=== PATIENT | female | born 1985 | race Caucasian/White ===

== ENCOUNTER 2020-03-03 08:29 | Outpatient (REF) | payer OTHER, SELFPAY ==
[2020-03-04 09:27] LABS: CT PCR NOT DETECTED (Not Detect.); NG PCR NOT DETECTED (Not Detect.)
[2020-03-04 10:01] LABS: BV Int Neg Control Negative (Negative); BV Int Pos Control Positive (Positive)
[2020-03-05 21:37] LABS: HPV mRNA E6/E7 Not Detected (Not Detected)
== END 2020-03-03 08:30 | disposition home or self-care (01) ==
LOC: HO.LAB 08:29
PROVIDERS: PCP Internal Medicine; Referring Provider Internal Medicine; Visit Provider Obstetrics & Gynecology
DX: Z01.419 Encounter for gynecological examination (general) (routine) without abnormal findings (principal); Z11.51 Encounter for screening for human papillomavirus (HPV); Z11.3 Encounter for screening for infections with a predominantly sexual mode of transmission; Z23 Encounter for immunization
CPT/HCPCS: 87480; 87491; 87510; 87591; 87624; 87625; 87660; 88142

== ENCOUNTER 2020-03-14 16:52 | Outpatient (REF) | payer OTHER, SELFPAY | END 2020-03-14 16:53 | disposition home or self-care (01) | LOC: HO.LNP 16:52 | PROVIDERS: Visit Provider Hospitalist | DX: Z20.828 Contact with and (suspected) exposure to other viral communicable diseases (principal); B34.9 Viral infection, unspecified | CPT/HCPCS: U0003 ==

== ENCOUNTER 2020-08-28 12:44 | Outpatient (REF) | payer OTHER, SELFPAY ==
[2020-08-29 09:07] LABS: CT PCR NOT DETECTED (Not Detect.); NG PCR NOT DETECTED (Not Detect.)
[2020-08-29 11:00] LABS: BV Int Neg Control Negative (Negative); BV Int Pos Control Positive (Positive)
== END 2020-08-28 12:45 | disposition home or self-care (01) ==
LOC: HO.LAB 12:44
PROVIDERS: PCP Internal Medicine; Visit Provider Advanced Practice Midwife
DX: N76.0 Acute vaginitis (principal); B19.20 Unspecified viral hepatitis C without hepatic coma; F17.210 Nicotine dependence, cigarettes, uncomplicated; Z20.2 Contact with and (suspected) exposure to infections with a predominantly sexual mode of transmission
CPT/HCPCS: 81003; 81025; 87480; 87491; 87510; 87591; 87660; 99212

== ENCOUNTER 2020-09-01 16:12 | Emergency (ER) | payer OTHER, SELFPAY ==
[2020-09-01 16:58] VITALS: BP 122/79; PULSE 80; RESP 18; TEMP 36.6; O2SAT 99; BMI 54.6
[2020-09-01 19:05] VITALS: BP 104/57; PULSE 74; RESP 16; TEMP 36.9; O2SAT 98
--- NOTE | 2020-09-01 19:18 | ED_ITS ---
HPI - General Adult General Chief complaint: General Medical Stated complaint: anxiety, med refill Time Seen by Provider: 09/01/20 16:30 Source: patient Mode of arrival: ambulatory Limitations: no limitations History of Present Illness HPI narrative: 35-year-old female with a past medical history of anxiety here seeking a refill for her Ativan. The patient tells me that she takes Ativan 3 times a day as needed for anxiety. She has been taking this for quite some time. Her medications are filled by her primary care doctor Dr. golden. Patient tells me that she ran out of her medications yesterday. She did call the on-call and is waiting for her medication to be refilled. She tells me that she started to feel tremulous and shaking and became concerned and brought herself to the emergency department. Initially the triage nurse had reported the patient had a syncopal episode but when I asked her about this she tells me that she felt very dizzy and lightheaded and had to sit down because she felt l ruddy she was going to pass out but there was no syncope. Related Data Home Medications Medication Instructions Recorded Confirmed docusate sodium 100 mg capsule 100 mg PO BID cap 08/13/20 escitalopram oxalate 10 mg tablet 10 mg PO DAILY 08/13/20 08/13/20 methadone 10 mg/mL oral concentrate 75 mg PO DAILY ml 08/13/20 08/13/20 polyethylene glycol See Rx Instructions MISCELLANEOUS 08/13/20 08/13/20 .COMPLEX quetiapine 25 mg tablet 25 mg PO DAILY PRN tab 08/13/20 08/13/20 Previous Rx's Medication Instructions Recorded buspirone 5 mg tablet 5 mg PO TID 30 Days #90 tab 02/21/20 bupropion HCl 300 mg 24 hr tablet, 300 mg PO QAM 30 Days #30 tab 07/31/20 extended release gabapentin 800 mg tablet 800 mg PO TID 30 Days #90 tab 07/31/20 prazosin 2 mg capsule 4 mg PO BEDTIME 30 Days #60 cap 07/31/20 quetiapine 400 mg tablet 400 mg PO BEDTIME 30 Days #30 tab 07/31/20 lorazepam 2 mg tablet 2 mg PO TID PRN 30 Days #90 tab 09/01/20 Allergies Allergy/AdvReac Type Severity Reaction Status Date / Time No Known Allergies Allergy Verified 08/28/20 12:59 [No Known Allergies*] Review of Systems Review of Systems: Yes all other systems are reviewed and are negative Constitutional: Constitutional: Reports no additional constitutional complaints, Denies body ache(s), Denies chills, Denies fever(s), Denies headache(s) and Denies weakness Eyes: Eyes: Reports no additional eye complaints and Denies change in vision ENT: Reports system reviewed and no additional complaints, except as documented, Reports dizziness, Denies headache(s), Denies nasal congestion, Denies nasal discharge and Denies neck pain Cardiovascular: Cardiovascular: Reports no additional cardiovascular complaints, Denies chest pain, Denies leg edema and Denies dyspnea Respiratory: Respiratory: Reports no additional respiratory complaints, Denies cough and Denies dyspnea Gastrointestinal: Gastrointestinal: Reports no additional gastrointestinal complaints, Denies abdominal pain, Denies diarrhea, Denies nausea and Denies vomiting Genitourinary: Genitourinary: Reports no additional female genitourinary complaints and Denies urinary incontinence Musculoskeletal: Musculoskeletal: Reports no additional musculoskeletal complaints, Denies back pain, Denies arthralgias, Denies joint swelling, Denies neck pain, Denies numbness and Denies tingling Integumentary/Breasts: Skin/Breast: Reports system reviewed and no additional complaints, except as docu and Denies rash Neurologic: Reports system reviewed and no additional complaints, except as documented, Denies Abnormal speech present, Reports dizziness, Denies headache(s), Denies numbness, Denies tingling and Denies weakness PMFSH Past Medical History Attestation statement: The following information was validated with the patient. Source: old records reviewed and nursing notes reviewed Medical History Anxiety Bipolar depression Fatigue Hip pain, bilateral History of anxiety History of depression Hx of hepatitis C Muscle twitching Positive hepatitis C antibody test Right hand pain Smoker Type 2 diabetes mellitus Vision impairment Family History Family History Father Diabetes Cancer HTN (hypertension) Social History Social History Alcohol intake: former Smoking Status: Current every day smoker Tobacco Type: Cigarette Cigarettes Per Day: 2 Years Smoked: 13 Use of substances other than those prescribed or required for medical reasons: No Advance Directives: No Advance Directives Information Provided: Yes Sexual orientation: Straight/Heterosexual Gender identity: female Physical Exam Vital Signs: Vital Signs: Last Vital Signs Temp 98.5 F 09/01/20 19:05 Pulse 74 09/01/20 19:05 Resp 16 09/01/20 19:05 BP 104/57 L 09/01/20 19:05 Pulse Ox 98 09/01/20 19:05 Body Mass Index 54.6 Const: General: cooperative, healthy appearing, comfortable and no acute distress Orientation/consciousness: patient oriented x3 Limitations: no limitations HENMT: Head: Yes normal to inspection Ears: hearing grossly normal bilaterally General nose exam: Normal external nose present Face and sinus: Yes normal facial exam Mouth: Normal oral and palatal mucosa present Throat: Yes posterior oropharynx normal Eyes: General: appearance normal, both eyes and all related structures Pupils: Equal, round and reactive pupils present Neck: Neck: Yes normal visual inspection Chest: Chest palpation & inspection: normal inspection of the chest Resp: Effort & Inspection: normal respiratory effort Auscultation: clear to auscultation bilaterally Cardio: Rate: regular rate Rhythm: regular rhythm Peripheral pulses: Peripheral pulses 2+ throughout GI: Inspection: Yes normal to inspection Palpation (GI): Soft to palpation and nontender Auscultation: normal bowel sounds Back/Spine/Pelvis: Thoracic/Lumbar Spine: thoracic and lumbar spine normal to inspection Skin: General skin exam: no rashes or lesions noted Neuro: General: patient oriented x3, no focal motor deficits and normal sensation to monofilament Cranial nerves: Yes Equal, round and reactive pupils present Cognition (Neuro): normal cognition Speech: No Abnormal speech present Gait exam (Neuro): Normal gait present Motor exam (neuro): 5/5 motor strength present throughout Extrem: General: Yes normal to inspection Course Course Course Narrative: 35-year-old female with a past medical history of anxiety here seeking a refill for her Ativan. She tells me that she last took her dose yesterday and today felt slightly tremulous and dizzy when she changed positions. Hemodynamically stable. Normal neuro exam. Stable vital signs. I called the patient's pharmacy [facility]. They tell me they have a refill they are waiting for the patient. I did explain this to her. 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 Reviewed worrisome signs and symptoms and when to return to the emergency department. Comfortable discharge home. Discharge Plan Discharge Clinical Impression: Anxiety Patient Disposition: Home, Self-Care Instructions: Anxiety (ED) Additional Instructions: Go to [facility] on [facility]. They have your prescription waiting for you Prescriptions: No Action buspirone 5 mg tablet 5 mg PO TID 30 Days Qty: 90 RF: 1 gabapentin 800 mg tablet 800 mg PO TID 30 Days Qty: 90 RF: 1 prazosin 2 mg capsule 4 mg PO BEDTIME 30 Days Qty: 60 RF: 1 quetiapine 400 mg tablet 400 mg PO BEDTIME 30 Days Qty: 30 RF: 1 bupropion HCl 300 mg tablet extended release 24 hr 300 mg PO QAM 30 Days Qty: 30 RF: 0 lorazepam 2 mg tablet 2 mg PO TID PRN (Reason: anxiety) 30 Days Qty: 90 RF: 0 escitalopram oxalate 10 mg tablet 10 mg PO DAILY RF: 0 quetiapine 25 mg tablet 25 mg PO DAILY PRN (Reason: anxiety) RF: 0 docusate sodium 100 mg capsule 100 mg PO BID RF: 0 polyethylene glycol Powder See Rx Instructions miscellaneous .COMPLEX RF: 0 methadone 10 mg/mL concentrate 75 mg PO DAILY RF: 0 Referrals: Quinton Lopez MD [Primary Care Provider] - 2 days (as needed) Interventions: ED Discharge Assessment Last Done: 09/01/20 19:30 Discharge Date/Time: 09/01/20 19:31
[2020-09-01] MEDS: LORazepam 1 MG TABLET 2 MG PO (19:24)
== END 2020-09-01 19:31 | disposition home or self-care (01) ==
PROVIDERS: Emergency Provider Emergency Medicine; PCP Internal Medicine
DX: F41.9 Anxiety disorder, unspecified (principal); F17.210 Nicotine dependence, cigarettes, uncomplicated; F11.20 Opioid dependence, uncomplicated; Z86.19 Personal history of other infectious and parasitic diseases
CPT/HCPCS: 99283; 99284

== ENCOUNTER → 2021-09-10 12:50 | Outpatient (REF) | payer OTHER, SELFPAY ==
--- NOTE | 2021-09-10 12:57 | ECG_ITS ---
Test Reason : F19.11 Blood Pressure : / mmHG Vent. Rate : 087 BPM Atrial Rate : 087 BPM P-R Int : 146 ms QRS Dur : 094 ms QT Int : 396 ms P-R-T Axes : 054 057 058 degrees QTc Int : 476 ms Normal sinus rhythm Incomplete right bundle branch block Nonspecific T wave abnormality Prolonged QT Abnormal ECG When compared with ECG of 30-JUL-2019 20:39, No significant change was found Referred By: Quinton Lopez Electronically Signed By:ANDREA BELTRAN
== END ==
LOC: HO.CARD 12:50
PROVIDERS: PCP Internal Medicine; Visit Provider Internal Medicine
DX: F19.11 Other psychoactive substance abuse, in remission (principal); Z51.81 Encounter for therapeutic drug level monitoring
CPT/HCPCS: 93005

== ENCOUNTER 2021-10-09 10:48 | Outpatient (REF) | payer OTHER, SELFPAY ==
--- NOTE | 2021-10-09 15:17 | PFT_ITS ---
FLOWS: FEV1 105% of predicted at 3.20 L. FVC 101% of predicted at 3.67 L. FEV1 to FVC ratio of 0.87. No bronchodilator response. LUNG VOLUMES: Total lung capacity 86% of predicted at 4.22 L. Residual volume 48% of predicted at 0.70 L. Slow vital capacity 101% of predicted at 3.53 L. Expiratory reserve volume 84% of predicted. Diffusion capacity is mildly decreased. IMPRESSION: No obstructive or restrictive ventilatory defect. No bronchodilator response. Decreased diffusion capacity suggests emphysema. MD CHYNA Vernon/MODL / [id number]
== END 2021-10-09 10:49 | disposition home or self-care (01) ==
LOC: HO.RESP 10:48
PROVIDERS: PCP Internal Medicine; Visit Provider Internal Medicine
DX: R06.00 Dyspnea, unspecified (principal)
CPT/HCPCS: 94060; 94727; 94729

== ENCOUNTER 2022-01-20 15:02 | Outpatient (REF) | payer OTHER, SELFPAY ==
[2022-01-22 03:05] LABS: CT PCR NOT DETECTED (Not Detect.); NG PCR NOT DETECTED (Not Detect.)
[2022-01-22 08:42] LABS: BV Int Neg Control Negative (Negative); BV Int Pos Control Positive (Positive)
== END 2022-01-20 15:03 | disposition home or self-care (01) ==
LOC: HO.LNP 15:02
PROVIDERS: Visit Provider Advanced Practice Midwife
DX: Z11.3 Encounter for screening for infections with a predominantly sexual mode of transmission (principal); Z20.2 Contact with and (suspected) exposure to infections with a predominantly sexual mode of transmission
CPT/HCPCS: 87480; 87491; 87510; 87591; 87660

== ENCOUNTER 2022-01-20 15:02 | Outpatient (REF) | payer OTHER, SELFPAY ==
[2022-01-29 03:51] LABS: HPV mRNA E6/E7 rflx Not Detected (Not Detected)
== END 2022-01-20 15:03 | disposition home or self-care (01) ==
LOC: HO.LNP 15:02
PROVIDERS: PCP Internal Medicine; Visit Provider Advanced Practice Midwife
DX: Z01.411 Encounter for gynecological examination (general) (routine) with abnormal findings (principal); Z11.51 Encounter for screening for human papillomavirus (HPV); N92.6 Irregular menstruation, unspecified
CPT/HCPCS: 81025; 87624; 88142

== ENCOUNTER 2022-02-04 11:53 | Outpatient (REF) | payer OTHER, SELFPAY ==
--- NOTE | ~2022-02-04 | XR_ITS ---
EXAMINATION: BILATERAL HIP X-RAY CLINICAL INFORMATION: Bilateral hip pain COMPARISON: None TECHNIQUE: 2 views of each hip FINDINGS: Bone alignment is normal. No fracture or dislocation is seen. The hip joints are normal. Soft tissues are normal. XR/XR hip RT min 2V IMPRESSION: Unremarkable exam.
--- NOTE | ~2022-02-04 | XR_ITS ---
EXAMINATION: BILATERAL HIP X-RAY CLINICAL INFORMATION: Bilateral hip pain COMPARISON: None TECHNIQUE: 2 views of each hip FINDINGS: Bone alignment is normal. No fracture or dislocation is seen. The hip joints are normal. Soft tissues are normal. XR/XR hip LT min 2V IMPRESSION: Unremarkable exam.
--- NOTE | ~2022-02-04 | XR_ITS ---
EXAMINATION: XR ABDOMEN COMPLETE CLINICAL INDICATION: Abdominal distention COMPARISON: None TECHNIQUE: 2 views of the abdomen. FINDINGS: There is stool throughout the colon suggestive of mild constipation. There are no dilated loops of bowel to suggest obstruction. There is no evidence of free air. There are pelvic calcifications suggestive of calcified phleboliths. Bony structures are unremarkable. XR/XR abdomen 3V IMPRESSION: Stool in the colon suggestive of constipation.
[2022-02-04 12:36] LABS: MANUAL DIFF FLAG NO
[2022-02-04 12:53] LABS: Basophils Percent Auto 0.5 % (0-2); Eosinophils Absolute Auto 0.1 X10*3/uL (0.0-0.4); Eosinophils Percent Auto 2.2 % (0-4); Hematocrit 32.4 % (37.0-47.0); Lymphocytes Absolute Auto 1.7 X10*3/uL (1.2-4.9); Lymphocytes Percent Auto 46.9 % (20-40); Mean Corpuscular Hemoglobin 29.2 pg (27.0-33.0); Mean Corpuscular Volume 85.9 fL (80.0-98.0); Monocytes Absolute Auto 0.3 X10*3/uL (0.1-1.2); Neutrophils Absolute Auto 1.5 x10*3/uL (2.0-8.3); Neutrophils Percent Auto 41.4 % (45-73); Platelet Count 154 X10*3/uL (160-400); Red Blood Count 3.77 X10*6/uL (4.20-5.50); Red Cell Distribution Width 12.8 % (11.0-16.0); White Blood Count 3.7 X10*3/uL (4.8-10.8)
[2022-02-04 12:54] LABS: Hematocrit 32.5 % (37.0-47.0); Hemoglobin 11.1 g/dl (12.0-16.0); Mean Corpuscular HGB Conc 34.2 g/dl (31.0-35.0); Mean Corpuscular Hemoglobin 29.4 pg (27.0-33.0); Mean Corpuscular Volume 86.2 fL (80.0-98.0); Mean Platelet Volume 10.2 fL (9.4-12.3); Platelet Count 154 X10*3/uL (160-400); Red Blood Count 3.77 X10*6/uL (4.20-5.50); Red Cell Distribution Width 12.8 % (11.0-16.0); White Blood Count 3.7 X10*3/uL (4.8-10.8)
[2022-02-04 13:13] LABS: Estimated Average Glucose 117 mg/dL; Hemoglobin A1c % 5.7 %
[2022-02-04 13:25] LABS: Alanine Aminotransferase 91 U/L (0-31); Albumin Level 4.5 g/dL (3.5-5.0); Alkaline Phosphatase 134 U/L (39-117); Anion Gap 16 (12-20); Aspartate Amino Transferase 66 U/L (5-31); Bilirubin Total 0.4 mg/dL (0.0-1.0); Blood Urea Nitrogen 15 mg/dL (9-16); Calcium 9.5 mg/dL (8.4-10.2); Carbon Dioxide 25 mmol/L (22-29); Chloride 103 mmol/L (96-108); Cholesterol 202 mg/dL; Estimated Glomerular Filt Rate > 60; Glucose Fasting 94 mg/dL (60-99); HDL Cholesterol 35 mg/dL; Potassium 4.5 mmol/L (3.3-5.1); Sodium 139 mmol/L (135-145); Total Protein 7.8 g/dL (6.5-8.0); Triglycerides 461 mg/dL
[2022-02-04 13:38] LABS: TSH reflex Free T4 0.96 uIU/mL (0.32-4.0); Vitamin D 25-OH Total 21.2 ng/mL (>30)
[2022-02-04 13:40] LABS: Free T4 (Free Thyroxine) 0.78 ng/dL (0.71-1.85); Thyroid Stimulating Hormone 0.98 uIU/mL (0.32-4.0)
[2022-02-05 22:43] LABS: DHEA Sulfate 90 mcg/dL (19-237); Follicle Stimulating Hormone 3.7 mIU/mL; Lutenizing Hormone 0.7 mIU/mL; Prolactin 9.7 ng/mL
[2022-02-10 13:42] LABS: Testosterone, Free 1.8 pg/mL (0.1-6.4); Testosterone, Total 11 ng/dL (2-45)
== END 2022-02-04 11:54 | disposition home or self-care (01) ==
LOC: HO.LAB 11:53
PROVIDERS: Advanced Practice Midwife; PCP Internal Medicine; Visit Provider Internal Medicine
DX: R10.9 Unspecified abdominal pain (principal); R63.5 Abnormal weight gain; R73.01 Impaired fasting glucose; E55.9 Vitamin D deficiency, unspecified; N91.1 Secondary amenorrhea; R14.0 Abdominal distension (gaseous)
CPT/HCPCS: 36415; 73502; 74021; 80053; 80061; 82306; 82627; 83001; 83002; 83036; 84146; 84402; 84403; 84439; 84443; 85025; 85027

== ENCOUNTER 2022-03-09 10:28 | Outpatient (REF) | payer OTHER, SELFPAY | END 2022-03-09 10:29 | disposition home or self-care (01) | LOC: HO.LNP 10:28 | PROVIDERS: PCP Internal Medicine; Visit Provider Obstetrics & Gynecology | DX: R87.610 Atypical squamous cells of undetermined significance on cytologic smear of cervix (ASC-US) (principal) | CPT/HCPCS: 57454; 88305; 99212 ==

== ENCOUNTER 2022-05-08 13:16 | Emergency (ER) | payer OTHER, SELFPAY ==
[2022-05-08 13:18] VITALS: BP 126/68; PULSE 91; RESP 18; TEMP 36.4; O2SAT 97; BMI 30.6
[2022-05-08 13:37] LABS: MANUAL DIFF FLAG NO
[2022-05-08 13:38] LABS: Basophils Percent Auto 0.2 % (0-2); Eosinophils Absolute Auto 0.1 X10*3/uL (0.0-0.4); Eosinophils Percent Auto 1.7 % (0-4); Hematocrit 35.8 % (37.0-47.0); Hemoglobin 12.1 g/dl (12.0-16.0); Lymphocytes Absolute Auto 1.9 X10*3/uL (1.2-4.9); Lymphocytes Percent Auto 45.7 % (20-40); Mean Corpuscular HGB Conc 33.8 g/dl (31.0-35.0); Mean Corpuscular Hemoglobin 29.2 pg (27.0-33.0); Mean Corpuscular Volume 86.5 fL (80.0-98.0); Mean Platelet Volume 9.8 fL (9.4-12.3); Monocytes Absolute Auto 0.3 X10*3/uL (0.1-1.2); Monocytes Percent Auto 6.7 % (2-11); Neutrophils Absolute Auto 1.9 x10*3/uL (2.0-8.3); Neutrophils Percent Auto 45.7 % (45-73); Platelet Count 168 X10*3/uL (160-400); Red Blood Count 4.14 X10*6/uL (4.20-5.50); Red Cell Distribution Width 12.6 % (11.0-16.0); White Blood Count 4.2 X10*3/uL (4.8-10.8)
[2022-05-08 13:51] LABS: Alanine Aminotransferase 89 U/L (0-31); Albumin Level 4.6 g/dL (3.5-5.0); Alkaline Phosphatase 160 U/L (39-117); Anion Gap 12 (12-20); Aspartate Amino Transferase 51 U/L (5-31); Bilirubin Direct < 0.2 mg/dL (0.0-0.5); Bilirubin Total 0.3 mg/dL (0.0-1.0); Blood Urea Nitrogen 12 mg/dL (9-16); Calcium 9.7 mg/dL (8.4-10.2); Carbon Dioxide 30 mmol/L (22-29); Chloride 101 mmol/L (96-108); Creatinine Clr Calc Pharmacy 83.6; Estimated Glomerular Filt Rate > 60; Glucose Random 98 mg/dL (60-115); Potassium 3.9 mmol/L (3.3-5.1); Sodium 139 mmol/L (135-145); Total Protein 7.6 g/dL (6.5-8.0)
[2022-05-08 14:20] LABS: Lipase 9 U/L (8-78)
[2022-05-08 14:46] LABS: Appearance Urine Clear; Color Urine Yellow; Glucose Urine UA Negative (Negative); Leukocyte Esterase Urine Negative (Negative); Nitrite Urine Negative (Negative); PH 5.5 (5.0-9.0); Urine Blood Negative (Negative); Urine Ketones Negative (Negative); Urine Protein Negative (Neg-Trace)
[2022-05-08 14:52] LABS: UPreg QC Valid YES; Urine Pregnancy NEGATIVE (NEGATIVE)
[2022-05-08 15:24] LABS: Amphetamine Screen Urine Not Detected (Not Detect); Barbiturates, Urine Not Detected (Not Detect); Benzodiazepines Screen Urine Not Detected (Not Detect); Cannabinoid Screen Urine Not Detected (Not Detect); Cocaine Screen Urine POSITIVE (Not Detect); Fentanyl, urine POSITIVE (Not Detect); Opiate Screen Urine POSITIVE (Not Detect); Phencyclidine Screen Urine Not Detected (Not Detect)
--- NOTE | 2022-05-08 15:28 | ED_ITS ---
HPI - Abdominal Pain General Chief Complaint: Abdominal Pain Stated Complaint: stomach issues Time Seen by Provider: 05/08/22 14:01 Source: patient Mode of arrival: ambulatory History of Present Illness HPI narrative: enemas at home. She denies any nausea, vomiting but reports fevers and malaise had this difficulty for months now and that she has been seen by her primary weight gain as well as abdominal distension. use. Related Data Medication Instructions Recorded Confirmed methadone 10 mg/mL oral concentrate 115 mg PO DAILY 02/04/22 02/04/22
--- NOTE | 2022-05-08 15:28 | ED.ABDPAIN ---
HPI - Abdominal Pain General Chief Complaint: Abdominal Pain Stated Complaint: stomach issues Time Seen by Provider: 05/08/22 14:01 Source: patient Mode of arrival: ambulatory History of Present Illness HPI narrative: 37-year-old female who presents with complaints of constipation unrelieved by enemas at home. She denies any nausea, vomiting but reports fevers and malaise and states that she ?just does not feel that?. However, patient states she has had this difficulty for months now and that she has been seen by her primary care provider as well as [facility]. Patient reports ?extreme weight gain as well as abdominal distension. Patient denies any alcohol or drug use. Related Data Home Medications Medication Instructions Recorded Confirmed docusate sodium 100 mg capsule 100 mg PO BID 08/13/20 02/04/22 methadone 10 mg/mL oral concentrate 115 mg PO DAILY 02/04/22 02/04/22 Previous Rx's Medication Instructions Recorded blood-glucose meter (FreeStyle #1 ea 09/11/20 Lite Meter kit) escitalopram oxalate 10 mg tablet 20 mg PO DAILY #60 tabs 03/27/21 [id number]-[id number]-vbhnkego 1 cap PO TID PRN headaches 4 days 06/03/21 50 mg-300 mg-40 mg capsule #12 caps (Fioricet) clotrimazole 1 % topical solution 1 appl topical .QD 30 days #30 mL 09/10/21 quetiapine 25 mg tablet 25 mg PO BID PRN anxiety 30 days 09/22/21 #60 tabs bisacodyl 10 mg rectal suppository 10 mg CA DAILY PRN constipation 10/21/21 (Dulcolax (bisacodyl)) #12 ea nicotine (polacrilex) 4 mg gum 4 mg buccal Q2H PRN nicotine 10/26/21 cravings #110 ea buspirone 5 mg tablet 5 mg PO TID 30 days #90 tabs 01/06/22 polyethylene glycol 3350 17 gram 17 g PO BID PRN constipation 30 01/06/22 oral powder packet days #60 ea quetiapine 400 mg tablet 400 mg PO BEDTIME 30 days #30 tabs 01/06/22 triamcinolone acetonide 0.1 % 1 appl topical BID PRN rash 30 02/12/22 topical cream days #80 grams bupropion HCl 300 mg 24 hr tablet, 300 mg PO QAM 30 days #30 tabs 04/05/22 extended release lorazepam 2 mg tablet 2 mg PO TID PRN anxiety 30 days 04/13/22 #90 tabs gabapentin 800 mg tablet 800 mg PO TID 30 days #90 tabs 05/06/22 prazosin 2 mg capsule 4 mg PO BEDTIME #60 caps 05/07/22 Allergies Allergy/AdvReac Type Severity Reaction Status Date / Time No Known Allergies Allergy Verified 03/09/22 10:33 [No Known Allergies*] Review of Systems Review of Systems Pertinent positives and negatives as stated in HPI 10 point review systems otherwise negative. PMFSH Past Medical History Source: nursing notes reviewed Medical History Anxiety Bipolar depression Constipation Dysplasia of cervix, low grade (SIVAKUMAR 1) Fatigue Hip pain, bilateral History of anxiety History of depression History of substance abuse Hx of hepatitis C Impaired fasting glucose Muscle twitching Obesity (BMI 30-39.9) Overweight (BMI 25.0-29.9) Positive hepatitis C antibody test Right hand pain Smoker Type 2 diabetes mellitus Vision impairment Surgical History No pertinent past surgical history Family History Family History Father Diabetes Cancer HTN (hypertension) Other Mental health problem Substance abuse Social History Social History Housing: Other Housing Other:: correction house Alcohol intake: former Patient Tobacco Use Status: Former Tobacco user Years Smoked: 13 Second Hand Smoke Exposure: Yes Advance Directives: No Advance Directives Information Provided: Yes service: No Current occupational status: unemployed Sexual orientation: Lesbian/[place]/Homosexual Gender identity: Female Cognitive needs: No Hearing needs: No Vision needs: Yes Physical Exam ED Vital Signs: Vital Signs - 24 hr 05/08/22 13:18 Temperature 97.6 F Pulse Rate 91 Respiratory Rate 18 Blood Pressure 126/68 Pulse Oximetry 97 Oxygen Delivery Method Room Air BMI result Body Mass Index 30.6 VITAL SIGNS: Reviewed. GENERAL: Well developed, well nourished, in no acute distress. HEAD: Normocephalic/atraumatic EYES: PERRLA, EOMI EARS: Ext canals without abnormality OROPHARYNX: no oral lesions noted, posterior pharynx clear NECK: Supple, no adenopathy LUNGS: Normal breath sounds. No adventitious sounds or accessory muscle use. SpO2<97> CARDIOVASCULAR: Regular rate and rhythm without noted murmurs ABDOMEN: Soft, non-tender, non-distended with bowel sounds. MUSCULOSKELETAL: No tenderness, deformities, or effusions noted on gross inspection. EXTREMITIES: No cyanosis, clubbing or edema. SKIN: Inspection of the skin reveals no rashes, ulcerations, jaundice, pallor, or petechiae. NEUROLOGIC: Alert and oriented x 4. Strength and sensation to light touch were grossly intact x 4. Medical Decision Making Medical Decision Making [facility] Narrative: 37-year-old female who comes in with chronic abdominal discomfort for months I reviewed all of the laboratory investigations and there is no evidence of acute infection or anemia, the derangement of liver enzymes appears to be attributable to the urine toxicology results. Abdomen is soft and does not appear to be distended and urinalysis is negative for acute findings. Patient is declining KUB at this time for evaluation of constipation, she is hemodynamically stable and there are no other acute findings that would warrant me requiring the patient to sign out against medical advice. So I will give her a regular discharge with a referral to follow-up with gastroenterology to address her concerns regarding chronic constipation. Differential Diagnosis Differential Diagnoses: The differential diagnosis associated with the presentation includes Constipation, infection Lab Data [facility] Lab Attestation statement: I reviewed the patient's lab results. Please see the discussion above regarding laboratory results. Result Diagrams: 05/08/22 13:33 05/08/22 13:33 Labs: Lab Results 05/08/22 05/08/22 05/08/22 Range/Units 13:33 13:33 14:37 WBC 4.2 L (4.8-10.8) X10*3/uL RBC 4.14 L (4.20-5.50) X10*6/uL Hgb 12.1 (12.0-16.0) g/dl Hct 35.8 L (37.0-47.0) % MCV 86.5 (80.0-98.0) fL MCH 29.2 (27.0-33.0) pg MCHC 33.8 (31.0-35.0) g/dl RDW 12.6 (11.0-16.0) % Plt Count 168 (160-400) X10*3/uL MPV 9.8 (9.4-12.3) fL Immature Gran % (Auto) 0.0 (0.0-0.4) % Neut % (Auto) 45.7 (45-73) % Lymph % (Auto) 45.7 H (20-40) % [place] % (Auto) 6.7 (2-11) % Eos % (Auto) 1.7 (0-4) % Baso % (Auto) 0.2 (0-2) % Lymph # (Auto) 1.9 (1.2-4.9) X10*3/uL [place] # (Auto) 0.3 (0.1-1.2) X10*3/uL Eos # (Auto) 0.1 (0.0-0.4) X10*3/uL Baso # (Auto) 0.0 (0.0-0.2) X10*3/uL Abs Immat Gran (auto) 0.00 (0.00-0.03) X10*3/uL Absolute Neuts (auto) 1.9 L (2.0-8.3) x10*3/uL Absolute Nucleated RBC 0.000 (0.0-0.012) X10*3/uL Nucleated RBC % (auto) 0.0 (0.0-0.2) /100WBC Sodium 139 (135-145) mmol/L Potassium 3.9 (3.3-5.1) mmol/L Chloride 101 (96-108) mmol/L Carbon Dioxide 30 H (22-29) mmol/L Anion Gap 12 (12-20) BUN 12 (9-16) mg/dL Creatinine 0.93 (0.5-1.4) mg/dL Estim Creat Clear Calc 83.6 Estimated GFR > 60 Random Glucose 98 (60-115) mg/dL Calcium 9.7 (8.4-10.2) mg/dL Total Bilirubin 0.3 (0.0-1.0) mg/dL Direct Bilirubin < 0.2 (0.0-0.5) mg/dL AST 51 H (5-31) U/L ALT 89 H (0-31) U/L Alkaline Phosphatase 160 H (39-117) U/L Total Protein 7.6 (6.5-8.0) g/dL Albumin 4.6 (3.5-5.0) g/dL Lipase 9 (8-78) U/L Urine Color Yellow Urine Appearance Clear Urine pH 5.5 (5.0-9.0) Ur Specific [place] 1.010 (1.005-1.025) Urine Protein Negative (Neg-Trace) mg/dL Urine Glucose (UA) Negative (Negative) mg/dL Urine Ketones Negative (Negative) mg/dL Urine Blood Negative (Negative) Urine Nitrite Negative (Negative) Ur Leukocyte Esterase Negative (Negative) Urine Test (NEGATIVE) Urine Opiates Screen (Not Detect) Urine Fentanyl Screen (Not Detect) Ur Barbiturates Screen (Not Detect) Ur Phencyclidine Scrn (Not Detect) Ur Amphetamines Screen (Not Detect) U Benzodiazepines Scrn (Not Detect) Urine Cocaine Screen (Not Detect) U Marijuana (THC) Screen (Not Detect) 05/08/22 05/08/22 Range/Units 14:37 14:37 WBC (4.8-10.8) X10*3/uL RBC (4.20-5.50) X10*6/uL Hgb (12.0-16.0) g/dl Hct (37.0-47.0) % MCV (80.0-98.0) fL MCH (27.0-33.0) pg MCHC (31.0-35.0) g/dl RDW (11.0-16.0) % Plt Count (160-400) X10*3/uL MPV (9.4-12.3) fL Immature Gran % (Auto) (0.0-0.4) % Neut % (Auto) (45-73) % Lymph % (Auto) (20-40) % [place] % (Auto) (2-11) % Eos % (Auto) (0-4) % Baso % (Auto) (0-2) % Lymph # (Auto) (1.2-4.9) X10*3/uL [place] # (Auto) (0.1-1.2) X10*3/uL Eos # (Auto) (0.0-0.4) X10*3/uL Baso # (Auto) (0.0-0.2) X10*3/uL Abs Immat Gran (auto) (0.00-0.03) X10*3/uL Absolute Neuts (auto) (2.0-8.3) x10*3/uL Absolute Nucleated RBC (0.0-0.012) X10*3/uL Nucleated RBC % (auto) (0.0-0.2) /100WBC Sodium (135-145) mmol/L Potassium (3.3-5.1) mmol/L Chloride (96-108) mmol/L Carbon Dioxide (22-29) mmol/L Anion Gap (12-20) BUN (9-16) mg/dL Creatinine (0.5-1.4) mg/dL Estim Creat Clear Calc Estimated GFR Random Glucose (60-115) mg/dL Calcium (8.4-10.2) mg/dL Total Bilirubin (0.0-1.0) mg/dL Direct Bilirubin (0.0-0.5) mg/dL AST (5-31) U/L ALT (0-31) U/L Alkaline Phosphatase (39-117) U/L Total Protein (6.5-8.0) g/dL Albumin (3.5-5.0) g/dL Lipase (8-78) U/L Urine Color Urine Appearance Urine pH (5.0-9.0) Ur Specific [place] (1.005-1.025) Urine Protein (Neg-Trace) mg/dL Urine Glucose (UA) (Negative) mg/dL Urine Ketones (Negative) mg/dL Urine Blood (Negative) Urine Nitrite (Negative) Ur Leukocyte Esterase (Negative) Urine Test NEGATIVE (NEGATIVE) Urine Opiates Screen POSITIVE H (Not Detect) Urine Fentanyl Screen POSITIVE H (Not Detect) Ur Barbiturates Screen Not Detected (Not Detect) Ur Phencyclidine Scrn Not Detected (Not Detect) Ur Amphetamines Screen Not Detected (Not Detect) U Benzodiazepines Scrn Not Detected (Not Detect) Urine Cocaine Screen POSITIVE H (Not Detect) U Marijuana (THC) Screen Not Detected (Not Detect) Discharge Plan Discharge Clinical Impression: Abdominal discomfort, Constipation Patient Disposition: Home, Self-Care Instructions: High Fiber Diet (ED), Constipation (ED), Fleet Enema (ED), Abdominal Pain (ED) Additional Instructions: 1. Resume all home medications as prescribed. 2. Please review the information provided for treatment of constipation. 3. You have been provided with a referral to follow-up with gastroenterology. 4. Please follow-up with your primary care provider on Tuesday morning. Return to the ER for worsening symptoms. Prescriptions: No Action (DME) blood-glucose meter [FreeStyle Lite Meter] Kit See Rx Instructions .ROUTE .MEDSUPPLY Qty: 1 0RF Rx Instructions: As directed escitalopram oxalate 10 mg tablet 20 mg PO DAILY Qty: 60 0RF quetiapine 25 mg tablet 25 mg PO BID PRN (Reason: anxiety) 30 Days Qty: 60 1RF bisacodyl [Dulcolax (bisacodyl)] 10 mg suppository 10 mg CA DAILY PRN (Reason: constipation) Qty: 12 2RF nicotine (polacrilex) 4 mg gum 4 mg buccal Q2H PRN (Reason: nicotine cravings) Qty: 110 5RF polyethylene glycol 3350 17 gram powder in packet 17 g PO BID PRN (Reason: constipation) 30 Days Qty: 60 5RF buspirone 5 mg tablet 5 mg PO TID 30 Days Qty: 90 1RF quetiapine 400 mg tablet 400 mg PO BEDTIME 30 Days Qty: 30 1RF triamcinolone acetonide 0.1 % cream 1 appl topical BID PRN (Reason: rash) 30 Days Qty: 80 0RF bupropion HCl 300 mg tablet extended release 24 hr 300 mg PO QAM 30 Days Qty: 30 1RF lorazepam 2 mg tablet 2 mg PO TID PRN (Reason: anxiety) 30 Days Qty: 90 0RF gabapentin 800 mg tablet 800 mg PO TID 30 Days Qty: 90 0RF prazosin 2 mg capsule 4 mg PO BEDTIME Qty: 60 0RF docusate sodium 100 mg capsule 100 mg PO BID methadone 10 mg/mL concentrate 115 mg PO DAILY Rx Instructions: Methadone program ([facility] in [place]) [id number]-[id number] [Fioricet] 50-300-40 mg capsule 1 cap PO TID PRN (Reason: headaches) 4 Days Qty: 12 0RF clotrimazole 1 % solution 1 appl topical .QD 30 Days Qty: 30 5RF Referrals: Quinton Lopez MD [Primary Care Provider] - Janet Rodriguez MD [Physician] - (Patient with chronic constipation and states enemas are not working.)
== END 2022-05-08 16:03 | disposition home or self-care (01) ==
PROVIDERS: Emergency Provider Student in an Organized Health Care Education/Training Program; PCP Internal Medicine
DX: R10.9 Unspecified abdominal pain (principal); K59.00 Constipation, unspecified
CPT/HCPCS: 36415; 80053; 80307; 81003; 81025; 82248; 83690; 85025; 99282; 99283

== ENCOUNTER 2022-05-13 15:32 | Emergency (ER) | payer OTHER, SELFPAY ==
--- NOTE | ~2022-05-13 | CT_ITS ---
EXAMINATION: CT ABDOMEN AND PELVIS WITH CONTRAST CLINICAL INFORMATION: Abdominal pain no bowel movement. Evaluate for small bowel obstruction COMPARISON: X-ray of the abdomen January 2022 TECHNIQUE: Multidetector volumetric images were obtained from the superior aspect of the liver through the pubic symphysis following administration 85 mL of Omnipaque 350 intravenous contrast. Sagittal and coronal reformatted images were obtained on the technologist's workstation. Oral contrast: No This CT examination was performed using dose optimization techniques as appropriate, variously including the following: *Automated exposure control *Adjustment of mA and/or kV according to patient size (this includes techniques or standardized protocols for targeted exams where dose is matched to indication/reason for exam; i.e. extremities or head) *Use of iterative reconstruction technique DLP: 550 mGy-cm FINDINGS: LUNG BASES: The visualized lung bases are unremarkable. LIVER, GALLBLADDER, AND BILIARY TREE: The liver is normal in size and shape without focal lesions. The distal common bile duct is prominent measuring up to 1 cm. Minimal if any intrahepatic ductal dilatation No stone identified. The gallbladder is unremarkable with no evidence of radiopaque gallstones, gallbladder wall thickening, or obvious pericholecystic inflammatory changes. PANCREAS: Unremarkable. SPLEEN: Unremarkable. ADRENAL GLANDS: Unremarkable. KIDNEYS AND URETERS: The kidneys are normal in size, shape, and attenuation. No hydronephrosis, hydroureter, or calculi seen. No perinephric stranding. BLADDER: Unremarkable. GASTROINTESTINAL TRACT: The small and large bowel are unremarkable. Appendix is not visualized. However no inflammatory changes in the expected region of the appendix stomach normal. ABDOMINAL WALL: No significant hernia is appreciated. LYMPH NODES: Normal. VASCULAR: Unremarkable. PELVIC VISCERA: Unremarkable. OSSEOUS STRUCTURES: Unremarkable. CT/CT abdomen pelvis w IV con IMPRESSION: 1. No evidence for bowel obstruction. 2. Mild prominence of the common bile duct of uncertain significance or etiology. Minimal if any intrahepatic biliary dilatation No stone identified. Correlate with liver function tests. Fleischner guidelines were followed.
[2022-05-13 15:40] VITALS: BP 110/41; PULSE 82; RESP 16; O2SAT 97; BMI 30.1
--- NOTE | 2022-05-13 15:40 | ED_ITS ---
HPI - Abdominal Pain General Chief Complaint: Abdominal Pain <Sandhya Brice NP - Last Filed: 05/13/22 15:44> Stated Complaint: abd pain ?constipation <Sandhya Brice NP - Last Filed: 05/13/22 15:44> Time Seen by Provider: 05/13/22 20:31 <Sandhya Brice NP - Last Filed: 05/13/22 15:44> Source: patient <CINDY Fairchild - Last Filed: 05/13/22 23:26> Mode of arrival: ambulatory <CINDY Fairchild - Last Filed: 05/13/22 23:26> Limitations: no limitations <CINDY Fairchild - Last Filed: 05/13/22 23:26> History of Present Illness HPI narrative: This is a 37-year-old female hx of hep c, dm presenting to the emergency department with acute on chronic constipation, nausea, vomiting, abdominal distension and abdominal pain. Patient tells me the symptoms have been going on intermittently for the past 6 months worsening over the past few days. Patient tells me up to this morning she had not had a bowel movement in 5 days, she tells me that this morning she had a very small bowel movement that was very hard, had blood streaks in it, and a lot of mucus. Patient is supposed to follow-up with GI in June however has not seen them since. Patient tells me her abdomen is very distended to the point where people are asking her if she is . Still passing gas. Patient reports she is not able to keep anything down by mouth over the past few days everything she tries to eat lately she throws up. She denies any previous abdominal surgeries, no history of cancer, no history of small or large bowel obstruction. Reports subjective fevers and chills. Denies chest pain, shortness of breath, headache, vision changes, dizziness, weakness. <CINDY Fairchild Last Filed: 05/13/22 23:26> Related Data Home Medications: Home Medications Medication Instructions Recorded Confirmed docusate sodium 100 mg capsule 100 mg PO BID 08/13/20 02/04/22 methadone 10 mg/mL oral concentrate 115 mg PO DAILY 02/04/22 02/04/22 Previous Rx's Medication Instructions Recorded blood-glucose meter (FreeStyle #1 ea 09/11/20 Lite Meter kit) taxfxinfrn-[id number]-jcoknrnz 1 cap PO TID PRN headaches 4 days 06/03/21 50 mg-300 mg-40 mg capsule #12 caps (Fioricet) clotrimazole 1 % topical solution 1 appl topical .QD 30 days #30 mL 09/10/21 quetiapine 25 mg tablet 25 mg PO BID PRN anxiety 30 days 09/22/21 #60 tabs bisacodyl 10 mg rectal suppository 10 mg SD DAILY PRN constipation 10/21/21 (Dulcolax (bisacodyl)) #12 ea nicotine (polacrilex) 4 mg gum 4 mg buccal Q2H PRN nicotine 10/26/21 cravings #110 ea polyethylene glycol 3350 17 gram 17 g PO BID PRN constipation 30 01/06/22 oral powder packet days #60 ea triamcinolone acetonide 0.1 % 1 appl topical BID PRN rash 30 02/12/22 topical cream days #80 grams bupropion HCl 300 mg 24 hr tablet, 300 mg PO QAM 30 days #30 tabs 04/05/22 extended release gabapentin 800 mg tablet 800 mg PO TID 30 days #90 tabs 05/06/22 buspirone 5 mg tablet 5 mg PO TID 30 days #90 tabs 05/11/22 escitalopram oxalate 10 mg tablet 20 mg PO DAILY #60 tabs 05/11/22 lorazepam 2 mg tablet 2 mg PO TID PRN anxiety 30 days 05/11/22 #90 tabs prazosin 2 mg capsule 4 mg PO BEDTIME #60 caps 05/11/22 docusate sodium 100 mg capsule 100 mg PO BID #20 caps 05/13/22 (Colace) polyethylene glycol 3350 17 17 g PO BID PRN constipation #238 05/13/22 gram/dose oral powder (Miralax) grams quetiapine 400 mg tablet 400 mg PO BEDTIME 30 days #30 tabs 05/13/22 sennosides 8.6 mg tablet (senna) 8.6 mg PO BEDTIME #14 tabs 05/13/22 <Sandhya Brice NP - Last Filed: 05/13/22 15:44> Allergies/Adverse Reactions: Allergies Allergy/AdvReac Type Severity Reaction Status Date / Time No Known Allergies Allergy Verified 03/09/22 10:33 [No Known Allergies*] <Sandhya Brice NP - Last Filed: 05/13/22 15:44> Review of Systems Review of Systems Constitutional : No Weight loss, No Fever, No Chills, No Fatigue, No Malaise ENT/Mouth : No sore throat, No Rhinorrhea Eyes: No Eye Pain, No Swelling, No Redness Cardiovascular : No Chest Pain, No SOB, No Dyspnea on Exertion, No Orthopnea, No Edema, No Palpitations Respiratory : No Cough, No Sputum, No Wheezing Gastrointestinal : + Nausea, + Vomiting, No Diarrhea, + Constipation, + abdominal Pain, No Hematochezia, No Melena Genitourinary : No Dysuria, No Urinary Frequency, No Hematuria, Musculoskeletal : No joint pain, No Myalgias, No Joint Swelling Skin : No Skin Lesions, No rash Neuro : No Weakness, No Numbness, No Dizziness, No Headache Psych : No Anxiety/Panic, No Depression All other systems reviewed and are negative <CINDY Fairchild - Last Filed: 05/13/22 23:26> Yes all other systems are reviewed and are negative <CINDY Fairchild - Last Filed: 05/13/22 23:26> [facility] Past Medical History Attestation statement: The following information was validated with the patient. <CINDY Fairchild - Last Filed: 05/13/22 23:26> Source: old records reviewed and nursing notes reviewed <CINDY Fairchild - Last Filed: 05/13/22 23:26> Medical History: Medical History Anxiety Bipolar depression Constipation Dysplasia of cervix, low grade (SIVAKUMAR 1) Fatigue Hip pain, bilateral History of anxiety History of depression History of substance abuse Hx of hepatitis C Impaired fasting glucose Muscle twitching Obesity (BMI 30-39.9) Overweight (BMI 25.0-29.9) Positive hepatitis C antibody test Right hand pain Smoker Type 2 diabetes mellitus Vision impairment <Sandhya Brice NP - Last Filed: 05/13/22 15:44> Surgical History: Surgical History No pertinent past surgical history <Sandhya Brice NP - Last Filed: 05/13/22 15:44> Family History Family History: Family History Father Diabetes Cancer HTN (hypertension) Other Mental health problem Substance abuse <Sandhya Brcie NP - Last Filed: 05/13/22 15:44> Social History Social History: Social History Housing: Other Housing Other:: long-term house Alcohol intake: former Patient Tobacco Use Status: Former Tobacco user Years Smoked: 13 Second Hand Smoke Exposure: Yes Advance Directives: No Advance Directives Information Provided: No service: No Current occupational status: unemployed Sexual orientation: Lesbian/[place]/Homosexual Gender identity: Female Cognitive needs: No Hearing needs: No Vision needs: Yes <Sandhya Brice NP - Last Filed: 05/13/22 15:44> Physical Exam ED Vital Signs: Vital Signs - 24 hr 05/13/22 15:40 05/13/22 20:22 Temperature 97.6 F Pulse Rate 82 91 Respiratory Rate 16 16 Blood Pressure 110/41 L 102/49 L Pulse Oximetry 97 96 Oxygen Delivery Method Room Air Room Air BMI result Body Mass Index 30.1 <Sandhya Brice NP - Last Filed: 05/13/22 15:44> Vital Signs - 24 hr 05/13/22 15:40 05/13/22 20:22 Temperature 97.6 F Pulse Rate 82 91 Respiratory Rate 16 16 Blood Pressure 110/41 L 102/49 L Pulse Oximetry 97 96 Oxygen Delivery Method Room Air Room Air BMI result Body Mass Index 30.1 vss <CINDY Fairchild - Last Filed: 05/13/22 23:26> Appearance: Alert.? Oriented X3.? No acute distress.? Head: Normocephalic, atraumatic, no step-offs or deformities Eyes: Pupils equal, round and reactive to light.? ENT: Pharynx normal.? Neck: Normal inspection.? Neck supple.? CVS: Normal heart rate and rhythm.? Pulses normal.? Respiratory: No respiratory distress.? Breath sounds normal.? Abdomen: Soft, distended and diffusely tender. With hypoactive bowel sounds throughout. Skin: Skin warm and dry.? Normal skin color.? Normal skin turgor.? Extremities: No lower extremity edema.? No calf ttp. 5/5 strength to bilateral upper and lower extremities Back: No midline tenderness, no C-spine tenderness, full range of motion, no CVA tenderness bilaterally Neuro: Oriented X 3.? No motor deficit.? No sensory deficit. CN 2-12 intact <CINDY Fairchild - Last Filed: 05/13/22 23:26> Course Course Course Narrative: This is rapid medical exam. Deferred additional HPI, ROS, PE to primary provider. 37 yo female here with chronic abdominal pain >6 months with intermittent constipation/nausea/vomiting. Seen here for 05/08 and recommended to follow-up with GI. Patient has appt with GI in June. Will check labs, UA, testing for flu/covid/rsv. VSS <Sandhya Brice NP - Last Filed: 05/13/22 15:44> Reevaluation(s) Reevaluation #1: CBC appears to be around patient's baseline. Chemistry with no acute findings requiring intervention. Normal lipase. UA clean. Urine negative. CT of the abdomen and pelvis with no evidence of bowel obstruction. Mild predominance of the common bile duct of uncertain significance or etiology however patient does not complain of right upper quadrant pain particularly, she has a negative Alan sign on exam. Liver test appear to be at baseline. Patient given bowel regimen and given GoLYTELY as we do not have magnesium citrate in the hospital (pharmacy recommended Golytely as alternative). <CINDY Fairchild - Last Filed: 05/13/22 23:26> Time: 23:20 <CINDY Fairchild - Last Filed: 05/13/22 23:26> Reevaluation #2: Patient will be discharged home. Advised return if she does not have a bowel movement a day or 2. Advised her to follow-up with GI. Educated patient on diagnosis and treatment plan, answered all question, patient verbalizes understanding. At this time patient will be discharged home, advised to return with new or worsening symptoms. Educated on worrisome signs and symptoms and when to return. At this time I feel comfortable discharge home. <CINDY Fairchild - Last Filed: 05/13/22 23:26> Time: 23:23 <CINDY Fairchild - Last Filed: 05/13/22 23:26> Medical Decision Making Medical Decision Making [facility] Narrative: 2119 37-year-old presents with abdominal distension, nausea, vomiting, constipation ongoing for a few months worsening over the past few days. Physical examination with soft, distended abdomen with hypoactive bowel sounds throughout in diffusely tender. Concerns for slow transit constipation versus small-bowel obstruction versus large bowel obstruction. Unlikely peritonitis or acute abdomen. Constipation c ould also be secondary to methadone. Plan at this time labs, imaging. Will give Colace, dulcolax, soapsuds enema. <CINDY Fairchild - Last Filed: 05/13/22 23:26> Lab Data Result Diagrams: : 05/13/22 16:15 05/13/22 16:15 <Sandhya Brice NP - Last Filed: 05/13/22 15:44> Labs: Lab Results 05/13/22 05/13/22 05/13/22 Range/Units 16:15 16:15 16:15 WBC 4.0 L (4.8-10.8) X10*3/uL RBC 4.51 (4.20-5.50) X10*6/uL Hgb 13.2 (12.0-16.0) g/dl Hct 39.3 (37.0-47.0) % MCV 87.1 (80.0-98.0) fL MCH 29.3 (27.0-33.0) pg MCHC 33.6 (31.0-35.0) g/dl RDW 12.5 (11.0-16.0) % Plt Count 164 (160-400) X10*3/uL MPV 10.0 (9.4-12.3) fL Immature Gran % (Auto) 0.3 (0.0-0.4) % Neut % (Auto) 49.1 (45-73) % Lymph % (Auto) 42.2 H (20-40) % [place] % (Auto) 6.1 (2-11) % Eos % (Auto) 2.0 (0-4) % Baso % (Auto) 0.3 (0-2) % Lymph # (Auto) 1.7 (1.2-4.9) X10*3/uL [place] # (Auto) 0.2 (0.1-1.2) X10*3/uL Eos # (Auto) 0.1 (0.0-0.4) X10*3/uL Baso # (Auto) 0.0 (0.0-0.2) X10*3/uL Abs Immat Gran (auto) 0.01 (0.00-0.03) X10*3/uL Absolute Neuts (auto) 2.0 (2.0-8.3) x10*3/uL Absolute Nucleated RBC 0.000 (0.0-0.012) X10*3/uL Nucleated RBC % (auto) 0.0 (0.0-0.2) /100WBC Sodium 141 (135-145) mmol/L Potassium 4.7 D (3.3-5.1) mmol/L Chloride 102 (96-108) mmol/L Carbon Dioxide 32 H (22-29) mmol/L Anion Gap 12 (12-20) BUN 11 (9-16) mg/dL Creatinine 1.05 (0.5-1.4) mg/dL Estim Creat Clear Calc 73.5 Estimated GFR 60 Random Glucose 100 (60-115) mg/dL Calcium 10.2 (8.4-10.2) mg/dL Total Bilirubin 0.4 (0.0-1.0) mg/dL Direct Bilirubin < 0.2 (0.0-0.5) mg/dL AST 41 H (5-31) U/L ALT 66 H (0-31) U/L Alkaline Phosphatase 156 H (39-117) U/L Total Protein 8.0 (6.5-8.0) g/dL Albumin 4.6 (3.5-5.0) g/dL Lipase 24 (8-78) U/L Urine Color Urine Appearance Urine pH (5.0-9.0) Ur Specific Mcall[place] (1.005-1.025) Urine Protein (Neg-Trace) mg/dL Urine Glucose (UA) (Negative) mg/dL Urine Ketones (Negative) mg/dL Urine Blood (Negative) Urine Nitrite (Negative) Ur Leukocyte Esterase (Negative) Urine Test (NEGATIVE) Influenza Type A (PCR) NEGATIVE (Negative) Influenza Type B (PCR) NEGATIVE (Negative) RSV RNA Qual (PCR) NEGATIVE (Negative) SARS-CoV-2 RNA (RT-PCR) NEGATIVE (Negative) 05/13/22 05/13/22 Range/Units 16:15 16:15 WBC (4.8-10.8) X10*3/uL RBC (4.20-5.50) X10*6/uL Hgb (12.0-16.0) g/dl Hct (37.0-47.0) % MCV (80.0-98.0) fL MCH (27.0-33.0) pg MCHC (31.0-35.0) g/dl RDW (11.0-16.0) % Plt Count (160-400) X10*3/uL MPV (9.4-12.3) fL Immature Gran % (Auto) (0.0-0.4) % Neut % (Auto) (45-73) % Lymph % (Auto) (20-40) % [place] % (Auto) (2-11) % Eos % (Auto) (0-4) % Baso % (Auto) (0-2) % Lymph # (Auto) (1.2-4.9) X10*3/uL [place] # (Auto) (0.1-1.2) X10*3/uL Eos # (Auto) (0.0-0.4) X10*3/uL Baso # (Auto) (0.0-0.2) X10*3/uL Abs Immat Gran (auto) (0.00-0.03) X10*3/uL Absolute Neuts (auto) (2.0-8.3) x10*3/uL Absolute Nucleated RBC (0.0-0.012) X10*3/uL Nucleated RBC % (auto) (0.0-0.2) /100WBC Sodium (135-145) mmol/L Potassium (3.3-5.1) mmol/L Chloride (96-108) mmol/L Carbon Dioxide (22-29) mmol/L Anion Gap (12-20) BUN (9-16) mg/dL Creatinine (0.5-1.4) mg/dL Estim Creat Clear Calc Estimated GFR Random Glucose (60-115) mg/dL Calcium (8.4-10.2) mg/dL Total Bilirubin (0.0-1.0) mg/dL Direct Bilirubin (0.0-0.5) mg/dL AST (5-31) U/L ALT (0-31) U/L Alkaline Phosphatase (39-117) U/L Total Protein (6.5-8.0) g/dL Albumin (3.5-5.0) g/dL Lipase (8-78) U/L Urine Color Yellow Urine Appearance Clear Urine pH 7.0 (5.0-9.0) Ur Specific Mcallister 1.015 (1.005-1.025) Urine Protein Negative (Neg-Trace) mg/dL Urine Glucose (UA) Negative (Negative) mg/dL Urine Ketones Negative (Negative) mg/dL Urine Blood Negative (Negative) Urine Nitrite Negative (Negative) Ur Leukocyte Esterase Negative (Negative) Urine Test NEGATIVE (NEGATIVE) Influenza Type A (PCR) (Negative) Influenza Type B (PCR) (Negative) RSV RNA Qual (PCR) (Negative) SARS-CoV-2 RNA (RT-PCR) (Negative) <Sandhya Brice NP - Last Filed: 05/13/22 15:44> Lab Results 05/13/22 05/13/22 05/13/22 Range/Units 16:15 16:15 16:15 WBC 4.0 L (4.8-10.8) X10*3/uL RBC 4.51 (4.20-5.50) X10*6/uL Hgb 13.2 (12.0-16.0) g/dl Hct 39.3 (37.0-47.0) % MCV 87.1 (80.0-98.0) fL MCH 29.3 (27.0-33.0) pg MCHC 33.6 (31.0-35.0) g/dl RDW 12.5 (11.0-16.0) % Plt Count 164 (160-400) X10*3/uL MPV 10.0 (9.4-12.3) fL Immature Gran % (Auto) 0.3 (0.0-0.4) % Neut % (Auto) 49.1 (45-73) % Lymph % (Auto) 42.2 H (20-40) % [place] % (Auto) 6.1 (2-11) % Eos % (Auto) 2.0 (0-4) % Baso % (Auto) 0.3 (0-2) % Lymph # (Auto) 1.7 (1.2-4.9) X10*3/uL [place] # (Auto) 0.2 (0.1-1.2) X10*3/uL Eos # (Auto) 0.1 (0.0-0.4) X10*3/uL Baso # (Auto) 0.0 (0.0-0.2) X10*3/uL Abs Immat Gran (auto) 0.01 (0.00-0.03) X10*3/uL Absolute Neuts (auto) 2.0 (2.0-8.3) x10*3/uL Absolute Nucleated RBC 0.000 (0.0-0.012) X10*3/uL Nucleated RBC % (auto) 0.0 (0.0-0.2) /100WBC Sodium 141 (135-145) mmol/L Potassium 4.7 D (3.3-5.1) mmol/L Chloride 102 (96-108) mmol/L Carbon Dioxide 32 H (22-29) mmol/L Anion Gap 12 (12-20) BUN 11 (9-16) mg/dL Creatinine 1.05 (0.5-1.4) mg/dL Estim Creat Clear Calc 73.5 Estimated GFR 60 Random Glucose 100 (60-115) mg/dL Calcium 10.2 (8.4-10.2) mg/dL Total Bilirubin 0.4 (0.0-1.0) mg/dL Direct Bilirubin < 0.2 (0.0-0.5) mg/dL AST 41 H (5-31) U/L ALT 66 H (0-31) U/L Alkaline Phosphatase 156 H (39-117) U/L Total Protein 8.0 (6.5-8.0) g/dL Albumin 4.6 (3.5-5.0) g/dL Lipase 24 (8-78) U/L Urine Color Urine Appearance Urine pH (5.0-9.0) Ur Specific [place] (1.005-1.025) Urine Protein (Neg-Trace) mg/dL Urine Glucose (UA) (Negative) mg/dL Urine Ketones (Negative) mg/dL Urine Blood (Negative) Urine Nitrite (Negative) Ur Leukocyte Esterase (Negative) Urine Test (NEGATIVE) Influenza Type A (PCR) NEGATIVE (Negative) Influenza Type B (PCR) NEGATIVE (Negative) RSV RNA Qual (PCR) NEGATIVE (Negative) SARS-CoV-2 RNA (RT-PCR) NEGATIVE (Negative) 05/13/22 05/13/22 Range/Units 16:15 16:15 WBC (4.8-10.8) X10*3/uL RBC (4.20-5.50) X10*6/uL Hgb (12.0-16.0) g/dl Hct (37.0-47.0) % MCV (80.0-98.0) fL MCH (27.0-33.0) pg MCHC (31.0-35.0) g/dl RDW (11.0-16.0) % Plt Count (160-400) X10*3/uL MPV (9.4-12.3) fL Immature Gran % (Auto) (0.0-0.4) % Neut % (Auto) (45-73) % Lymph % (Auto) (20-40) % [place] % (Auto) (2-11) % Eos % (Auto) (0-4) % Baso % (Auto) (0-2) % Lymph # (Auto) (1.2-4.9) X10*3/uL [place] # (Auto) (0.1-1.2) X10*3/uL Eos # (Auto) (0.0-0.4) X10*3/uL Baso # (Auto) (0.0-0.2) X10*3/uL Abs Immat Gran (auto) (0.00-0.03) X10*3/uL Absolute Neuts (auto) (2.0-8.3) x10*3/uL Absolute Nucleated RBC (0.0-0.012) X10*3/uL Nucleated RBC % (auto) (0.0-0.2) /100WBC Sodium (135-145) mmol/L Potassium (3.3-5.1) mmol/L Chloride (96-108) mmol/L Carbon Dioxide (22-29) mmol/L Anion Gap (12-20) BUN (9-16) mg/dL Creatinine (0.5-1.4) mg/dL Estim Creat Clear Calc Estimated GFR Random Glucose (60-115) mg/dL Calcium (8.4-10.2) mg/dL Total Bilirubin (0.0-1.0) mg/dL Direct Bilirubin (0.0-0.5) mg/dL AST (5-31) U/L ALT (0-31) U/L Alkaline Phosphatase (39-117) U/L Total Protein (6.5-8.0) g/dL Albumin (3.5-5.0) g/dL Lipase (8-78) U/L Urine Color Yellow Urine Appearance Clear Urine pH 7.0 (5.0-9.0) Ur Specific [place] 1.015 (1.005-1.025) Urine Protein Negative (Neg-Trace) mg/dL Urine Glucose (UA) Negative (Negative) mg/dL Urine Ketones Negative (Negative) mg/dL Urine Blood Negative (Negative) Urine Nitrite Negative (Negative) Ur Leukocyte Esterase Negative (Negative) Urine Test NEGATIVE (NEGATIVE) Influenza Type A (PCR) (Negative) Influenza Type B (PCR) (Negative) RSV RNA Qual (PCR) (Negative) SARS-CoV-2 RNA (RT-PCR) (Negative) <CINDY Fairchild - Last Filed: 05/13/22 23:26> Medications Administered Discontinued Medications Generic Name Dose Route Start Last Admin Trade Name Freq PRN Reason Stop Dose Admin Bisacodyl 10 mg 05/13/22 21:29 05/13/22 22:17 Bisacodyl 5 Mg Tablet.Dr PO 05/13/22 21:30 10 mg ONCE ONE Administration Docusate Sodium 100 mg 05/13/22 21:29 05/13/22 22:17 Docusate Sodium 100 Mg Capsule PO 05/13/22 21:30 100 mg ONCE ONE Administration Iohexol 100 ml 05/13/22 21:11 05/13/22 21:11 Iohexol 350 Mg/Ml 100 Ml Infus..Btl IV 05/13/22 21:12 85 ml ONCE ONE Administration Polyethylene Glycol/Electrolytes 4,000 ml 05/13/22 22:45 05/13/22 23:01 Peg 3350/Na Sulf,Bicarb,Cl/Kcl 4,000 Ml Soln.Recon PO 05/13/22 22:46 4,000 ml ONCE ONE Administration <Sandhya Brice NP - Last Filed: 05/13/22 15:44> Medications Administered Discontinued Medications Generic Name Dose Route Start Last Admin Trade Name Jessica PRN Reason Stop Dose Admin Bisacodyl 10 mg 05/13/22 21:29 05/13/22 22:17 Bisacodyl 5 Mg Tablet.Dr PO 05/13/22 21:30 10 mg ONCE ONE Administration Docusate Sodium 100 mg 05/13/22 21:29 05/13/22 22:17 Docusate Sodium 100 Mg Capsule PO 05/13/22 21:30 100 mg ONCE ONE Administration Iohexol 100 ml 05/13/22 21:11 05/13/22 21:11 Iohexol 350 Mg/Ml 100 Ml Infus..Btl IV 05/13/22 21:12 85 ml ONCE ONE Administration Polyethylene Glycol/Electrolytes 4,000 ml 05/13/22 22:45 05/13/22 23:01 Peg 3350/Na Sulf,Bicarb,Cl/Kcl 4,000 Ml Soln.Recon PO 05/13/22 22:46 4,000 ml ONCE ONE Administration <CINDY Fairchild - Last Filed: 05/13/22 23:26> Critical Care Time Critical Care Time Critical Care Time: No <CINDY Fairchild - Last Filed: 05/13/22 23:26> Discharge Plan Discharge Clinical Impression: Abdominal pain, Constipation <Sandhya Brice NP - Last Filed: 05/13/22 15:44> Patient Disposition: Home, Self-Care <Sandhya Brice NP - Last Filed: 05/13/22 15:44> Instructions: Constipation (ED), Abdominal Pain (ED) <Sandhya Brice NP - Last Filed: 05/13/22 15:44> Additional Instructions: Take your medications as prescribed. If you were prescribed antibiotics today, it is important that you take your medication to their entirety, do not skip any doses, do not finish them early. Follow-up with your primary care provider this week. Return to the emergency department with new or worsening symptoms. Such as fevers, chills, chest pain, shortness of breath, nausea, vomiting, dizziness, headache, vision changes, lethargy In case of emergency call 911 Please drink plenty of fluids. Increase her fiber intake. You need to follow- up with gastroenterology. Call to schedule an appointment as soon as possible. If you do not have a bowel movement in a day or 2 you need to return to the emergency department immediately. Return with new or worsening symptoms. <Sandhya Brice NP - Last Filed: 05/13/22 15:44> Prescriptions: New sennosides [senna] 8.6 mg tablet 8.6 mg PO BEDTIME Qty: 14 0RF docusate sodium [Colace] 100 mg capsule 100 mg PO BID Qty: 20 0RF polyethylene glycol 3350 [Miralax] 17 gram/dose powder 17 g PO BID PRN (Reason: constipation) Qty: 238 0RF No Action (DME) blood-glucose meter [FreeStyle Lite Meter] Kit See Rx Instructions .ROUTE .MEDSUPPLY Qty: 1 0RF Rx Instructions: As directed quetiapine 25 mg tablet 25 mg PO BID PRN (Reason: anxiety) 30 Days Qty: 60 1RF bisacodyl [Dulcolax (bisacodyl)] 10 mg suppository 10 mg SD DAILY PRN (Reason: constipation) Qty: 12 2RF nicotine (polacrilex) 4 mg gum 4 mg buccal Q2H PRN (Reason: nicotine cravings) Qty: 110 5RF polyethylene glycol 3350 17 gram powder in packet 17 g PO BID PRN (Reason: constipation) 30 Days Qty: 60 5RF triamcinolone acetonide 0.1 % cream 1 appl topical BID PRN (Reason: rash) 30 Days Qty: 80 0RF bupropion HCl 300 mg tablet extended release 24 hr 300 mg PO QAM 30 Days Qty: 30 1RF gabapentin 800 mg tablet 800 mg PO TID 30 Days Qty: 90 0RF buspirone 5 mg tablet 5 mg PO TID 30 Days Qty: 90 1RF lorazepam 2 mg tablet 2 mg PO TID PRN (Reason: anxiety) 30 Days Qty: 90 0RF escitalopram oxalate 10 mg tablet 20 mg PO DAILY Qty: 60 2RF prazosin 2 mg capsule 4 mg PO BEDTIME Qty: 60 2RF quetiapine 400 mg tablet 400 mg PO BEDTIME 30 Days Qty: 30 1RF docusate sodium 100 mg capsule 100 mg PO BID methadone 10 mg/mL concentrate 115 mg PO DAILY Rx Instructions: Methadone program ([facility] in [place]) [id number] [Fioricet] 50-300-40 mg capsule 1 cap PO TID PRN (Reason: headaches) 4 Days Qty: 12 0RF clotrimazole 1 % solution 1 appl topical .QD 30 Days Qty: 30 5RF <Sandhya Brice NP - Last Filed: 05/13/22 15:44> Referrals: [facility] [place] Gastroenterology Services [Provider Group] - 1 day Quinton Lopez MD [Primary Care Provider] - 2 days <Sandhya Brice NP - Last Filed: 05/13/22 15:44> Stand Alone Forms: Work/School Release <Sandhya Brice NP - Last Filed: 05/13/22 15:44>
[2022-05-13 16:21] LABS: MANUAL DIFF FLAG NO
[2022-05-13 16:24] LABS: Basophils Percent Auto 0.3 % (0-2); Eosinophils Absolute Auto 0.1 X10*3/uL (0.0-0.4); Hematocrit 39.3 % (37.0-47.0); Hemoglobin 13.2 g/dl (12.0-16.0); Imm Gran Abs Auto 0.01 X10*3/uL (0.00-0.03); Imm Gran Pct Auto 0.3 % (0.0-0.4); Lymphocytes Absolute Auto 1.7 X10*3/uL (1.2-4.9); Lymphocytes Percent Auto 42.2 % (20-40); Mean Corpuscular HGB Conc 33.6 g/dl (31.0-35.0); Mean Corpuscular Hemoglobin 29.3 pg (27.0-33.0); Mean Corpuscular Volume 87.1 fL (80.0-98.0); Monocytes Absolute Auto 0.2 X10*3/uL (0.1-1.2); Monocytes Percent Auto 6.1 % (2-11); Neutrophils Percent Auto 49.1 % (45-73); Platelet Count 164 X10*3/uL (160-400); Red Blood Count 4.51 X10*6/uL (4.20-5.50); Red Cell Distribution Width 12.5 % (11.0-16.0)
[2022-05-13 16:26] LABS: Appearance Urine Clear; Color Urine Yellow; Glucose Urine UA Negative (Negative); Leukocyte Esterase Urine Negative (Negative); Nitrite Urine Negative (Negative); Specific Gravity - Urine 1.015 (1.005-1.025); UPreg QC Valid YES; Urine Blood Negative (Negative); Urine Ketones Negative (Negative); Urine Pregnancy NEGATIVE (NEGATIVE); Urine Protein Negative (Neg-Trace)
[2022-05-13 16:47] LABS: Alanine Aminotransferase 66 U/L (0-31); Albumin Level 4.6 g/dL (3.5-5.0); Alkaline Phosphatase 156 U/L (39-117); Anion Gap 12 (12-20); Aspartate Amino Transferase 41 U/L (5-31); Bilirubin Direct < 0.2 mg/dL (0.0-0.5); Bilirubin Total 0.4 mg/dL (0.0-1.0); Blood Urea Nitrogen 11 mg/dL (9-16); Calcium 10.2 mg/dL (8.4-10.2); Carbon Dioxide 32 mmol/L (22-29); Chloride 102 mmol/L (96-108); Creatinine Clr Calc Pharmacy 73.5; Estimated Glomerular Filt Rate 60; Glucose Random 100 mg/dL (60-115); Lipase 24 U/L (8-78); Potassium 4.7 mmol/L (3.3-5.1); Sodium 141 mmol/L (135-145)
[2022-05-13 17:05] LABS: Influenza A PCR NEGATIVE (Negative); Influenza B PCR NEGATIVE (Negative); Resp Syncy Virus RNA Qual PCR NEGATIVE (Negative); SARS COV2 PCR INHOUSE NEGATIVE (Negative)
[2022-05-13 20:22] VITALS: BP 102/49; PULSE 91; RESP 16; TEMP 36.4; O2SAT 96
[2022-05-13] MEDS: iohexoL 350 MG/ML 100 ML INFUS..BTL IV (21:11)
[2022-05-13] MEDS: Docusate Sodium 100 MG CAPSULE PO (22:17)
[2022-05-13] MEDS: bisacodyL 5 MG TABLET.DR 10 MG PO (22:17)
[2022-05-13] MEDS: PEG 3350/Na Sulf,Bicarb,Cl/KCL 4,000 ML SOLN.RECON 4000 ML PO (23:01)
== END 2022-05-13 23:43 | disposition home or self-care (01) ==
PROVIDERS: Nurse Practitioner Family; Emergency Provider Emergency Medicine; PCP Internal Medicine
DX: K59.00 Constipation, unspecified (principal); R10.9 Unspecified abdominal pain; R11.2 Nausea with vomiting, unspecified; Z20.828 Contact with and (suspected) exposure to other viral communicable diseases; Z87.891 Personal history of nicotine dependence
CPT/HCPCS: 0241U; 74177; 80048; 80076; 81003; 81025; 83690; 85025; 99282; 99284; Q9967

== ENCOUNTER 2022-08-17 13:19 | Outpatient (REF) | payer OTHER, SELFPAY ==
--- NOTE | ~2022-08-17 | XR_ITS ---
EXAMINATION: XR CHEST 2 VIEWS CLINICAL INFORMATION: Dyspnea. COMPARISON: Chest radiographs dated 07/30/2019. TECHNIQUE: Frontal and lateral views of the chest were obtained. FINDINGS: The heart, great vessels, pulmonary vasculature and mediastinum are normal. The lungs show no focal infiltrate, effusion or pneumothorax. There is no acute osseous abnormality. XR/XR chest 2V IMPRESSION: No active cardiopulmonary disease.
== END 2022-08-17 13:20 | disposition home or self-care (01) ==
LOC: HO.XRAY 13:19
PROVIDERS: Absent Provider Internal Medicine; PCP Internal Medicine; Visit Provider Internal Medicine
DX: R06.00 Dyspnea, unspecified (principal); K59.04 Chronic idiopathic constipation; R79.89 Other specified abnormal findings of blood chemistry; R10.9 Unspecified abdominal pain; K74.60 Unspecified cirrhosis of liver; F11.20 Opioid dependence, uncomplicated; Z86.19 Personal history of other infectious and parasitic diseases
CPT/HCPCS: 71046; 99202

== ENCOUNTER 2022-11-15 16:31 | Emergency (ER) | payer OTHER, SELFPAY ==
[2022-11-15 16:42] VITALS: BP 109/59; PULSE 95; RESP 18; TEMP 36.8; O2SAT 97; BMI 29.0
--- NOTE | 2022-11-15 16:45 | ED.GENADULT ---
HPI - General Adult General Chief complaint: General Medical Stated complaint: bloody stools Time Seen by Provider: 11/15/22 22:29 Source: patient Mode of arrival: ambulatory Limitations: no limitations History of Present Illness HPI narrative: Patient with chronic opioid use constipation with history of hemorrhoids having minimal bowel movement for last few days today patient noticed bright red blood while wiping after small bowel movement also noted a small blood clot patient fail abdominal full no vomiting no melena Related Data Home Medications Medication Instructions Recorded Confirmed methadone 10 mg/mL oral concentrate 102 mg PO DAILY 11/15/22 11/15/22 Previous Rx's Medication Instructions Recorded blood-glucose meter (FreeStyle #1 ea 09/11/20 Lite Meter kit) clotrimazole 1 % topical solution 1 appl topical .QD 30 days #30 mL 09/10/21 polyethylene glycol 3350 17 gram 17 g PO BID PRN constipation 30 01/06/22 oral powder packet days #60 ea bupropion HCl 300 mg 24 hr tablet, 300 mg PO QAM 30 days #30 tabs 07/28/22 extended release polyethylene glycol 3350 17 17 g PO BID constipation #510 grams 08/13/22 gram/dose oral powder (Miralax) naloxegol 12.5 mg tablet (Movantik) 25 mg PO QAM 30 days #60 tabs 08/17/22 psyllium husk 6 gram oral powder 10 g PO DAILY 30 days #30 ea 08/17/22 packet Ventolin HFA 90 mcg/actuation 2 puff inhalation Q6H PRN for 10/03/22 aerosol inhaler (albuterol sulfate) wheezing #18 ea escitalopram oxalate 20 mg tablet 20 mg PO DAILY 90 days #90 tabs 10/05/22 prazosin 2 mg capsule 4 mg PO BEDTIME #60 caps 10/05/22 sennosides 8.6 mg tablet (senna) 8.6 mg PO BEDTIME PRN constipation 10/05/22 30 days #30 tabs triamcinolone acetonide 0.1 % 1 appl topical BID PRN rash 30 10/05/22 topical cream days #80 grams quetiapine 25 mg tablet 25 mg PO BID PRN anxiety 30 days 10/08/22 #60 tabs buspirone 5 mg tablet 5 mg PO TID 30 days #90 tabs 11/08/22 gabapentin 800 mg tablet 800 mg PO TID 30 days #90 tabs 11/08/22 lorazepam 2 mg tablet 2 mg PO TID PRN anxiety 30 days 11/08/22 #90 tabs quetiapine 400 mg tablet 400 mg PO BEDTIME 30 days #30 tabs 11/08/22 linaclotide 290 mcg capsule 290 mcg PO QAM opioid induced 11/15/22 (Linzess) constipation 30 days #30 caps mineral oil (Fleet Mineral Oil 118 ml TN DAILY PRN constipation 11/15/22 enema) #133 mL nicotine (polacrilex) 4 mg gum 4 mg buccal Q2H PRN nicotine 11/15/22 cravings #220 ea Allergies Allergy/AdvReac Type Severity Reaction Status Date / Time No Known Allergies Allergy Verified 11/15/22 13:47 [No Known Allergies*] Review of Systems Review of Systems: Yes all other systems are reviewed and are negative [facility] Past Medical History Medical History Anxiety Bipolar depression Constipation Dysplasia of cervix, low grade (SIVAKUMAR 1) Fatigue Hip pain, bilateral History of anxiety History of depression History of substance abuse Hx of hepatitis C Impaired fasting glucose Mixed hyperlipidemia Muscle twitching Obesity (BMI 30-39.9) Overweight (BMI 25.0-29.9) Overweight (BMI 25.0-29.9) Positive hepatitis C antibody test Right hand pain Smoker Type 2 diabetes mellitus Vision impairment Surgical History No pertinent past surgical history Family History Family History Father Diabetes Cancer HTN (hypertension) Other Mental health problem Substance abuse Social History Social History Housing: Other Housing Other:: alf house Alcohol intake: never Patient Tobacco Use Status: Current everyday Tobacco user Cigarettes Per Day: 1 Years Smoked: 13 Smoked in Last 30 Days: No e-Cigarette/Vaping Use: Never Used Second Hand Smoke Exposure: Yes Use of substances other than those prescribed or required for medical reasons: Yes Substance Use Frequency Other:: 4 months [employer] Advance Directives: No Advance Directives Information Provided: Yes Patient : No service: No Current occupational status: unemployed Sexual orientation: Lesbian/[place]/Homosexual Gender identity: Female Cognitive needs: No Hearing needs: No Vision needs: Yes Physical Exam ED Vital Signs: Vital Signs - 24 hr 11/15/22 16:42 11/15/22 21:59 11/15/22 22:00 Temperature 98.3 F Pulse Rate 95 81 84 Respiratory Rate 18 18 18 Blood Pressure 109/59 L 111/67 115/85 Pulse Oximetry 97 97 97 Oxygen Delivery Method Room Air 11/16/22 00:00 Temperature 97.0 F Pulse Rate 80 Respiratory Rate 18 Blood Pressure 92/51 L Pulse Oximetry 98 Oxygen Delivery Method Room Air BMI result Body Mass Index 29.0 Appearance: Alert. Oriented X3. No acute distress. Eyes: No pallor or icterus ENT: Pharynx normal. Oral Mucosa moist Neck: Normal inspection. Neck supple. CVS: Normal heart rate and rhythm. Pulses normal. Respiratory: No respiratory distress. Equal air entry bilateral, no wheezing/rales/rhonchi Abdomen: Soft and nontender. Full with gaseous distension Bowel sounds are present, no mass palpable, no CVA tenderness rectal: Empty rectum internal hemorrhoids palpable no blood on the finger Skin: Skin warm and dry. Normal skin color. Normal skin turgor. Extremities: No lower extremity edema. No calf tenderness Neuro: Oriented X 3. Course Course Course Narrative: RME: 37 yold female presents with pmh constipation presents to the ED for rectal bleeding after giving her self enema. Patient has pmh of hemmhhoirds. patient states no abdominal pain. labs ordered Medications Administered Discontinued Medications Generic Name Dose Route Start Last Admin Trade Name Jesscia PRN Reason Stop Dose Admin Bisacodyl 10 mg 11/15/22 22:59 11/15/22 23:07 Bisacodyl 5 Mg Tablet.Dr PO 11/15/22 23:00 10 mg ONCE ONE Administration Magnesium Hydroxide 30 ml 11/15/22 22:59 11/15/22 23:07 Milk Of Magnesia 30 Ml Oral.Susp PO 11/15/22 23:00 30 ml ONCE ONE Administration Ondansetron HCl 4 mg 11/15/22 23:54 11/15/22 23:57 Ondansetron Odt 4 Mg Tab.Rapdis TRANSLINGU 11/15/22 23:55 4 mg ONCE ONE Administration Polyethylene Glycol/Electrolytes 240 ml 11/15/22 23:45 11/16/22 01:07 Peg 3350/Na Sulf,Bicarb,Cl/Kcl 4,000 Ml Soln.Recon PO 11/16/22 02:26 Not Given Q10M [facility] Medical Decision Making Medical Decision Making [facility] Narrative: Patient with opiate induced chronic constipation supposed to be on Linzess which unable to get because of insurance reasons KUB showed moderate amount of stool patient was given milk of magnesia in the ER will discharge patient home on GoLYTELY take at home Lab Data [facility] Lab Attestation statement: I reviewed the patient's lab results. 11/15/22 17:02 11/15/22 17:02 Labs: Lab Results 11/15/22 11/15/22 Range/Units 17:02 17:02 WBC 4.5 L (4.8-10.8) X10*3/uL RBC 3.43 L D (4.20-5.50) X10*6/uL Hgb 10.3 L D (12.0-16.0) g/dl Hct 29.7 L D (37.0-47.0) % MCV 86.6 (80.0-98.0) fL MCH 30.0 (27.0-33.0) pg MCHC 34.7 (31.0-35.0) g/dl RDW 13.2 (11.0-16.0) % Plt Count 147 L (160-400) X10*3/uL MPV 10.6 (9.4-12.3) fL Immature Gran % (Auto) 0.2 (0.0-0.4) % Neut % (Auto) 48.2 (45-73) % Lymph % (Auto) 40.9 H (20-40) % Caldwell % (Auto) 8.5 (2-11) % Eos % (Auto) 1.8 (0-4) % Baso % (Auto) 0.4 (0-2) % Lymph # (Auto) 1.8 (1.2-4.9) X10*3/uL [place]dwell # (Auto) 0.4 (0.1-1.2) X10*3/uL Eos # (Auto) 0.1 (0.0-0.4) X10*3/uL Baso # (Auto) 0.0 (0.0-0.2) X10*3/uL Abs Immat Gran (auto) 0.01 (0.00-0.03) X10*3/uL Absolute Neuts (auto) 2.2 (2.0-8.3) x10*3/uL Absolute Nucleated RBC 0.000 (0.0-0.012) X10*3/uL Nucleated RBC % (auto) 0.0 (0.0-0.2) /100WBC Sodium 137 (135-145) mmol/L Potassium 3.9 (3.3-5.1) mmol/L Chloride 102 (96-108) mmol/L Carbon Dioxide 26 (22-29) mmol/L Anion Gap 13 (12-20) BUN 10 (9-16) mg/dL Creatinine 1.02 (0.5-1.4) mg/dL Estim Creat Clear Calc 74.3 Estimated GFR > 60 Random Glucose 99 (60-115) mg/dL Calcium 9.5 D (8.4-10.2) mg/dL Total Bilirubin 0.4 (0.0-1.0) mg/dL AST 47 H (5-31) U/L ALT 56 H (0-31) U/L Alkaline Phosphatase 104 (39-117) U/L Total Protein 7.2 (6.5-8.0) g/dL Albumin 4.0 (3.5-5.0) g/dL Discharge Plan Discharge Clinical Impression: Constipation Patient Disposition: Home, Self-Care Instructions: Constipation (ED) Additional Instructions: Drink 1 cup of GoLYTELY as provided every hour until you have bowel movement Follow with PCP Prescriptions: No Action (DME) blood-glucose meter [FreeStyle Lite Meter] Kit See Rx Instructions .ROUTE .MEDSUPPLY Qty: 1 0RF Rx Instructions: As directed polyethylene glycol 3350 17 gram powder in packet 17 g PO BID PRN (Reason: constipation) 30 Days Qty: 60 5RF bupropion HCl 300 mg tablet extended release 24 hr 300 mg PO QAM 30 Days Qty: 30 1RF albuterol sulfate [Ventolin HFA] 90 mcg/actuation HFA aerosol inhaler 2 puff inhalation Q6H PRN (Reason: for wheezing) Qty: 18 1RF escitalopram oxalate 20 mg tablet 20 mg PO DAILY 90 Days Qty: 90 1RF prazosin 2 mg capsule 4 mg PO BEDTIME Qty: 60 2RF sennosides [senna] 8.6 mg tablet 8.6 mg PO BEDTIME PRN (Reason: constipation) 30 Days Qty: 30 5RF triamcinolone acetonide 0.1 % cream 1 appl topical BID PRN (Reason: rash) 30 Days Qty: 80 3RF quetiapine 25 mg tablet 25 mg PO BID PRN (Reason: anxiety) 30 Days Qty: 60 1RF buspirone 5 mg tablet 5 mg PO TID 30 Days Qty: 90 1RF quetiapine 400 mg tablet 400 mg PO BEDTIME 30 Days Qty: 30 1RF lorazepam 2 mg tablet 2 mg PO TID PRN (Reason: anxiety) 30 Days Qty: 90 0RF gabapentin 800 mg tablet 800 mg PO TID 30 Days Qty: 90 0RF methadone 10 mg/mL concentrate 102 mg PO DAILY Rx Instructions: Methadone program ([facility] in [place]) polyethylene glycol 3350 [Miralax] 17 gram/dose powder 17 g PO BID Qty: 510 5RF Rx Instructions: NEED TO BE TAKEN EVERYDAY for Rx to help nicotine (polacrilex) 4 mg gum 4 mg buccal Q2H PRN (Reason: nicotine cravings) Qty: 220 3RF Linzess 290 mcg capsule 290 mcg PO QAM 30 Days Qty: 30 3RF mineral oil [Fleet Mineral Oil] Enema 118 ml TN DAILY PRN (Reason: constipation) Qty: 133 1RF Rx Instructions: discard any unused portion clotrimazole 1 % solution 1 appl topical .QD 30 Days Qty: 30 5RF Movantik 12.5 mg tablet 25 mg PO QAM 30 Days Qty: 60 0RF Rx Instructions: must be taken on empty stomach; no food 1 hr after or 2-3 hrs before dose psyllium husk 6 gram powder in packet 10 g PO DAILY 30 Days Qty: 30 0RF Interventions: ED Discharge Assessment Last Done: 11/16/22 01:06 Discharge Date/Time: 11/16/22 01:07
[2022-11-15 21:59] VITALS: BP 111/67; PULSE 81; RESP 18; O2SAT 97
[2022-11-15 22:00] VITALS: BP 115/85; PULSE 84; RESP 18; O2SAT 97
--- NOTE | 2022-11-15 22:11 | PC.NURSE ---
Assumed care of pt. pt ambulated to room under own power. Pt endorsing acute on chronic constipation with question of BRB ID today. Sts frequent use of enemas, medication, and manual disimpaction.
[2022-11-16] VITALS: BP 92/51; PULSE 80; RESP 18; TEMP 36.1; O2SAT 98
--- NOTE | 2022-11-16 00:07 | MHC.EDTECH ---
THIS PCT ASSUMED CARE OF PATIENT AT 2300 ,VITALS SIGN TAKEN ,PT WATCHING TELEVISION ,AND IS WAITING FOR DISCHARGED PAPER WORK .
== END 2022-11-16 01:07 | disposition home or self-care (01) ==
PROVIDERS: Emergency Provider Internal Medicine; PCP Internal Medicine
DX: K62.5 Hemorrhage of anus and rectum (principal); E11.9 Type 2 diabetes mellitus without complications; E78.5 Hyperlipidemia, unspecified; F11.20 Opioid dependence, uncomplicated; F17.210 Nicotine dependence, cigarettes, uncomplicated; Z86.19 Personal history of other infectious and parasitic diseases; Z79.899 Other long term (current) drug therapy
CPT/HCPCS: 36415; 74018; 80053; 85025; 99283; 99284

== ENCOUNTER 2022-12-27 15:12 | Outpatient (REF) | payer OTHER, SELFPAY ==
[2022-12-27 15:30] LABS: MANUAL DIFF FLAG NO
[2022-12-27 16:19] LABS: Basophils Percent Auto 0.4 % (0-2); Eosinophils Absolute Auto 0.1 X10*3/uL (0.0-0.4); Eosinophils Percent Auto 1.9 % (0-4); Hematocrit 28.2 % (37.0-47.0); Hemoglobin 9.6 g/dl (12.0-16.0); Imm Gran Abs Auto 0.02 X10*3/uL (0.00-0.03); Imm Gran Pct Auto 0.4 % (0.0-0.4); Lymphocytes Absolute Auto 2.4 X10*3/uL (1.2-4.9); Lymphocytes Percent Auto 51.1 % (20-40); Mean Corpuscular Hemoglobin 29.9 pg (27.0-33.0); Mean Corpuscular Volume 87.9 fL (80.0-98.0); Mean Platelet Volume 10.3 fL (9.4-12.3); Monocytes Absolute Auto 0.4 X10*3/uL (0.1-1.2); Monocytes Percent Auto 8.1 % (2-11); Neutrophils Absolute Auto 1.8 x10*3/uL (2.0-8.3); Neutrophils Percent Auto 38.1 % (45-73); Platelet Count 149 X10*3/uL (160-400); Red Blood Count 3.21 X10*6/uL (4.20-5.50); Red Cell Distribution Width 12.4 % (11.0-16.0); White Blood Count 4.7 X10*3/uL (4.8-10.8)
[2022-12-27 19:15] LABS: Appearance Urine Clear; Color Urine Yellow; Glucose Urine UA Negative (Negative); Leukocyte Esterase Urine Negative (Negative); Nitrite Urine Negative (Negative); PH 5.5 (5.0-9.0); Specific Gravity - Urine 1.015 (1.005-1.025); Urine Blood Negative (Negative); Urine Ketones Negative (Negative); Urine Protein Negative (Neg-Trace)
[2022-12-28 01:53] LABS: Alanine Aminotransferase 44 U/L (0-31); Albumin Level 4.1 g/dL (3.5-5.0); Alkaline Phosphatase 108 U/L (39-117); Anion Gap 11 (12-20); Aspartate Amino Transferase 43 U/L (5-31); Bilirubin Total 0.3 mg/dL (0.0-1.0); Blood Urea Nitrogen 15 mg/dL (9-16); Calcium 9.3 mg/dL (8.4-10.2); Carbon Dioxide 28 mmol/L (22-29); Chloride 100 mmol/L (96-108); Cholesterol 180 mg/dL; Estimated Glomerular Filt Rate 48; Glucose Fasting 72 mg/dL (60-99); HDL Cholesterol 36 mg/dL; LDL Cholesterol Calculated 78 mg/dl; Potassium 4.2 mmol/L (3.3-5.1); Sodium 135 mmol/L (135-145); Total Protein 7.3 g/dL (6.5-8.0); Triglycerides 333 mg/dL
[2022-12-28 01:56] LABS: TSH reflex Free T4 1.07 uIU/mL (0.32-4.0)
[2022-12-28 05:23] LABS: Estimated Average Glucose 126 mg/dL
[2022-12-30 14:19] LABS: HCV Log PCR 3.53 Log IU/mL (NOT DETECTED); HepC Viral Load 3380 IU/mL (NOT DETECTED)
== END 2022-12-27 15:13 | disposition home or self-care (01) ==
LOC: HO.LAB 15:12
PROVIDERS: PCP Internal Medicine; Visit Provider Internal Medicine
DX: E78.00 Pure hypercholesterolemia, unspecified (principal); I10 Essential (primary) hypertension; R30.0 Dysuria; R73.01 Impaired fasting glucose; Z86.19 Personal history of other infectious and parasitic diseases
CPT/HCPCS: 36415; 80053; 80061; 81003; 83036; 84443; 85025; 87522

== ENCOUNTER 2022-12-29 15:42 | Outpatient (AMB) | payer OTHER, SELFPAY ==
--- NOTE | 2022-12-29 15:47 | MHC.OFFVIS ---
Intake Vital Signs 12/29/22 15:49 Height 5 ft 3 in Weight 167 lb 8.821 oz BMI 29.7 BP 110/57 L Blood Pressure Location Lt brachial Position Sitting Pulse 75 Intake Visit Reasons: Follow up Intake Note: Jazmin presents in the office as a follow up. CC: She states that the medication that she has is not working at all. She is still having severe constipation to the point where he abdomen is really hard and she is bloated. [employer]ician Required: No Allergies No Known Allergies [No Known Allergies*] Allergy (Verified 12/29/22 15:49) HPI HPI Comments History of Present Illness Details 37y.o F with PMH of opiate use disorder on methadone maintenance, migraines, chronic HCV who is here for constipation. 08/17/22: Reports that for the past 6 months, has had worsening of constipation. Only able to have 1 BM per week with daily miralax and PRN enemas on board. Has to strain, splint and anally digitate often to facilitate passage of BMs. Consistency ranges from pellets to normal. Sometimes sees blood on top of stool and on wiping trevor after straining. Current meds: Senna 1 tab/daily Miralax twice a day Fleet enema PRN (ends up taking it 2/week) Previously: Has tried Amitiza in the past (per prior documentation, pt does not recall) Bisacodyl supp Labs reviewed and elevated LFTs noted. Pt has hx of HCV but was told that she spontaneously cleared it. Does not drink etOH. Last drug use was in Dec (consistent with labs). Recent CT Abd with IV contrast without any hepatobiliary abnormality. 12/29/22: Reviewed PCP notes - [place] [facility] [place] relapsed on heroin and cocaine. Labs still pending from last visit. Reports no change in her sx from last visit. Pt not sure if she actually took Movantik - reports one of the recently prescribed meds was not approved by insurance and she thinks it may have been Movantik but not sure. Was prescribed Linzess by her PCP but that has not helped. Reviewed labs ordered by PCP which show pancytopenia. Pt does not report any hx of bleeding including menstrual bleeding in fact has had amenorrhea x 3 years. [facility] Medical History Anxiety Bipolar depression Constipation Dysplasia of cervix, low grade (SIVAKUMAR 1) Fatigue Hip pain, bilateral History of anxiety History of depression History of substance abuse Hx of hepatitis C Impaired fasting glucose Mixed hyperlipidemia Muscle twitching Obesity (BMI 30-39.9) Overweight (BMI 25.0-29.9) Overweight (BMI 25.0-29.9) Positive hepatitis C antibody test Right hand pain Smoker Type 2 diabetes mellitus Vision impairment Surgical History No pertinent past surgical history Family History Father Diabetes Cancer HTN (hypertension) Other Mental health problem Substance abuse Social History Housing: Other Housing Other:: shelter house Alcohol intake: never Patient Tobacco Use Status: Current everyday Tobacco user Cigarettes Per Day: 1 Years Smoked: 13 e-Cigarette/Vaping Use: Never Used Second Hand Smoke Exposure: Yes service: No Current occupational status: unemployed Sexual orientation: Lesbian/[place]/Homosexual Gender identity: Female Cognitive needs: No Hearing needs: No Vision needs: Yes Female Reproductive History Menstrual Age of Menarche: 15 Review of Systems Const All systems reviewed & are unremarkable except as noted in HPI and below Physical Exam Vital Signs: BMI result Body Mass Index 29.7 Gen appear: NAD HEENT: nonicteric, no cervical lymphadenopathy Chest: CTA CVS: Regular S1/S2 Abd: soft, tender, mildly distended, bowel sounds + Ext: no peripheral edema Neuro: A/Ox3, noted to move all extremities spontaneously Psych: interacting appropriately Assessment & Plan Assessment & Plan (1) Chronic idiopathic constipation: Code(s): K59.04 - Chronic idiopathic constipation (2) Elevated LFTs: Code(s): R79.89 - Other specified abnormal findings of blood chemistry (3) Hx of hepatitis C: Code(s): Z86.19 - Personal history of other infectious and parasitic diseases (4) Abdominal pain: Code(s): R10.9 - Unspecified abdominal pain (5) Opiate dependence: Code(s): F11.20 - Opioid dependence, uncomplicated (6) Pancytopenia: Code(s): D61.818 - Other pancytopenia Plan 1. CIC: likely secondary to long term acute care registered nurse opiate use. Will look into PA for Movantik. In the meantime, will trial methylnaltrexone x 3 days max. Pt advised to go OFF all laxatives while taking methylnaltrexone. Recommendations: - Methylnaltrexone 450 to be taken up to 3 days - While waiting to get this from pharmacy, INCREASE miralax to TID - Switch senna to bisacodyl 2 tabs at night - Can stop Linzess if not helping - HOLD all laxatives when starting methylnaltrexone - Pt to call office if no response despite taking it for 3 days - Msg sent for Movantik PA. 2. Pancytopenia: Worsened over the last 2 months. Pt does not report any recent illness, tick bite, new meds. Does not report etOH use. Does have evidence of liver injury and work up pending from last visit. Recommendations: - Reminded to get labs done - Also checking iron,B12 and folate 3. Elevated transaminases: Again, hepatitis serology pending. Trevor given recent relapse. - Hepatitis and HIV testing - LFTs and INR - Celiac serology - US Abd Follow up in 4 weeks. Orders: Orders XR KUB Today K59.04 - Chronic idiopathic constipation Hepatitis A IgG Today Z86.19 - Personal history of other infectious and parasitic diseases Hepatitis B Core Antibody Today Z86.19 - Personal history of other infectious and parasitic diseases Hepatitis B Surface Antibody Today Z86.19 - Personal history of other infectious and parasitic diseases Hepatitis B Surface Antigen Today Z86.19 - Personal history of other infectious and parasitic diseases Ferritin Today Z86.19 - Personal history of other infectious and parasitic diseases Hemoglobin A1c Today Z86.19 - Personal history of other infectious and parasitic diseases IRON PROFILE Today Z86.19 - Personal history of other infectious and parasitic diseases Immunoglobulin A Today Z86.19 - Personal history of other infectious and parasitic diseases Transglutaminase IgA Today Z86.19 - Personal history of other infectious and parasitic diseases HIV Ab/Ag Today Z86.19 - Personal history of other infectious and parasitic diseases US abdomen complete Today D61.818 - Other pancytopenia Prothrombin Time INR Today D61.818 - Other pancytopenia Vitamin B12 and Folate Today D61.818 - Other pancytopenia Medications: New methylnaltrexone 450 mg (3 x 150 mg) PO DAILY 3 days 9 tabs 0RF sodium phosphates 19-7 gram/118 mL (Fleet Enema) 133 mL HI BEDTIME PRN 133 mL 0RF constipation bisacodyl 10 mg (2 x 5 mg) PO BEDTIME 2 days 4 tabs 0RF Patient Instructions: Start methylnaltrexone 450 mg once daily, can be repeated up to 3 days STOP linzess and movantik with this While you are waiting to get the methylnaltrexone, INCREASE miralax to 3 times a day Take bisacodyl 2 tabs at night time Increase hydration Can skip fiber until BMs are regular Labs have been ordered to further investigate the constipation, liver disease and cell counts Coding Level of Care Code Est Pt Level 5 (08282) Diagnoses Chronic idiopathic constipation K59.04 Elevated LFTs R79.89 Hx of hepatitis C Z86.19 Abdominal pain R10.9 Opiate dependence F11.20 Pancytopenia D61.818
[2022-12-29 15:49] VITALS: BP 110/57; PULSE 75; BMI 29.7
== END 2022-12-29 16:20 | disposition home or self-care (01) ==
PROVIDERS: PCP Internal Medicine; Visit Provider Internal Medicine
DX: K59.04 Chronic idiopathic constipation (principal); D61.818 Other pancytopenia; Z86.19 Personal history of other infectious and parasitic diseases; F11.20 Opioid dependence, uncomplicated
CPT/HCPCS: 99214

== ENCOUNTER → 2022-12-29 15:42 | Outpatient (BNVA) | payer OTHER, SELFPAY | PROVIDERS: PCP Internal Medicine; Visit Provider Internal Medicine | DX: F11.20 Opioid dependence, uncomplicated (principal); K59.04 Chronic idiopathic constipation; B18.2 Chronic viral hepatitis C; D61.818 Other pancytopenia; F17.200 Nicotine dependence, unspecified, uncomplicated; Z79.899 Other long term (current) drug therapy | CPT/HCPCS: 99212 ==

== ENCOUNTER 2023-01-05 14:59 | Outpatient (REF) | payer OTHER, SELFPAY ==
--- NOTE | ~2023-01-05 | XR_ITS ---
EXAMINATION: XR ABDOMEN KUB CLINICAL INDICATION: Constipation COMPARISON: Prior abdominal x-ray of 11/15/2022 TECHNIQUE: AP view of the abdomen. FINDINGS: The bowel gas pattern is normal. As on the prior examination, there is fecal distention of the right colon and to a lesser extent the left. Fecal material is also evident in the rectosigmoid. No significant dilatation of small or large bowel loops is evident There are no radiopaque calculi. Osseous structures are intact. XR/XR KUB IMPRESSION: Moderate constipation, with more fecal material in the right colon than the left, not significantly changed since 11/15/2022
[2023-01-05 15:37] LABS: INTERNATIONAL NORM RATIO 0.9 (0.9-1.1); Prothrombin Time 11.4 SEC (11.1-13.3)
[2023-01-05 15:47] LABS: Estimated Average Glucose 126 mg/dL
[2023-01-05 15:55] LABS: Alanine Aminotransferase 46 U/L (0-31); Albumin Level 4.3 g/dL (3.5-5.0); Alkaline Phosphatase 119 U/L (39-117); Aspartate Amino Transferase 44 U/L (5-31); Bilirubin Direct < 0.2 mg/dL (0.0-0.5); Bilirubin Total 0.2 mg/dL (0.0-1.0); Iron 104 mcg/dL (30-160); Percent Iron Saturation 33 % (15-50); Total Iron Binding Capacity 313 mcg/dL (228-428); Total Protein 7.5 g/dL (6.5-8.0); Unsaturated Iron Binding 209 ug/dL
[2023-01-05 16:09] LABS: Ferritin 105 ng/mL (10-122)
[2023-01-05 16:23] LABS: Folate 18.6 ng/mL (> or = 4.0); Vitamin B12 639 pg/mL (200-900)
[2023-01-06 05:59] LABS: HBc Num1 0.12 S/CO (0.00-0.79); HBsAGNum1 0.32 S/CO (0.00-0.99); HIV AB/AG Nonreactive (Nonreactive); HIV Num 1 0.07 S/CO (0.00-0.99); Hepatitis A Antibody IgG Nonreactive (Nonreactive); Hepatitis B Core Antibody Nonreactive (Nonreactive); Hepatitis B Surface Antigen Negative (Negative); ~HepC Num1 13.81 S/CO (0.00-0.79); ~Hepatitis A Antibody IgG 0.57 S/CO (0.00-0.99); ~Hepatitis B Surface Antibody REACTIVE (Nonreactive); ~Hepatitis C Antibody Reactive (Nonreactive)
[2023-01-06 11:14] LABS: ~HepC Num1 14.63 S/CO (0.00-0.79); ~Hepatitis C Antibody Reactive (Nonreactive)
[2023-01-07 12:54] LABS: Transglutaminase IgA <1.0 U/mL
[2023-01-07 16:18] LABS: Hepatitis B Viral DNA Qn - cp NOT DETECTED Log IU/mL (NOT DETECTED); Hepatitis B Viral DNA Qn-IU/mL NOT DETECTED (NOT DETECTED)
[2023-01-07 16:28] LABS: HCV RNA PCR Qn 9030 IU/mL (NOT DETECTED)
[2023-01-07 17:29] LABS: Immunoglobulin A 186 mg/dL (47-310)
[2023-01-19 09:41] LABS: HCV Genotype LiPA 3
== END 2023-01-05 15:00 | disposition home or self-care (01) ==
LOC: HO.LAB 14:59
PROVIDERS: PCP Internal Medicine; Visit Provider Internal Medicine
DX: K74.60 Unspecified cirrhosis of liver (principal); R79.89 Other specified abnormal findings of blood chemistry; D61.818 Other pancytopenia; K59.04 Chronic idiopathic constipation; B19.20 Unspecified viral hepatitis C without hepatic coma; Z86.19 Personal history of other infectious and parasitic diseases
CPT/HCPCS: 36415; 74018; 80076; 82607; 82728; 82746; 82784; 83036; 83540; 85610; 86364; 86704; 86706; 86708; 86803; 87340; 87389; 87517; 87522; 87902

== ENCOUNTER 2023-02-08 14:25 | Outpatient (BNV) | payer OTHER, SELFPAY | END 2023-02-18 17:15 | PROVIDERS: Admitting Provider Psychiatry & Neurology Psychiatry; PCP Internal Medicine; Visit Provider Radiology Diagnostic Radiology | DX: R13.12 Dysphagia, oropharyngeal phase (principal) | CPT/HCPCS: 74230 ==

== ENCOUNTER 2023-02-08 14:25 | Inpatient (IN) | payer OTHER, SELFPAY ==
--- NOTE | 2023-02-08 | ECG_ITS ---
Test Reason : new admit Blood Pressure : / mmHG Vent. Rate : 064 BPM Atrial Rate : 064 BPM P-R Int : 126 ms QRS Dur : 098 ms QT Int : 428 ms P-R-T Axes : 022 032 039 degrees QTc Int : 441 ms Normal sinus rhythm Nonspecific T wave abnormality Abnormal ECG When compared with ECG of 10-SEP-2021 12:59, No significant change was found Referred By: Patrica Leavitt Electronically Signed By:ALICJA MADRID
--- NOTE | ~2023-02-08 | FL_ITS ---
EXAMINATION: XR BARIUM SWALLOW CLINICAL INFORMATION: Oropharyngeal dysphagia. COMPARISON: None available. TECHNIQUE: Routine modified barium swallow was performed under lateral fluoroscopy with patient upright in presence of speech therapist. FINDINGS: On oral administration of various consistencies of thin, thick barium, nectar/honey consistency and solid food, there is normal propagation bolus from the oral cavity through the pharynx into the upper esophagus without any evidence of obstruction, narrowing or stricture. No laryngeal aspiration seen. FLUOROSCOPY TIME: 1.06 minutes DOSE AREA PRODUCT: 499.4 uGy-m2 (microgray-meter squared) FL/FL barium swallow modified IMPRESSION: 1. Unremarkable modified barium swallow. 2. Correlate with speech therapy results.
[2023-02-08 15:25] VITALS: BP 94/55; PULSE 76; RESP 18; TEMP 36.2; O2SAT 98
[2023-02-08] MEDS: Nicotine Polacrilex 2 MG GUM 4 MG BUCCAL ×2 (16:22→20:23)
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
--- NOTE | 2023-02-08 18:48 | HE.PHANOTE ---
RE: METHADONE VERIFICATION LAST DOSE 102 MG GIVEN 02/08/23 @1000 AT [facility]
[2023-02-08] MEDS: Gabapentin 400 MG CAPSULE 800 MG PO (20:21)
[2023-02-08] MEDS: Prazosin HCL 1 MG CAPSULE 4 MG PO (20:22)
[2023-02-08] MEDS: LORazepam 1 MG TABLET 2 MG PO (20:22)
[2023-02-08] MEDS: QUEtiapine Fumarate 400 MG TABLET PO (20:23)
[2023-02-08] MEDS: busPIRone HCl 5 MG TABLET PO (20:23)
[2023-02-08 20:41] VITALS: BP 101/54; PULSE 79; RESP 17; TEMP 36.6; O2SAT 97
[2023-02-09 08:25] VITALS: BP 118/66; PULSE 88; RESP 16; TEMP 36.4; O2SAT 99
[2023-02-09] MEDS: Sennosides 8.6 MG TABLET 17.2 MG PO (08:35)
[2023-02-09] MEDS: Gabapentin 400 MG CAPSULE 800 MG PO ×3 (08:36→20:15)
[2023-02-09] MEDS: buPROPion HCl XL 300 MG TAB.ER.24H PO (08:36)
[2023-02-09] MEDS: LORazepam 1 MG TABLET 2 MG PO ×3 (08:36→20:15)
[2023-02-09] MEDS: Escitalopram Oxalate 20 MG TABLET PO (08:36)
[2023-02-09] MEDS: Nicotine Polacrilex 2 MG GUM 4 MG BUCCAL ×3 (08:36→20:15)
[2023-02-09] MEDS: methADONE HCl 20 MG/2 ML ORAL.CONC 102 MG PO (08:36)
[2023-02-09] MEDS: busPIRone HCl 5 MG TABLET PO ×3 (08:36→20:16)
[2023-02-09 08:52] LABS: MANUAL DIFF FLAG NO
[2023-02-09 08:56] LABS: Basophils Percent Auto 0.3 % (0-2); Eosinophils Absolute Auto 0.1 X10*3/uL (0.0-0.4); Eosinophils Percent Auto 2.5 % (0-4); Hematocrit 33.5 % (37.0-47.0); Hemoglobin 11.4 g/dl (12.0-16.0); Imm Gran Abs Auto 0.01 X10*3/uL (0.00-0.03); Imm Gran Pct Auto 0.3 % (0.0-0.4); Lymphocytes Absolute Auto 1.4 X10*3/uL (1.2-4.9); Mean Corpuscular Hemoglobin 30.1 pg (27.0-33.0); Mean Corpuscular Volume 88.4 fL (80.0-98.0); Mean Platelet Volume 10.1 fL (9.4-12.3); Monocytes Absolute Auto 0.3 X10*3/uL (0.1-1.2); Monocytes Percent Auto 8.1 % (2-11); Neutrophils Absolute Auto 1.4 x10*3/uL (2.0-8.3); Neutrophils Percent Auto 43.8 % (45-73); Platelet Count 127 X10*3/uL (160-400); Red Blood Count 3.79 X10*6/uL (4.20-5.50); Red Cell Distribution Width 12.5 % (11.0-16.0); White Blood Count 3.2 X10*3/uL (4.8-10.8)
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
[2023-02-09 09:30] LABS: Alanine Aminotransferase 61 U/L (0-31); Alkaline Phosphatase 112 U/L (39-117); Anion Gap 9 (12-20); Aspartate Amino Transferase 50 U/L (5-31); Bilirubin Direct < 0.2 mg/dL (0.0-0.5); Bilirubin Total 0.2 mg/dL (0.0-1.0); Blood Urea Nitrogen 12 mg/dL (9-16); Calcium 9.3 mg/dL (8.4-10.2); Carbon Dioxide 28 mmol/L (22-29); Chloride 106 mmol/L (96-108); Cholesterol 147 mg/dL (<200); Estimated Glomerular Filt Rate > 60; Glucose Fasting 100 mg/dL (60-99); HDL Cholesterol 38 mg/dL (>40); LDL Cholesterol Calculated 72 mg/dL (<100); Potassium 4.2 mmol/L (3.3-5.1); Sodium 139 mmol/L (135-145); Triglycerides 189 mg/dL (<150)
[2023-02-09 09:50] LABS: Free T4 (Free Thyroxine) 0.85 ng/dL (0.71-1.85); Thyroid Stimulating Hormone 0.47 uIU/mL (0.32-4.0)
[2023-02-09 10:04] LABS: Folate 15.1 ng/mL (> or = 4.0); Vitamin B12 836 pg/mL (200-900)
[2023-02-09] MEDS: Triamcinolone Acet 0.1 % Cream 15 GM TUBE 1 APPL TOPICAL (10:49)
[2023-02-09] MEDS: Sodium Phosphate,Mono-Dibasic 133 ML ENEMA PR (10:50)
[2023-02-09] MEDS: hydrOXYzine HCL 25 MG TABLET PO (10:53)
[2023-02-09 11:22] LABS: Appearance Urine Clear; Color Urine Yellow; Glucose Urine UA Negative (Negative); Leukocyte Esterase Urine Negative (Negative); Nitrite Urine Negative (Negative); PH 5.5 (5.0-9.0); UPreg QC Valid YES; Urine Blood Negative (Negative); Urine Ketones Negative (Negative); Urine Pregnancy NEGATIVE (NEGATIVE); Urine Protein Negative (Neg-Trace)
[2023-02-09 12:02] LABS: Estimated Average Glucose 108 mg/dL; Hemoglobin A1c % 5.4 % (<6.0)
[2023-02-09] MEDS: QUEtiapine Fumarate 50 MG TABLET PO ×2 (14:00→20:15)
[2023-02-09] MEDS: Prazosin HCL 1 MG CAPSULE 4 MG PO (20:14)
[2023-02-09] MEDS: QUEtiapine Fumarate 400 MG TABLET PO (20:15)
[2023-02-09] MEDS: Mirtazapine 30 MG TABLET PO (20:16)
[2023-02-09 20:41] VITALS: BP 114/63; PULSE 87; TEMP 36.6; O2SAT 98
[2023-02-10 07:00] VITALS: BMI 27.7
[2023-02-10 08:40] VITALS: BP 109/63; PULSE 96; RESP 18; TEMP 36.4; O2SAT 98
[2023-02-10] MEDS: buPROPion HCl XL 300 MG TAB.ER.24H PO (08:44)
[2023-02-10] MEDS: Sennosides 8.6 MG TABLET 17.2 MG PO (08:44)
[2023-02-10] MEDS: LORazepam 1 MG TABLET 2 MG PO ×3 (08:44→22:26)
[2023-02-10] MEDS: Gabapentin 400 MG CAPSULE 800 MG PO ×3 (08:44→20:09)
[2023-02-10] MEDS: QUEtiapine Fumarate 50 MG TABLET PO ×3 (08:44→22:26)
[2023-02-10] MEDS: Escitalopram Oxalate 20 MG TABLET PO (08:45)
[2023-02-10] MEDS: busPIRone HCl 5 MG TABLET PO ×3 (08:45→20:09)
[2023-02-10] MEDS: methADONE HCl 20 MG/2 ML ORAL.CONC 102 MG PO (08:45)
[2023-02-10] MEDS: Nicotine Polacrilex 2 MG GUM 4 MG BUCCAL ×3 (08:45→19:05)
[2023-02-10] MEDS: hydrOXYzine HCL 25 MG TABLET PO ×2 (10:54→20:08)
[2023-02-10] MEDS: polyethylene glycoL 3350 17 GM POWD.PACK PO (10:54)
[2023-02-10] MEDS: Triamcinolone Acet 0.1 % Cream 15 GM TUBE 1 APPL TOPICAL (11:25)
--- NOTE | 2023-02-10 15:13 | HO.PSYCHPN ---
Subjective Subjective Date of Service: 02/10/23 Reason For Visit: F32.9 Interim History: calm, cooperative. slept well last night with addition of remeron 30. agreeable to decrease seroquel from 400 QHS to 300 QHS tonight. appetite improved, was able to motivate enough to take a shower today. per staff, not attending groups. depressed. endorsed SI. safe in hospital. using lots of PRNs. slept through the night. Mental Status Exam Mental Status Exam Narrative: adequately dressed and groomed. cooperative. no PMA/PMR. speech nml rate, amount, loudness, tone, latency. thoughts linear and logical. affect constricted, normo-intense, non-labile. mood anxious, depressed. no SI/SIBI/HI/AVH expressed. Diagnostics Vital Signs (24Hr): Vital Signs - 24 hr 02/09/23 20:41 02/10/23 08:40 Temperature 97.8 F 97.5 F Pulse Rate 87 96 Respiratory Rate 18 Blood Pressure 114/63 109/63 Pulse Oximetry 98 98 Oxygen Delivery Method Room Air Room Air Labs 02/09/23 08:19 02/09/23 08:19 Labs: Laboratory Results - last 48 hr 02/09/23 02/09/23 08:19 11:05 WBC 3.2 L RBC 3.79 L Hgb 11.4 L Hct 33.5 L MCV 88.4 MCH 30.1 MCHC 34.0 RDW 12.5 Plt Count 127 L MPV 10.1 Immature Gran % (Auto) 0.3 Neut % (Auto) 43.8 L Lymph % (Auto) 45.0 H [place] % (Auto) 8.1 Eos % (Auto) 2.5 Baso % (Auto) 0.3 Lymph # (Auto) 1.4 [place] # (Auto) 0.3 Eos # (Auto) 0.1 Baso # (Auto) 0.0 Abs Immat Gran (auto) 0.01 Absolute Neuts (auto) 1.4 L Absolute Nucleated RBC 0.000 Nucleated RBC % (auto) 0.0 Sodium 139 Potassium 4.2 Chloride 106 Carbon Dioxide 28 Anion Gap 9 L BUN 12 Creatinine 0.90 Estim Creat Clear Calc TNP Estimated GFR > 60 Fasting Glucose 100 H Estimat Average Glucose 108 Hemoglobin A1c % 5.4 Calcium 9.3 Total Bilirubin 0.2 Direct Bilirubin < 0.2 AST 50 H ALT 61 H Alkaline Phosphatase 112 Total Protein 7.0 Albumin 4.0 Triglycerides 189 H Cholesterol 147 LDL Cholesterol, Calc 72 HDL Cholesterol 38 L Vitamin B12 836 Folate 15.1 TSH 0.47 Free T4 0.85 Urine Color Yellow Urine Appearance Clear Urine pH 5.5 Ur Specific [place] 1.020 Urine Protein Negative Urine Glucose (UA) Negative Urine Ketones Negative Urine Blood Negative Urine Nitrite Negative Ur Leukocyte Esterase Negative Urine Test NEGATIVE Medications Medications Current Medications Acetaminophen (Acetaminophen 325 Mg Tablet) 650 mg PO Q6H PRN PRN Reason: Headache/Pain Mild Scale (1-3) Al Hydroxide/Mg Hydroxide (Magnesium Hydrox/Alum Hydrox 30 Ml Oral.Susp) 30 ml PO Q6H PRN PRN Reason: Heartburn/Nausea Albuterol Sulfate (Albuterol Sulfate 90 Mcg 8 Gm Inhaler) 2 puff INHALE Q6H PRN PRN Reason: for wheezing Bupropion HCl (Bupropion Hcl Xl 300 Mg Tab.Er.24h) 300 mg PO DAILY [facility] Last Admin: 02/10/23 08:44 Dose: 300 mg Buspirone HCl (Buspirone Hcl 5 Mg Tablet) 5 mg PO TID [facility] Last Admin: 02/10/23 14:30 Dose: 5 mg Escitalopram Oxalate (Escitalopram Oxalate 20 Mg Tablet) 20 mg PO DAILY [facility] Last Admin: 02/10/23 08:45 Dose: 20 mg Gabapentin (Gabapentin 400 Mg Capsule) 800 mg PO TID [facility] Last Admin: 02/10/23 14:31 Dose: 800 mg Hydroxyzine HCl (Hydroxyzine Hcl 25 Mg Tablet) 25 mg PO Q6H PRN PRN Reason: Anxiety Last Admin: 02/10/23 10:54 Dose: 25 mg Lorazepam (Lorazepam 1 Mg Tablet) 2 mg PO TID PRN PRN Reason: anxiety Last Admin: 02/10/23 14:30 Dose: 2 mg Magnesium Hydroxide (Milk Of Magnesia 30 Ml Oral.Susp) 30 ml PO DAILY PRN PRN Reason: Constipation Methadone HCl (Methadone Hcl 20 Mg/2 Ml Oral.Conc) 102 mg PO DAILY [facility] Last Admin: 02/10/23 08:45 Dose: 102 mg Mirtazapine (Mirtazapine 30 Mg Tablet) 30 mg PO BEDTIME [facility] Last Admin: 02/09/23 20:16 Dose: 30 mg Nicotine Polacrilex (Nicotine Polacrilex 2 Mg Gum) 4 mg BUCCAL Q2H PRN PRN Reason: Nicotine Cravings Last Admin: 02/10/23 12:35 Dose: 4 mg Nicotine Polacrilex (Nicotine Polacrilex 2 Mg Gum) 4 mg BUCCAL Q2H PRN PRN Reason: nicotine cravings Polyethylene Glycol (Polyethylene Glycol 3350 17 Gm Powd.Pack) 17 gm PO DAILY PRN PRN Reason: Constipation Last Admin: 02/10/23 10:54 Dose: 17 gm Prazosin HCl (Prazosin Hcl 1 Mg Capsule) 4 mg PO BEDTIME LYN; Protocol Last Admin: 02/09/23 20:14 Dose: 4 mg Quetiapine Fumarate (Quetiapine Fumarate 50 Mg Tablet) 50 mg PO TID PRN PRN Reason: severe anxiety Last Admin: 02/10/23 14:30 Dose: 50 mg Quetiapine Fumarate (Quetiapine Fumarate 300 Mg Tablet) 300 mg PO BEDTIME LYN Senna (Sennosides 8.6 Mg Tablet) 17.2 mg PO DAILY LYN Last Admin: 02/10/23 08:44 Dose: 17.2 mg Senna (Sennosides 8.6 Mg Tablet) 8.6 mg PO BEDTIME PRN PRN Reason: constipation Sodium Biphosphate/Sodium Phosphate (Sodium Phosphate,[place]-Dibasic 133 Ml Enema) 133 ml VA ONCE PRN PRN Reason: Constipation Last Admin: 02/09/23 10:50 Dose: 133 ml Triamcinolone Acetonide (Triamcinolone Acet 0.1 % Cream 15 Gm Tube) 1 appl TOPICAL BID PRN; Protocol PRN Reason: rash Last Admin: 02/10/23 11:25 Dose: 1 appl Allergies Allergies Allergy/AdvReac Type Severity Reaction Status Date / Time No Known Allergies Allergy Verified 12/29/22 15:49 [No Known Allergies*] Assessment & Plan Assessment & Plan (1) Opiate dependence: Status: Acute Code(s): F11.20 - Opioid dependence, uncomplicated (2) Depressive disorder: Status: Acute Code(s): F32.A - Depression, unspecified (3) PTSD (post-traumatic stress disorder): Status: Acute Code(s): F43.10 - Post-traumatic stress disorder, unspecified (4) Cocaine use disorder: Status: Acute Code(s): F14.10 - Cocaine abuse, uncomplicated Plan 02/09: continue home medications for now aside from adding remeron 30 for sleep. refer for substance abuse treatment after inpatient stabilization. 02/10: phone interview with bakari chopra tomorrow at noon. slept well last night, some neurovegetative Sx of depression slightly improved (sleep, appetite, energy/motivation). decrease HS seroquel from 400 to 300 tonight. Reason for continued inpatient stay Substantial Risk for: harm to self, inability to function and rapid decompensation Time Spent With Patient Time: Total time managing care of this patient today __35__ minutes.
[2023-02-10] MEDS: Prazosin HCL 1 MG CAPSULE 4 MG PO (20:08)
[2023-02-10] MEDS: Acetaminophen 325 MG TABLET 650 MG PO (20:08)
[2023-02-10] MEDS: QUEtiapine Fumarate 300 MG TABLET PO (20:09)
[2023-02-10] MEDS: Mirtazapine 30 MG TABLET PO (20:09)
[2023-02-10 20:10] VITALS: BP 109/64; PULSE 93; RESP 18; TEMP 36.7; O2SAT 97
[2023-02-10] MEDS: Mineral Oil/Petrolatum,White 106 GM Tube 1 APPL TOPICAL (20:29)
[2023-02-11 08:35] VITALS: BP 109/61; PULSE 78; RESP 18; TEMP 36.3; O2SAT 98
[2023-02-11] MEDS: Escitalopram Oxalate 20 MG TABLET PO (09:31)
[2023-02-11] MEDS: LORazepam 1 MG TABLET 2 MG PO ×3 (09:31→20:06)
[2023-02-11] MEDS: buPROPion HCl XL 300 MG TAB.ER.24H PO (09:32)
[2023-02-11] MEDS: busPIRone HCl 5 MG TABLET PO ×3 (09:32→20:06)
[2023-02-11] MEDS: Sennosides 8.6 MG TABLET 17.2 MG PO (09:32)
[2023-02-11] MEDS: Gabapentin 400 MG CAPSULE 800 MG PO ×3 (09:32→20:06)
[2023-02-11] MEDS: methADONE HCl 20 MG/2 ML ORAL.CONC 102 MG PO (09:33)
[2023-02-11] MEDS: Acetaminophen 325 MG TABLET 650 MG PO (12:00)
[2023-02-11] MEDS: QUEtiapine Fumarate 50 MG TABLET PO (12:01)
[2023-02-11] MEDS: polyethylene glycoL 3350 17 GM POWD.PACK PO (12:01)
[2023-02-11] MEDS: hydrOXYzine HCL 25 MG TABLET PO (12:01)
[2023-02-11] MEDS: Nicotine Polacrilex 2 MG GUM 4 MG BUCCAL ×3 (12:01→20:06)
--- NOTE | 2023-02-11 13:44 | P.PNPSI_ITS ---
Subjective Subjective Date of Service: 02/11/23 Reason For Visit: F32.9 Interim History: calm, cooperative. tearful, saying she is quite depressed and wants to not wake up thinking of suicide and just be happy. she is interested in med changes. states perhaps lexapro is no longer working for her... she's been on it for 6-7 months and not much has changed. says she was on prozac for a year before that with the same result. agrees to trial of effexor. declining referral to [facility] currently. per staff, visible, pleasant. taking meds. getting PRN ativan and seroquel. agitated with someone on phone. Mental Status Exam Mental Status Exam Narrative: adequately dressed and groomed. cooperative. no PMA/PMR. speech nml rate, amount, loudness, tone, latency. thoughts linear and logical. affect constricted, normo-intense, non-labile; tearfulness. mood anxious, depressed. +SI/SIBI. no HI/AVH expressed. Diagnostics Vital Signs (24Hr): Vital Signs - 24 hr 02/10/23 20:10 Temperature 98.1 F Pulse Rate 93 Respiratory Rate 18 Blood Pressure 109/64 Pulse Oximetry 97 Oxygen Delivery Method Room Air BMI result Body Mass Index 27.7 Labs 02/09/23 08:19 02/09/23 08:19 Medications Medications Current Medications Acetaminophen (Acetaminophen 325 Mg Tablet) 650 mg PO Q6H PRN PRN Reason: Headache/Pain Mild Scale (1-3) Last Admin: 02/11/23 12:00 Dose: 650 mg Al Hydroxide/Mg Hydroxide (Magnesium Hydrox/Alum Hydrox 30 Ml Oral.Susp) 30 ml PO Q6H PRN PRN Reason: Heartburn/Nausea Albuterol Sulfate (Albuterol Sulfate 90 Mcg 8 Gm Inhaler) 2 puff INHALE Q6H PRN PRN Reason: for wheezing Bupropion HCl (Bupropion Hcl Xl 300 Mg Tab.Er.24h) 300 mg PO DAILY [facility] Last Admin: 02/11/23 09:32 Dose: 300 mg Buspirone HCl (Buspirone Hcl 5 Mg Tablet) 5 mg PO TID [facility] Last Admin: 02/11/23 09:32 Dose: 5 mg Gabapentin (Gabapentin 400 Mg Capsule) 800 mg PO TID [facility] Last Admin: 02/11/23 09:32 Dose: 800 mg Hydroxyzine HCl (Hydroxyzine Hcl 25 Mg Tablet) 25 mg PO Q6H PRN PRN Reason: Anxiety Last Admin: 02/11/23 12:01 Dose: 25 mg Lorazepam (Lorazepam 1 Mg Tablet) 2 mg PO TID PRN PRN Reason: anxiety Last Admin: 02/11/23 09:31 Dose: 2 mg Magnesium Hydroxide (Milk Of Magnesia 30 Ml Oral.Susp) 30 ml PO DAILY PRN PRN Reason: Constipation Methadone HCl (Methadone Hcl 20 Mg/2 Ml Oral.Conc) 102 mg PO DAILY [facility] Last Admin: 02/11/23 09:33 Dose: 102 mg Mirtazapine (Mirtazapine 30 Mg Tablet) 30 mg PO BEDTIME [facility] Last Admin: 02/10/23 20:09 Dose: 30 mg Multi-Ingred Cream/Lotion/Oil/Oint (Mineral Oil/Petrolatum,White 106 Gm Tube) 1 appl TOPICAL DAILY PRN; Protocol PRN Reason: Dryness Last Admin: 02/10/23 20:29 Dose: 1 appl Nicotine Polacrilex (Nicotine Polacrilex 2 Mg Gum) 4 mg BUCCAL Q2H PRN PRN Reason: Nicotine Cravings Last Admin: 02/11/23 12:01 Dose: 4 mg Nicotine Polacrilex (Nicotine Polacrilex 2 Mg Gum) 4 mg BUCCAL Q2H PRN PRN Reason: nicotine cravings Polyethylene Glycol (Polyethylene Glycol 3350 17 Gm Powd.Pack) 17 gm PO DAILY PRN PRN Reason: Constipation Last Admin: 02/11/23 12:01 Dose: 17 gm Prazosin HCl (Prazosin Hcl 1 Mg Capsule) 4 mg PO BEDTIME [facility]; Protocol Last Admin: 02/10/23 20:08 Dose: 4 mg Quetiapine Fumarate (Quetiapine Fumarate 50 Mg Tablet) 50 mg PO TID PRN PRN Reason: severe anxiety Last Admin: 02/11/23 12:01 Dose: 50 mg Quetiapine Fumarate (Quetiapine Fumarate 300 Mg Tablet) 300 mg PO BEDTIME [facility] Last Admin: 02/10/23 20:09 Dose: 300 mg Senna (Sennosides 8.6 Mg Tablet) 17.2 mg PO DAILY [facility] Last Admin: 02/11/23 09:32 Dose: 17.2 mg Senna (Sennosides 8.6 Mg Tablet) 8.6 mg PO BEDTIME PRN PRN Reason: constipation Sodium Biphosphate/Sodium Phosphate (Sodium Phosphate,[place]-Dibasic 133 Ml Enema) 133 ml [place] ONCE PRN PRN Reason: Constipation Last Admin: 02/09/23 10:50 Dose: 133 ml Triamcinolone Acetonide (Triamcinolone Acet 0.1 % Cream 15 Gm Tube) 1 appl TOPICAL BID PRN; Protocol PRN Reason: rash Last Admin: 02/10/23 11:25 Dose: 1 appl Venlafaxine HCl (Venlafaxine Hcl Er 150 Mg Cap.Er.24h) 150 mg PO DAILY [facility] Allergies Allergies Allergy/AdvReac Type Severity Reaction Status Date / Time No Known Allergies Allergy Verified 12/29/22 15:49 [No Known Allergies*] Assessment & Plan Assessment & Plan (1) Opiate dependence: Status: Acute Code(s): F11.20 - Opioid dependence, uncomplicated (2) Depressive disorder: Status: Acute Code(s): F32.A - Depression, unspecified (3) PTSD (post-traumatic stress disorder): Status: Acute Code(s): F43.10 - Post-traumatic stress disorder, unspecified (4) Cocaine use disorder: Status: Acute Code(s): F14.10 - Cocaine abuse, uncomplicated Plan 02/09: continue home medications for now aside from adding remeron 30 for sleep. refer for substance abuse treatment after inpatient stabilization. 02/10: phone interview with [facility] tomorrow at noon. slept well last night, some neurovegetative Sx of depression slightly improved (sleep, appetite, energy/motivation). decrease HS seroquel from 400 to 300 tonight. 02/11: difficult time sleeping last night. tearful this morning, SI. asking to switch antidepressants. agree to DC lexapro and start effexor XR 150 mg daily. Reason for continued inpatient stay Substantial Risk for: harm to self, inability to function and rapid decompensation Time Spent With Patient Time: Total time managing care of this patient today _25___ minutes.
[2023-02-11] MEDS: QUEtiapine Fumarate 300 MG TABLET PO (20:06)
[2023-02-11] MEDS: Prazosin HCL 1 MG CAPSULE 4 MG PO (20:06)
[2023-02-11] MEDS: Mirtazapine 30 MG TABLET PO (20:06)
[2023-02-11 20:53] VITALS: BP 108/58; PULSE 95; RESP 18; TEMP 36.7; O2SAT 99
[2023-02-12 08:30] VITALS: BP 95/50; PULSE 84; RESP 16; TEMP 36.6; O2SAT 97
[2023-02-12] MEDS: buPROPion HCl XL 300 MG TAB.ER.24H PO (09:22)
[2023-02-12] MEDS: Gabapentin 400 MG CAPSULE 800 MG PO ×3 (09:22→19:58)
[2023-02-12] MEDS: Sennosides 8.6 MG TABLET 17.2 MG PO (09:23)
[2023-02-12] MEDS: Venlafaxine HCl ER 150 MG CAP.ER.24H PO (09:23)
[2023-02-12] MEDS: busPIRone HCl 5 MG TABLET PO ×3 (09:23→19:57)
[2023-02-12] MEDS: methADONE HCl 20 MG/2 ML ORAL.CONC 102 MG PO (09:24)
[2023-02-12] MEDS: Nicotine Polacrilex 2 MG GUM 4 MG BUCCAL ×2 (09:39→13:07)
[2023-02-12] MEDS: hydrOXYzine HCL 25 MG TABLET PO (11:38)
[2023-02-12] MEDS: Sodium Phosphate,Mono-Dibasic 133 ML ENEMA PR (12:44)
[2023-02-12] MEDS: LORazepam 1 MG TABLET 2 MG PO ×2 (13:05→19:59)
[2023-02-12] MEDS: QUEtiapine Fumarate 50 MG TABLET PO ×2 (13:06→19:57)
[2023-02-12] MEDS: Docusate Sodium 100 MG CAPSULE PO ×2 (15:08→20:02)
[2023-02-12] MEDS: Nicotine 14 MG PATCH.TD24 TRANSDERMA (15:09)
[2023-02-12] MEDS: Nicotine Polacrilex 2 MG GUM BUCCAL ×2 (15:10→19:57)
[2023-02-12] MEDS: polyethylene glycoL 3350 17 GM POWD.PACK PO (15:14)
[2023-02-12 15:47] LABS: COVID-19 Test Negative (Negative); IDNOW Serial# BCCEAD1C
[2023-02-12 16:15] VITALS: BP 94/53; PULSE 80; RESP 16; TEMP 36.5; O2SAT 98
[2023-02-12 19:50] VITALS: BP 108/53; PULSE 96; RESP 16; TEMP 36.3; O2SAT 97
[2023-02-12] MEDS: Mirtazapine 30 MG TABLET PO (19:57)
[2023-02-12] MEDS: QUEtiapine Fumarate 50 MG TABLET 250 MG PO (19:58)
[2023-02-12] MEDS: Prazosin HCL 1 MG CAPSULE 4 MG PO (19:59)
--- NOTE | 2023-02-12 21:13 | P.PNPSI_ITS ---
Subjective Subjective Date of Service: 02/12/23 Reason For Visit: F32.9 Interim History: no concerns with change in anti-depressant medications. slept well last NOC. agreeable to decrease HS seroquel to 250 mg. c/o lower back pain; aspercreme ordered. per staff, using many PRNs. no notable behaviors. Mental Status Exam Mental Status Exam Narrative: adequately dressed and groomed. cooperative. no PMA/PMR. speech nml rate, amount, loudness, tone, latency. thoughts linear and logical. affect constricted, normo-intense, non-labile. mood anxious, depressed. no SI/SIBI/HI/AVH expressed. Diagnostics Vital Signs (24Hr): Vital Signs - 24 hr 02/12/23 08:30 02/12/23 16:15 02/12/23 19:50 Temperature 97.8 F 97.7 F 97.3 F Pulse Rate 84 80 96 Respiratory Rate 16 16 16 Blood Pressure 95/50 L 94/53 L 108/53 L Pulse Oximetry 97 98 97 Oxygen Delivery Method Room Air Room Air Room Air BMI result Body Mass Index 27.7 Labs 02/09/23 08:19 02/09/23 08:19 Labs: Laboratory Results - last 48 hr 02/12/23 15:22 COVID-19 ([facility]) Negative COVID-19 Clin Com See Note Medications Medications Current Medications Acetaminophen (Acetaminophen 325 Mg Tablet) 650 mg PO Q6H PRN PRN Reason: Headache/Pain Mild Scale (1-3) Last Admin: 02/11/23 12:00 Dose: 650 mg Al Hydroxide/Mg Hydroxide (Magnesium Hydrox/Alum Hydrox 30 Ml Oral.Susp) 30 ml PO Q6H PRN PRN Reason: Heartburn/Nausea Albuterol Sulfate (Albuterol Sulfate 90 Mcg 8 Gm Inhaler) 2 puff INHALE Q6H PRN PRN Reason: for wheezing Bupropion HCl (Bupropion Hcl Xl 300 Mg Tab.Er.24h) 300 mg PO DAILY [facility] Last Admin: 02/12/23 09:22 Dose: 300 mg Buspirone HCl (Buspirone Hcl 5 Mg Tablet) 5 mg PO TID [facility] Last Admin: 02/12/23 19:57 Dose: 5 mg Docusate Sodium (Docusate Sodium 100 Mg Capsule) 100 mg PO BID [facility] Last Admin: 02/12/23 20:02 Dose: 100 mg Gabapentin (Gabapentin 400 Mg Capsule) 800 mg PO TID [facility] Last Admin: 02/12/23 19:58 Dose: 800 mg Hydroxyzine HCl (Hydroxyzine Hcl 25 Mg Tablet) 25 mg PO Q6H PRN PRN Reason: Anxiety Last Admin: 02/12/23 11:38 Dose: 25 mg Lorazepam (Lorazepam 1 Mg Tablet) 2 mg PO TID PRN PRN Reason: anxiety Last Admin: 02/12/23 19:59 Dose: 2 mg Magnesium Hydroxide (Milk Of Magnesia 30 Ml Oral.Susp) 30 ml PO DAILY PRN PRN Reason: Constipation Methadone HCl (Methadone Hcl 20 Mg/2 Ml Oral.Conc) 102 mg PO DAILY [facility] Last Admin: 02/12/23 09:24 Dose: 102 mg Mirtazapine (Mirtazapine 30 Mg Tablet) 30 mg PO BEDTIME [facility] Last Admin: 02/12/23 19:57 Dose: 30 mg Multi-Ingred Cream/Lotion/Oil/Oint (Mineral Oil/Petrolatum,White 106 Gm Tube) 1 appl TOPICAL DAILY PRN; Protocol PRN Reason: Dryness Last Admin: 02/10/23 20:29 Dose: 1 appl Nicotine (Nicotine 14 Mg Patch.Td24) 14 mg TRANSDERMA DAILY [facility] Last Admin: 02/12/23 15:09 Dose: 14 mg Nicotine Polacrilex (Nicotine Polacrilex 2 Mg Gum) 2 mg BUCCAL Q2H PRN PRN Reason: Nicotine Cravings Last Admin: 02/12/23 19:57 Dose: 2 mg Polyethylene Glycol (Polyethylene Glycol 3350 17 Gm Powd.Pack) 17 gm PO DAILY PRN PRN Reason: Constipation Last Admin: 02/12/23 15:14 Dose: 17 gm Prazosin HCl (Prazosin Hcl 1 Mg Capsule) 4 mg PO BEDTIME [facility]; Protocol Last Admin: 02/12/23 19:59 Dose: 4 mg Quetiapine Fumarate (Quetiapine Fumarate 50 Mg Tablet) 50 mg PO TID PRN PRN Reason: severe anxiety Last Admin: 02/12/23 19:57 Dose: 50 mg Quetiapine Fumarate (Quetiapine Fumarate 50 Mg Tablet) 250 mg PO BEDTIME [facility] Last Admin: 02/12/23 19:58 Dose: 250 mg Senna (Sennosides 8.6 Mg Tablet) 17.2 mg PO DAILY [facility] Last Admin: 02/12/23 09:23 Dose: 17.2 mg Senna (Sennosides 8.6 Mg Tablet) 8.6 mg PO BEDTIME PRN PRN Reason: constipation Sodium Biphosphate/Sodium Phosphate (Sodium Phosphate,[place]-Dibasic 133 Ml Enema) 133 ml [place] ONCE PRN PRN Reason: Constipation Last Admin: 02/12/23 12:44 Dose: 133 ml Triamcinolone Acetonide (Triamcinolone Acet 0.1 % Cream 15 Gm Tube) 1 appl TOPICAL BID PRN; Protocol PRN Reason: rash Last Admin: 02/10/23 11:25 Dose: 1 appl Trolamine Salicylate (Trolamine Salicylate 10 % Cream 85 Gm Tube) 1 appl TOPICAL QID PRN; Protocol PRN Reason: low back pain Venlafaxine HCl (Venlafaxine Hcl Er 150 Mg Cap.Er.24h) 150 mg PO DAILY [facility] Last Admin: 02/12/23 09:23 Dose: 150 mg Allergies Allergies Allergy/AdvReac Type Severity Reaction Status Date / Time No Known Allergies Allergy Verified 12/29/22 15:49 [No Known Allergies*] Assessment & Plan Assessment & Plan (1) Opiate dependence: Status: Acute Code(s): F11.20 - Opioid dependence, uncomplicated (2) Depressive disorder: Status: Acute Code(s): F32.A - Depression, unspecified (3) PTSD (post-traumatic stress disorder): Status: Acute Code(s): F43.10 - Post-traumatic stress disorder, unspecified (4) Cocaine use disorder: Status: Acute Code(s): F14.10 - Cocaine abuse, uncomplicated Plan 02/09: continue home medications for now aside from adding remeron 30 for sleep. refer for substance abuse treatment after inpatient stabilization. 02/10: phone interview with [facility] tomorrow at noon. slept well last night, some neurovegetative Sx of depression slightly improved (sleep, appetite, energy/motivation). decrease HS seroquel from 400 to 300 tonight. 02/11: difficult time sleeping last night. tearful this morning, SI. asking to switch antidepressants. agree to DC lexapro and start effexor XR 150 mg daily. 02/12: slept well last night. decrease HS seroquel to 250. plan to increase remeron to 45 as indicated as HS seroquel tapered. aspercreme for lumbago. Reason for continued inpatient stay Substantial Risk for: harm to self, inability to function and rapid decompensation Time Spent With Patient Time: Total time managing care of this patient today ____ minutes.
[2023-02-13 09:05] VITALS: BP 101/55; PULSE 95; RESP 16; TEMP 36.8; O2SAT 98
[2023-02-13] MEDS: Sennosides 8.6 MG TABLET 17.2 MG PO (09:09)
[2023-02-13] MEDS: buPROPion HCl XL 300 MG TAB.ER.24H PO (09:09)
[2023-02-13] MEDS: Docusate Sodium 100 MG CAPSULE PO ×2 (09:10→20:38)
[2023-02-13] MEDS: Venlafaxine HCl ER 150 MG CAP.ER.24H PO (09:11)
[2023-02-13] MEDS: Gabapentin 400 MG CAPSULE 800 MG PO ×3 (09:11→20:36)
[2023-02-13] MEDS: busPIRone HCl 5 MG TABLET PO ×3 (09:11→20:37)
[2023-02-13] MEDS: Nicotine 14 MG PATCH.TD24 TRANSDERMA (09:13)
[2023-02-13] MEDS: methADONE HCl 20 MG/2 ML ORAL.CONC 102 MG PO (09:14)
[2023-02-13] MEDS: Nicotine Polacrilex 2 MG GUM BUCCAL ×3 (09:49→20:44)
[2023-02-13] MEDS: LORazepam 1 MG TABLET 2 MG PO ×2 (11:22→16:04)
[2023-02-13] MEDS: hydrOXYzine HCL 25 MG TABLET PO ×2 (11:22→20:37)
[2023-02-13] MEDS: Mineral Oil/Petrolatum,White 106 GM Tube 1 APPL TOPICAL (12:02)
[2023-02-13] MEDS: Albuterol Sulfate 90 MCG 8 GM INHALER 2 PUFF INHALE (12:19)
[2023-02-13] MEDS: QUEtiapine Fumarate 50 MG TABLET PO (15:00)
[2023-02-13] MEDS: Trolamine Salicylate 10 % Cream 85 GM TUBE 1 APPL TOPICAL (15:18)
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
[2023-02-13] MEDS: polyethylene glycoL 3350 17 GM POWD.PACK PO (17:26)
[2023-02-13] MEDS: Magnesium Hydrox/Alum Hydrox 30 ML ORAL.SUSP PO (17:26)
[2023-02-13 19:10] VITALS: BP 112/60; PULSE 100; RESP 18; TEMP 36.6; O2SAT 96
[2023-02-13] MEDS: Prazosin HCL 1 MG CAPSULE 4 MG PO (20:36)
[2023-02-13] MEDS: Mirtazapine 15 MG TABLET 45 MG PO (20:37)
[2023-02-13] MEDS: QUEtiapine Fumarate 200 MG TABLET PO (20:38)
[2023-02-14 06:00] VITALS: BP 101/55; PULSE 106; RESP 16; TEMP 36.5; O2SAT 99
[2023-02-14] MEDS: buPROPion HCl XL 300 MG TAB.ER.24H PO (08:24)
[2023-02-14] MEDS: Venlafaxine HCl ER 150 MG CAP.ER.24H PO (08:24)
[2023-02-14] MEDS: Gabapentin 400 MG CAPSULE 800 MG PO ×3 (08:25→20:19)
[2023-02-14] MEDS: busPIRone HCl 5 MG TABLET PO ×3 (08:25→20:20)
[2023-02-14] MEDS: Sennosides 8.6 MG TABLET 17.2 MG PO (08:25)
[2023-02-14] MEDS: Docusate Sodium 100 MG CAPSULE PO ×2 (08:25→20:20)
[2023-02-14] MEDS: methADONE HCl 20 MG/2 ML ORAL.CONC 102 MG PO (08:31)
[2023-02-14] MEDS: Nicotine 14 MG PATCH.TD24 TRANSDERMA (08:38)
[2023-02-14] MEDS: QUEtiapine Fumarate 50 MG TABLET PO (08:38)
[2023-02-14] MEDS: LORazepam 1 MG TABLET 2 MG PO ×3 (11:17→20:19)
[2023-02-14] MEDS: Triamcinolone Acet 0.1 % Cream 15 GM TUBE 1 APPL TOPICAL (11:17)
[2023-02-14] MEDS: hydrOXYzine HCL 25 MG TABLET PO ×2 (12:15→20:20)
[2023-02-14] MEDS: Albuterol Sulfate 90 MCG 8 GM INHALER 2 PUFF INHALE (12:15)
[2023-02-14] MEDS: Nicotine Polacrilex 2 MG GUM BUCCAL ×3 (12:18→20:20)
[2023-02-14] MEDS: Acetaminophen 325 MG TABLET 650 MG PO (13:36)
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
[2023-02-14] MEDS: QUEtiapine Fumarate 100 MG TABLET PO ×2 (15:06→20:20)
[2023-02-14] MEDS: Sodium Phosphate,Mono-Dibasic 133 ML ENEMA PR (16:15)
[2023-02-14] MEDS: Magnesium Hydrox/Alum Hydrox 30 ML ORAL.SUSP PO (17:28)
[2023-02-14 18:00] VITALS: BP 114/60; PULSE 87; RESP 18; TEMP 36.7; O2SAT 99
[2023-02-14] MEDS: Prazosin HCL 1 MG CAPSULE 4 MG PO (20:19)
[2023-02-14] MEDS: QUEtiapine Fumarate 200 MG TABLET PO (20:20)
[2023-02-14] MEDS: Mirtazapine 15 MG TABLET 45 MG PO (20:20)
[2023-02-15 09:21] VITALS: BP 98/55; PULSE 115; RESP 18; TEMP 36.8; O2SAT 98
[2023-02-15] MEDS: Docusate Sodium 100 MG CAPSULE PO ×2 (09:24→20:03)
[2023-02-15] MEDS: Venlafaxine HCl ER 150 MG CAP.ER.24H PO (09:24)
[2023-02-15] MEDS: Sennosides 8.6 MG TABLET 17.2 MG PO (09:24)
[2023-02-15] MEDS: buPROPion HCl XL 300 MG TAB.ER.24H PO (09:24)
[2023-02-15] MEDS: busPIRone HCl 5 MG TABLET PO ×3 (09:24→20:03)
[2023-02-15] MEDS: Gabapentin 400 MG CAPSULE 800 MG PO ×3 (09:24→20:01)
[2023-02-15] MEDS: methADONE HCl 20 MG/2 ML ORAL.CONC 102 MG PO (09:25)
[2023-02-15] MEDS: Nicotine Polacrilex 2 MG GUM BUCCAL ×4 (09:35→21:32)
[2023-02-15] MEDS: QUEtiapine Fumarate 100 MG TABLET PO ×3 (09:35→20:03)
[2023-02-15] MEDS: LORazepam 1 MG TABLET 2 MG PO ×3 (09:35→20:01)
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
[2023-02-15] MEDS: hydrOXYzine HCL 25 MG TABLET PO ×2 (14:14→20:02)
[2023-02-15] MEDS: Albuterol Sulfate 90 MCG 8 GM INHALER 2 PUFF INHALE (19:20)
[2023-02-15] MEDS: Mirtazapine 15 MG TABLET 45 MG PO (19:59)
[2023-02-15] MEDS: Prazosin HCL 1 MG CAPSULE 4 MG PO (20:00)
[2023-02-15] MEDS: QUEtiapine Fumarate 200 MG TABLET PO (20:02)
[2023-02-15 20:14] VITALS: BP 110/66; PULSE 90; RESP 16; TEMP 36.4; O2SAT 98
[2023-02-15] MEDS: Sodium Phosphate,Mono-Dibasic 133 ML ENEMA PR (21:53)
[2023-02-16] MEDS: QUEtiapine Fumarate 100 MG TABLET PO ×2 (06:06→16:32)
[2023-02-16 08:45] VITALS: BP 104/59; PULSE 93; RESP 18; TEMP 37.1; O2SAT 96
[2023-02-16] MEDS: buPROPion HCl XL 300 MG TAB.ER.24H PO (08:51)
[2023-02-16] MEDS: Sennosides 8.6 MG TABLET 17.2 MG PO (08:51)
[2023-02-16] MEDS: Gabapentin 400 MG CAPSULE 800 MG PO ×3 (08:52→21:09)
[2023-02-16] MEDS: Venlafaxine HCl ER 150 MG CAP.ER.24H PO (08:52)
[2023-02-16] MEDS: Docusate Sodium 100 MG CAPSULE PO ×2 (08:53→21:09)
[2023-02-16] MEDS: busPIRone HCl 5 MG TABLET PO (08:53)
[2023-02-16] MEDS: methADONE HCl 20 MG/2 ML ORAL.CONC 102 MG PO (08:54)
[2023-02-16] MEDS: LORazepam 1 MG TABLET 2 MG PO (11:57)
[2023-02-16] MEDS: hydrOXYzine HCL 25 MG TABLET PO (11:57)
[2023-02-16] MEDS: Nicotine Polacrilex 2 MG GUM BUCCAL ×3 (11:58→21:13)
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
[2023-02-16] MEDS: clonazePAM 1 MG TABLET PO ×2 (14:22→21:09)
[2023-02-16] MEDS: busPIRone HCl 10 MG TABLET PO ×2 (14:22→21:09)
[2023-02-16 21:00] VITALS: BP 117/69; PULSE 98; RESP 18; TEMP 36.4; O2SAT 99
[2023-02-16] MEDS: Prazosin HCL 1 MG CAPSULE 4 MG PO (21:09)
[2023-02-16] MEDS: Mirtazapine 15 MG TABLET 45 MG PO (21:09)
[2023-02-16] MEDS: QUEtiapine Fumarate 200 MG TABLET PO (21:09)
[2023-02-17 08:30] VITALS: BP 108/58; PULSE 90; RESP 18; TEMP 36.4; O2SAT 97
[2023-02-17] MEDS: methADONE HCl 20 MG/2 ML ORAL.CONC 102 MG PO (08:55)
[2023-02-17] MEDS: Sennosides 8.6 MG TABLET 17.2 MG PO (08:58)
[2023-02-17] MEDS: Docusate Sodium 100 MG CAPSULE PO (08:58)
[2023-02-17] MEDS: clonazePAM 1 MG TABLET PO (08:58)
[2023-02-17] MEDS: busPIRone HCl 10 MG TABLET PO ×2 (08:58→14:14)
[2023-02-17] MEDS: Gabapentin 400 MG CAPSULE 800 MG PO ×2 (08:58→14:14)
[2023-02-17] MEDS: buPROPion HCl XL 300 MG TAB.ER.24H PO (08:58)
[2023-02-17] MEDS: Venlafaxine HCl ER 150 MG CAP.ER.24H PO (08:58)
[2023-02-17] MEDS: Magnesium Hydrox/Alum Hydrox 30 ML ORAL.SUSP PO (11:19)
[2023-02-17] MEDS: Nicotine Polacrilex 2 MG GUM BUCCAL ×4 (11:19→21:05)
[2023-02-17] MEDS: QUEtiapine Fumarate 100 MG TABLET PO ×3 (11:19→21:42)
[2023-02-17] MEDS: polyethylene glycoL 3350 17 GM POWD.PACK PO (11:21)
--- NOTE | 2023-02-17 11:25 | PC.NURSE ---
patient complains of continued constipation, now having mild abdominal discomfort, nausea, heartburn and reports feeling full. Patient medicated per orders, provider aware, pending effectiveness
[2023-02-17] MEDS: Milk of Magnesia 30 ML ORAL.SUSP PO (11:48)
--- NOTE | 2023-02-17 12:23 | P.CNGI_ITS ---
History of Present Illness Data of Consult Service Date: 02/17/23 Requesting physician: Lalit Ramon Primary Care Provider: Mirta Ag MD [facility] Reason for consult: Chronic constipation 37 YF with history of controlled type 2 diabetes, history of hepatitis-C, hyperlipidemia, chronic constipation, chronic pancytopenia, mild intermittent asthma, polysubstance abuse, and opioid dependence on methadone admitted to Psychiatry from [facility] ED. GI consulted due to issues with ongoing constipation. Patient reported recent relapse on IV heroin and crack cocaine 3 days [employer] after a brief period of sobriety. She complains of chronic constipation for the past year. Patient reports that she had to use an enema to have a bowel movement. Patient has tried using senna, stool softeners. Pt reports she took Methylnaltrexone for 3 days without results. During present hospitalization, she has been treated with the Fleet and mineral oil enemas without success - able to have a small BM without complete evacuation. Abdomen feels hard. Pt also complains of clarice-pharyngeal dysphagia with difficulty swallowing solids and liquids including her saliva Feels food and water hangs up in her throat/upper esophagus for a few minutes. She tried to eat pudding and water earlier today with regurgitation. Patient denies a history of heartburn. She complains of abdominal pain which improves partially after she has a bowel movement She also endorses smoking 1 pack of cigarettes on a daily basis and denies any alcohol use. Pt is also concerned about recent weight gain Labs on admission showed elevated LFTs with AST 60, ALT 85, elevated hepc rna and viral load suggestive of recurrent Hepatitis C. Urine tox screen positive for fentanyl and cocaine. PAST GI HISTORY BY REVIEW OF MEDICAL RECORDS: Pt was seen by Dr Rodriguez on 02/11/23: 1. CIC: likely secondary to intermediate opiate use. Will look into PA for Movantik. In the meantime, will trial methylnaltrexone x 3 days max. Pt advised to go OFF all laxatives while taking methylnaltrexone. Recommendations: - Methylnaltrexone 450 to be taken up to 3 days - While waiting to get this from pharmacy, INCREASE miralax to TID - Switch senna to bisacodyl 2 tabs at night - Can stop Linzess if not helping - HOLD all laxatives when starting methylnaltrexone - Pt to call office if no response despite taking it for 3 days - Msg sent for Movantik PA. 2. Pancytopenia: Worsened over the last 2 months. Pt does not report any recent illness, tick bite, new meds. Does not report etOH use. Does have evidence of liver injury and work up pending from last visit. Recommendations: - Reminded to get labs done - Also checking iron,B12 and folate 3. Elevated transaminases: Again, hepatitis serology pending. Librado given recent relapse. - Hepatitis and HIV testing - LFTs and INR - Celiac serology - US Abd Follow up in 4 weeks. Review of Systems 2 Review of Systems: General: No fevers, malaise, unintentional weight loss. +weight gain HEENT: No blurred vision, diplopia. No sore throat, nasal congestion, rhinorrhea, sinus pain, ear pain Cardiovascular: No chest pain, palpitations, or leg edema Respiratory: No shortness of breath, wheezing, cough GI: +constipation. No abdominal pain, nausea, vomiting, diarrhea, melena, hematochezia : No dysuria, hematuria, increased urinary frequency, decreased urinary output MSK: No myalgia, back pain Neuro: No headaches, weakness, paresthesias Skin: No rashes or lesions PMFSH Past Medical History Medical History Routine medical exam Overweight (BMI 25.0-29.9) Mixed hyperlipidemia Dysplasia of cervix, low grade (SIVAKUMAR 1) Obesity (BMI 30-39.9) Overweight (BMI 25.0-29.9) History of substance abuse Impaired fasting glucose Constipation Positive hepatitis C antibody test Right hand pain Hip pain, bilateral Smoker Bipolar depression Anxiety Type 2 diabetes mellitus Fatigue Muscle twitching Vision impairment Hx of hepatitis C History of anxiety History of depression Family History Family History Father Diabetes Cancer HTN (hypertension) Other Mental health problem Substance abuse Surgical History Surgical History No pertinent past surgical history Social History Social History Household Members: None Housing: Homeless Housing Other:: pen[facility]entiary house Do you presently have visiting nurse or other home services: No Alcohol intake: never Patient Tobacco Use Status: Current everyday Tobacco user Tobacco use type: Cigarette Cigarette Packs Per Day: 0.25 Cigarettes Per Day: 2 Years Smoked: 15 e-Cigarette/Vaping Use: Never Used Second Hand Smoke Exposure: Yes Substance Use Type: Crack/Cocaine and Heroin service: No Current occupational status: unemployed Sexual orientation: Straight/Heterosexual Gender identity: Female Cognitive needs: No Hearing needs: No Vision needs: Yes Meds Allergies Allergy/AdvReac Type Severity Reaction Status Date / Time No Known Allergies Allergy Verified 11/13/23 19:24 [No Known Allergies*] Active Medications: Current Medications Acetaminophen (Acetaminophen 325 Mg Tablet) 650 mg PO Q6H PRN PRN Reason: Headache/Pain Mild Scale (1-3) Last Admin: 02/14/23 13:36 Dose: 650 mg Al Hydroxide/Mg Hydroxide (Magnesium Hydrox/Alum Hydrox 30 Ml Oral.Susp) 30 ml PO Q6H PRN PRN Reason: Heartburn/Nausea Last Admin: 02/17/23 11:19 Dose: 30 ml Albuterol Sulfate (Albuterol Sulfate 90 Mcg 8 Gm Inhaler) 2 puff INHALE Q6H PRN PRN Reason: for wheezing Last Admin: 02/15/23 19:20 Dose: 2 puff Bupropion HCl (Bupropion Hcl Xl 300 Mg Tab.Er.24h) 300 mg PO DAILY [facility] Last Admin: 02/17/23 08:58 Dose: 300 mg Buspirone HCl (Buspirone Hcl 10 Mg Tablet) 10 mg PO TID [facility] Last Admin: 02/17/23 08:58 Dose: 10 mg Docusate Sodium (Docusate Sodium 100 Mg Capsule) 100 mg PO BID [facility] Last Admin: 02/17/23 08:58 Dose: 100 mg Gabapentin (Gabapentin 400 Mg Capsule) 800 mg PO TID [facility] Last Admin: 02/17/23 08:58 Dose: 800 mg Hydroxyzine HCl (Hydroxyzine Hcl 25 Mg Tablet) 25 mg PO Q6H PRN PRN Reason: Anxiety Last Admin: 02/16/23 11:57 Dose: 25 mg Lorazepam (Lorazepam 1 Mg Tablet) 2 mg PO TID PRN PRN Reason: severe anxiety Magnesium Hydroxide (Milk Of Magnesia 30 Ml Oral.Susp) 30 ml PO DAILY PRN PRN Reason: Constipation Last Admin: 02/17/23 11:48 Dose: 30 ml Methadone HCl (Methadone Hcl 20 Mg/2 Ml Oral.Conc) 102 mg PO DAILY [facility] Last Admin: 02/17/23 08:55 Dose: 102 mg Mirtazapine (Mirtazapine 15 Mg Tablet) 45 mg PO BEDTIME [facility] Last Admin: 02/16/23 21:09 Dose: 45 mg Multi-Ingred Cream/Lotion/Oil/Oint (Mineral Oil/Petrolatum,White 106 Gm Tube) 1 appl TOPICAL DAILY PRN; Protocol PRN Reason: Dryness Last Admin: 02/13/23 12:02 Dose: 1 appl Nicotine (Nicotine 14 Mg Patch.Td24) 14 mg TRANSDERMA DAILY [facility] Last Admin: 02/17/23 09:24 Dose: Not Given Nicotine Polacrilex (Nicotine Polacrilex 2 Mg Gum) 2 mg BUCCAL Q2H PRN PRN Reason: Nicotine Cravings Last Admin: 02/17/23 11:19 Dose: 2 mg Polyethylene Glycol (Polyethylene Glycol 3350 17 Gm Powd.Pack) 17 gm PO DAILY PRN PRN Reason: Constipation Last Admin: 02/17/23 11:21 Dose: 17 gm Prazosin HCl (Prazosin Hcl 1 Mg Capsule) 4 mg PO BEDTIME [facility]YN; Protocol Last Admin: 02/16/23 21:09 Dose: 4 mg Quetiapine Fumarate (Quetiapine Fumarate 200 Mg Tablet) 200 mg PO BEDTIME [facility] Last Admin: 02/16/23 21:09 Dose: 200 mg Quetiapine Fumarate (Quetiapine Fumarate 100 Mg Tablet) 100 mg PO BEDTIME PRN PRN Reason: insomnia Last Admin: 02/15/23 20:03 Dose: 100 mg Quetiapine Fumarate (Quetiapine Fumarate 100 Mg Tablet) 100 mg PO TID PRN PRN Reason: severe anxiety Last Admin: 02/17/23 11:19 Dose: 100 mg Senna (Sennosides 8.6 Mg Tablet) 17.2 mg PO DAILY [facility] Last Admin: 02/17/23 08:58 Dose: 17.2 mg Senna (Sennosides 8.6 Mg Tablet) 8.6 mg PO BEDTIME PRN PRN Reason: constipation Simethicone (Simethicone 80 Mg Tab.Chew) 80 mg PO TID PRN PRN Reason: Gas Sodium Biphosphate/Sodium Phosphate (Sodium Phosphate,[place]-Dibasic 133 Ml Enema) 133 ml DE ONCE PRN PRN Reason: Constipation Last Admin: 02/15/23 21:53 Dose: 133 ml Triamcinolone Acetonide (Triamcinolone Acet 0.1 % Cream 15 Gm Tube) 1 appl TOPICAL BID PRN; Protocol PRN Reason: rash Last Admin: 02/14/23 11:17 Dose: 1 appl Trolamine Salicylate (Trolamine Salicylate 10 % Cream 85 Gm Tube) 1 appl TOPICAL QID PRN; Protocol PRN Reason: low back pain Last Admin: 02/13/23 15:18 Dose: 1 appl Venlafaxine HCl (Venlafaxine Hcl Er 150 Mg Cap.Er.24h) 150 mg PO DAILY [facility] Last Admin: 02/17/23 08:58 Dose: 150 mg Home Medications ?Medication ?Instructions ?Recorded ?Confirmed ?Last Taken ?Type methadone 10 mg/mL oral 93 mg PO DAILY 08/22/23 11/13/23 Unknown History concentrate (Methadose) buspirone 5 mg tablet 10 mg PO TID 11/11/23 11/13/23 Unknown History venlafaxine 150 mg 150 mg PO DAILY 11/13/23 11/13/23 Unknown History capsule,extended release 24 hr Physical Exam 2 Vital Signs: Vital Signs: Last Vital Signs Temp 97.6 F 02/17/23 08:30 Pulse 90 02/17/23 08:30 Resp 18 02/17/23 08:30 BP 108/58 L 02/17/23 08:30 Pulse Ox 97 02/17/23 08:30 O2 Del Method Room Air 02/17/23 08:30 BMI result Body Mass Index 27.7 Const: General: no acute distress and anxious Nutritional Appearance: o verweight Orientation/consciousness: patient oriented x3 HEENT: Head: Yes normal to inspection Ears: hearing grossly normal bilaterally Eyes: Sclerae: sclerae normal Pupils: Equal, round and reactive pupils present Neck: Neck: Yes normal visual inspection Chest: Chest palpation & inspection: normal inspection of the chest Resp: Effort & Inspection: normal respiratory effort Auscultation: clear to auscultation bilaterally Cardio: Palpation: normal PMI Rate: regular rate Rhythm: regular rhythm Heart sounds: S1 normal heart sound present, S2 normal heart sound present and no murmurs GI: Inspection: Yes distended Palpation (GI): Soft to palpation, nontender and No hepatosplenomegaly present Auscultation: normal bowel sounds Rectal Exam - Female: deferred Skin: General skin exam: no rashes or lesions noted Neuro: General: patient oriented x3, gait normal and moves all extremities Cranial nerves: Yes Equal, round and reactive pupils present Psych: Appearance: grossly normal Mental Status: mental status grossly normal Results Labs 02/09/23 08:19 02/09/23 08:19 Assessment and Plan (1) Hepatitis C: Status: Acute (2) Constipation due to opioid therapy: Status: Acute (3) Elevated LFTs: Status: Acute Plan 37 YF with history of controlled type 2 diabetes, history of recurrent hepatitis-C, hyperlipidemia, chronic constipation, chronic pancytopenia, mild intermittent asthma, polysubstance abuse, and opioid dependence on methadone admitted to Psychiatry from [facility] ED. Chronic constipation is likely related to opiod use. Pt also complains of clarice-pharyngeal dysphagia with difficulty swallowing solids and liquids including her saliva likely related to esophageal motility disorder Labs on admission showed elevated LFTs with AST 60, ALT 85, elevated hepc rna and viral load suggestive of recurrent Hepatitis C. RECOMMENDATIONS: 1. Large volume tap water enema for high fecal impaction 2. Clear liquid diet in the am and start Movantik 25 mg daily in the am (if available) - order placed. 3. Modified barium swallow - ordered for tomorrow am 4. Abdominal US - elevated LFTs and recurrent Hep C 5. Hep C genotype Pt to FU with Dr Rodriguez as an outpatient after discharge ABD US SHOWED: Slightly echogenic liver. Contracted gallbladder. Dilated common bile duct measuring 11 mm similar to previous CT scan. Slightly enlarged spleen. Pancreas and aorta are not well seen. MODIFIED BARIUM SWALLOW SHOWED: On oral administration of various consistencies of thin, thick barium, nectar/honey consistency and solid food, there is normal propagation bolus from the oral cavity through the pharynx into the upper esophagus without any evidence of obstruction, narrowing or stricture. No laryngeal aspiration seen. IMPRESSION: 1. Unremarkable modified barium swallow. 2. Correlate with speech therapy results. Time Spent With Patient Time: Total time managing care of this patient today ____ minutes. Procedures Date of Service Date of Service: 11/27/23
[2023-02-17 12:28] VITALS: BP 105/60; PULSE 84; RESP 18; TEMP 36.7; O2SAT 98
[2023-02-17] MEDS: Sodium Phosphate,Mono-Dibasic 133 ML ENEMA PR (14:14)
[2023-02-17] MEDS: hydrOXYzine HCL 25 MG TABLET PO (14:18)
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
[2023-02-17] MEDS: Prazosin HCL 1 MG CAPSULE 4 MG PO (21:02)
[2023-02-17] MEDS: Mirtazapine 15 MG TABLET 45 MG PO (21:04)
[2023-02-17] MEDS: QUEtiapine Fumarate 200 MG TABLET PO (21:04)
[2023-02-17 21:11] VITALS: BP 109/60; PULSE 84; TEMP 36.4; O2SAT 97
[2023-02-17] MEDS: Acetaminophen 325 MG TABLET 650 MG PO (21:13)
[2023-02-18 06:00] VITALS: BP 97/52; PULSE 97; O2SAT 97
[2023-02-18] MEDS: Venlafaxine HCl ER 150 MG CAP.ER.24H PO (09:27)
[2023-02-18] MEDS: buPROPion HCl XL 300 MG TAB.ER.24H PO (09:27)
[2023-02-18] MEDS: methADONE HCl 20 MG/2 ML ORAL.CONC 102 MG PO (09:27)
--- NOTE | 2023-02-18 10:25 | MHC.SLORD ---
Speech Language Pathology Order Status: MBSS order received, scheduled for 3pm in Radiology. Radiology will arrange for transport. Spoke with Pt and she is supportive with the procedure. RN and Provider notified via secure text.
[2023-02-18] MEDS: hydrOXYzine HCL 25 MG TABLET PO (10:55)
[2023-02-18 10:59] VITALS: BP 111/77
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
[2023-02-18] MEDS: Acetaminophen 325 MG TABLET 650 MG PO (12:55)
--- NOTE | 2023-02-18 16:48 | MHC.SL.IMP ---
Date of Plan of Treatment: 02/17/23 Onset of Symptoms/Illness: 02/17/23 Date Treatment Started: 02/18/23 Admitting Diagnosis: Opiod dependance Primary Speech & Language Diagnosis: Dysphagia, unspecified Oral Motor Exam Facial Symmetry: Normal for Patient Symmetrical Facial Movement: Oral-Facial Facial Miscellaneous Observations: Mouth Occlusion: Normal Oral-Facial Teeth Characteristics: Intact/Normal Tongue Size: Tongue Frenum Length: Tongue Excursion Description: Normal Tongue Range of Movement Description: Normal Tongue Speed of Movement Description: Normal Tongue Strength of Movement (against opposing pressure): Normal Tongue Movement Characteristics: Normal/Absent Oral Expression Ability: No Impairment Is patient able to manage secretions?: Yes Is patient able to produce volitional cough?: Yes Food and Liquid Trials: Oral Impairment: Lip Closure: 1=Interlabial escape; no progression to anterior tip Oral Impairment: Tongue Control During Bolus Hold: 0=Cohesive bolus between tongue to palatal seal Oral Impairment: Bolus Preparation/Mastication: 0=Timely and efficient chewing and mashing Oral Impairment: Bolus Transport/Lingual Motion: 0=Brisk tongue motion Oral Impairment: Oral Residue: 1=Trace residue lining oral structures Oral Impairment:Initiation of Pharyngeal Swallow: 1=Bolus head in valleculae Pharyngeal Impairment: Soft Palate Elevation: 0=No bolus between soft palate (SP)/pharyngeal wall (PW) Pharyngeal Impairment: Laryngeal Elevation: 0=Complete superior movement of thyroid cartilage (see description) Pharyngeal Impairment: Anterior Hyoid Excursion: 0=Complete anterior movement Pharyngeal Impairment: Epiglottic Movement: 0=Complete inversion Pharyngeal Impairment: Laryngeal Vestibular Closure:: 1=Incomplete: narrow column air/contrast in laryngeal vestibule Pharyngeal Impairment: Pharyngeal Stripping Wave: 0=Present: complete Pharyngeal Impairment: Pharyngeal Contraction: Did not test Pharyngeal Impairment: Pharyngoesophageal Segment Openin=Partial distention/partial duration: partial obstruction of flow Pharyngeal Impairment: Tongue Base (TB) Retraction: 1=Trace column of contrast/air between TB and posterior PW Pharyngeal Impairment: Pharyngeal Residue: 1=Trace residue within or on pharyngeal structures Pharyngeal Impairment: Esophageal Clearance Upright Position: Did not test Impressions and Recommendations Clinical Observations: Current (pre-evaluation) Intake/Diet: Pre-Study Functional Oral Intake Scale (FOIS): 7- Total oral intake with no restrictions MBSImP ID: [id number] Results: Lip closure for intraoral bolus containment resulted in interlabial escape, without progression to the anterior lip. Tongue control during bolus hold maintained a cohesive bolus held between tongue to palate seal. Bolus preparation and mastication resulted in timely and efficient chewing and mashing. Bolus transport/lingual motion was with brisk tongue motion. Oral residue was a trace, lining oral structures. Initiation of the pharyngeal swallow occurred when the bolus head was in the valleculae. Soft palate elevation resulted in no bolus between the soft palate and the pharyngeal wall. Laryngeal elevation demonstrated complete superior movement of the thyroid cartilage with complete approximation of the arytenoids to the epiglottic petiole. Anterior hyoid excursion demonstrated complete anterior movement. Epiglottic movement resulted in complete inversion. Laryngeal vestibular closure was incomplete, with a narrow column of air/contrast noted within the laryngeal vestibule at the height of the swallow. Pharyngeal stripping wave was present and complete. Pharyngeal contraction could not be determined due to logistical reasons not related to physiologic impairment. Pharyngoesophageal segment opening demonstrated partial distension/partial duration, with partial obstruction of bolus flow. Tongue base retraction allowed a trace column of contrast or air between the retracted tongue base and the posterior pharyngeal wall. Pharyngeal residue was a trace within or on pharyngeal structures. Esophageal clearance in the upright position could not be assessed due to logistical reasons not related to physiologic impairment. Oral Impairment Score: 1 Pharyngeal Impairment Score: 2 (absence of score, component 13) Esophageal Impairment Score: --- (absence of score, component 17) Laryngeal Penetration and Aspiration: Neither penetration nor aspiration was observed in today's study with Cookie, Pudding-thick, Thin. Structural Abnormalities: A small growth on the posterior pharynx at the level of C4 is noted during passage of contrast. Further diagnostic testing is required. Liquid Intake Recommendation: Thin Liquid Intake Strategies: Unrestricted Dietary Recommendations: Regular Medication Administration: Whole with Liquid Please contact the pharmacy regarding appropriate crushable or liquid drug formulations that are available whenever modified delivery is recommended. Compensatory Strategies Recommended: Sitting Upright (90 deg) Small Bites and Sips Alternate Liquids/Solids Supervision during eating and or drinking: Intermittent Supervision Recommended Treatments: Compens. Strategy Educat. Recommendation for Speech Therapy: Further Testing Needed Text Comment: Frequency/Duration: Date Range for Service Requested: Timeline to reassess: Web Content & Social Media Manager Clinician/Clinical Fellow: No Supervisory Statement: N/A Speech Language Pathologist: Tod Mittal M.A., [facility] [employer] [facility]
[2023-02-18] MEDS: QUEtiapine Fumarate 100 MG TABLET PO ×2 (16:55→20:18)
[2023-02-18] MEDS: Nicotine Polacrilex 2 MG GUM BUCCAL ×2 (16:55→21:09)
[2023-02-18 20:00] VITALS: BP 103/60; PULSE 91; RESP 18; TEMP 37; O2SAT 97
[2023-02-18] MEDS: Mirtazapine 15 MG TABLET 45 MG PO (20:15)
[2023-02-18] MEDS: Prazosin HCL 1 MG CAPSULE 4 MG PO (20:16)
[2023-02-18] MEDS: Magnesium Hydrox/Alum Hydrox 30 ML ORAL.SUSP PO (21:38)
[2023-02-19] MEDS: buPROPion HCl XL 300 MG TAB.ER.24H PO (09:00)
[2023-02-19] MEDS: methADONE HCl 20 MG/2 ML ORAL.CONC 102 MG PO (09:05)
[2023-02-19 09:39] VITALS: BP 100/58; PULSE 94; RESP 20; TEMP 37.3; O2SAT 98
[2023-02-19] MEDS: Nicotine Polacrilex 2 MG GUM BUCCAL (09:54)
[2023-02-19] MEDS: Sodium Phosphate,Mono-Dibasic 133 ML ENEMA PR (10:54)
[2023-02-19] MEDS: Triamcinolone Acet 0.1 % Cream 15 GM TUBE 1 APPL TOPICAL (11:47)
[2023-02-19] MEDS: hydrOXYzine HCL 25 MG TABLET PO (11:54)
[2023-02-19] MEDS: Acetaminophen 325 MG TABLET 650 MG PO (11:54)
[2023-02-19] MEDS: Mineral Oil/Petrolatum,White 106 GM Tube 1 APPL TOPICAL (11:54)
[2023-02-19] MEDS: polyethylene glycoL 3350 17 GM POWD.PACK PO (11:54)
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
[2023-02-19] MEDS: QUEtiapine Fumarate 100 MG TABLET PO ×3 (13:25→20:13)
[2023-02-19] MEDS: Magnesium Hydrox/Alum Hydrox 30 ML ORAL.SUSP PO (16:16)
[2023-02-19 19:59] VITALS: BP 118/79; PULSE 94; RESP 16; TEMP 36.7; O2SAT 98
[2023-02-19] MEDS: Mirtazapine 15 MG TABLET 45 MG PO (20:12)
[2023-02-19] MEDS: Prazosin HCL 1 MG CAPSULE 4 MG PO (20:14)
[2023-02-20 08:43] VITALS: BP 98/59; PULSE 86; RESP 18; TEMP 36.4; O2SAT 97
[2023-02-20] MEDS: methADONE HCl 20 MG/2 ML ORAL.CONC 102 MG PO (08:57)
[2023-02-20] MEDS: Simethicone 80 MG TAB.CHEW PO (11:51)
[2023-02-20] MEDS: Triamcinolone Acet 0.1 % Cream 15 GM TUBE 1 APPL TOPICAL (13:36)
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
[2023-02-20 20:05] VITALS: BP 114/60; PULSE 102; RESP 18; TEMP 36.5; O2SAT 98
[2023-02-20] MEDS: polyethylene glycoL 3350 17 GM POWD.PACK PO (20:29)
[2023-02-20] MEDS: Mirtazapine 15 MG TABLET 45 MG PO (20:32)
[2023-02-20] MEDS: Prazosin HCL 1 MG CAPSULE 4 MG PO (20:33)
[2023-02-21] MEDS: methADONE HCl 20 MG/2 ML ORAL.CONC 102 MG PO (09:27)
[2023-02-21 09:30] VITALS: BP 112/61; PULSE 96; RESP 16; TEMP 36.3; O2SAT 98
[2023-02-21 11:29] VITALS: BP 121/62; PULSE 100
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
[2023-02-21 20:40] VITALS: BP 115/58; PULSE 90; RESP 16; TEMP 36.7; O2SAT 98
[2023-02-21] MEDS: polyethylene glycoL 3350 17 GM POWD.PACK PO (20:41)
[2023-02-21] MEDS: Prazosin HCL 1 MG CAPSULE 4 MG PO (20:42)
[2023-02-21] MEDS: Mirtazapine 15 MG TABLET 45 MG PO (20:44)
[2023-02-22] MEDS: methADONE HCl 20 MG/2 ML ORAL.CONC 102 MG PO (08:38)
[2023-02-22 08:53] VITALS: BP 123/74; PULSE 93; RESP 20; TEMP 36.7; O2SAT 98
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
[2023-02-22] MEDS: Mirtazapine 15 MG TABLET 45 MG PO (20:15)
[2023-02-22] MEDS: Prazosin HCL 1 MG CAPSULE 4 MG PO (20:16)
[2023-02-22 20:22] VITALS: BP 119/68; PULSE 97; TEMP 36.6; O2SAT 98
[2023-02-23 08:44] VITALS: BP 96/55; PULSE 85; RESP 16; TEMP 36.3; O2SAT 98
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
[2023-02-24 09:39] LABS: Hepatitis C Genotype 3
== END 2023-02-23 11:50 | DRG 755 ==
PROVIDERS: Internal Medicine Gastroenterology; Registered Nurse; Admitting Provider Psychiatry & Neurology Psychiatry; PCP Internal Medicine; Visit Provider Psychiatry & Neurology Psychiatry
DX: F43.10 Post-traumatic stress disorder, unspecified (principal); D61.818 Other pancytopenia; R45.851 Suicidal ideations; F32.A Depression, unspecified; E11.9 Type 2 diabetes mellitus without complications; Z91.148 Patient's other noncompliance with medication regimen for other reason; E78.2 Mixed hyperlipidemia; F11.20 Opioid dependence, uncomplicated; F17.210 Nicotine dependence, cigarettes, uncomplicated; Z20.822 Contact with and (suspected) exposure to COVID-19; K59.03 Drug induced constipation; T40.3X5A Adverse effect of methadone, initial encounter; B19.20 Unspecified viral hepatitis C without hepatic coma; F14.10 Cocaine abuse, uncomplicated; J45.20 Mild intermittent asthma, uncomplicated; Z59.02 Unsheltered homelessness; Z23 Encounter for immunization; Z71.6 Tobacco abuse counseling; Z79.899 Other long term (current) drug therapy
CPT/HCPCS: 36415; 74230; 76700; 80053; 80061; 80076; 81003; 81025; 82607; 82746; 82947; 83036; 83540; 84439; 84443; 85025; 85610; 87389; 87635; 87902; 90686; 93005

== ENCOUNTER → 2023-02-08 14:25 | Outpatient (BNV) | payer OTHER, SELFPAY | PROVIDERS: Admitting Provider Psychiatry & Neurology Psychiatry; PCP Internal Medicine; Visit Provider Internal Medicine Gastroenterology | DX: B19.20 Unspecified viral hepatitis C without hepatic coma (principal); K59.03 Drug induced constipation; T40.2X5A Adverse effect of other opioids, initial encounter; R79.89 Other specified abnormal findings of blood chemistry | CPT/HCPCS: 99499 ==

== ENCOUNTER → 2023-02-08 14:25 | Outpatient (BNV) | payer OTHER, SELFPAY | PROVIDERS: Admitting Provider Psychiatry & Neurology Psychiatry; PCP Internal Medicine; Visit Provider Physician Assistant | DX: Z02.2 Encounter for examination for admission to residential institution (principal) | CPT/HCPCS: 99429 ==

== ENCOUNTER → 2023-02-08 14:25 | Outpatient (BNV) | payer OTHER, SELFPAY | PROVIDERS: Admitting Provider Psychiatry & Neurology Psychiatry; PCP Internal Medicine; Visit Provider Psychiatry & Neurology Psychiatry | DX: F33.2 Major depressive disorder, recurrent severe without psychotic features (principal); F14.10 Cocaine abuse, uncomplicated; F11.20 Opioid dependence, uncomplicated; F43.11 Post-traumatic stress disorder, acute; B19.20 Unspecified viral hepatitis C without hepatic coma; K59.03 Drug induced constipation | CPT/HCPCS: 90792; 99231; 99232; 99239 ==

== ENCOUNTER 2023-05-08 14:53 | Emergency (ER) | payer OTHER, SELFPAY ==
--- NOTE | ~2023-05-08 | CT_ITS ---
CT head/brain wo IV con CLINICAL INFORMATION: Right-sided numbness COMPARISON: Prior CT 2017 TECHNIQUE: Department standard protocol. This CT examination was performed using dose optimization techniques as appropriate, variously including the following: *Automated exposure control *Adjustment of mA and/or kV according to patient size (this includes techniques or standardized protocols for targeted exams where dose is matched to indication/reason for exam; i.e. extremities or head) *Use of iterative reconstruction technique DLP: 642 mGy-cm FINDINGS: CEREBRAL HEMISPHERES: There is no evidence of intra-axial or extra-axial mass, hemorrhage or acute infarct. BRAIN PARENCHYMA: Normal naik-white matter differentiation. SUBDURAL SPACE: No bleed. BASAL GANGLIA AND PINEAL GLAND: Unremarkable VENTRICLES: Symmetric and normal in size. CEREBELLUM AND BRAINSTEM: No space-occupying mass, hemorrhage or acute infarct. CEREBELLOPONTINE ANGLES: No lesion found. ORBITS: No intraorbital mass. VESSELS: Unremarkable SKULL BASE: Unremarkable INCLUDED SINUSES AT SKULL BASE: Clear SKULL AND SKIN: No fracture or bone lesion found. CT/CT head/brain wo IV con IMPRESSION: No CT evidence of intracranial space-occupying mass, bleed or infarct. If patient symptoms persist may consider correlation with follow-up outpatient MRI, more sensitive test to assess for possible demyelinating disease such as MS.
--- NOTE | ~2023-05-08 | MR_ITS ---
Examination: MRI brain without contrast. Clinical indications: Right-sided numbness. COMPARISON: CT brain 05/08/2023 COMPARISON: CT brain performed earlier today at 05/08/2023. FINDINGS: There is no abnormality seen on the diffusion exam to suspect any changes of acute ischemia. No abnormal flow void signal seen on gradient echo to suspect any evidence of hemorrhage, hemorrhagic contusion or chronic hemorrhage. There is normal symmetry of cortical sulci and gyri without enlargement or compression. The lateral ventricles are symmetrical in size and configuration without enlargement. No abnormality seen in the posterior fossa. The CP angle appears unremarkable. Normal flow void signal is noted in the major cerebral vasculature. The paranasal sinuses are well-aerated and clear. There is normal symmetry of optic globe and optic nerves and the soft tissues MR/MR head/brain wo con IMPRESSION: No acute intracranial process seen.
[2023-05-08 15:09] VITALS: BP 100/60; PULSE 96; O2SAT 97; BMI 28.4
[2023-05-08 15:15] VITALS: BP 116/73; PULSE 82; RESP 16; TEMP 36.9; O2SAT 95
--- NOTE | 2023-05-08 15:20 | ECG_ITS ---
Test Reason : WEAKNESS Blood Pressure : / mmHG Vent. Rate : 081 BPM Atrial Rate : 081 BPM P-R Int : 150 ms QRS Dur : 096 ms QT Int : 386 ms P-R-T Axes : 023 007 039 degrees QTc Int : 448 ms Normal sinus rhythm Nonspecific ST and T wave abnormality Abnormal ECG When compared with ECG of 08-FEB-2023 18:26, No significant changes seen Referred By: Sandhya Velasco Electronically Signed By:BIJAN FUENTES MD
--- NOTE | 2023-05-08 15:20 | ED_ITS ---
HPI - General Adult General Chief complaint: Weakness Stated complaint: STROKE ALERT,ARM NUMB,JAW PAIN,DIZZY PER EMS Time Seen by Provider: 05/08/23 16:00 Source: patient and EMS Mode of arrival: EMS Limitations: no limitations History of Present Illness HPI narrative: 38-year-old female with known history of diabetes, anxiety, former IV drug abuse on Klonopin for anxiety patient came in by ambulance for evaluation possible stroke. Patient stated that around 12 noon started to have numbness in the right hand that is ascended gradually to the right forearm patient got concerned and became more anxious called 911 patient was evaluated by ED staff on arrival patient did not have any major neurological deficit. By the time I interviewed the patient her symptoms was completely resolved with a normal neuro exam. No headache, no blurry vision, no speech problems, no weakness, no numbness, patient declining admission because of the holidays. Related Data Previous Rx's Medication Instructions Recorded blood-glucose meter (FreeStyle #1 ea 09/11/20 Lite Meter kit) Ventolin HFA 90 mcg/actuation 2 puff inhalation Q6H PRN for 02/23/23 aerosol inhaler (albuterol sulfate) wheezing 30 days #1 ea bupropion HCl 300 mg 24 hr tablet, 300 mg PO DAILY 30 days #30 tabs 02/23/23 extended release buspirone 5 mg tablet 5 mg PO TID 30 days #90 tabs 02/23/23 clonidine HCl 0.1 mg tablet 0.1 mg PO BID PRN Anxiety not 02/23/23 responding to Hydroxyzine 30 days #60 tabs docusate sodium 100 mg capsule 100 mg PO BID 30 days #60 caps 02/23/23 gabapentin 800 mg tablet 800 mg PO TID 30 days #90 tabs 02/23/23 lorazepam 2 mg tablet 2 mg PO TID PRN anxiety 17 days 02/23/23 #51 tabs methadone 10 mg/mL oral 107 mg (10.7 mL) PO DAILY #0 mL 02/23/23 concentrate (Methadose) mirtazapine 15 mg tablet 45 mg (3 x 15 mg) PO BEDTIME 30 02/23/23 days #90 tabs naloxegol 25 mg tablet (Movantik) 25 mg PO QAM 30 days #30 tabs 02/23/23 nicotine (polacrilex) 4 mg gum 4 mg buccal Q2H PRN nicotine 02/23/23 cravings 30 days #220 ea polyethylene glycol 3350 17 gram 17 g PO DAILY PRN Constipation 30 02/23/23 oral powder packet days #30 ea promethazine 25 mg tablet 25 mg PO DAILY PRN Nausea 30 days 02/23/23 #30 tabs quetiapine 100 mg tablet 100 mg PO TID PRN severe anxiety 02/23/23 30 days #90 tabs quetiapine 300 mg tablet 300 mg PO BEDTIME 30 days #30 tabs 02/23/23 sennosides 8.6 mg tablet (Senna 17.2 mg (2 x 8.6 mg) PO DAILY 30 02/23/23 Lax) days #60 tabs sodium phosphates 19 gram-7 133 ml WA DAILY PRN Constipation 02/23/23 gram/118 mL enema (Fleet Enema) 10 days #10 mL triamcinolone acetonide 0.1 % 1 appl topical BID PRN rash 30 02/23/23 topical cream days #80 grams trolamine salicylate 10 % topical 1 appl topical QID PRN low back 02/23/23 cream (Arthricream) pain 30 days #10 grams venlafaxine 37.5 mg 187.5 mg (5 x 37.5 mg) PO DAILY 30 02/23/23 capsule,extended release 24 hr days #150 caps prazosin 2 mg capsule 4 mg (2 x 2 mg) PO BEDTIME 30 days 04/26/23 #60 caps Allergies Allergy/AdvReac Type Severity Reaction Status Date / Time No Known Allergies Allergy Verified 05/08/23 15:09 [No Known Allergies*] Review of Systems 2 Review of Systems: All other systems are reviewed and are negative Constitutional: Reports as per HPI and Reports no additional constitutional complaints Eyes: Reports as per HPI and Reports no additional eye complaints Reports system reviewed and no additional complaints, except as documented Cardiovascular: Reports as per HPI and Reports no additional cardiovascular complaints Respiratory: Reports as per HPI and Reports no additional respiratory complaints Gastrointestinal: Reports as per HPI and Reports no additional gastrointestinal complaints Genitourinary: Reports no additional female genitourinary complaints Musculoskeletal: Reports no additional musculoskeletal complaints Skin/Breast: Reports system reviewed and no additional complaints, except as docu Psychiatric: Reports no additional psychiatric complaints Endocrine: Reports no additional endocrine complaints Hematologic/Lymphatic: Reports no additional hematologic/lymphatic complaints Allergic/Immunologic: Reports no additional allergic/immunologic complaints Reports system reviewed and no additional complaints, except as documented and Reports Abnormal speech present [facility] Past Medical History Medical History Routine medical exam Overweight (BMI 25.0-29.9) Mixed hyperlipidemia Dysplasia of cervix, low grade (SIVAKUMAR 1) Obesity (BMI 30-39.9) Overweight (BMI 25.0-29.9) History of substance abuse Impaired fasting glucose Constipation Positive hepatitis C antibody test Right hand pain Hip pain, bilateral Smoker Bipolar depression Anxiety Type 2 diabetes mellitus Fatigue Muscle twitching Vision impairment Hx of hepatitis C History of anxiety History of depression Surgical History No pertinent past surgical history Family History Family History Father Diabetes Cancer HTN (hypertension) Other Mental health problem Substance abuse Social History Social History Household Members: None Housing: Homeless Housing Other:: penitentiary house Do you presently have visiting nurse or other home services: No Alcohol intake: never Patient Tobacco Use Status: Current everyday Tobacco user Tobacco use type: Cigarette Cigarette Packs Per Day: 1 Cigarettes Per Day: 20.0 Years Smoked: 15 Smoked in Last 30 Days: Yes e-Cigarette/Vaping Use: Never Used Second Hand Smoke Exposure: Yes Use of substances other than those prescribed or required for medical reasons: No Substance Use Type: Crack/Cocaine and Heroin Advance Directives: No Advance Directives Information Provided: No Patient : No service: No Current occupational status: unemployed Sexual orientation: Straight/Heterosexual Gender identity: Female Cognitive needs: No Hearing needs: No Vision needs: Yes Physical Exam ED Vital Signs: Vital Signs - 24 hr 05/08/23 15:15 05/08/23 18:12 Temperature 98.4 F Pulse Rate 82 72 Respiratory Rate 16 16 Blood Pressure 116/73 99/57 L Pulse Oximetry 95 98 Oxygen Delivery Method Room Air Room Air BMI result Body Mass Index 28.4 Vital signs have been reviewed and appear to be correct. Blood pressure elevated. Heart rate normal. Respiratory rate normal. Temperature normal. Oxygen saturation normal. Appearance: Alert. Oriented X3. No acute distress. Head: Normal external exam. Normocephalic. Atraumatic. No Mosley signs noted. No raccoon eyes noted Eyes: PERRLA. EOMI. Conjunctiva and sclera normal. Eyelids normal. ENT: TM's Normal. Pharynx normal. Uvula midline. Moist mucous membranes. No trismus noted. No drooling noted. No muffled voice noted. Neck: Normal inspection. Neck supple. FROM. No adenopathy. Thyroid Normal. No meningeal signs. No neck mass noted. CVS: Normal heart rate and rhythm. Heart sound normal. No murmurs noted. Pulses normal throughout. Respiratory: No respiratory distress. Painless inspiration. Breath sounds normal. No wheezes/rales/rhonchi noted. Chest nontender. No accessory muscle usage noted or decreased air movement noted. Abdomen: Soft and nontender. Bowel sounds normal in all 4 quadrants. No distention noted. No organomegaly noted. No visible injury noted. Back: No CVA tenderness. Full range of motion noted. Skin: Skin warm and dry. Normal skin color. Normal skin turgor. No rashes/lesions/lacerations noted. Extremities: No lower extremity edema. Extremities exhibit normal range of motion. Extremities nontender. Neuro: Oriented X 3. Cranial nerve exam: II-XII are grossly intact No motor deficit. No sensory deficit. Reflexes normal. NIH Stroke Scale Time: 16:16 Level of Consciousness: Alert Level of Consciousness Questions: Answers both questions correctly Level of Consciousness Commands: Performs both tasks correctly Best Gaze: Normal Visual: No visual loss Facial Palsy: Normal Motor Arm (Right): No drift Motor Arm (Left): No drift Motor Leg (Right): No drift Motor Leg (Left): No drift Limb Ataxia: Absent Sensory: Normal Best Language: No aphasia Dysarthia: Normal Extinction and Inattention: No abnormality Score: 0 Course Reevaluation(s) Reevaluation #1: 1. Stroke-like symptoms has with a normal neuro exam, GCS of 15, normal head CT, normal MRI of the brain, patient is able to tolerate food in the emergency department and able to ambulate in a steady gait. 2. Hyperkalemia repeat blood workup showed normal potassium with no intervention. Time: 19:38 Medical Decision Making Differential Diagnosis Differential Diagnoses: The differential diagnosis associated with the presentation includes (Intracranial bleed, acute ischemic stroke, hemorrhagic stroke, electrolyte abnormality, severe anemia, anxiety.) Admission/Observation Consideration of admission/observation: Escalation of care including admission/observation considered Lab Data MDM Lab Attestation statement: I reviewed the patient's lab results. 05/08/23 15:51 05/08/23 18:43 Labs: Lab Results 05/08/23 05/08/23 05/08/23 Range/Units 15:21 15:51 18:43 WBC 7.0 (4.8-10.8) X10*3/uL RBC 3.77 L (4.20-5.50) X10*6/uL Hgb 11.0 L (12.0-16.0) g/dl Hct 33.2 L (37.0-47.0) % MCV 88.1 (80.0-98.0) fL MCH 29.2 (27.0-33.0) pg MCHC 33.1 (31.0-35.0) g/dl RDW 13.7 (11.0-16.0) % Plt Count 185 D (160-400) X10*3/uL MPV 11.0 (9.4-12.3) fL Immature Gran % (Auto) 0.3 (0.0-0.4) % Neut % (Auto) 60.0 (45-73) % Lymph % (Auto) 32.2 (20-40) % [place] % (Auto) 6.2 (2-11) % Eos % (Auto) 1.0 (0-4) % Baso % (Auto) 0.3 (0-2) % Lymph # (Auto) 2.3 (1.2-4.9) X10*3/uL [place] # (Auto) 0.4 (0.1-1.2) X10*3/uL Eos # (Auto) 0.1 (0.0-0.4) X10*3/uL Baso # (Auto) 0.0 (0.0-0.2) X10*3/uL Abs Immat Gran (auto) 0.02 (0.00-0.03) X10*3/uL Absolute Neuts (auto) 4.2 (2.0-8.3) x10*3/uL Absolute Nucleated RBC 0.000 (0.0-0.012) X10*3/uL Nucleated RBC % (auto) 0.0 (0.0-0.2) /100WBC PT 12.2 (11.1-13.3) SEC INR 1.0 (0.9-1.1) Sodium 138 141 (135-145) mmol/L Potassium 5.6 H D 4.5 (3.3-5.1) mmol/L Chloride 106 105 (96-108) mmol/L Carbon Dioxide 25 29 (22-29) mmol/L Anion Gap 13 12 (12-20) BUN 11 10 (9-16) mg/dL Creatinine 0.90 0.97 (0.5-1.4) mg/dL Estim Creat Clear Calc 82.5 76.6 Estimated GFR > 60 > 60 Random Glucose 86 128 H (60-115) mg/dL Calcium 9.0 9.4 (8.4-10.2) mg/dL Magnesium 2.1 (1.6-2.6) mg/dL Total Bilirubin 0.1 (0.0-1.0) mg/dL Direct Bilirubin < 0.2 (0.0-0.5) mg/dL AST 43 H (5-31) U/L ALT 36 H (0-31) U/L Alkaline Phosphatase 127 H (39-117) U/L Troponin I High Sens < 2.7 (<3.5-17.0) ng/L Total Protein 7.6 (6.5-8.0) g/dL Albumin 3.9 (3.5-5.0) g/dL Urine Color Yellow Urine Appearance Clear Urine pH 6.5 (5.0-9.0) Ur Specific [place] 1.015 (1.005-1.025) Urine Protein Negative (Neg-Trace) mg/dL Urine Glucose (UA) Negative (Negative) mg/dL Urine Ketones Negative (Negative) mg/dL Urine Blood Negative (Negative) Urine Nitrite Negative (Negative) Ur Leukocyte Esterase Negative (Negative) Urine Opiates Screen Not Detected (Not Detect) Urine Fentanyl Screen Not Detected (Not Detect) Ur Barbiturates Screen Not Detected (Not Detect) Ur Phencyclidine Scrn Not Detected (Not Detect) Ur Amphetamines Screen Not Detected (Not Detect) U Benzodiazepines Scrn POSITIVE H (Not Detect) Urine Cocaine Screen Not Detected (Not Detect) U Marijuana (THC) Screen Not Detected (Not Detect) Ethyl Alcohol < 10 mg/dL COVID-19 (ANGELIQUE) Negative (Negative) COVID-19 Clin Com See Note Influenza Type A (ELAN) Negative (Negative) Influenza Type B (ELAN) Negative (Negative) Influenza A & B Note See Note Independent Interpretation I performed an independent interpretation of an: CT Scan (Head no acute stroke.) Interpretation: MRI of the brain: No acute intracranial pathology. Radiology Impression Discussion of test interpretation with radiology: I have reviewed the radiologist's reading. Discharge Plan Discharge Clinical Impression: Anxiety, Paresthesia Patient Disposition: Home, Self-Care Instructions: Paresthesia (ED) Prescriptions: No Action (DME) blood-glucose meter [FreeStyle Lite Meter] Kit See Rx Instructions .ROUTE .MEDSUPPLY Qty: 1 0RF Rx Instructions: As directed prazosin 2 mg capsule 4 mg PO BEDTIME 30 Days Qty: 60 2RF clonidine HCl 0.1 mg Tablet 0.1 mg PO BID PRN (Reason: Anxiety not responding to Hydroxyzine) 30 Days Qty: 60 0RF Protocol: Hold for SBP< HOLD for SBP < : 90 promethazine 25 mg Tablet 25 mg PO DAILY PRN (Reason: Nausea) 30 Days Qty: 30 0RF bupropion HCl 300 mg Tablet Extended Release 24 Hr 300 mg PO DAILY 30 Days Qty: 30 0RF sennosides [Senna Lax] 8.6 mg Tablet 17.2 mg PO DAILY 30 Days Qty: 60 0RF venlafaxine 37.5 mg Capsule,Extended Release 24hr 187.5 mg PO DAILY 30 Days Qty: 150 0RF quetiapine 300 mg Tablet 300 mg PO BEDTIME 30 Days Qty: 30 0RF polyethylene glycol 3350 17 gram Powder In Packet 17 g PO DAILY PRN (Reason: Constipation) 30 Days Qty: 30 0RF quetiapine 100 mg Tablet 100 mg PO TID PRN (Reason: severe anxiety) 30 Days Qty: 90 0RF Fleet Enema 19-7 gram/118 mL Enema 133 ml WA DAILY PRN (Reason: Constipation) 10 Days Qty: 10 0RF docusate sodium 100 mg Capsule 100 mg PO BID 30 Days Qty: 60 0RF mirtazapine 15 mg Tablet 45 mg PO BEDTIME 30 Days Qty: 90 0RF methadone [Methadose] 10 mg/mL Concentrate 107 mg PO DAILY Qty: 0 0RF Rx Instructions: Partial Fill upon patient request. trolamine salicylate [Arthricream] 10 % Cream 1 appl topical QID PRN (Reason: low back pain) 30 Days Qty: 10 0RF Protocol: Apply to: Apply to: lower back buspirone 5 mg tablet 5 mg PO TID 30 Days Qty: 90 1RF triamcinolone acetonide 0.1 % cream 1 appl topical BID PRN (Reason: rash) 30 Days Qty: 80 3RF gabapentin 800 mg tablet 800 mg PO TID 30 Days Qty: 90 0RF nicotine (polacrilex) 4 mg gum 4 mg buccal Q2H PRN (Reason: nicotine cravings) 30 Days Qty: 220 0RF albuterol sulfate [Ventolin HFA] 90 mcg/actuation HFA aerosol inhaler 2 puff inhalation Q6H PRN (Reason: for wheezing) 30 Days Qty: 1 5RF Movantik 25 mg tablet 25 mg PO QAM 30 Days Qty: 30 0RF Rx Instructions: must be taken on empty stomach; no food 1 hr after or 2-3 hrs before dose lorazepam 2 mg tablet 2 mg PO TID PRN (Reason: anxiety) 17 Days Qty: 51 0RF Referrals: Quinton Lopez MD [Primary Care Provider] -
[2023-05-08 15:37] LABS: Appearance Urine Clear; Color Urine Yellow; Glucose Urine UA Negative (Negative); Leukocyte Esterase Urine Negative (Negative); Nitrite Urine Negative (Negative); PH 6.5 (5.0-9.0); Specific Gravity - Urine 1.015 (1.005-1.025); Urine Blood Negative (Negative); Urine Ketones Negative (Negative); Urine Protein Negative (Neg-Trace)
[2023-05-08 15:44] LABS: Amphetamine Screen Urine Not Detected (Not Detect); Barbiturates, Urine Not Detected (Not Detect); Benzodiazepines Screen Urine POSITIVE (Not Detect); Cannabinoid Screen Urine Not Detected (Not Detect); Cocaine Screen Urine Not Detected (Not Detect); Fentanyl, urine Not Detected (Not Detect); Opiate Screen Urine Not Detected (Not Detect); Phencyclidine Screen Urine Not Detected (Not Detect)
[2023-05-08 15:58] LABS: MANUAL DIFF FLAG NO
[2023-05-08 16:00] LABS: Basophils Percent Auto 0.3 % (0-2); Eosinophils Absolute Auto 0.1 X10*3/uL (0.0-0.4); Hematocrit 33.2 % (37.0-47.0); Imm Gran Abs Auto 0.02 X10*3/uL (0.00-0.03); Imm Gran Pct Auto 0.3 % (0.0-0.4); Lymphocytes Absolute Auto 2.3 X10*3/uL (1.2-4.9); Lymphocytes Percent Auto 32.2 % (20-40); Mean Corpuscular HGB Conc 33.1 g/dl (31.0-35.0); Mean Corpuscular Hemoglobin 29.2 pg (27.0-33.0); Mean Corpuscular Volume 88.1 fL (80.0-98.0); Monocytes Absolute Auto 0.4 X10*3/uL (0.1-1.2); Monocytes Percent Auto 6.2 % (2-11); Neutrophils Absolute Auto 4.2 x10*3/uL (2.0-8.3); Platelet Count 185 X10*3/uL (160-400); Red Blood Count 3.77 X10*6/uL (4.20-5.50); Red Cell Distribution Width 13.7 % (11.0-16.0)
--- NOTE | 2023-05-08 16:00 | PC.NURSE ---
ekg performed. labs obtained/sent at this time. pt resting comfortably in no apparent distress. respirations remain even and unlabored. call skaggs placed within reach.
--- NOTE | 2023-05-08 16:03 | PC.NURSE ---
pt speaking w/ ED provider at this time.
[2023-05-08 16:06] LABS: Prothrombin Time 12.2 SEC (11.1-13.3)
[2023-05-08 16:17] LABS: Alanine Aminotransferase 36 U/L (0-31); Albumin Level 3.9 g/dL (3.5-5.0); Alkaline Phosphatase 127 U/L (39-117); Anion Gap 13 (12-20); Aspartate Amino Transferase 43 U/L (5-31); Bilirubin Direct < 0.2 mg/dL (0.0-0.5); Bilirubin Total 0.1 mg/dL (0.0-1.0); Blood Urea Nitrogen 11 mg/dL (9-16); Carbon Dioxide 25 mmol/L (22-29); Chloride 106 mmol/L (96-108); Creatinine Clr Calc Pharmacy 82.5; Estimated Glomerular Filt Rate > 60; Ethanol < 10 mg/dL; Glucose Random 86 mg/dL (60-115); Magnesium 2.1 mg/dL (1.6-2.6); Potassium 5.6 mmol/L (3.3-5.1); Sodium 138 mmol/L (135-145); Total Protein 7.6 g/dL (6.5-8.0)
[2023-05-08 16:23] LABS: Troponin-I High Sensitivity < 2.7 ng/L (<3.5-17.0)
[2023-05-08 16:29] LABS: COVID-19 Test Negative (Negative); IDNOW Serial# 08D9AD1C; IDNOW Serial# 9DB6401D; Influenza A Negative (Negative); Influenza B2 Negative (Negative)
--- NOTE | 2023-05-08 16:56 | PC.NURSE ---
MRI screen filled out/completed/faxed over. transport notified that pt is ready to go to MRI at this time.
[2023-05-08 18:12] VITALS: BP 99/57; PULSE 72; RESP 16; O2SAT 98
--- NOTE | 2023-05-08 18:12 | PC.NURSE ---
pt returned from MRI at this time. vss and up to date. labs obtained and sent to lab. call skaggs placed within reach.
[2023-05-08 19:11] LABS: Anion Gap 12 (12-20); Blood Urea Nitrogen 10 mg/dL (9-16); Calcium 9.4 mg/dL (8.4-10.2); Carbon Dioxide 29 mmol/L (22-29); Chloride 105 mmol/L (96-108); Creatinine Clr Calc Pharmacy 76.6; Estimated Glomerular Filt Rate > 60; Glucose Random 128 mg/dL (60-115); Potassium 4.5 mmol/L (3.3-5.1); Sodium 141 mmol/L (135-145)
[2023-05-08 20:01] LABS: UPreg QC Valid YES; Urine Pregnancy NEGATIVE (NEGATIVE)
== END 2023-05-08 19:52 | disposition home or self-care (01) ==
PROVIDERS: Nurse Practitioner Family; Emergency Provider Emergency Medicine; PCP Internal Medicine
DX: R20.2 Paresthesia of skin (principal); F41.9 Anxiety disorder, unspecified; E11.9 Type 2 diabetes mellitus without complications; Z79.899 Other long term (current) drug therapy; Z11.52 Encounter for screening for COVID-19
CPT/HCPCS: 36415; 70450; 70551; 80048; 80076; 80307; 81003; 81025; 83735; 84484; 85025; 85610; 87502; 87635; 93005; 99284; 99285

== ENCOUNTER → 2023-05-08 15:20 | Outpatient (BNV) | payer OTHER, SELFPAY | PROVIDERS: Emergency Provider Emergency Medicine; PCP Internal Medicine; Visit Provider Internal Medicine Cardiovascular Disease | DX: R94.31 Abnormal electrocardiogram [ECG] [EKG] (principal) | CPT/HCPCS: 93010 ==

== ENCOUNTER 2023-05-19 12:20 | Emergency (ER) | payer OTHER, SELFPAY ==
[2023-05-19 13:39] VITALS: BP 94/57; PULSE 84; RESP 16; TEMP 35.9; O2SAT 96; BMI 28.3
--- NOTE | 2023-05-19 13:48 | ED.GENADULT ---
HPI - General Adult General Chief complaint: Headache Stated complaint: Headache 1 week History of Present Illness HPI narrative: Patient left without completion of treatment by ED provider Related Data Previous Rx's Medication Instructions Recorded blood-glucose meter (Joelle #1 ea 09/11/20 Lite Meter kit) Ventolin HFA 90 mcg/actuation 2 puff inhalation Q6H PRN for 02/23/23 aerosol inhaler (albuterol sulfate) wheezing 30 days #1 ea bupropion HCl 300 mg 24 hr tablet, 300 mg PO DAILY 30 days #30 tabs 02/23/23 extended release buspirone 5 mg tablet 5 mg PO TID 30 days #90 tabs 02/23/23 clonidine HCl 0.1 mg tablet 0.1 mg PO BID PRN Anxiety not 02/23/23 responding to Hydroxyzine 30 days #60 tabs docusate sodium 100 mg capsule 100 mg PO BID 30 days #60 caps 02/23/23 gabapentin 800 mg tablet 800 mg PO TID 30 days #90 tabs 02/23/23 lorazepam 2 mg tablet 2 mg PO TID PRN anxiety 17 days 02/23/23 #51 tabs methadone 10 mg/mL oral 107 mg (10.7 mL) PO DAILY #0 mL 02/23/23 concentrate (Methadose) mirtazapine 15 mg tablet 45 mg (3 x 15 mg) PO BEDTIME 30 02/23/23 days #90 tabs naloxegol 25 mg tablet (Movantik) 25 mg PO QAM 30 days #30 tabs 02/23/23 nicotine (polacrilex) 4 mg gum 4 mg buccal Q2H PRN nicotine 02/23/23 cravings 30 days #220 ea polyethylene glycol 3350 17 gram 17 g PO DAILY PRN Constipation 30 02/23/23 oral powder packet days #30 ea promethazine 25 mg tablet 25 mg PO DAILY PRN Nausea 30 days 02/23/23 #30 tabs quetiapine 100 mg tablet 100 mg PO TID PRN severe anxiety 02/23/23 30 days #90 tabs quetiapine 300 mg tablet 300 mg PO BEDTIME 30 days #30 tabs 02/23/23 sennosides 8.6 mg tablet (Senna 17.2 mg (2 x 8.6 mg) PO DAILY 30 02/23/23 Lax) days #60 tabs sodium phosphates 19 gram-7 133 ml AL DAILY PRN Constipation 02/23/23 gram/118 mL enema (Fleet Enema) 10 days #10 mL triamcinolone acetonide 0.1 % 1 appl topical BID PRN rash 30 02/23/23 topical cream days #80 grams trolamine salicylate 10 % topical 1 appl topical QID PRN low back 02/23/23 cream (Arthricream) pain 30 days #10 grams venlafaxine 37.5 mg 187.5 mg (5 x 37.5 mg) PO DAILY 30 02/23/23 capsule,extended release 24 hr days #150 caps prazosin 2 mg capsule 4 mg (2 x 2 mg) PO BEDTIME 30 days 04/26/23 #60 caps Allergies Allergy/AdvReac Type Severity Reaction Status Date / Time No Known Allergies Allergy Verified 05/08/23 15:09 [No Known Allergies*] [facility] Past Medical History Onset Date is defined in the Problem List Problems that require an onset date and time if occurred within 24 hrs of arrival to the ED Aortic Dissection and Rupture; Neurologic impairment; Cardiopulmonary Arrest; Endotracheal Intubation; Insertion or Replacement of Mechanical Circulatory Assist Device Medical History Routine medical exam Overweight (BMI 25.0-29.9) Mixed hyperlipidemia Dysplasia of cervix, low grade (SIVAKUMAR 1) Obesity (BMI 30-39.9) Overweight (BMI 25.0-29.9) History of substance abuse Impaired fasting glucose Constipation Positive hepatitis C antibody test Right hand pain Hip pain, bilateral Smoker Bipolar depression Anxiety Type 2 diabetes mellitus Fatigue Muscle twitching Vision impairment Hx of hepatitis C History of anxiety History of depression Surgical History No pertinent past surgical history Family History Family History Father Diabetes Cancer HTN (hypertension) Other Mental health problem Substance abuse Social History Social History Household Members: None Housing: Homeless Housing Other:: [facility] house Do you presently have visiting nurse or other home services: No Alcohol intake: never Patient Tobacco Use Status: Current everyday Tobacco user Tobacco use type: Cigarette Cigarette Packs Per Day: 1 Cigarettes Per Day: 20.0 Years Smoked: 15 e-Cigarette/Vaping Use: Never Used Second Hand Smoke Exposure: Yes Substance Use Type: Crack/Cocaine and Heroin Advance Directives: No Advance Directives Information Provided: No service: No Current occupational status: unemployed Sexual orientation: Straight/Heterosexual Gender identity: Female Cognitive needs: No Hearing needs: No Vision needs: Yes Physical Exam ED Vital Signs: Vital Signs - 24 hr 05/19/23 13:39 Temperature 96.7 F L Pulse Rate 84 Respiratory Rate 16 Blood Pressure 94/57 L Pulse Oximetry 96 Oxygen Delivery Method Room Air BMI result Body Mass Index 28.3 Course Course Course Narrative: RME: 38 yold female with history of headache with photophobia in the past and had to had spinal tap for pressure to be drained presents to the ED with similar symptoms. Patient states no fever, chills, nausea, vomiting, or neck stiffness. Labs and CT scan ordered. Patient is not toxic appearing. Medications Administered Discontinued Medications Generic Name Dose Route Start Last Admin Trade Name Jetq PRN Reason Stop Dose Admin Acetaminophen 650 mg 05/19/23 20:20 05/19/23 20:27 Acetaminophen 325 Mg Tablet PO 05/19/23 20:21 650 mg ONCE ONE Administration Medical Decision Making Lab Data 05/19/23 14:48 05/19/23 14:48 Labs: Lab Results 05/19/23 Range/Units 14:48 WBC 4.8 (4.8-10.8) X10*3/uL RBC 3.96 L (4.20-5.50) X10*6/uL Hgb 11.7 L (12.0-16.0) g/dl Hct 35.0 L (37.0-47.0) % MCV 88.4 (80.0-98.0) fL MCH 29.5 (27.0-33.0) pg MCHC 33.4 (31.0-35.0) g/dl RDW 13.2 (11.0-16.0) % Plt Count 181 (160-400) X10*3/uL MPV 10.0 (9.4-12.3) fL Immature Gran % (Auto) 0.2 (0.0-0.4) % Neut % (Auto) 45.8 (45-73) % Lymph % (Auto) 43.6 H (20-40) % [place] % (Auto) 8.3 (2-11) % Eos % (Auto) 1.9 (0-4) % Baso % (Auto) 0.2 (0-2) % Lymph # (Auto) 2.1 (1.2-4.9) X10*3/uL [place] # (Auto) 0.4 (0.1-1.2) X10*3/uL Eos # (Auto) 0.1 (0.0-0.4) X10*3/uL Baso # (Auto) 0.0 (0.0-0.2) X10*3/uL Abs Immat Gran (auto) 0.01 (0.00-0.03) X10*3/uL Absolute Neuts (auto) 2.2 (2.0-8.3) x10*3/uL Absolute Nucleated RBC 0.000 (0.0-0.012) X10*3/uL Nucleated RBC % (auto) 0.0 (0.0-0.2) /100WBC ESR 21 H (0-20) MM/HR Sodium 138 (135-145) mmol/L Potassium 4.5 (3.3-5.1) mmol/L Chloride 103 (96-108) mmol/L Carbon Dioxide 28 (22-29) mmol/L Anion Gap 12 (12-20) BUN 10 (9-16) mg/dL Creatinine 0.99 (0.5-1.4) mg/dL Estim Creat Clear Calc 75.0 Estimated GFR > 60 Random Glucose 71 (60-115) mg/dL Calcium 9.5 (8.4-10.2) mg/dL Total Bilirubin 0.3 (0.0-1.0) mg/dL AST 65 H (5-31) U/L ALT 104 H (0-31) U/L Alkaline Phosphatase 164 H (39-117) U/L C-Reactive Protein 1.05 H (< or = 0.50) mg/dL Total Protein 7.9 (6.5-8.0) g/dL Albumin 4.4 (3.5-5.0) g/dL Discharge Plan Discharge Clinical Impression: Headache Patient Disposition: Left W/O Completing Treatment Prescriptions: No Action (DME) blood-glucose meter [FreeStyle Lite Meter] Kit See Rx Instructions .ROUTE .MEDSUPPLY Qty: 1 0RF Rx Instructions: As directed prazosin 2 mg capsule 4 mg PO BEDTIME 30 Days Qty: 60 2RF clonidine HCl 0.1 mg Tablet 0.1 mg PO BID PRN (Reason: Anxiety not responding to Hydroxyzine) 30 Days Qty: 60 0RF Protocol: Hold for SBP< HOLD for SBP < : 90 promethazine 25 mg Tablet 25 mg PO DAILY PRN (Reason: Nausea) 30 Days Qty: 30 0RF bupropion HCl 300 mg Tablet Extended Release 24 Hr 300 mg PO DAILY 30 Days Qty: 30 0RF sennosides [Senna Lax] 8.6 mg Tablet 17.2 mg PO DAILY 30 Days Qty: 60 0RF venlafaxine 37.5 mg Capsule,Extended Release 24hr 187.5 mg PO DAILY 30 Days Qty: 150 0RF quetiapine 300 mg Tablet 300 mg PO BEDTIME 30 Days Qty: 30 0RF polyethylene glycol 3350 17 gram Powder In Packet 17 g PO DAILY PRN (Reason: Constipation) 30 Days Qty: 30 0RF quetiapine 100 mg Tablet 100 mg PO TID PRN (Reason: severe anxiety) 30 Days Qty: 90 0RF Fleet Enema 19-7 gram/118 mL Enema 133 ml AL DAILY PRN (Reason: Constipation) 10 Days Qty: 10 0RF docusate sodium 100 mg Capsule 100 mg PO BID 30 Days Qty: 60 0RF mirtazapine 15 mg Tablet 45 mg PO BEDTIME 30 Days Qty: 90 0RF methadone [Methadose] 10 mg/mL Concentrate 107 mg PO DAILY Qty: 0 0RF Rx Instructions: Partial Fill upon patient request. trolamine salicylate [Arthricream] 10 % Cream 1 appl topical QID PRN (Reason: low back pain) 30 Days Qty: 10 0RF Protocol: Apply to: Apply to: lower back buspirone 5 mg tablet 5 mg PO TID 30 Days Qty: 90 1RF triamcinolone acetonide 0.1 % cream 1 appl topical BID PRN (Reason: rash) 30 Days Qty: 80 3RF gabapentin 800 mg tablet 800 mg PO TID 30 Days Qty: 90 0RF nicotine (polacrilex) 4 mg gum 4 mg buccal Q2H PRN (Reason: nicotine cravings) 30 Days Qty: 220 0RF albuterol sulfate [Ventolin HFA] 90 mcg/actuation HFA aerosol inhaler 2 puff inhalation Q6H PRN (Reason: for wheezing) 30 Days Qty: 1 5RF Movantik 25 mg tablet 25 mg PO QAM 30 Days Qty: 30 0RF Rx Instructions: must be taken on empty stomach; no food 1 hr after or 2-3 hrs before dose lorazepam 2 mg tablet 2 mg PO TID PRN (Reason: anxiety) 17 Days Qty: 51 0RF Interventions: LWBS Worksheet Last Done: 05/20/23 01:45 Discharge Date/Time: 05/20/23 01:45
== END 2023-05-20 01:45 | disposition left against medical advice (07) ==
PROVIDERS: Emergency Provider Emergency Medicine; PCP Internal Medicine
DX: R51.9 Headache, unspecified (principal); E11.9 Type 2 diabetes mellitus without complications; E78.2 Mixed hyperlipidemia; F11.20 Opioid dependence, uncomplicated; F32.A Depression, unspecified; F43.10 Post-traumatic stress disorder, unspecified; F17.210 Nicotine dependence, cigarettes, uncomplicated; Z79.899 Other long term (current) drug therapy
CPT/HCPCS: 36415; 70450; 80053; 85025; 85652; 86140; 99282; 99284

== ENCOUNTER 2023-06-14 13:59 | Outpatient (AMB) | payer OTHER, SELFPAY ==
--- NOTE | 2023-06-14 14:13 | A.OFFVIS_ITS ---
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 Present Allergies No Known Allergies [No Known Allergies*] Allergy (Verified 06/14/23 14:14) Medication List - Last Reconciled 06/14/23 by Yvette Bain CNM bupropion HCl 300 mg PO DAILY 30 days buspirone 5 mg PO TID 30 days clonidine HCl 0.1 mg See Protocol PO BID PRN 30 days docusate sodium 100 mg PO BID 30 days gabapentin 800 mg PO TID 30 days methadone (Methadose) 107 mg (10.7 mL) PO DAILY mirtazapine 45 mg (3 x 15 mg) PO BEDTIME 30 days nicotine (polacrilex) 4 mg buccal Q2H PRN 30 days polyethylene glycol 3350 17 grams PO DAILY PRN 30 days prazosin 4 mg (2 x 2 mg) PO BEDTIME 30 days promethazine 25 mg PO DAILY PRN 30 days quetiapine 300 mg PO BEDTIME 30 days quetiapine 100 mg PO TID PRN 30 days triamcinolone acetonide 0.1% 1 appl topical BID PRN 30 days trolamine salicylate 10% (Arthricream) 1 appl See Protocol topical QID PRN 30 days venlafaxine ER 187.5 mg (5 x 37.5 mg) PO DAILY 30 days Ventolin HFA 90 mcg/actuation (albuterol sulfate) 2 puffs inhalation Q6H PRN 30 days NS Is last menstrual period known: No (unknown , 2 yrs ago) Do you need a note to return to daycare/school/sports/work: No HPI Amenorrhea HPI Details Patient is here to discuss amenorrhea. She has missed some visits for Pap smears and thought that this was also a rescheduled visit for that but today she wants to talk about not having her period for 2 and half years. She does remember seeing this provider in the past but says that nobody ordered a pelvic ultrasound for her except when she was in the hospital at [facility] and there was no follow-up about her missed periods at that time. She has in a residential program and she is under treatment for hepatitis C. She says she does not smoke anymore she is now on nicotine replacement. She is on many medications but says most of these are new for the last month and she was on different medications before that. Patient says she wants to have a period because she knows can not be normal to go this long she has not concerned about because she is martinez and she has not had sex with a man in 10 years. [facility] Medical History (Updated 06/14/23 @ 14:50 by Yvette Bain CNM) Routine medical exam Overweight (BMI 25.0-29.9) Mixed hyperlipidemia Dysplasia of cervix, low grade (SIVAKUMAR 1) Obesity (BMI 30-39.9) Overweight (BMI 25.0-29.9) History of substance abuse Impaired fasting glucose Constipation Positive hepatitis C antibody test Right hand pain Hip pain, bilateral Smoker Bipolar depression Anxiety Type 2 diabetes mellitus Fatigue Muscle twitching Vision impairment Hx of hepatitis C History of anxiety History of depression Surgical History No pertinent past surgical history Family History Father Diabetes Cancer HTN (hypertension) Other Mental health problem Substance abuse Social History Household Members: None Housing: Homeless Housing Other:: shelter house Do you presently have visiting nurse or other home services: No Alcohol intake: never Patient Tobacco Use Status: Current everyday Tobacco user Tobacco use type: Cigarette Cigarette Packs Per Day: 1 Cigarettes Per Day: 20.0 Years Smoked: 15 e-Cigarette/Vaping Use: Never Used Second Hand Smoke Exposure: Yes Substance Use Type: Crack/Cocaine and Heroin service: No Current occupational status: unemployed Sexual orientation: Straight/Heterosexual Gender identity: Female Cognitive needs: No Hearing needs: No Vision needs: Yes Female Reproductive History Menstrual Age of Menarche: 15 control method: none Total pregnancies: 0 Full term: 0 Date of last pap smear: 01/22/22 History of abnormal pap smear: Yes (10/2006) Physical Exam Vital Signs: Last Vital Signs BP 116/70 06/14/23 14:27 BMI result Body Mass Index 28.2 Results Reviewed Results Reviewed: kwan: Jazmin Trujillo Age/Sex: 37/F Attending: Dixon Hawkins MD : 1985 Submitted by: Dixon Hawkins MD Copies to: Quinton Lopez MD MR #: [id number] Status: DEP REF Collected: 03/09/22 Location: [facility] Received: 03/09/22 Diagnosis A. Endocervix, curettage: Scant superficial squamous and rare endocervical epithelium within normal limits. B. Cervix, 5 o'clock, biopsy: Squamous mucosa and endocervical epithelium within normal limits. C. Cervix, 9 o'clock, biopsy: Scant squamous and endocervical epithelium within normal limits. D. Cervix, 11 o'clock, biopsy: Squamous mucosa within normal limits; no endocervical epithelium identified. COMMENT: The findings are concordant with the patient's recent Pap/cytology specimen ([id number]; ASCUS with negative HPV) - slide reviewed. Clinical History ASCUS of cervix, negative HPV Microscopic Description A-D. Microscopic sections reviewed. Material Received A: ECC B: Cx bx 5 C: Cx bx 9 D: cx bx 11 Gross Description Received in four parts. Part A: Received in formalin labeled ECC is a 0.2 x 0.2 x 0.05 cm. aggregate of predominantly clear mucus with minute shards of pink-red tissue. The specimen is submitted in toto in a single cassette labeled A. Part B: Received in formalin labeled Cx bx 5 o'clock are several minute to 0.3 cm. in greatest dimension, thin and delicate shards of semitranslucent, finney-white mucus versus mucosa. The specimen is submitted in toto in a single cassette labeled B. Part C: Received in formalin labeled Cx bx 9 o'clock is a 0.3 cm. in greatest dimension aggregate of Patient: Jazmin Trujillo Age/Sex: 37/F MR#: [id number] Page 1 of 2 Name: Jazmin Trujillo Age/Sex: 36/F Attending: Yvette Bain CNM : 1985 Submitted by: Yvette Bain CNM Copies to: Quinton Lopez MD MR #: [id number] Status: DEP REF Collected: 01/20/22 Location: [facility] Received: 01/22/22 Interpretation General Category: Epithelial cell abnormality. Adequacy: Endocervical component present. Interpretation: Atypical squamous cells of undetermined significance. HPV mRNA E6/E7: Not Detected This assay detects E6/E7 viral messenger RNA (mRNA) from 14 high-risk HPV types (16, 18, 31, 33, 35, 39, 45, 51, 52, 56, 58, 59, 66, 68) HPV testing performed by [facility], [place], [place]. See reference laboratory portion of the EMR for entire report. Clinical Information LMP: 2020 Previous PAP test: 2019, WNL Other history: 2006 LGSIL Material Received ThinPrep Cervical Copies To Quinton Lopez MD [address] [place] [address] Yvette aBin CNM [address] [place] [address] Dr. Ochoa [facility][note 3] [place] [address] Electronically Signed By: Clifford Woodward MD 02/03/22 1807 The Pap Test is a screening procedure with the inherent possibility of both false negative and false positive results. Results should be interpreted in the context of historic and current clinical findings. Reliability of the Pap Test is enhanced by performing the test on a regular repetitive basis. Patient: Jazmin Trujillo Age/Sex: 36/F MR#: [id number] Page 1 of 1 Assessment & Plan Assessment & Plan (1) Dysplasia of cervix, low grade (SIVAKUMAR 1): Comment: 2006 Pap LGSIL, colpo biopsy SIVAKUMAR 1 2015? Pap LGSIL 2019 co testing negative 2021 ascus/HPV negative Code(s): N87.0 - Mild cervical dysplasia (2) ASCUS of cervix with negative high risk HPV: Comment: History of LGSIL/SIVAKUMAR 1 Negative colpo/biopsy/ECC Code(s): R87.610 - Atypical squamous cells of undetermined significance on cytologic smear of cervix (ASC-US) (3) Hx of abnormal cervical Pap smear: Comment: hx of lsil, last pap normal 2019, pap 01/22/22= ascus, hpv neg. ASCCP gives no guidance for this scenario- will refer for colpo Code(s): Z87.42 - Personal history of other diseases of the female genital tract (4) History of substance abuse: Code(s): F19.11 - Other psychoactive substance abuse, in remission (5) PTSD (post-traumatic stress disorder): Code(s): F43.10 - Post-traumatic stress disorder, unspecified (6) Hepatitis C: Code(s): B19.20 - Unspecified viral hepatitis C without hepatic coma (7) Chronic idiopathic constipation: Code(s): K59.04 - Chronic idiopathic constipation (8) Amenorrhea, secondary: Code(s): N91.1 - Secondary amenorrhea (9) Overweight (BMI 25.0-29.9): Code(s): E66.3 - Overweight Plan Patient shared that she was not here to get a Pap smear done today she wanted to discuss her lack of periods and that was what she needed to deal with today. Discussed patient's history she says she does not remember anyone making a plan to deal with her not having had a period chart was reviewed and she had a visit with me January of 2022 where we discussed her not having had a period for year and a half and I made a plan to investigate this with a pelvic ultrasound and multiple lab tests that were never done and the plan was that when she returned for review if it was appropriate I would prescribe a course of Provera as a Provera challenge to see if it would bring on her. She never saw me again and she saw other providers for the abnormal Pap but did not return for those fo llow-up Paps either.. So plan made with patient today to do a test now and reorder all the blood work reorder the pelvic ultrasound and in the meantime if the test today is negative (the patient assures me it will be because she is martinez and has not had sex with a man in 10 years) then I will give her a course of Provera for 10 days now I reviewed with the patient what to expect in terms of how to feel while she is taking the Provera in terms of very premenstrual feeling which as she pointed out can mimic the constipation that she often deals with. Additionally she should be ready for a very heavy uncomfortable. When it does come and it may come anywhere from 1-3 4 days after stopping the Provera. We will have a visit after to review the results of the ultrasound and all of the labs but she also needs to schedule her annual exam and pelvic exam and Pap smear for which she is overdue. The patient agrees with this plan she is tells me she has in a residential program and she is currently undergoing treatment for hepatitis C and is very hopeful for that working. She assured me that most of the list of medication she is on are just different doses and she has been on them for about a month. Orders: Orders Thyroid Stimulating Hormone Today B19.20 - Unspecified viral hepatitis C without hepatic coma, E66.3 - Overweight, F19.11 - Other psychoactive substance abuse, in remission, F43.10 - Post-traumatic stress disorder, unspecified, K59.04 - Chronic idiopathic constipation, N87.0 - Mild cervical dysplasia, R87.610 - Atypical squamous cells of undetermined significance on cytologic smear of cervix (ASC-US), Z87.42 - Personal history of other diseases of the female genital tract Free T4 (Free Thyroxine) Today B19.20 - Unspecified viral hepatitis C without hepatic coma, E66.3 - Overweight, F19.11 - Other psychoactive substance abuse, in remission, F43.10 - Post-traumatic stress disorder, unspecified, K59.04 - Chronic idiopathic constipation, N87.0 - Mild cervical dysplasia, R87.610 - Atypical squamous cells of undetermined significance on cytologic smear of cervix (ASC-US), Z87.42 - Personal history of other diseases of the female genital tract DHEA Sulfate Today B19.20 - Unspecified viral hepatitis C without hepatic coma, E66.3 - Overweight, F19.11 - Other psychoactive substance abuse, in remission, F43.10 - Post-traumatic stress disorder, unspecified, K59.04 - Chronic idiopathic constipation, N87.0 - Mild cervical dysplasia, R87.610 - Atypical squamous cells of undetermined significance on cytologic smear of cervix (ASC- US), Z87.42 - Personal history of other diseases of the female genital tract Lutenizing Hormone Today B19.20 - Unspecified viral hepatitis C without hepatic coma, E66.3 - Overweight, F19.11 - Other psychoactive substance abuse, in remission, F43.10 - Post-traumatic stress disorder, unspecified, K59.04 - Chronic idiopathic constipation, N87.0 - Mild cervical dysplasia, R87.610 - Atypical squamous cells of undetermined significance on cytologic smear of cervix (ASC-US), Z87.42 - Personal history of other diseases of the female genital tract Follicle Stimulating Hormone Today B19.20 - Unspecified viral hepatitis C without hepatic coma, E66.3 - Overweight, F19.11 - Other psychoactive substance abuse, in remission, F43.10 - Post-traumatic stress disorder, unspecified, K59.04 - Chronic idiopathic constipation, N87.0 - Mild cervical dysplasia, R87.610 - Atypical squamous cells of undetermined significance on cytologic smear of cervix (ASC-US), Z87.42 - Personal history of other diseases of the fe male genital tract Testosterone, Free/Total Today B19.20 - Unspecified viral hepatitis C without hepatic coma, E66.3 - Overweight, F19.11 - Other psychoactive substance abuse, in remission, F43.10 - Post-traumatic stress disorder, unspecified, K59.04 - Chronic idiopathic constipation, N87.0 - Mild cervical dysplasia, R87.610 - Atypical squamous cells of undetermined significance on cytologic smear of cervix (ASC-US), Z87.42 - Personal history of other diseases of the female genital tract Prolactin Today B19.20 - Unspecified viral hepatitis C without hepatic coma, E66.3 - Overweight, F19.11 - Other psychoactive substance abuse, in remission, F43.10 - Post-traumatic stress disorder, unspecified, K59.04 - Chronic idiopathic constipation, N87.0 - Mild cervical dysplasia, R87.610 - Atypical squamous cells of undetermined significance on cytologic smear of cervix (ASC- US), Z87.42 - Personal history of other diseases of the female genital tract US pelvic and transvaginal Today N91.1 - Secondary amenorrhea Medications: New medroxyprogesterone (Provera) 10 mg PO DAILY 10 tabs 0RF Coding Level of Care Code Est Pt Level 3 (33911) Diagnoses Dysplasia of cervix, low grade (SIVAKUMAR 1) N87.0 ASCUS of cervix with negative high risk HPV R87.610 Hx of abnormal cervical Pap smear Z87.42 History of substance abuse F19.11 PTSD (post-traumatic stress disorder) F43.10 Hepatitis C B19.20 Chronic idiopathic constipation K59.04 Amenorrhea, secondary N91.1 Overweight (BMI 25.0-29.9) E66.3 Time Spent (min) 50 Comment 100% spent history taking and reviewing plan and making new plan with patient
[2023-06-14 14:27] VITALS: BP 116/70; BMI 28.2
== END 2023-06-14 15:29 | disposition home or self-care (01) ==
PROVIDERS: PCP Internal Medicine; Visit Provider Advanced Practice Midwife
DX: N91.1 Secondary amenorrhea (principal); R87.610 Atypical squamous cells of undetermined significance on cytologic smear of cervix (ASC-US); B19.20 Unspecified viral hepatitis C without hepatic coma; Z87.42 Personal history of other diseases of the female genital tract; F19.11 Other psychoactive substance abuse, in remission; F43.10 Post-traumatic stress disorder, unspecified; K59.04 Chronic idiopathic constipation; E66.3 Overweight
CPT/HCPCS: 99214

== ENCOUNTER → 2023-06-14 13:59 | Outpatient (BNVA) | payer OTHER, SELFPAY | PROVIDERS: PCP Internal Medicine; Visit Provider Advanced Practice Midwife | DX: N87.0 Mild cervical dysplasia (principal); N91.1 Secondary amenorrhea; F19.11 Other psychoactive substance abuse, in remission; F43.10 Post-traumatic stress disorder, unspecified; B19.20 Unspecified viral hepatitis C without hepatic coma; K59.04 Chronic idiopathic constipation; E66.3 Overweight; Z87.42 Personal history of other diseases of the female genital tract | CPT/HCPCS: 99212 ==

== ENCOUNTER 2023-08-22 10:31 | Outpatient (REF) | payer OTHER, SELFPAY ==
[2023-08-22 12:23] LABS: INTERNATIONAL NORM RATIO 0.9 (0.9-1.1); Prothrombin Time 10.9 SEC (11.1-13.3)
[2023-08-22 12:50] LABS: Alanine Aminotransferase 25 U/L (0-31); Albumin Level 4.2 g/dL (3.5-5.0); Alkaline Phosphatase 105 U/L (39-117); Aspartate Amino Transferase 22 U/L (5-31); Bilirubin Direct < 0.2 mg/dL (0.0-0.5); Bilirubin Total 0.2 mg/dL (0.0-1.0); Total Protein 7.6 g/dL (6.5-8.0)
[2023-08-22 13:14] LABS: HBc Num1 0.11 S/CO (0.00-0.79); HIV AB/AG Nonreactive (Nonreactive); HIV Num 1 0.08 S/CO (0.00-0.99); Hepatitis A Antibody IgG Nonreactive (Nonreactive); Hepatitis B Core Antibody Nonreactive (Nonreactive); Hepatitis B Surface Antigen Negative (Negative); ~Hepatitis A Antibody IgG 0.34 S/CO (0.00-0.99); ~Hepatitis B Surface Antibody REACTIVE (Nonreactive)
[2023-08-23 19:12] LABS: Immunoglobulin A 197 mg/dL (47-310)
[2023-08-23 22:03] LABS: Transglutaminase IgA <1.0 U/mL
[2023-08-24 16:59] LABS: HCV RNA PCR Qn <1.18 NOT DETECTED Log IU/mL (NOT DETECTED); HCV RNA PCR Qn <15 NOT DETECTED IU/mL (NOT DETECTED)
== END 2023-08-22 10:32 | disposition home or self-care (01) ==
LOC: HO.LAB 10:31
PROVIDERS: PCP Internal Medicine; Visit Provider Internal Medicine
DX: D61.818 Other pancytopenia (principal); B19.20 Unspecified viral hepatitis C without hepatic coma; F11.20 Opioid dependence, uncomplicated; K59.04 Chronic idiopathic constipation; R79.89 Other specified abnormal findings of blood chemistry; K59.03 Drug induced constipation; T40.2X5A Adverse effect of other opioids, initial encounter; Z86.19 Personal history of other infectious and parasitic diseases
CPT/HCPCS: 36415; 80076; 82784; 85610; 86364; 86704; 86706; 86708; 87340; 87389; 87522; 99212

== ENCOUNTER 2023-08-22 10:31 | Outpatient (AMB) | payer OTHER, SELFPAY ==
[2023-08-22 10:39] VITALS: BP 93/55; PULSE 92; BMI 28.1
--- NOTE | 2023-08-22 10:39 | A.OFFVIS_ITS ---
Intake Vital Signs 08/22/23 10:39 Height 5 ft 3 in Weight 158 lb 11.725 oz BMI 28.1 BP 93/55 L Blood Pressure Location Lt brachial Position Sitting Pulse 92 Intake Visit Reasons: pt req appointment Intake Note: Jazmin presents in the office as a follow up. CC: She is compacted and unable to have a bowel movement. She states she takes enemas, colace and miralax and nothing seems to be working for her. Allergies No Known Allergies [No Known Allergies*] Allergy (Verified 08/22/23 10:43) HPI HPI Comments History of Present Illness Details 37y.o F with PMH of opiate use disorder on methadone maintenance, migraines, chronic HCV who is here for constipation. 08/17/22: Reports that for the past 6 months, has had worsening of constipation. Only able to have 1 BM per week with daily miralax and PRN enemas on board. Has to strain, splint and anally digitate often to facilitate passage of BMs. Consistency ranges from pellets to normal. Sometimes sees blood on top of stool and on wiping trevor after straining. Current meds: Senna 1 tab/daily Miralax twice a day Fleet enema PRN (ends up taking it 2/week) Previously: Has tried Amitiza in the past (per prior documentation, pt does not recall) Bisacodyl supp Labs reviewed and elevated LFTs noted. Pt has hx of HCV but was told that she spontaneously cleared it. Does not drink etOH. Last drug use was in Dec (consistent with labs). Recent CT Abd with IV contrast without any hepatobiliary abnormality. 12/29/22: Reviewed PCP notes - was seen in [facility] in October after she relapsed on heroin and cocaine. Labs still pending from last visit. Reports no change in her sx from last visit. Pt not sure if she actually took Movantik - reports one of the recently prescribed meds was not approved by insurance and she thinks it may have been Movantik but not sure. Was prescribed Linzess by her PCP but that has not helped. Reviewed labs ordered by PCP which show pancytopenia. Pt does not report any hx of bleeding including menstrual bleeding in fact has had amenorrhea x 3 years. 08/22/23: In the interim had a long hospitalisation during which she could not follow up as outpatient. Reports was started on Epclusa by her methadone clinic provider in May 2023 and is due to complete it later this week. Main issue now is constipation despite titrating down the methadone. CUrrently on 93mg but has been on as high as 140mg in the past year. Has 2 BMs per week. BMs are are not hard but very infrequent. Current meds: docusate BID Miralax BID Enema as needed. [facility] Medical History Routine medical exam Overweight (BMI 25.0-29.9) Mixed hyperlipidemia Dysplasia of cervix, low grade (SIVAKUMAR 1) Obesity (BMI 30-39.9) Overweight (BMI 25.0-29.9) History of substance abuse Impaired fasting glucose Constipation Positive hepatitis C antibody test Right hand pain Hip pain, bilateral Smoker Bipolar depression Anxiety Type 2 diabetes mellitus Fatigue Muscle twitching Vision impairment Hx of hepatitis C History of anxiety History of depression Surgical History No pertinent past surgical history Family History Father Diabetes Cancer HTN (hypertension) Other Mental health problem Substance abuse Social History Household Members: None Housing: Homeless Housing Other:: [facility] house Do you presently have visiting nurse or other home services: No Alcohol intake: never Patient Tobacco Use Status: Current everyday Tobacco user Tobacco use type: Cigarette Cigarette Packs Per Day: 1 Cigarettes Per Day: 20.0 Years Smoked: 15 e-Cigarette/Vaping Use: Never Used Second Hand Smoke Exposure: Yes Substance Use Type: Crack/Cocaine and Heroin service: No Current occupational status: unemployed Sexual orientation: Straight/Heterosexual Gender identity: Female Cognitive needs: No Hearing needs: No Vision needs: Yes Female Reproductive History Menstrual Age of Menarche: 15 Review of Systems Const All systems reviewed & are unremarkable except as noted in HPI and below Physical Exam Vital Signs: Last Vital Signs Pulse 92 08/22/23 10:39 BP 93/55 L 08/22/23 10:39 BMI result Body Mass Index 28.1 No acute distress Nonicteric Abdomen soft, nondistended No overt respiratory distress Alert and oriented x3, normal gait Assessment & Plan Assessment & Plan (1) Hepatitis C: Code(s): B19.20 - Unspecified viral hepatitis C without hepatic coma (2) Chronic idiopathic constipation: Code(s): K59.04 - Chronic idiopathic constipation (3) Elevated LFTs: Code(s): R79.89 - Other specified abnormal findings of blood chemistry Plan Chronic hep C genotype 3: Was started on Epclusa by his addiction medicine counselor at methadone clinic. Has almost completed the entire therapy. Plan: -check LFTs and hep C RNA next week -repeat LFTs and hep C RNA in 3 months to document SVR 12 -ultrasound abdomen Chronic idiopathic constipation: Likely also being contributed by opiate use. Plan: -add fiber supplementation to diet -stop docusate, start bisacodyl instead for stimulant laxative effect. 5 mg b.i.d. prescribed, which can be increased to 10 mg b.i.d. if needed -continue MiraLax b.i.d. -elevate legs at the time of defecation -depending on response to above, can consider Linzess in future Follow-up 2 months Orders: Orders HCV RNA QN PROG TO GENOTYPE Today B19.20 - Unspecified viral hepatitis C without hepatic coma Liver Panel Today B19.20 - Unspecified viral hepatitis C without hepatic coma US abdomen complete Today B19.20 - Unspecified viral hepatitis C without hepatic coma Medications: New bisacodyl 5 mg PO BID 30 days PRN 60 tabs 1RF constipation K59.03 - Drug induced constipation, T40.2X5A - Adverse effect of other opioids, initial encounter psyllium husk (Reguloid (psyllium husk)) mix into at least 8 oz of water administering 1 tbsp PO DAILY 30 days 284 grams 1RF Discontinued docusate sodium Discontinued Reason: Change Referral Type 100 mg PO BID 30 days 60 caps 0RF Coding Level of Care Code Est Pt Level 4 (31730) Diagnoses Hepatitis C B19.20 Chronic idiopathic constipation K59.04 Elevated LFTs R79.89
== END 2023-08-22 11:25 | disposition home or self-care (01) ==
PROVIDERS: PCP Internal Medicine; Visit Provider Internal Medicine
DX: B19.20 Unspecified viral hepatitis C without hepatic coma (principal); K59.04 Chronic idiopathic constipation; R79.89 Other specified abnormal findings of blood chemistry
CPT/HCPCS: 99214

== ENCOUNTER 2023-11-11 13:59 | Outpatient (AMB) | payer OTHER, SELFPAY ==
--- NOTE | 2023-11-11 14:06 | MHC.PC.OV ---
Vital Signs 11/11/23 14:09 Height 5 ft 3 in Weight 155 lb 6 oz BMI 27.5 BP 90/60 Blood Pressure Location Lt brachial Position Sitting Pulse 84 Pulse Source Pulse Oximeter Pulse Oximetry (%) 96 Oxygen Delivery Method Room Air Intake Visit Reasons: Dizizness&ParilizingFeeling Intake Note: Patient is here to follow up on dizziness spells and paralyzing feeling in the head ongoing for a week. Complaint of numbness in legs and sharp chest pain. Supervisor Electronic Testing Required: No Element Winding Machine Tender: Not Required per policy Accompanied by: Self / Same As Patient Allergies No Known Allergies [No Known Allergies*] Allergy (Verified 11/13/23 19:24) Medication List - Last Reconciled 11/13/23 by Quinton Lopez MD bisacodyl 5 mg PO BID PRN 30 days buspirone 10 mg PO TID clonazepam 1 mg PO TID PRN clonidine HCl 0.1 mg See Protocol PO BID PRN 30 days gabapentin 800 mg PO TID 30 days methadone (Methadose) 93 mg PO DAILY nicotine (polacrilex) 4 mg buccal Q2H PRN 30 days polyethylene glycol 3350 17 grams PO DAILY PRN 30 days prazosin 4 mg (2 x 2 mg) PO BEDTIME 30 days promethazine 25 mg PO DAILY PRN 30 days psyllium husk (Reguloid (psyllium husk)) 1 tbsp PO DAILY 30 days quetiapine 300 mg PO BEDTIME 30 days quetiapine 100 mg PO TID PRN 30 days triamcinolone acetonide 0.1% 1 appl topical BID PRN 30 days trolamine salicylate 10% (Arthricream) 1 appl See Protocol topical QID PRN 30 days venlafaxine ER 150 mg PO DAILY Ventolin HFA 90 mcg/actuation (albuterol sulfate) 2 puffs inhalation Q6H PRN 30 days NS Tobacco use date assessed: 11/11/23 Dental Screening Dental Screen Date: 11/11/23 Did you have a dental visit in the last 12 months?: Yes Did you have a dental problem in the last 6 months where you did not have access to dental care?: No Was dental information given to patient?: Patient has dentist HPI Ramón&James HPI Details Patient comes in today for her follow-up visit - she has not been back since 11/15/2022 States that she was in [facility] to 10/19/2023 and was seeing the [facility] psychiatrist for follow-up and management of her psych medications while she was in there She is now seeing Dr. Vishal Stark again regularly and her medications have been updated accordingly today in her chart She also continues to follow up with Dr. Rodriguez for her hepatitis-C States that she has been experiencing on and off dizziness lately - notes that she sometimes feel like she is paralyzed and feels very weak and unable to move when these episodes occur She denies any headaches Denies any chest pains, no increased shortness of breath No nausea /vomiting, no abdominal pain No change in bowel habits noted Needs her Albuterol inhaler Rx refilled today States that she was supposed to have some labs done for her painter set a few weeks ago but she still has not been able to get them done yet [facility] Medical History Routine medical exam Overweight (BMI 25.0-29.9) Mixed hyperlipidemia Dysplasia of cervix, low grade (SIVAKUMAR 1) Obesity (BMI 30-39.9) Overweight (BMI 25.0-29.9) History of substance abuse Impaired fasting glucose Constipation Positive hepatitis C antibody test Right hand pain Hip pain, bilateral Smoker Bipolar depression Anxiety Type 2 diabetes mellitus Fatigue Muscle twitching Vision impairment Hx of hepatitis C History of anxiety History of depression Surgical History No pertinent past surgical history Family History Father Diabetes Cancer HTN (hypertension) Other Mental health problem Substance abuse Social History Household Members: None Housing: Homeless Housing Other:: group home house Do you presently have visiting nurse or other home services: No Alcohol intake: never Patient Tobacco Use Status: Current everyday Tobacco user Tobacco use type: Cigarette Cigarette Packs Per Day: 0.25 Cigarettes Per Day: 2 Years Smoked: 15 e-Cigarette/Vaping Use: Never Used Second Hand Smoke Exposure: Yes Substance Use Type: Crack/Cocaine and Heroin service: No Current occupational status: unemployed Sexual orientation: Straight/Heterosexual Gender identity: Female Cognitive needs: No Hearing needs: No Vision needs: Yes Female Reproductive History Menstrual Age of Menarche: 15 Questionnaire PHQ-9 Over the last 2 weeks, how often have you been bothered by any of the following problems? 1. Little interest or pleasure in doing things: not at all 2. Feeling down, depressed, or hopeless: not at all 3. Trouble falling or staying asleep, or sleeping too much: not at all 4. Feeling tired or having little energy: not at all 5. Poor appetite or overeating: not at all 6. Feeling bad about yourself - or that you are a failure or have let yourself or your family down: not at all 7. Trouble concentrating on things, such as reading the newspaper or watching television: not at all 8. Moving or speaking so slowly that other people could have noticed. Or the opposite - being so fidgety or restless that you have been moving around a lot more than usual: not at all 9. Thoughts that you would be better off or of hurting yourself in some way: not at all Total score: 0 Depression Screening Interpretation: Negative (is on Rx) Depression Screening Done: Yes 04696 - PHQ-9 Billing: Yes Source: Developed by Drs. Laron Newton, Briseyda Fam, Casey Murcia and colleagues, with an educational opal from [employer]. Thrive Questionnaire Date Thrive assessed: 11/11/23 I am a: Patient What is your living situation today?: I have a steady place to live Within the past 12 months, did the food you bought not last and you didn't have the money to get more?: Never true Within the past 12 months, did you worry whether your food would run out before you got money to buy more?: Never true Do you have trouble paying for medicines?: No Do you have trouble getting transportation to medical appointments?: No Do you have trouble paying your heating and electricity bill?: No Do you have trouble taking care of your child, family member or friend?: No Do you have trouble with day-to-day activities such as bathing, preparing meals, shopping, managing finances, etc.?: No Are you currently unemployed and looking for a job?: No Are you interested in more education?: No Currently or been in a relationship where the following occur: No concerns reported THRIVE Score: 0 AUDIT C Alcohol Use Questionnaire (AUDIT-C) 1. How often do you have a drink containing alcohol?: Never 3. How often do you have six or more drinks on one occasion?: Never Total Score: 0 Score Reviewed/Action Taken: Yes JAY-7 AMB Questionnaire JAY-7 Date JAY - 7 assessed: 11/11/23 Feeling nervous, anxious, or on edge: 1 = Several days Not being able to stop or control worryin = Not at all Worrying too much about different things: 0 = Not at all Trouble relaxin = Not at all Being so restless that it is hard to sit still: 0 = Not at all Becoming easily annoyed or irritable: 0 = Not at all Feeling afraid as if something awful might happen: 0 = Not at all Total JAY-7 score (0-4 normal; 5-9 mild; 10-14 moderate; 15-21 severe): 1 Source: Developed by Drs. Laron Newton, Briseyda Fam, Casey Murcia and colleagues, with an educational opal from [employer]. Review of Systems Const Denies chills, Reports fatigue, Denies fever(s) and Denies headache(s) ENT Denies dysphagia, Reports dizziness (on and off lately - see HPI), Denies headache(s), Denies neck pain, Denies odynophagia and Denies sore throat Card Denies chest pain, Denies rapid heart rate, Denies irregular heart rhythm, Denies palpitations and Reports dyspnea on exertion (at times, mild - relieved with Albuterol inhaler ) Resp Denies cough, Reports dyspnea on exertion (at times, mild - relieved with Albuterol inhaler ) and Denies wheezing GI Denies abdominal pain, Reports constipation (chronic), Denies dysphagia, Denies heartburn, Denies nausea, Denies odynophagia and Denies vomiting Denies hematuria, Denies dysuria, Denies urinary incontinence and Denies urinary urgency Musc Denies back pain, Denies arthralgias and Denies neck pain Skin/Breast Denies rash Neuro Reports dizziness (on and off lately - see HPI), Denies headache(s) and Denies paresthesias Psych Reports anxiety and Reports depression (better controlled lately) Endo Reports fatigue and Denies palpitations Aller/Immun Denies wheezing Physical exam (Primary Care) Vital Signs: Last Vital Signs Pulse 84 11/11/23 14:09 BP 90/60 11/11/23 14:09 Pulse Ox 96 11/11/23 14:09 Oxygen Delivery Method Room Air 11/11/23 14:09 BMI result Body Mass Index 27.5 Tobacco/Smoking Status: Tobacco use Status Tobacco use date assessed 11/11/23 11/11/23 14:20 Patient Tobacco Use Status Current everyday Tobacco 11/11/23 14:08 Tobacco use type Cigarette 11/11/23 14:08 e-Cigarette/Vaping Use Never Used 11/11/23 14:08 PHQ-9: PHQ-9 Score PHQ-9: Total score 0 11/11/23 14:44 Depression Screening Interpretation: Negative (is on Rx) Thrive Assessment: Date of Thrive Assessment Date Thrive assessed 11/11/23 11/11/23 14:08 Currently or been in a relationship where the following occur: No concerns reported Const General: no acute distress and alert HENMT Ears: TM's normal bilaterally and EAC's normal Throat: Yes posterior oropharynx normal and Yes tonsils normal (no TP congestion) Neck Neck: Yes no lymphadenopathy and Yes supple Thyroid: Thyroid normal Resp Auscultation: clear to auscultation bilaterally, no rales and no wheezes Cardio Rate: regular rate Rhythm: regular rhythm Heart sounds: no murmurs GI Palpation (GI): Soft to palpation and nontender Auscultation: normal bowel sounds Back/Spine/Pelvis Thoracic/Lumbar Spine: thoracic and lumbar spine normal to inspection Skin Rashes: no rashes Extrem General: Yes no clubbing, cyanosis or edema Assessment and Plan Assessment & Plan (1) Dizziness: Code(s): R42 - Dizziness and giddiness Plan: Patient is advised that her recent recurrent dizziness may be related to low blood pressure readings lately - her blood pressure today is 90/60 and it was also low at 93/55 a couple of months ago when she was at her painter set Have advised that this may be due to a couple of the medications that she is taking for her psychiatric issues, namely clonidine and prazosin, and she is advised to speak to her psychiatrist about possibly having these lowered in dosage or changed to other alternatives In the meantime, will send her for some labs WANG for further evaluation She is also advised to get her previously ordered labs by her painter set done at the same time (2) Headache: Code(s): R51.9 - Headache, unspecified Qualifiers: Headache type: tension-type Headache chronicity pattern: episodic headache Intractability: not intractable Qualified Code(s): G44.219 - Episodic tension-type headache, not intractable Plan: Stable/controlled lately - most likely tension headaches Continue Fioricet 1 tablet 2 to 3 times a day as needed (3) Chronic constipation: Code(s): K59.09 - Other constipation Plan: Advised again that 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 opioid-induced and related to her Methadone She Is again encouraged to increase her oral fluids and dietary fiber intake She was prescribed Movantik previously but states that her insurance would not cover the Rx Has taken Miralax 17 gm QD, Amitiza 24 mcg BID and Bisacodyl 10 mg suppository QD PRN in the past but states that they did not help much Is advised to continue on Miralax 17 gm QD (reminded that this has to be taken daily for it to help) and Senna 8.6 mg 1 to 2 tablets QD She was also started on Linzess 290 mcg QD previously but unclear if she was able to get this filled - she is currently not taking this Follow up with GI as scheduled (4) History of substance abuse: Code(s): F19.11 - Other psychoactive substance abuse, in remission Plan: (+) Hx of substance abuse (heroin and crack cocaine) Is currently on Methadone 93 mg QD; states that she is again trying to come down by 1 mg every week on her dose and wishes to come off Methadone soon Follow up with the Methadone clinic as scheduled (5) Dyspnea: Code(s): R06.00 - Dyspnea, unspecified Qualifiers: Dyspnea type: dyspnea on exertion Qualified Code(s): R06.00 - Dyspnea, unspecified Plan: Most likely multifactorial PFTs done in September 2021 came out normal Continue Albuterol HFA 1 to 2 inhalations Q 6 hours PRN - Rx refilled (6) Impaired fasting glucose: Code(s): R73.01 - Impaired fasting glucose Plan: In-office HgbA1c was previously normal at 5.4%; will recheck HgbA1c along with her other labs today for follow up Reinforced low calorie diet/exercise as tolerated (7) Mixed hyperlipidemia: Code(s): E78.2 - Mixed hyperlipidemia Plan: Reinforced low cholesterol diet Will recheck her fasting lipids WANG for follow up (8) Elevated LFTs: Code(s): R79.89 - Other specified abnormal findings of blood chemistry Plan: Most likely due to hepatosteatosis and should improve with weight loss Will recheck her LFTs for follow up (9) Anxiety: Code(s): F41.9 - Anxiety disorder, unspecified Plan: States that she was seeing the [facility] psychiatrist when she was incarcerated for a couple of months recently but is now seeing Dr. Vishal Stark for follow up of her mood disorder Continue Clonazepam 2 mg TID, Buspirone 10 mg TID, Clonidine 0.1 mg BID and Velafaxine ER 75 mg Q AM and 150 mg Q HS (10) Bipolar depression: Code(s): F31.9 - Bipolar disorder, unspecified Plan: Continue Quetiapine 400 mg Q HS, Quetiapine 100 mg TID PRN, Prazosin 4 mg Q HS and Gabapentin 800 mg TID Follow up with psychiatry (Dr. Vishal Stark) as scheduled (11) Smoker: Code(s): F17.200 - Nicotine dependence, unspecified, uncomplicated Plan: Counseled again on smoking cessation Continue Nicotine gum 4 mg Q 2 hours PRN (12) Overweight (BMI 25.0-29.9): Code(s): E66.3 - Overweight Plan: Reinforced diet/exercise as tolerated/lose weight Plan To return as scheduled in February 2024 Orders: Orders Lutenizing Hormone 11/11/23 Quinton Lopez MD B19.20 - Unspecified viral hepatitis C without hepatic coma, E66.3 - Overweight, F19.11 - Other psychoactive substance abuse, in remission, F43.10 - Post-traumatic stress disorder, unspecified, K59.04 - Chronic idiopathic constipation, N87.0 - Mild cervical dysplasia, R87.610 - Atypical squamous cells of undetermined significance on cytologic smear of cervix (ASC-US), Z87.42 - Personal history of other diseases of the female genital tract Prolactin 11/11/23 Quinton Lopez MD B19.20 - Unspecified viral hepatitis C without hepatic coma, E66.3 - Overweight, F19.11 - Other psychoactive substance abuse, in remission, F43.10 - Post-traumatic stress disorder, unspecified, K59.04 - Chronic idiopathic constipation, N87.0 - Mild cervical dysplasia, R87.610 - Atypical squamous cells of undetermined significance on cytologic smear of cervix (ASC-US), Z87.42 - Personal history of other diseases of the female genital tract Testosterone, Free/Total 11/11/23 Quinton Lopez MD B19.20 - Unspecified viral hepatitis C without hepatic coma, E66.3 - Overweight, F19.11 - Other psychoactive substance abuse, in remission, F43.10 - Post-traumatic stress disorder, unspecified, K59.04 - Chronic idiopathic constipation, N87.0 - Mild cervical dysplasia, R87.610 - Atypical squamous cells of undetermined significance on cytologic smear of cervix (ASC-US), Z87.42 - Personal history of other diseases of the female genital tract US pelvic and transvaginal 11/11/23 Quinton Lopez MD N91.1 - Secondary amenorrhea Complete Blood Count Auto Diff 11/11/23 Quinton Lopez MD D64.9 - Anemia, unspecified Comprehensive [place]. Panel Fast 11/11/23 Quinton Lopez MD E78.00 - Pure hypercholesterolemia, unspecified Vitamin D 25-OH Total 11/11/23 Quinton Lopez MD E55.9 - Vitamin D deficiency, unspecified DHEA Sulfate 11/11/23 Quinton Lopez MD B19.20 - Unspecified viral hepatitis C without hepatic coma, E66.3 - Overweight, F19.11 - Other psychoactive substance abuse, in remission, F43.10 - Post-traumatic stress disorder, unspecified, K59.04 - Chronic idiopathic constipation, N87.0 - Mild cervical dysplasia, R87.610 - Atypical squamous cells of undetermined significance on cytologic smear of cervix (ASC-US), Z87.42 - Personal history of other diseases of the female genital tract Follicle Stimulating Hormone 11/11/23 Quinton Lopez MD B19.20 - Unspecified viral hepatitis C without hepatic coma, E66.3 - Overweight, F19.11 - Other psychoactive substance abuse, in remission, F43.10 - Post-traumatic stress disorder, unspecified, K59.04 - Chronic idiopathic constipation, N87.0 - Mild cervical dysplasia, R87.610 - Atypical squamous cells of undetermined significance on cytologic smear of cervix (ASC-US), Z87.42 - Personal history of other diseases of the female genital tract Free T4 (Free Thyroxine) 11/11/23 Quinton Lopez MD B19.20 - Unspecified viral hepatitis C without hepatic coma, E66.3 - Overweight, F19.11 - Other psychoactive substance abuse, in remission, F43.10 - Post-traumatic stress disorder, unspecified, K59.04 - Chronic idiopathic constipation, N87.0 - Mild cervical dysplasia, R87.610 - Atypical squamous cells of undetermined significance on cytologic smear of cervix (ASC-US), Z87.42 - Personal history of other diseases of the female genital tract Thyroid Stimulating Hormone 11/11/23 Quinton Loepz MD B19.20 - Unspecified viral hepatitis C without hepatic coma, E66.3 - Overweight, F19.11 - Other psychoactive substance abuse, in remission, F43.10 - Post-traumatic stress disorder, unspecified, K59.04 - Chronic idiopathic constipation, N87.0 - Mild cervical dysplasia, R87.610 - Atypical squamous cells of undetermined significance on cytologic smear of cervix (ASC-US), Z87.42 - Personal history of other diseases of the female genital tract Lipid Panel 11/11/23 Quinton Lopez MD E78.00 - Pure hypercholesterolemia, unspecified UA CC w/rflx Micro + Cult 11/11/23 Quinton Lopez MD R30.0 - Dysuria Hemoglobin A1c 11/11/23 Quinton Lopez MD R73.9 - Hyperglycemia, unspecified Medications: Changed From buspirone 5 mg PO TID 30 days 90 tabs 1RF F41.9 - Anxiety disorder, unspecified To buspirone 10 mg PO TID F41.9 - Anxiety disorder, unspecified Lalit Ramon MD Refilled Ventolin HFA 90 mcg/actuation (albuterol sulfate) 2 puffs inhalation Q6H 30 days PRN 1 ea 5RF for wheezing NS Quinton Lopez MD Coding Level of Care Code Est Pt Level 4 (58856) Diagnoses Dizziness R42 Episodic tension-type headache, not intractable G44.219 Headache type: tension-type Headache chronicity pattern: episodic headache Intractability: not intractable Chronic constipation K59.09 History of substance abuse F19.11 Dyspnea on exertion R06.00 Dyspnea type: dyspnea on exertion Impaired fasting glucose R73.01 Mixed hyperlipidemia E78.2 Elevated LFTs R79.89 Anxiety F41.9 Bipolar depression F31.9 Smoker F17.200 Overweight (BMI 25.0-29.9) E66.3
[2023-11-11 14:09] VITALS: BP 90/60; PULSE 84; O2SAT 96; BMI 27.5
== END 2023-11-11 14:55 | disposition home or self-care (01) ==
PROVIDERS: PCP Internal Medicine; Visit Provider Internal Medicine
DX: R42 Dizziness and giddiness (principal); G44.219 Episodic tension-type headache, not intractable; F19.11 Other psychoactive substance abuse, in remission; F31.9 Bipolar disorder, unspecified; K59.09 Other constipation; R06.00 Dyspnea, unspecified; R73.01 Impaired fasting glucose; E78.2 Mixed hyperlipidemia; F41.9 Anxiety disorder, unspecified; F17.200 Nicotine dependence, unspecified, uncomplicated; E66.3 Overweight
CPT/HCPCS: 99214

== ENCOUNTER 2024-03-11 18:11 | Emergency (ER) | payer OTHER, SELFPAY ==
--- NOTE | ~2024-03-11 | XR_ITS ---
EXAMINATION: XR ABDOMEN KUB CLINICAL INDICATION: Abdominal pain for one year COMPARISON: KUB 01/05/2023, CT abdomen pelvis 05/13/2022 TECHNIQUE: AP view of the abdomen. FINDINGS: The bowel gas pattern is normal with no evidence of ileus or obstruction. Moderate stool present in the colon. Phleboliths are noted in the pelvis No unusual soft tissue calcifications are noted. The bones are unremarkable. XR/XR KUB IMPRESSION: No acute finding. Moderate stool burden. Electronically signed by: George Beltran MD 03/11/2024 08:06 PM EDT
--- NOTE | ~2024-03-11 | CT_ITS ---
EXAMINATION: CT ABDOMEN AND PELVIS WITHOUT CONTRAST CLINICAL INFORMATION: Small bowel obstruction COMPARISON: KUB earlier today, CT abdomen pelvis 05/13/2022 TECHNIQUE: Multidetector volumetric imaging was performed from the superior aspect of the liver through the pubic symphysis. Sagittal and coronal reformatted images were obtained on the technologist's workstation. This CT examination was performed using dose optimization techniques as appropriate, variously including the following: *Automated exposure control *Adjustment of mA and/or kV according to patient size (this includes techniques or standardized protocols for targeted exams where dose is matched to indication/reason for exam; i.e. extremities or head) *Use of iterative reconstruction technique DLP: 545 mGy-cm FINDINGS: LUNG BASES: The visualized lung bases are unremarkable. LIVER, GALLBLADDER, AND BILIARY TREE: The liver is normal in size, shape, and attenuation. No focal hepatic lesion or biliary ductal dilatation is present. The gallbladder is unremarkable with no evidence of radiopaque gallstones, gallbladder wall thickening, or obvious pericholecystic inflammatory changes. PANCREAS: Unremarkable. SPLEEN: The spleen is enlarged measuring 14.2 cm in greatest dimension. ADRENAL GLANDS: Unremarkable. KIDNEYS AND URETERS: The kidneys are normal in size, shape, and attenuation. No hydronephrosis, hydroureter, or calculi seen. No perinephric stranding. BLADDER: Unremarkable. GASTROINTESTINAL TRACT: The small and large bowel are unremarkable. The appendix is unremarkable. ABDOMINAL WALL: No significant hernia is appreciated. LYMPH NODES: Normal. VASCULAR: Unremarkable. PELVIC VISCERA: Unremarkable. OSSEOUS STRUCTURES: Unremarkable. CT/CT abdomen pelvis wo IV con IMPRESSION: 1. There is no small bowel or any other bowel obstruction. 2. Incidental note made of mild splenomegaly. Fleischner guidelines were followed. Electronically signed by: George Beltran MD 03/11/2024 11:32 PM EDT
[2024-03-11 18:21] VITALS: BP 114/49; BP 124/72; PULSE 65; PULSE 74; RESP 18; TEMP 36.8; O2SAT 96; O2SAT 98; BMI 28.9
--- NOTE | 2024-03-11 18:53 | ED.ABDPAIN ---
HPI - Abdominal Pain General Chief Complaint: Abdominal Pain Stated Complaint: ABD PAIN Time Seen by Provider: 03/11/24 18:51 Source: patient Limitations: no limitations History of Present Illness ED Provider: Malia Stewart PA-C HPI narrative: 39-year-old female with a history of polysubstance abuse, hepatitis-C, PTSD, bipolar disorder, depression/anxiety, DM, HLD, chronic constipation, chronic abdominal pain, presents with constipation x3 days. Associated poor p.o. intake,and left-sided abdominal discomfort. Denies distention, nausea, vomiting or fever. Related Data Home Medications ?Medication ?Instructions ?Recorded ?Confirmed methadone 10 mg/mL oral 93 mg PO DAILY 08/22/23 11/13/23 concentrate (Methadose) venlafaxine 150 mg 150 mg PO DAILY 11/13/23 11/13/23 capsule,extended release 24 hr Previous Rx's ?Medication ?Instructions ?Recorded clonidine HCl 0.1 mg tablet 0.1 mg PO BID PRN Anxiety not 02/23/23 responding to Hydroxyzine 30 days #60 tabs promethazine 25 mg tablet 25 mg PO DAILY PRN Nausea 30 days 02/23/23 #30 tabs trolamine salicylate 10 % topical 1 appl topical QID PRN low back 02/23/23 cream (Arthricream) pain 30 days #10 grams psyllium husk 3 gram/5.4 gram oral 1 tbsp PO DAILY 30 days #284 grams 08/22/23 powder (Reguloid (psyllium husk)) prazosin 2 mg capsule 4 mg (2 x 2 mg) PO BEDTIME 30 days 11/23/23 #60 caps nitrofurantoin 100 mg PO Q12H 7 days #14 caps 12/20/23 monohydrate/macrocrystals 100 mg capsule (Macrobid) Ventolin HFA 90 mcg/actuation 2 puff inhalation Q6H PRN for 01/23/24 aerosol inhaler (albuterol sulfate) wheezing 30 days #1 ea bisacodyl 5 mg tablet,delayed 5 mg PO BID PRN constipation 30 01/23/24 release days #60 tabs clonazepam 1 mg tablet 1 mg PO TID PRN anxiety 28 days 01/23/24 #84 tabs gabapentin 800 mg tablet 800 mg PO TID 30 days #90 tabs 01/23/24 nicotine (polacrilex) 4 mg gum 4 mg buccal Q2H PRN nicotine 01/23/24 cravings 30 days #220 ea polyethylene glycol 3350 17 gram 17 g PO DAILY PRN Constipation 30 01/23/24 oral powder packet days #30 ea triamcinolone acetonide 0.1 % 1 appl topical BID PRN rash 30 01/23/24 topical cream days #80 grams buspirone 5 mg tablet 10 mg (2 x 5 mg) PO TID 30 days 03/07/24 #180 tabs quetiapine 100 mg tablet 100 mg PO TID PRN severe anxiety 03/07/24 30 days #90 tabs quetiapine 300 mg tablet 300 mg PO BEDTIME 30 days #30 tabs 03/07/24 Allergies Allergy/AdvReac Type Severity Reaction Status Date / Time No Known Allergies Allergy Verified 03/11/24 18:23 [No Known Allergies*] Review of Systems Review of Systems Yes all other systems are reviewed and are negative Constitutional: Denies fatigue, Denies fever(s) and Reports poor appetite Cardiovascular: Denies chest pain and Denies dyspnea Respiratory: Denies dyspnea Gastrointestinal: Reports abdominal pain, Reports constipation, Denies nausea and Denies vomiting Endocrine: Denies fatigue PMFSH Past Medical History Attestation statement: The following information was validated with the patient. Medical History Routine medical exam Overweight (BMI 25.0-29.9) Mixed hyperlipidemia Dysplasia of cervix, low grade (SIVAKUMAR 1) Obesity (BMI 30-39.9) Overweight (BMI 25.0-29.9) History of substance abuse Impaired fasting glucose Constipation Positive hepatitis C antibody test Right hand pain Hip pain, bilateral Smoker Bipolar depression Anxiety Type 2 diabetes mellitus Fatigue Muscle twitching Vision impairment Hx of hepatitis C History of anxiety History of depression Surgical History No pertinent past surgical history Family History Family History Father Diabetes Cancer HTN (hypertension) Other Mental health problem Substance abuse Social History Social History Household Members: None Housing: Homeless Housing Other:: long term house Do you presently have visiting nurse or other home services: No Alcohol intake: never Patient Tobacco Use Status: Current everyday Tobacco user Tobacco use type: Cigarette Cigarette Packs Per Day: 0.25 Cigarettes Per Day: 2 Years Smoked: 15 Smoked in Last 30 Days: Yes e-Cigarette/Vaping Use: Never Used Second Hand Smoke Exposure: Yes Use of substances other than those prescribed or required for medical reasons: No Substance Use Type: Crack/Cocaine and Heroin Advance Directives: No Advance Directives Information Provided: No Patient : No service: No Current occupational status: unemployed Sexual orientation: Straight/Heterosexual Gender identity: Female Cognitive needs: No Hearing needs: No Vision needs: Yes Physical Exam ED Vital Signs: Vital Signs - 24 hr 03/11/24 18:21 03/11/24 19:21 03/11/24 20:00 Temperature 98.2 F 97.0 F Pulse Rate 65 60 66 Respiratory Rate 18 16 16 Blood Pressure 114/49 L 119/75 121/60 Pulse Oximetry 96 100 97 Oxygen Delivery Method Room Air Room Air Room Air 03/11/24 22:49 Temperature 97.0 F Pulse Rate 64 Respiratory Rate 13 Blood Pressure 120/67 Pulse Oximetry 97 Oxygen Delivery Method Room Air BMI result Body Mass Index 28.9 Const Other: Alert, overall well in appearance, does appear older than stated age Orientation/consciousness: patient oriented x3 Resp Other: Nonlabored respirations Cardio Other: Normal peripheral perfusion GI Other: Abdomen is soft, nondistended, mild tenderness left side, no guarding Skin Other: Warm dry no rash Neuro General: patient oriented x3, no focal motor deficits and CN's II-XI intact bilaterally Psych Other: Cooperative Medical Decision Making Medical Decision Making MDM Narrative: 39-year-old female with a history of polysubstance abuse, hepatitis-C, PTSD, bipolar disorder, depression/anxiety, DM, HLD, chronic constipation, chronic abdominal pain, presents with constipation x3 days. Associated poor p.o. intake,and left-sided abdominal discomfort. Denies distention, nausea, vomiting or fever. Problem: Psychiatric illness, chronic constipation , DM History: Per patient I have considered the following differential diagnoses: Constipation, obstipation, fecal impaction, gastroparesis, bowel obstruction Plan: We will screen basic labs and a KUB. Patient has underlying chronic constipation, I am sure gastroparesis is playing a role given her diabetes. She has no obstructive pattern to suggest a bowel obstruction. We will give Reglan to help with motility I have independently reviewed the following tests: Labs: No leukocytosis, not anemic, no electrolyte abnormality, urine not infected KUB: Constipated, question of dilated loops of bowel CT abd pelvis: CT/CT abdomen pelvis wo IV con IMPRESSION: 1. There is no small bowel or any other bowel obstruction. 2. Incidental note made of mild splenomegaly. Fleischner guidelines were followed. Electronically signed by: George Beltran MD 03/11/2024 11:32 PM EDT RP Lab Data 03/11/24 19:16 03/11/24 19:16 Labs: Lab Results 03/11/24 Range/Units 19:16 WBC 5.1 (4.8-10.8) X10*3/uL RBC 3.76 L (4.20-5.50) X10*6/uL Hgb 11.3 L (12.0-16.0) g/dl Hct 32.9 L (37.0-47.0) % MCV 87.5 (80.0-98.0) fL MCH 30.1 (27.0-33.0) pg MCHC 34.3 (31.0-35.0) g/dl RDW 12.5 (11.0-16.0) % Plt Count 159 L (160-400) X10*3/uL MPV 10.5 (9.4-12.3) fL Immature Gran % (Auto) 0.2 (0.0-0.4) % Neut % (Auto) 45.4 (45-73) % Lymph % (Auto) 43.0 H (20-40) % Mcintosh % (Auto) 8.9 (2-11) % Eos % (Auto) 2.1 (0-4) % Baso % (Auto) 0.4 (0-2) % Lymph # (Auto) 2.2 (1.2-4.9) X10*3/uL Mcintosh # (Auto) 0.5 (0.1-1.2) X10*3/uL Eos # (Auto) 0.1 (0.0-0.4) X10*3/uL Baso # (Auto) 0.0 (0.0-0.2) X10*3/uL Abs Immat Gran (auto) 0.01 (0.00-0.03) X10*3/uL Absolute Neuts (auto) 2.3 (2.0-8.3) x10*3/uL Absolute Nucleated RBC 0.000 (0.0-0.012) X10*3/uL Nucleated RBC % (auto) 0.0 (0.0-0.2) /100WBC Sodium 138 (135-145) mmol/L Potassium 4.4 (3.3-5.1) mmol/L Chloride 100 (96-108) mmol/L Carbon Dioxide 30 H (22-29) mmol/L Anion Gap 12 (12-20) BUN 10 (9-16) mg/dL Creatinine 0.94 (0.5-1.4) mg/dL Estim Creat Clear Calc 78.9 Estimated GFR > 60 Random Glucose 95 (60-115) mg/dL Calcium 9.5 (8.4-10.2) mg/dL Magnesium 2.0 (1.6-2.6) mg/dL Total Bilirubin 0.2 (0.0-1.0) mg/dL AST 31 (5-31) U/L ALT 38 H (0-31) U/L Alkaline Phosphatase 94 (39-117) U/L Total Protein 7.1 (6.5-8.0) g/dL Albumin 4.0 (3.5-5.0) g/dL Lipase 16 (8-78) U/L Beta HCG, Quant < 2 mIU/mL Medications Administered Discontinued Medications Generic Name Dose Route Start Last Admin Trade Name Freq PRN Reason Stop Dose Admin Diatrizoate Meglum/Diatrizoate Sod 30 ml 03/11/24 21:58 03/11/24 21:58 Diatrizoate Meglumine, Sodium 30 Ml Solution PO 03/11/24 21:59 30 ml ONCE ONE Administration Metoclopramide HCl 10 mg 03/11/24 18:59 03/11/24 19:20 Metoclopramide Hcl 10 Mg Tablet PO 03/11/24 19:00 10 mg ONCE ONE Administration Discharge Plan Discharge Clinical Impression: Constipation Patient Disposition: Home, Self-Care Instructions: Constipation (ED) Additional Instructions: All of your labs were normal, the CT scan revealed that you were simply constipated. See home care instructions. You need to initiate an aggressive bowel regimen. Use [id number] Colace, this is a stool softener, 200 mg twice a day. In addition, use [id number] MiraLax, mix the powder per package instructions, consume the liquid every hour until you begin having multiple large volume bowel movements. Once you have cleared your current stool burden, you need to stay on the stool softener daily, and perhaps use the MiraLax daily or every other day, to help maintain regular bowel movements. Follow up with your primary care provider as needed. Prescriptions: No Action prazosin 2 mg capsule 4 mg PO BEDTIME 30 Days Qty: 60 2RF nitrofurantoin monohyd/m-cryst [Macrobid] 100 mg capsule 100 mg PO Q12H 7 Days Qty: 14 0RF Rx Instructions: must administer with a meal/food bisacodyl 5 mg tablet,delayed release (DR/EC) 5 mg PO BID PRN (Reason: constipation) 30 Days Qty: 60 1RF gabapentin 800 mg tablet 800 mg PO TID 30 Days Qty: 90 0RF nicotine (polacrilex) 4 mg gum 4 mg buccal Q2H PRN (Reason: nicotine cravings) 30 Days Qty: 220 0RF polyethylene glycol 3350 17 gram powder in packet 17 g PO DAILY PRN (Reason: Constipation) 30 Days Qty: 30 5RF triamcinolone acetonide 0.1 % cream 1 appl topical BID PRN (Reason: rash) 30 Days Qty: 80 3RF albuterol sulfate [Ventolin HFA] 90 mcg/actuation HFA aerosol inhaler 2 puff inhalation Q6H PRN (Reason: for wheezing) 30 Days Qty: 1 5RF clonazepam 1 mg tablet 1 mg PO TID PRN (Reason: anxiety) 28 Days Qty: 84 0RF quetiapine 100 mg tablet 100 mg PO TID PRN (Reason: severe anxiety) 30 Days Qty: 90 0RF buspirone 5 mg tablet 10 mg PO TID 30 Days Qty: 180 0RF quetiapine 300 mg tablet 300 mg PO BEDTIME 30 Days Qty: 30 0RF clonidine HCl 0.1 mg Tablet 0.1 mg PO BID PRN (Reason: Anxiety not responding to Hydroxyzine) 30 Days Qty: 60 0RF Protocol: Hold for SBP< HOLD for SBP < : 90 promethazine 25 mg Tablet 25 mg PO DAILY PRN (Reason: Nausea) 30 Days Qty: 30 0RF trolamine salicylate [Arthricream] 10 % Cream 1 appl topical QID PRN (Reason: low back pain) 30 Days Qty: 10 0RF Protocol: Apply to: Apply to: lower back methadone [Methadose] 10 mg/mL concentrate 93 mg PO DAILY Rx Instructions: Partial Fill upon patient request. Reguloid (psyllium husk) 3 gram/5.4 gram powder 1 tbsp PO DAILY 30 Days Qty: 284 1RF Rx Instructions: mix into at least 8 oz of water administering venlafaxine 150 mg capsule,extended release 24hr 150 mg PO DAILY Print Language: British
[2024-03-11] MEDS: Metoclopramide HCl 10 MG TABLET PO (19:20)
[2024-03-11 19:21] VITALS: BP 119/75; PULSE 60; RESP 16; O2SAT 100
[2024-03-11 19:21] LABS: MANUAL DIFF FLAG NO
[2024-03-11 19:23] LABS: Basophils Percent Auto 0.4 % (0-2); Eosinophils Absolute Auto 0.1 X10*3/uL (0.0-0.4); Eosinophils Percent Auto 2.1 % (0-4); Hematocrit 32.9 % (37.0-47.0); Hemoglobin 11.3 g/dl (12.0-16.0); Imm Gran Abs Auto 0.01 X10*3/uL (0.00-0.03); Imm Gran Pct Auto 0.2 % (0.0-0.4); Lymphocytes Absolute Auto 2.2 X10*3/uL (1.2-4.9); Mean Corpuscular HGB Conc 34.3 g/dl (31.0-35.0); Mean Corpuscular Hemoglobin 30.1 pg (27.0-33.0); Mean Corpuscular Volume 87.5 fL (80.0-98.0); Mean Platelet Volume 10.5 fL (9.4-12.3); Monocytes Absolute Auto 0.5 X10*3/uL (0.1-1.2); Monocytes Percent Auto 8.9 % (2-11); Neutrophils Absolute Auto 2.3 x10*3/uL (2.0-8.3); Neutrophils Percent Auto 45.4 % (45-73); Platelet Count 159 X10*3/uL (160-400); Red Blood Count 3.76 X10*6/uL (4.20-5.50); Red Cell Distribution Width 12.5 % (11.0-16.0); White Blood Count 5.1 X10*3/uL (4.8-10.8)
[2024-03-11 19:45] LABS: Alanine Aminotransferase 38 U/L (0-31); Alkaline Phosphatase 94 U/L (39-117); Anion Gap 12 (12-20); Aspartate Amino Transferase 31 U/L (5-31); Bilirubin Total 0.2 mg/dL (0.0-1.0); Blood Urea Nitrogen 10 mg/dL (9-16); Calcium 9.5 mg/dL (8.4-10.2); Carbon Dioxide 30 mmol/L (22-29); Chloride 100 mmol/L (96-108); Creatinine Clr Calc Pharmacy 78.9; Estimated Glomerular Filt Rate > 60; Glucose Random 95 mg/dL (60-115); Lipase 16 U/L (8-78); Potassium 4.4 mmol/L (3.3-5.1); Sodium 138 mmol/L (135-145); Total Protein 7.1 g/dL (6.5-8.0)
[2024-03-11 19:50] LABS: HCG Quantitative < 2 mIU/mL
[2024-03-11 20:00] VITALS: BP 121/60; PULSE 66; RESP 16; TEMP 36.1; O2SAT 97
[2024-03-11] MEDS: Diatrizoate Meglumine, Sodium 30 ML SOLUTION PO (21:58)
[2024-03-11 22:49] VITALS: BP 120/67; PULSE 64; RESP 13; TEMP 36.1; O2SAT 97
[2024-03-11 23:55] VITALS: BP 127/73; PULSE 76; RESP 19; TEMP 36.4; O2SAT 99
== END 2024-03-12 00:10 | disposition home or self-care (01) ==
PROVIDERS: Physician Assistant Medical; Emergency Provider Internal Medicine; PCP Internal Medicine
DX: K59.00 Constipation, unspecified (principal); E11.9 Type 2 diabetes mellitus without complications; R10.2 Pelvic and perineal pain; E66.3 Overweight; Z68.29 Body mass index [BMI] 29.0-29.9, adult; Z79.899 Other long term (current) drug therapy
CPT/HCPCS: 36415; 74018; 74176; 80053; 83690; 83735; 84702; 85025; 99284

== ENCOUNTER 2024-03-13 12:38 | Outpatient (AMB) | payer OTHER, SELFPAY ==
--- NOTE | 2024-03-13 12:42 | A.OFFPC_ITS ---
Vital Signs 03/13/24 12:45 Height 5 ft 3 in Weight 161 lb 4 oz BMI 28.6 BP 100/62 Blood Pressure Location Lt brachial Position Sitting Pulse 79 Pulse Source Pulse Oximeter Pulse Oximetry (%) 97 Oxygen Delivery Method Room Air Intake Visit Reasons: med review Intake Note: Patient is here to follow up on med review. Pt requesting DM test supply. Configuration Management Manager Required: No Commercial Counsel: Not Required per policy Accompanied by: Self / Same As Patient Allergies No Known Allergies [No Known Allergies*] Allergy (Verified 03/13/24 13:15) Medication List - Last Reconciled 03/13/24 by Quinton Lopez MD bisacodyl 5 mg PO BID PRN 30 days bupropion HCl XL 150 mg PO QAM 90 days buspirone 10 mg (2 x 5 mg) PO TID 30 days clonazepam 1 mg PO TID gabapentin 800 mg PO TID 30 days ibuprofen 600 mg PO TID methadone (Methadose) 68 mg PO DAILY multivitamin (Multiple Vitamins tablet) 1 tab PO DAILY 90 days nicotine (polacrilex) 4 mg buccal Q2H PRN 30 days polyethylene glycol 3350 17 grams PO DAILY PRN 30 days prazosin 2 mg PO BEDTIME promethazine 25 mg PO DAILY PRN 30 days psyllium husk (Reguloid (psyllium husk)) 1 tbsp PO DAILY 30 days quetiapine 100 mg PO BEDTIME PRN quetiapine 100 mg PO TID sodium phosphates 19-7 gram/118 mL (Fleet Enema) 118 mL AL BEDTIME PRN triamcinolone acetonide 0.1% 1 appl topical BID PRN 30 days trolamine salicylate 10% (Arthricream) 1 appl See Protocol topical QID PRN 30 days venlafaxine ER 150 mg PO DAILY venlafaxine ER 75 mg PO DAILY Ventolin HFA 90 mcg/actuation (albuterol sulfate) 2 puffs inhalation Q6H PRN 30 days NS Tobacco use date assessed: 03/13/24 Dental Screening Dental Screen Date: 11/11/23 HPI med review HPI Details Patient comes in today for her follow up visit States that she had some changes made to her medications since her last visit (med list updated to reflect said changes) - feels that she is much less sedated now all day long compared to a few months ago but she continues to struggle with chronic constipation and needs a couple of her constipation Rx refilled Adds that she has been getting a [facility] (fleet) enema on her own as needed and would like to have an Rx for this sent in to her pharmacy as well to get her insurance to cover this instead - states that she uses this for when her constipation gets severe enough when her other meds are not helping anymore She went to the ER here at [facility] a couple of days ago for increasing left-sided abdominal pain and discomfort secondary to her constipation - she had some labs and imaging studies done, all of which revealed no concerning findings She denies any headaches or dizziness Denies any chest pains, no increased SOB No nausea/vomiting noted; still feels bloated often but her abdominal pain has subsided from a couple of days ago Adds that she has not had her period in about 2 years now and is concerned about this and would like to get a referral to gynecology to have this further evaluated She would also like to get her flu shot today [facility] Medical History Routine medical exam Overweight (BMI 25.0-29.9) Mixed hyperlipidemia Dysplasia of cervix, low grade (SIVAKUMAR 1) Obesity (BMI 30-39.9) Overweight (BMI 25.0-29.9) History of substance abuse Impaired fasting glucose Constipation Positive hepatitis C antibody test Right hand pain Hip pain, bilateral Smoker Bipolar depression Anxiety Type 2 diabetes mellitus Fatigue Muscle twitching Vision impairment Hx of hepatitis C History of anxiety History of depression Surgical History No pertinent past surgical history Family History Father Diabetes Cancer HTN (hypertension) Other Mental health problem Substance abuse Social History Household Members: None Housing: Homeless Housing Other:: [facility] house Do you presently have visiting nurse or other home services: No Alcohol intake: never Patient Tobacco Use Status: Former Tobacco user Tobacco use type: Cigarette Cigarette Packs Per Day: 0.25 Cigarettes Per Day: 2 Years Smoked: 15 e-Cigarette/Vaping Use: Never Used Second Hand Smoke Exposure: Yes Substance Use Type: Crack/Cocaine and Heroin service: No Current occupational status: unemployed Sexual orientation: Straight/Heterosexual Gender identity: Female Cognitive needs: No Hearing needs: No Vision needs: Yes Female Reproductive History Menstrual Age of Menarche: 15 Questionnaire Thrive Questionnaire Date Thrive assessed: 11/11/23 JAY-7 AMB Questionnaire JAY-7 Date JAY - 7 assessed: 11/11/23 Source: Developed by Drs. Laron Newton, Briseyda Fam, Casey Murcia and colleagues, with an educational opal from [employer]. Review of Systems Const Denies chills, Reports fatigue, Denies fever(s) and Denies headache(s) ENT Denies dysphagia, Denies dizziness, Denies headache(s), Denies neck pain, Denies odynophagia and Denies sore throat Card Denies chest pain, Denies rapid heart rate, Denies irregular heart rhythm, Denies palpitations and Denies dyspnea Resp Denies chest congestion, Denies cough and Denies dyspnea GI Denies abdominal pain, Reports constipation (chronic), Denies dysphagia, Denies heartburn, Denies nausea, Denies odynophagia and Denies vomiting Reports amenorrhea (x 2 years), Denies hematuria, Denies dysuria, Denies urinary incontinence and Denies urinary urgency Musc Denies back pain, Denies arthralgias and Denies neck pain Skin/Breast Denies rash Neuro Denies dizziness, Denies headache(s) and Denies paresthesias Psych Reports anxiety and Reports depression (better controlled lately) Endo Reports fatigue and Denies palpitations Physical exam (Primary Care) Vital Signs: Last Vital Signs Pulse 79 03/13/24 12:45 BP 100/62 03/13/24 12:45 Pulse Ox 97 03/13/24 12:45 Oxygen Delivery Method Room Air 03/13/24 12:45 BMI result Body Mass Index 28.6 Tobacco/Smoking Status: Tobacco use Status Tobacco use date assessed 03/13/24 03/13/24 12:49 Patient Tobacco Use Status Former Tobacco user 03/13/24 13:04 Tobacco use type Cigarette 03/13/24 13:03 e-Cigarette/Vaping Use Never Used 03/13/24 13:03 Thrive Assessment: Date of Thrive Assessment Date Thrive assessed 11/11/23 03/13/24 12:42 Const General: no acute distress and alert HENMT Ears: TM's normal bilaterally and EAC's normal Throat: Yes posterior oropharynx normal and Yes tonsils normal (no TP con gestion) Neck Neck: Yes no lymphadenopathy and Yes supple Thyroid: Thyroid normal Resp Auscultation: clear to auscultation bilaterally, no rales and no wheezes Cardio Rate: regular rate Rhythm: regular rhythm Heart sounds: no murmurs GI Palpation (GI): Soft to palpation and nontender Auscultation: normal bowel sounds General: Yes no CVA tenderness Back/Spine/Pelvis Back: no CVA tenderness Thoracic/Lumbar Spine: thoracic and lumbar spine normal to inspection Skin Rashes: no rashes Extrem General: Yes no clubbing, cyanosis or edema Office Procedures Flu Questionnaire Does the patient have a severe egg allergy?: No Does the patient have severe life threatening allergies?: No Does the patient have a fever or illness today?: No Has the patient ever had Guillain-Kamrar Syndrome?: No Has the patient ever had any past reaction to a flu shot?: No Results AMB Hemoglobin A1c AMB Hemoglobin A1c 5.5 % Last Edit by ANTWON Medrano on 03/13/24 13:08 Immunizations Fluarix Triv 5814-2300 (PF) 45 mcg (15 mcg x 3)/0.5 mL IM syringe Performing Provider: Quinton Lopez MD [facility] Administered by: Coretta Thorpe LPN on 03/13/24 13:29 Dose Route Admin Location Dispensed Lot Number Expiration Date [facility] Applications Tester 0.5 mL IM Left Deltoid 0.5 mL [id number] 11/12/24 [id number] [employer] VIS Given Date VIS Provided VIS Publication Date 03/13/24 Single Vaccine 20 Eligibility Eligibility Date Funding Source Not [facility] Eligible 03/13/24 Private Results Reviewed Results Reviewed: Laboratory Last Values Hgb A1c (Clinic) 5.5 % (4.0-6.0) 03/13/24 12:43 Laboratory Tests 03/11/24 19:16 WBC 5.1 Hgb 11.3 L Hct 32.9 L Plt Count 159 L Sodium 138 Potassium 4.4 Creatinine 0.94 Estimated GFR > 60 Calcium 9.5 Magnesium 2.0 AST 31 ALT 38 H Lipase 16 Beta HCG, Quant < 2 Coding Level of Care Code Est Pt Level 4 (29077) Complex EM visit Add On G2211 Diagnoses Chronic constipation K59.09 Migraine without status migrainosus, not intractable, unspecified migraine type G43.909 Intractability: not intractable Migraine type: unspecified Status migrainosus presence: without status migrainosus Impaired fasting glucose R73.01 History of substance abuse F19.11 Mixed hyperlipidemia E78.2 Elevated LFTs R79.89 Amenorrhea N91.2 Anxiety F41.9 Bipolar depression F31.9 Overweight (BMI 25.0-29.9) E66.3 Assessment & Plan Assessment & Plan (1) Chronic constipation: Code(s): K59.09 - Other constipation Category: Medical Plan: She has been advised that 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 and related to her Methadone She is again encouraged to increase her oral fluids and dietary fiber intake She was prescribed Movantik previously but states that her insurance would not cover the Rx She has taken Miralax 17 gm QD, Amitiza 24 mcg BID and Bisacodyl 10 mg suppository QD PRN in the past but states that they did not help much She has been advised to continue on Miralax 17 gm QD (reminded that this has to be taken daily for it to help) and Senna 8.6 mg 1 to 2 tablets QD; she also takes Psyllium husk powder 1 tablespoon daily (Rx refilled) Rx for fleet enema sent in as well, per patient request, for use only as needed when her constipation gets severe Follow up with GI as scheduled (2) Migraines: Code(s): G43.909 - Migraine, unspecified, not intractable, without status migrainosus Category: Medical Qualifiers: Intractability: not intractable Migraine type: unspecified Status migrainosus presence: without status migrainosus Qualified Code(s): G43.909 - Migraine, unspecified, not intractable, without status migrainosus Plan: Stable/controlled lately Continue Fioricet 1 tablet 2 to 3 times a day as needed (3) Impaired fasting glucose: Code(s): R73.01 - Impaired fasting glucose Category: Medical Plan: In-office HgbA1c done today is normal at 5.5%; was previously normal at 5.4% Reinforced low calorie diet/exercise as tolerated (4) History of substance abuse: Code(s): F19.11 - Other psychoactive substance abuse, in remission Category: Medical Plan: (+) Hx of substance abuse (heroin and crack cocaine) Is currently on Methadone but is down to 68 mg QD; states that she is again trying to come down by 1 mg every week on her dose and wishes to come off Methadone soon Follow up with the Methadone clinic as scheduled (5) Mixed hyperlipidemia: Code(s): E78.2 - Mixed hyperlipidemia Category: Medical Plan: Reinforced low cholesterol diet Her total cholesterol was at 147 mg/dl and LDL cholesterol was at 72 mg/dl when they were last checked in January 2023 (6) Elevated LFTs: Code(s): R79.89 - Other specified abnormal findings of blood chemistry Category: Medical Plan: She has been advised that 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 due to hepatosteatosis and should improve with weight loss Her serum AST was normal and ALT was slightly elevated when they were checked at the ER a couple of days ago Will continue to monitor her LFTs regularly (7) Amenorrhea: Code(s): N91.2 - Amenorrhea, unspecified Category: Medical Plan: Per request, will refer patient to gynecology for further evaluation and management (8) Anxiety: Code(s): F41.9 - Anxiety disorder, unspecified Category: Medical Plan: Patient states that she is now seeing a psychiatrist (Vishal Stark) Continue Clonazepam 1 mg TID and Buspirone 10 mg TID She was also supposed to be on Bupropion XL 300 mg QD but she apparently stopped taking it a while back (she is not exactly sure why) but feels that she needs to be back on it as her anxiety is not yet adequately controlled Will start her back for now on Bupropion XL 150 mg QD and have advised her that as she is now seeing psychiatry, she should discuss this further with Dr. Stark (9) Bipolar depression: Code(s): F31.9 - Bipolar disorder, unspecified Category: Medical Plan: Continue Quetiapine 100 mg TID and 100 mg Q HS PRN, Venlafaxine ER 225 mg (150 mg + 75 mg) QD, Prazosin 2 mg Q HS and Gabapentin 800 mg TID Follow up with psychiatry as scheduled (10) Overweight (BMI 25.0-29.9): Code(s): E66.3 - Overweight Category: Medical Plan: Reinforced diet/exercise as tolerated/lose weight Plan As requested, flu vaccine given to patient today Follow up in 4 months Orders: Orders AMB Hemoglobin A1c Today E11.9 - Type 2 diabetes mellitus without complications, R73.01 - Impaired fasting glucose Influenza [id number] Immunization Today Z23 - Encounter for immunization Referrals [employer] Referral N91.2 - Amenorrhea, unspecified Medications: New sodium phosphates 19-7 gram/118 mL (Fleet Enema) 118 mL AL BEDTIME PRN 10 multiple units 2RF severe constipation bupropion HCl XL 150 mg PO QAM 90 days 90 tabs 1RF multivitamin (Multiple Vitamins tablet) 1 tab PO DAILY 90 days 90 tabs 3RF Changed From prazosin 4 mg (2 x 2 mg) PO BEDTIME 30 days 60 caps 2RF To prazosin 2 mg PO BEDTIME Refilled bisacodyl 5 mg PO BID 30 days PRN 60 tabs 1RF constipation K59.03 - Drug induced constipation, T40.2X5A - Adverse effect of other opioids, initial encounter promethazine 25 mg PO DAILY 30 days PRN 30 tabs 0RF Nausea polyethylene glycol 3350 17 grams PO DAILY 30 days PRN 30 ea 5RF Constipation psyllium husk (Reguloid (psyllium husk)) mix into at least 8 oz of water administering 1 tbsp PO DAILY 30 days 284 grams 1RF
[2024-03-13 12:45] VITALS: BP 100/62; PULSE 79; O2SAT 97; BMI 28.6
== END 2024-03-13 13:43 | disposition home or self-care (01) ==
LOC: HO.HMCH 12:38
PROVIDERS: PCP Internal Medicine; Visit Provider Internal Medicine
DX: K59.09 Other constipation (principal); F19.11 Other psychoactive substance abuse, in remission; E11.69 Type 2 diabetes mellitus with other specified complication; F31.9 Bipolar disorder, unspecified; G43.909 Migraine, unspecified, not intractable, without status migrainosus; E78.2 Mixed hyperlipidemia; R79.89 Other specified abnormal findings of blood chemistry; N91.2 Amenorrhea, unspecified; F41.9 Anxiety disorder, unspecified; E66.3 Overweight; Z68.32 Body mass index [BMI] 32.0-32.9, adult

== ENCOUNTER → 2024-03-13 12:38 | Outpatient (BNVA) | payer OTHER, SELFPAY | PROVIDERS: PCP Internal Medicine; Visit Provider Internal Medicine | DX: Z23 Encounter for immunization (principal); K59.09 Other constipation; G43.909 Migraine, unspecified, not intractable, without status migrainosus; R73.01 Impaired fasting glucose; F19.11 Other psychoactive substance abuse, in remission; E78.2 Mixed hyperlipidemia; R79.89 Other specified abnormal findings of blood chemistry; N91.2 Amenorrhea, unspecified; F41.9 Anxiety disorder, unspecified; F31.9 Bipolar disorder, unspecified; E66.3 Overweight; Z79.899 Other long term (current) drug therapy | CPT/HCPCS: 83036; 90471; 90656; 99212 ==

== ENCOUNTER 2024-05-30 13:27 | Outpatient (AMB) | payer OTHER, SELFPAY ==
[2024-05-30 13:28] VITALS: BP 100/70; PULSE 83; TEMP 36.2; O2SAT 97; BMI 27.7
--- NOTE | 2024-05-30 13:28 | MHC.PC.OV ---
Vital Signs 05/30/24 13:28 Height 5 ft 3 in Weight 156 lb 8 oz BMI 27.7 BP 100/70 Blood Pressure Location Lt brachial Position Sitting Pulse 83 Pulse Source Pulse Oximeter Temp 97.1 F Temp Source Temporal Artery Scan Pulse Oximetry (%) 97 Oxygen Delivery Method Room Air Intake Visit Reasons: Back pain Manager Industrial Required: No Accompanied by: Self / Same As Patient Allergies No Known Allergies [No Known Allergies*] Allergy (Verified 05/31/24 09:28) Medication List - Last Reconciled 05/31/24 by Quinton Lopez MD bisacodyl 5 mg PO BID PRN 30 days bupropion HCl XL 150 mg PO QAM 90 days buspirone 10 mg (2 x 5 mg) PO TID 30 days clonazepam 1 mg PO TID gabapentin 800 mg PO TID 30 days ibuprofen 600 mg PO TID methadone (Methadose) 68 mg PO DAILY multivitamin (Multiple Vitamins tablet) 1 tab PO DAILY 90 days nicotine (polacrilex) 4 mg buccal Q2H PRN 30 days polyethylene glycol 3350 17 grams PO DAILY PRN 30 days prazosin 2 mg PO BEDTIME 30 days promethazine 25 mg PO DAILY PRN 30 days psyllium husk (Reguloid (psyllium husk)) 1 tbsp PO DAILY 30 days quetiapine 100 mg PO TID quetiapine 100 mg PO BEDTIME PRN sodium phosphates 19-7 gram/118 mL (Fleet Enema) 118 mL AL BEDTIME PRN tizanidine 2 mg PO BID PRN triamcinolone acetonide 0.1% 1 appl topical BID PRN 30 days trolamine salicylate 10% (Arthricream) 1 appl See Protocol topical QID PRN 30 days venlafaxine ER 150 mg PO DAILY venlafaxine ER 75 mg PO DAILY Ventolin HFA 90 mcg/actuation (albuterol sulfate) 2 puffs inhalation Q6H PRN 30 days NS Tobacco use date assessed: 05/30/24 Dental Screening Dental Screen Date: 05/30/24 Did you have a dental visit in the last 12 months?: Yes Did you have a dental problem in the last 6 months where you did not have access to dental care?: No Was dental information given to patient?: Patient has dentist HPI Back pain HPI Details Patient comes in today complaining of increased pain over the back of her neck and over her upper back area States that she's had neck and upper back pain for years but these have increased significantly lately although she cannot be certain when exactly her pain started getting worse She describes her symptoms as a severe, tight, and pervasive pain causing significant discomfort and impairing her ability to perform daily activities Patient also describes sensations of tight knots throughout the affected area She does not really know how her pain started and cannot recall any specific injury or trauma to her neck and upper back in the past She also has never been to physical therapy for her neck and back issues and the only remedy she can recall for her neck and back pain were some muscle relaxants prescribed by another physician that she saw years ago, which she states helped temporarily She also noted that maintaining certain postures exacerbates the pain, requiring her to lie down for a while just to get some relief Patient adds that she has been having a hard time getting a hold of her psychiatrist over the past week to get her Rx refilled and is concerned that her meds will run out soon and she cannot afford to be out of her meds at all for fear of her anxiety and psychiatric symptoms flaring up Lastly, patient states that she has been doing everything she can in terms of eating a healthy diet and staying active but she has not been able to lose any significant amount of weight at all and is interested in getting some Rx to help her lose weight She denies any headaches or dizziness Denies any chest pains, no SOB No nausea/vomiting, no abdominal pain No change in bowel habits noted [facility] Medical History (Updated 06/01/24 @ 03:27 by Quinton Lopez MD) Mixed hyperlipidemia Dysplasia of cervix, low grade (SIVAKUMAR 1) Overweight (BMI 25.0-29.9) History of substance abuse Impaired fasting glucose Constipation Positive hepatitis C antibody test Hip pain, bilateral Smoker Bipolar depression Anxiety Type 2 diabetes mellitus Muscle twitching Vision impairment Hx of hepatitis C Surgical History No pertinent past surgical history Family History Father Diabetes Cancer HTN (hypertension) Other Mental health problem Substance abuse Social History Household Members: None Housing: Homeless Housing Other:: prison house Do you presently have visiting nurse or other home services: No Alcohol intake: never Patient Tobacco Use Status: Former Tobacco user Tobacco use type: Cigarette Cigarette Packs Per Day: 0.25 Cigarettes Per Day: 2 Years Smoked: 15 e-Cigarette/Vaping Use: Never Used Second Hand Smoke Exposure: Yes Substance Use Type: Crack/Cocaine and Heroin service: No Current occupational status: unemployed Sexual orientation: Straight/Heterosexual Gender identity: Female Cognitive needs: No Hearing needs: No Vision needs: Yes Female Reproductive History Menstrual Age of Menarche: 15 Questionnaire PHQ-9 Over the last 2 weeks, how often have you been bothered by any of the following problems? 1. Little interest or pleasure in doing things: not at all 2. Feeling down, depressed, or hopeless: not at all 3. Trouble falling or staying asleep, or sleeping too much: not at all 4. Feeling tired or having little energy: not at all 5. Poor appetite or overeating: not at all 6. Feeling bad about yourself - or that you are a failure or have let yourself or your family down: not at all 7. Trouble concentrating on things, such as reading the newspaper or watching television: not at all 8. Moving or speaking so slowly that other people could have noticed. Or the opposite - being so fidgety or restless that you have been moving around a lot more than usual: not at all 9. Thoughts that you would be better off or of hurting yourself in some way: not at all Total score: 0 Depression Screening Interpretation: Negative (is on Rx) Depression Screening Done: Yes 19111 - PHQ-9 Billing: Yes Source: Developed by Drs. Laron Newton, Briseyda Fam, Casey Murcia and colleagues, with an educational opal from [employer]. Thrive Questionnaire Date Thrive assessed: 05/30/24 I am a: Patient What is your living situation today?: I have a steady place to live Within the past 12 months, did the food you bought not last and you didn't have the money to get more?: Never true Within the past 12 months, did you worry whether your food would run out before you got money to buy more?: Never true Do you have trouble paying for medicines?: No Do you have trouble getting transportation to medical appointments?: No Do you have trouble paying your heating and electricity bill?: No Do you have trouble taking care of your child, family member or friend?: No Do you have trouble with day-to-day activities such as bathing, preparing meals, shopping, managing finances, etc.?: No Are you currently unemployed and looking for a job?: No Are you interested in more education?: No Please select the resources that you would like help with: None Currently or been in a relationship where the following occur: No concerns reported THRIVE Score: 0 AUDIT C Alcohol Use Questionnaire (AUDIT-C) 1. How often do you have a drink containing alcohol?: Never 3. How often do you have six or more drinks on one occasion?: Never Total Score: 0 Score Reviewed/Action Taken: Yes JAY-7 AMB Questionnaire JAY-7 Date JAY - 7 assessed: 05/30/24 Feeling nervous, anxious, or on edge: 0 = Not at all Not being able to stop or control worryin = Not at all Worrying too much about different things: 0 = Not at all Trouble relaxin = Not at all Being so restless that it is hard to sit still: 0 = Not at all Becoming easily annoyed or irritable: 0 = Not at all Feeling afraid as if something awful might happen: 0 = Not at all Total JAY-7 score (0-4 normal; 5-9 mild; 10-14 moderate; 15-21 severe): 0 Source: Developed by Drs. Laron Newton, Briseyda Fam, Casey Murcia and colleagues, with an educational opal from [employer]. Review of Systems Const Denies chills, Reports fatigue, Denies fever(s) and Denies headache(s) ENT Denies dysphagia, Denies dizziness, Denies otalgia, Denies headache(s), Reports neck pain, Denies odynophagia and Denies sore throat Card Denies chest pain, Denies rapid heart rate, Denies irregular heart rhythm, Denies palpitations and Denies dyspnea Resp Denies chest congestion, Denies cough and Denies dyspnea GI Denies abdominal pain, Reports constipation (chronic), Denies dysphagia, Denies heartburn, Denies nausea, Denies odynophagia and Denies vomiting Reports amenorrhea (x 2 years), Denies hematuria, Denies dysuria, Denies urinary incontinence and Denies urinary urgency Musc Reports back pain (over the upper back - see HPI for details), Denies arthralgias and Reports neck pain Skin/Breast Denies rash Neuro Denies dizziness, Denies headache(s) and Denies paresthesias Psych Reports anxiety and Reports depression (better controlled lately) Endo Reports fatigue and Denies palpitations Physical exam (Primary Care) Vital Signs: Last Vital Signs Temp 97.1 F 05/30/24 13:28 Pulse 83 05/30/24 13:28 BP 100/70 05/30/24 13:28 Pulse Ox 97 05/30/24 13:28 Oxygen Delivery Method Room Air 05/30/24 13:28 BMI result Body Mass Index 27.7 Tobacco/Smoking Status: Tobacco use Status Tobacco use date assessed 05/30/24 05/30/24 13:34 Patient Tobacco Use Status Former Tobacco user 05/30/24 13:34 Tobacco use type Cigarette 05/30/24 13:34 e-Cigarette/Vaping Use Never Used 05/30/24 13:34 PHQ-9: PHQ-9 Score PHQ-9: Total score 0 05/31/24 09:28 Depression Screening Interpretation: Negative (is on Rx) Thrive Assessment: Date of Thrive Assessment Date Thrive assessed 05/30/24 05/30/24 13:34 Currently or been in a relationship where the following occur: No concerns reported Const General: no acute distress and alert HENMT Ears: TM's normal bilaterally and EAC's normal Throat: Yes posterior oropharynx normal and Yes tonsils normal (no TP congestion) Neck Neck: No lymphadenopathy and Yes tender Thyroid: Thyroid normal Resp Auscultation: clear to auscultation bilaterally, no rales and no wheezes Cardio Rate: regular rate Rhythm: regular rhythm Heart sounds: no murmurs GI Palpation (GI): Soft to palpation and nontender Auscultation: normal bowel sounds General: Yes no CVA tenderness Back/Spine/Pelvis Back: no CVA tenderness Cervical Spine: cervical muscular tenderness, pain with cervical ROM and Cervical spine tenderness Thoracic/Lumbar Spine: paraspinal muscle tenderness bilaterally in the upper thoracic and in the mid thoracic Skin Rashes: no rashes Extrem General: Yes no clubbing, cyanosis or edema Coding Level of Care Code Est Pt Level 4 (18942) Diagnoses Neck pain M54.2 Dorsal back pain M54.9 Migraine without status migrainosus, not intractable, unspecified migraine type G43.909 Migraine type: unspecified Status migrainosus presence: without status migrainosus Intractability: not intractable Chronic constipation K59.09 Impaired fasting glucose R73.01 History of substance abuse F19.11 Mixed hyperlipidemia E78.2 Elevated LFTs R79.89 Anxiety F41.9 Bipolar depression F31.9 Overweight (BMI 25.0-29.9) E66.3 Additional Codes PHQ-9 - 23246 - PHQ-9 Billing: Yes ([id number]) Assessment & Plan Assessment & Plan (1) Neck pain: Code(s): M54.2 - Cervicalgia Category: Medical Plan: Will send patient for x-rays of the cervical spine for further evaluation (2) Dorsal back pain: Code(s): M54.9 - Dorsalgia, unspecified Category: Medical Plan: Will send patient for thoracic spine x-rays for further evaluation (3) Migraines: Code(s): G43.909 - Migraine, unspecified, not intractable, without status migrainosus Category: Medical Qualifiers: Migraine type: unspecified Status migrainosus presence: without status migrainosus Intractability: not intractable Qualified Code(s): G43.909 - Migraine, unspecified, not intractable, without status migrainosus Plan: Stable/controlled Continue Fioricet 1 tablet 2 to 3 times a day as needed (4) Chronic constipation: Code(s): K59.09 - Other constipation Category: Medical Plan: Patient has been advised that 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 and related to her Methadone She is again encouraged to increase her oral fluids and dietary fiber intake She was prescribed Movantik previously but states that her insurance would not cover the Rx She has taken Miralax 17 gm QD, Amitiza 24 mcg BID and Bisacodyl 10 mg suppository QD PRN in the past but states that they did not help much She has been advised to continue on Miralax 17 gm QD (reminded that this has to be taken daily for it to help) and Senna 8.6 mg 1 to 2 tablets QD; she also takes Psyllium husk powder 1 tablespoon daily (Rx refilled) She also has fleet enema that she takes only as needed when her constipation gets severe Follow up with GI as scheduled (5) Impaired fasting glucose: Code(s): R73.01 - Impaired fasting glucose Category: Medical Plan: In-office HgbA1c was normal at 5.5% and 5.4% when previously checked Reinforced low calorie diet/exercise as tolerated (6) History of substance abuse: Code(s): F19.11 - Other psychoactive substance abuse, in remission Category: Medical Plan: (+) Hx of substance abuse (heroin and crack cocaine) Is currently on Methadone at 68 mg QD; states that she is again trying to come down by 1 mg every week on her dose and wishes to come off Methadone soon Follow up with the Methadone clinic as scheduled (7) Mixed hyperlipidemia: Code(s): E78.2 - Mixed hyperlipidemia Category: Medical Plan: Reinforced low cholesterol diet Her total cholesterol was at 147 mg/dl and LDL cholesterol was at 72 mg/dl when they were last checked in January 2023 Will send her for repeat labs WANG for follow up (8) Elevated LFTs: Code(s): R79.89 - Other specified abnormal findings of blood chemistry Category: Medical Plan: Patient has been advised that 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 due to hepatosteatosis and should improve with weight loss Her serum AST was normal and ALT was slightly elevated when they were last checked at the ER a few months ago Will continue to monitor her LFTs regularly (9) Anxiety: Code(s): F41.9 - Anxiety disorder, unspecified Category: Medical Plan: Patient is now seeing Dr. Vishal Stark for her psychiatry follow up and management Continue Clonazepam 1 mg TID, Buspirone 10 mg TID and Bupropion XL 150 mg Q AM (10) Bipolar depression: Code(s): F31.9 - Bipolar disorder, unspecified Category: Medical Plan: Continue Quetiapine 100 mg TID and 100 mg Q HS PRN, Venlafaxine ER 225 mg (150 mg + 75 mg) QD, Prazosin 2 mg Q HS and Gabapentin 800 mg TID Follow up with psychiatry as scheduled For now, will go ahead and refill her Rx as she has not been able to get ahold of her psychiatrist to refill her Rx (11) Overweight (BMI 25.0-29.9): Code(s): E66.3 - Overweight Category: Medical Plan: Reinforced diet/exercise as tolerated/lose weight Have discussed with patient that if her labs come out okay, we can consider some Rx to help with weight loss but due to her past Hx, stimulants like Phentermine would not be ideal She may also not qualify for the GLP-1s and her insurance would likely not agree to cover them for her Plan Follow up in 3 months Orders: Orders XR cervical spine 3V 05/30/24 M54.2 - Cervicalgia PT Evaluation and Treatment 05/30/24 M54.2 - Cervicalgia, M54.9 - Dorsalgia, unspecified Lipid Panel 05/30/24 E78.00 - Pure hypercholesterolemia, unspecified TSH reflex Free T4 05/30/24 E78.00 - Pure hypercholesterolemia, unspecified XR thoracic spine 3V 05/30/24 M54.9 - Dorsalgia, unspecified Complete Blood Count Auto Diff 05/30/24 D64.9 - Anemia, unspecified Comprehensive [place]. Panel Fast 05/30/24 E78.00 - Pure hypercholesterolemia, unspecified UA CC w/rflx Micro + Cult 05/30/24 R30.0 - Dysuria Vitamin D 25-OH Total 05/30/24 E55.9 - Vitamin D deficiency, unspecified Hemoglobin A1c 05/30/24 R73.01 - Impaired fasting glucose Medications: New venlafaxine ER 150 mg + 75 mg to equal total of 225 mg DAILY DOSE 150 mg PO DAILY 30 caps 0RF quetiapine 100 mg PO TID 90 tabs 0RF severe anxiety quetiapine 100 mg PO BEDTIME PRN 30 tabs 0RF agitation/depression tizanidine 2 mg PO BID PRN 30 tabs 0RF muscle spasms/back and neck pain venlafaxine ER 75 mg + 150 mg to equal total of 225 mg DAILY DOSE 75 mg PO DAILY 30 caps 0RF
== END 2024-05-30 14:07 | disposition home or self-care (01) ==
PROVIDERS: PCP Internal Medicine; Visit Provider Internal Medicine
DX: M54.2 Cervicalgia (principal); M54.9 Dorsalgia, unspecified; G43.909 Migraine, unspecified, not intractable, without status migrainosus; K59.09 Other constipation; R73.01 Impaired fasting glucose; F19.11 Other psychoactive substance abuse, in remission; E78.2 Mixed hyperlipidemia; R79.89 Other specified abnormal findings of blood chemistry; F41.9 Anxiety disorder, unspecified; F31.9 Bipolar disorder, unspecified; E66.3 Overweight

== ENCOUNTER → 2024-05-30 13:27 | Outpatient (BNVA) | payer OTHER, SELFPAY | PROVIDERS: PCP Internal Medicine; Visit Provider Internal Medicine | DX: M54.2 Cervicalgia (principal); M54.9 Dorsalgia, unspecified; G43.909 Migraine, unspecified, not intractable, without status migrainosus; K59.09 Other constipation; R73.01 Impaired fasting glucose; E78.2 Mixed hyperlipidemia; R79.89 Other specified abnormal findings of blood chemistry; F41.9 Anxiety disorder, unspecified; F31.9 Bipolar disorder, unspecified; E66.3 Overweight | CPT/HCPCS: 96127; 99212 ==

== ENCOUNTER 2024-08-15 09:22 | Outpatient (REF) | payer OTHER, SELFPAY ==
--- NOTE | ~2024-08-15 | XR_ITS ---
CLINICAL HISTORY: M54.2 - Cervicalgia Cervical spine three views Comparison: None Findings: No acute fracture or dislocation is demonstrated. Posterior alignment is normal throughout. Mild lower degenerative change noted. No radiopaque foreign bodies noted. Impression: No acute processes This document has been electronically signed by: Jason Galicia MD on 08/15/2024 19:12:55
--- NOTE | ~2024-08-15 | XR_ITS ---
CLINICAL HISTORY: M54.9 - Dorsalgia, unspecified Thoracic spine three views Comparison: None Findings: No acute fracture or dislocation is demonstrated. Posterior alignment is normal throughout. No significant degenerative change noted. No radiopaque foreign bodies noted. Impression: No acute processes This document has been electronically signed by: Jason Galicia MD on 08/15/2024 19:12:35
[2024-08-15 09:41] LABS: MANUAL DIFF FLAG NO
--- OUTSIDE RECORDS SUMMARY | 2024-08-15 10:28 | XMS_ITS | Data Portability ---
Author Organization [facility], [address] Address [address] [place] [address] Care Team Providers Care Grappler Name Role Phone FATIMAH PURCELL Primary Care Provider Assessment No assessment recorded. Plan of Treatment Reminders Order Date Submit Date Provider Last Modified By Organization Details Last Modified Time Details Appointments None recorded. Lab rapid flu (A+B) 2022 023 [facility] 20[address], [address] [place] [address], [phone], 3 19:43:13 rapid SARS CoV 2 Ag, QL IA, respiratory specimen [address], [address] [place] [address], [phone], 3 19:43:13 Referral None recorded. Procedures None recorded. Surgeries None recorded. Imaging None recorded. Medication Orders prednisone 20 mg tablet 2022 023 [id number], [address] [place], [address], 3 19:43:15 Allergy Relief (fluticason e) 50 mcg/actuati on nasal spray,suspe nsion 2022 023 [id number], [address] [place], [address], 3 19:43:15 amoxicillin 875 mg-sarah dia clavulanate 125 mg tablet 2022 023 [id number], [address] [place], [address], 19:11:14 loratadine 10 mg tablet 2022 023 [id number], [address] [facility] [place], [address], 13:42:52 ibuprofen 800 mg tablet 2022 023 [id number], [address] [place], [address], 13:42:51 Patient TargetsNo targets recorded. Patient Instructions Encounter Date Encounter Id Patient Instructions Last Modified By Organization Details Last Modified Time 06/20/2022 [id number] earache: care instructions [email or web address] Not available 06/20/2022 13:42:47 ear infection (otitis media): care instructions Not available 06/20/2022 13:42:47 You have been diagnosed with a Ear Infection Today. Suggestions to help with your discomfort and recovery include: 1. Laying the effected ear on a heating pad or applying a warm rice bag or something warm. 2. Motrin and Tylenol Regularly - this will help with pain and inflammation of the Eustachian Tube - this is very important for a speedy recovery. 3. Antihistamine like Claritin/Zyrtec/Al legra/Benedryl - will help with congestion and swelling in the Eustachian Tube. 4. Saline Nasal [place] 5. Salt Water Gargle 6. Staying Hydrated If you develop any of the following Symptoms I would be seen again: 1. Fever > 101.0 2. Stiff Neck 3. Swelling of the Lymph Nodes around the ear or neck 4. Worsening Pain 5. Bleeding from the Ear 6. Severe Sore Throat Go Immediately to the ER if you develop 1. Severe Headache 2. Chest Pain 3. Shortness of Breath. Antibiotics typically take 4-5 days to start working so do the above to help with your symptoms. Probiotics are important while taking antibiotics - I recommend Florastor Make sure you finish the full course of the antibiotics - if you don't this can lead to antibiotic resistance. Thank you for using [facility] [employer] today - and don't hesitate to contact our office if you have any concerns or questions. [email or web address] Not available 06/20/2022 13:42:45 06/28/2022 [id number] Sinusitis is an infection of the lining of the sinus cavities in your head. Sinusitis often follows a cold. It causes pain and pressure in your head and face. In most cases, sinusitis gets better on its own in 1 to 2 weeks. But some mild symptoms may last for several weeks. Sometimes antibiotics are needed. if you are having problems. It's also a good idea to know your test results and keep a list of the medicines you take. How can you care for yourself at home? Take an vdwm-xgy-pddhymi pain medicine. Avoid Ibuprofen, Aleve and Aspirin if . If the doctor prescribed antibiotics, take them as directed. Do not stop taking them just because you feel better. You need to take the full course of antibiotics. Be careful when taking hjmz-gkz-wrqrira cold or influenza (flu) medicines and Tylenol at the same time. Many of these medicines have acetaminophen, which is Tylenol. Read the labels to make sure that you are not taking more than the recommended dose. Too much acetaminophen (Tylenol) can be harmful. Breathe warm, moist air from a steamy shower, a hot bath, or a sink filled with hot water. Avoid cold, dry air. Using a humidifier in your home may help. Follow the directions for cleaning the machine. Use saline (saltwater) nasal washes. This can help keep your nasal passages open and wash out mucus and bacteria. You can buy saline nose drops at a grocery store or drugstore. Or you can make your own at home by adding 1 teaspoon (5 millilitres) of salt and 1 teaspoon (5 millilitres) of baking soda to 2 cups (500 mL) of distilled water. If you make your own, fill a bulb syringe with the solution, insert the tip into your nostril, and squeeze gently. Blow your nose. Put a hot, wet towel or a warm gel pack on your face 3 or 4 times a day for 5 to 10 minutes each time. Try a decongestant nasal spray like oxymetazoline (Drixoral). Do not use it for more than 3 days in a row. Using it for more than 3 days can make your congestion worse. Not available 06/28/2022 19:38:54 If you test positive for COVID-19, stay home for at least 5 days and isolate from others in your home. You are likely most infectious during these first 5 days. Wear a high-quality mask if you must be around others at home and in public. Do not go places where you are unable to wear a mask. For travel guidance, see CDC? s Travel webpage. Do not travel. Stay home and separate from others as much as possible. Use a separate bathroom, if possible. Take steps to improve ventilation at home, if possible. Don? t share personal household items, like cups, towels, and utensils. Monitor your symptoms. If you have an emergency warning sign (like trouble breathing), seek emergency medical care immediately. If you had symptoms and: Your symptoms are improving You may end isolation after day 5 if: You are fever-free for 24 hours (without the use of fever-reducing medication). Your symptoms are not improving Continue to isolate until: You are fever-free for 24 hours (without the use of fever-reducing medication). Your symptoms are improving. Regardless of when you end isolation Until at least day 11: Avoid being around people who are more likely to get very sick from COVID-19. Remember to wear a high-quality mask when indoors around others at home and in public. Do not go places where you are unable to wear a mask until you are able to discontinue masking (see below). For travel guidance, see CDC? s Travel webpage. Not available 06/28/2022 19:38:44 Reason for Referral None Reported. Results Created Date Observation Date Name Description Value Unit Range Abnormal Flag Note LastModifiedBy Organization Detail LastModifiedTime 06/28/19 23 06/28/2022 rapid flu (A+B) Unknown Analyte Normal = Negati ve Not Available [address], [place], [address], 06/28/2022 19:11:28 06/28/19 23 06/28/2022 rapid flu (A+B) Unknown Analyte Normal = Negati ve Not Available [address] [place], [address], 06/28/2022 19:11:28 06/28/19 23 06/28/2022 rapid flu (A+B) Unknown Analyte negati ve Not Available [address] [place] [address] [place], [address], 06/28/2022 19:11:28 06/28/19 23 06/28/2022 rapid flu (A+B) Unknown Analyte negati ve Not Available [address] [place] [address] [place], [address], 06/28/2022 19:11:28 06/28/19 23 06/28/2022 rapid SARS CoV 2 Ag, QL IA, respi rator y speci men Unknown Analyte Normal =Negat mando Not Available [address] [place] [address], [place], [address], 06/28/2022 19:11:24 06/28/19 23 06/28/2022 rapid SARS CoV 2 Ag, QL IA, respi rator y speci men Unknown Analyte negati ve Not Available [address] [place] [address] [place], [address], 06/28/2022 19:11:24 Result Notes None recorded. Problems Name Problem SNOMED Code Status Onset Date Resolution Date Notes Provider Name and Address Organization Details Recorded Time Panic disorder 190157100 Active 2022 Jesica kern PA - [facility] 3 13:21:01 Posttraumatic stress disorder 14276496 Active 2022 Jesica kern PA - [facility] 3 13:21:07 Depressive disorder 47334646 Active 2022 Jesica Lopez null, PA - [facility] 3 13:21:16 Psoriasis 3404361 Active 2022 Jesica Lopze null, PA - [facility] 3 13:21:35 Migraine 91625385 Active 2022 Jesica Lopez null, PA - [facility] 3 13:21:45 Problem Notes None recorded. Medical Equipment None Reported. Allergies No known drug allergies Medications Name Sig Start Date Stop Date Status Note LastModified by Organization Details LastModified Time quetiapine 25 mg tablet TAKE 1 TABLET BY MOUTH 2 TIMES A DAY NEEDED FOR ANXIETY FOR 30 DAYS 06/20 completed Not Available Not Available Not Available buspirone 5 mg tablet TAKE 1 TABLET ORALLY 3 TIMES A DAY FOR 30 DAYS active Not Available Not Available No t Available nicotine 14 mg/24 hr daily transdermal patch APPLY 1 PATCH DAILY 7 DAYS 06/20 completed Not Available Not Available Not Available polyethylen e glycol 3350 17 gram oral powder packet DISSOLVE 17 G IN WATER AND TAKE BY MOUTH 2 TIMES A DAY NEEDED FOR CONSTIPAT ION FOR 30 DAYS active Not Available Not Available No t Available ibuprofen 800 mg tablet Take 1 tablet 3 times a day by oral route. 2022 active Not Available Not Available Not Avai lable nicotine (polacrilex ) 2 mg gum CHEW 1 PIECE OF GUM DIRECTED EVERY 15 MINUTES NEEDED FOR CIGARETTE CRAVING active Not Available Not Available No t Available prazosin 1 mg capsule 06/20 completed Not Available Not Available Not Available senna 8.6 mg tablet TAKE 1 TABLET BY MOUTH AT BEDTIME 06/20 completed Not Available Not Available Not Available prednisone 20 mg tablet Take 2 tablets every day by oral route in the morning for 5 days. 2022 active Not Available Not Available Not Avai lable gabapentin 400 mg capsule TAKE 2 CAPSULES BY MOUTH 3 TIMES A DAY FOR 30 DAYS active Not Available Not Available No t Available metronidazo le 500 mg tablet 06/20 completed Not Available Not Available Not Available triamcinolo ne acetonide 0.1 % topical cream 1 APPL TOPICALLY 2 TIMES A DAY NEEDED FOR RASH FOR 30 DAYS active Not Available Not Available No t Available Fleet Enema 19 gram-7 gram/118 mL active Not Available Not Available Not Available gabapentin 800 mg tablet TAKE 1 TABLET BY MOUTH 3 TIMES A DAY FOR 30 DAYS active Not Available Not Available No t Available nicotine (polacrilex ) [address] 4 MG BUCCALLY EVERY 2 HOURS NEEDED FOR NICOTINE CRAVINGS active Not Available Not Available No t Available lithium carbonate 600 mg capsule 06/20 completed Not Available Not Available Not Available lorazepam 2 mg tablet TAKE 1 TABLET ORALLY 3 TIMES A DAY NEEDED FOR ANXIETY FOR 30 DAYS active Not Available Not Available No t Available lithium carbonate 300 mg capsule 06/20 completed Not Available Not Available Not Available bisacodyl 10 mg rectal suppository INSERT 10 MG RECTALLY DAILY NEEDED FOR CONSTIPAT ION 06/20 completed Not Available Not Available Not Available buspirone 10 mg tablet TAKE 1/2 TABLET 3 TIMES A DAY active Not Available Not Available No t Available clotrimazol e 1 % topical solution APPLY TOPICALLY DAILY 06/20 completed Not Available Not Available Not Available nicotine 21 mg/24 hr daily transdermal patch APPLY 1 PATCH ONCE DAILY 06/20 completed Not Available Not Available Not Available docusate sodium 100 mg capsule TAKE 1 CAPSULE BY MOUTH TWICE A DAY 06/20 completed Not Available Not Available Not Available hydroxyzine HCl 25 mg tablet 06/20 completed Not Available Not Available Not Available ibuprofen 600 mg tablet 06/20 completed Not Available Not Available Not Available fluticasone propionate 50 mcg/actuati on nasal spray,suspe nsion SPRAY 1 SPRAY BY INTRANASA L ROUTE TWICE A DAY DIRECTED active Not Available Not Available No t Available loratadine 10 mg tablet TAKE 1 TABLET BY MOUTH EVERY DAY active Not Available Not Available No t Available prazosin 2 mg capsule TAKE 2 CAPSULES BY MOUTH AT BEDTIME active Not Available Not Available No t Available nicotine 7 mg/24 hr daily transdermal patch APPLY 1 PATCH TRANSDERM ALLY EVERY DAY active Not Available Not Available No t Available escitalopra m 10 mg tablet 06/20 completed Not Available Not Available Not Available escitalopra m 20 mg tablet TAKE 1.5 TABLET BY MOUTH DAILY 06/20 completed Not Available Not Available Not Available bupropion HCl XL 300 mg 24 hr tablet, extended release TAKE 1 TABLET ORALLY EVERY MORNING FOR 30 DAYS active Not Available Not Available No t Available ProAir HFA 90 mcg/actuati on aerosol inhaler active Not Available Not Available Not Available quetiapine 50 mg tablet active Not Available Not Available Not Available quetiapine 400 mg tablet TAKE 1 TABLET BY MOUTH AT BEDTIME active Not Available Not Available No t Available Gavilax 17 gram/dose oral powder DISSOLVE 17 GM INTO 8 OZ OF FLUID AND TAKE BY MOUTH TWICE A DAY NEEDED FOR CONSTIPAT ION 06/20 completed Not Available Not Available Not Available naloxone 4 mg/actuatio n nasal spray 06/20 completed Not Available Not Available Not Available Vitals Date Recorded Body height Body mass index (BMI) Body weight Pain severity - 0-10 verbal numeric rating [Score] - Reported Oxygen saturation Oxygen saturation in Arterial blood by Pulse oximetry Heart rate Respiratory rate Body temperature Systolic blood pressure Diastolic blood pressure Provider Name and Address Organization Details Last Updated DateTime 3 160.02 cm 26.6 kg/m2 38138.8 6 g 9 95 % 95 % 97 /min 20 /min 97.7 [degF] 100 mm[Hg] 63 mm[Hg] Jesica Lopez [employer] 3 13:25:42 Date Recorded Body height Body mass index (BMI) Body weight Oxygen saturation Oxygen saturation in Arterial blood by Pulse oximetry Pain severity - 0-10 verbal numeric rating [Score] - Reported Heart rate Respiratory rate Body temperature Systolic blood pressure Diastolic blood pressure Provider Name and Address Organization Details Last Updated DateTime 3 160.02 cm 26.6 kg/m2 06845.8 6 g 98 % 98 % 0 95 /min 20 /min 97.8 [degF] 104 mm[Hg] 73 mm[Hg] Kiersten Khan [employer] 3 19:13:33 Social History Question Answer Notes LastModified by Organizat ion Details LastModified Time Tobacco Smoking Status Former Smoker Jesica kern PA [facility] 06/20/2022 13:22:48 What Is Your Level Of Alcohol Consumption? None Information not available 06/20/2022 When Did You Quit Smoking? 1-5yearssin mary tadeo Information not available 06/20/2022 Do You Use Any Illicit Or Recreational Drugs? No Information not available 06/20/2022 Have You Recently Traveled Abroad? No Information not available 06/20/2022 Do You Or Have You Ever Used Any Other Forms Of Tobacco Or Nicotine? No Information not available 06/20/2022 Sex: Unknown Functional Status None recorded. Mental Status None recorded. Family History Relationship Description Onset Age of this Age Resolved Age Notes LastModified by Organization Details LastModified Time Mother Malignant tumor of cervix [email or web address] Not available 2022 13:22:14 Sister Malignant tumor of cervix emonfette Not available 2022 13:22:14 Medical History No medical history recorded. Gynecological HistoryNo gynecological history recorded. Obstetrics History GPAL:G 0 P 0 0 0 0 Immunizations Vaccine Type Date Status Note Provider Nam e and Address Organization Details Recorded Time COVID-19, mRNA, LNP-S, PF, 100 mcg/0.5mL dose or 50 mcg/0.25mL dose 1 completed Jesica Lopez null, PA - [facility] 06/20/2022 13:13:34 COVID-19, mRNA, LNP-S, PF, 100 mcg/0.5mL dose or 50 mcg/0.25mL dose 1 completed Jesica Bernarde null, PA - [facility] 06/20/2022 13:13:34 Tdap 2 completed Jesica Bernarde null, PA - [facility] 06/20/2022 13:13:34 Td (adult), 5 Lf tetanus toxoid, preservative free, adsorbed 7 completed Jesica Bernarde null, PA - [facility] 06/20/2022 13:13:34 Past Encounters Encounter ID Performer Location Encounter Start Date Encounter Closed Date Diagnosis/Indication Diagnosis SNOMED-CT Code Diagnosis ICD10 Code Diagnosis Note [id number] [facility] [address] [place] [address] 06/20/2022 11:26:48 06/20/2022 13:46:10 Acute right otitis media 414964094 H66.91 [id number] [place] [address] [address] [place] [address] 06/28/2022 16:47:12 06/28/2022 19:46:46 Exposure to SARS-CoV-2 898853195 Z20.822 Acute sinusitis 96144462 J01.90 Health Concerns Section Related Observation LastModified by Organization Detai ls LastModified Time None Recorded Concern Status LastModified by Organization Details LastModified Time None Recorded Advance Directives Directive None Recorded Payers Encounter Date Sequence Insurance Name Policy Number Policy Small Covered Member ID Small Member ID Guarantor Name 06/20/2022 1 [employer] (MEDICAID HMO) JOSÉ Trujillo [id number] Jazmin Trujillo 06/28/2022 1 [employer] (MEDICAID HMO) JOSÉ Trujillo [id number] Jazmin Trujillo Notes Date Note Type Note Provider Name and Address Organization Details Recorded Time 06/20/2022 text/html Ear Pain Brief HPIReported bypatient.Location:pain radiates to jaw; left Onset/Timing:new onset; started 1days ago; sudden onset Quality:sharp pain Severity:no fever; current pain /10; severe pain;interferes with daily activities;interferes with ability to sleep Context:no recent URI; no recent trauma; no recent ear infection Alleviating factors:No relief with eating pad or Ibuprofen 800 Aggravating factors:chewing Associated Symptoms:no cough; no jaw popping or clicking;nasal discharge;sense of fullness/pressure;jaw pain;muffled hearingNotes:Severe sudden onset ear pain last night. Right ear is worse than left. Has had congestion. No sore throat. Right radiates to the TMJ region. Tried Ibuprofenn 800, heating pad. Put peroxide in the ear. Denies trauma. No fever. CINDY SEBASTIAN [address] [place], [address], PA - [facility] 06/20/2022 13:46:08 06/28/2022 text/html CongestionReport ed bypatient.Notes:nasal congestion with post nasal drip x 2 weeks. denies nay fever or fever with chills. no SOB or respiratory distress. Urbano Flores NP [address] [place], [address], PA - [facility] 06/28/2022 19:44:26 OBGyn Episode No OBEpisode recorded.
--- OUTSIDE RECORDS SUMMARY | 2024-08-15 10:28 | XMS_ITS | Clinical Summary ---
Author Organization [facility] ity Address [address] [place] [address] Care Team Providers Care Boiler Maker Name Role Phone Quinton Lopez MD Primary Care Provider Social History Tobacco Use Types Packs/Day Years Used Date Smoking Tobacco: Never Assessed Comments Unknown Sex and Gender Information Value Date Recorded Sex Assigned at Not on file Legal Sex Female 1:05 AM EST Gender Identity Not on file Sexual Orientation Not on file Plan of Treatment Health Maintenance Due Date Last Done Comments DTaP,Tdap,and Td Vaccines (1 - Tdap) 2006 Hepatitis B Vaccines (1 of 3 - 19+ 3-dose series) 2006 Cervical Cancer Screening: P ap Smear 02/18/2008 Depression Screening 04/18/2022 HIV Screening 04/18/2022 Hepatitis C Screening 04/18/2022 Social Influencers of Health Screening 04/18/2022 COVID-19 Vaccine (1 - 2023-2 5 season) 2024 Influenza Vaccine (#1) 2024 HIB Vaccines Aged Out No longer eligi ble based on patient's age to complete this topic HPV Vaccines Aged Out No longer eligi ble based on patient's age to complete this topic Hepatitis A Vaccines Aged Out No long er eligible based on patient's age to complete this topic IPV Vaccines Aged Out No longer eligi ble based on patient's age to complete this topic MMR Vaccines Aged Out No longer eligi ble based on patient's age to complete this topic Meningococcal ACWY Vaccine Aged Out N o longer eligible based on patient's age to complete this topic Meningococcal B Vacine Aged Out No lo nger eligible based on patient's age to complete this topic Pneumococcal Vaccine: Pediat rics (0 to 5 Years) and At-Risk Patients (6 to 64 Years) Aged Out No longer eligible b ased on patient's age to complete this topic RSV Immunization Patients Un josesito 20 months Aged Out No longer eligible b ased on patient's age to complete this topic Varicella Vaccines Aged Out No longer eligible based on patient's age to complete this topic Care Teams Boiler Maker Relationship Specialty Start Date End Date Quinton Lopez MD [address] [place] [address] Dr [address] [place] PCP - General Internal Medicine 04/09/13
[2024-08-15 10:54] LABS: Basophils Percent Auto 0.3 % (0-2); Eosinophils Absolute Auto 0.1 X10*3/uL (0.0-0.4); Eosinophils Percent Auto 2.5 % (0-4); Hematocrit 33.2 % (37.0-47.0); Hemoglobin 10.9 g/dl (12.0-16.0); Imm Gran Abs Auto 0.01 X10*3/uL (0.00-0.03); Imm Gran Pct Auto 0.3 % (0.0-0.4); Lymphocytes Absolute Auto 1.7 X10*3/uL (1.2-4.9); Lymphocytes Percent Auto 53.8 % (20-40); Mean Corpuscular HGB Conc 32.8 g/dl (31.0-35.0); Mean Corpuscular Hemoglobin 29.8 pg (27.0-33.0); Mean Corpuscular Volume 90.7 fL (80.0-98.0); Mean Platelet Volume 11.2 fL (9.4-12.3); Monocytes Absolute Auto 0.3 X10*3/uL (0.1-1.2); Monocytes Percent Auto 8.9 % (2-11); Neutrophils Absolute Auto 1.1 x10*3/uL (2.0-8.3); Neutrophils Percent Auto 34.2 % (45-73); Platelet Count 171 X10*3/uL (160-400); Red Blood Count 3.66 X10*6/uL (4.20-5.50); Red Cell Distribution Width 12.9 % (11.0-16.0); White Blood Count 3.1 X10*3/uL (4.8-10.8)
[2024-08-15 11:03] LABS: Estimated Average Glucose 143 mg/dL; Hemoglobin A1C 136.8387 umol/L; Hemoglobin A1c % 6.6 % (<6.0); Total Hemoglobin (HGBA1C) 2838.8707 umol/L
[2024-08-15 11:27] LABS: Appearance Urine Cloudy; Color Urine Yellow; Glucose Urine UA Negative (Negative); Leukocyte Esterase Urine Negative (Negative); Nitrite Urine Negative (Negative); Specific Gravity - Urine >= 1.030 (1.005-1.025); Urine Blood Negative (Negative); Urine Ketones Trace mg/dL (Negative); Urine Protein Trace mg/dL (Neg-Trace)
[2024-08-15 11:58] LABS: Alanine Aminotransferase 25 U/L (0-31); Albumin Level 4.3 g/dL (3.5-5.0); Alkaline Phosphatase 90 U/L (39-117); Anion Gap 8 (12-20); Aspartate Amino Transferase 21 U/L (5-31); Bilirubin Direct < 0.2 mg/dL (0.0-0.5); Bilirubin Total 0.2 mg/dL (0.0-1.0); Blood Urea Nitrogen 10 mg/dL (9-16); Calcium 9.6 mg/dL (8.4-10.2); Carbon Dioxide 31 mmol/L (22-29); Chloride 105 mmol/L (96-108); Cholesterol 152 mg/dL (<200); Estimated Glomerular Filt Rate > 60; Glucose Fasting 94 mg/dL (60-99); HDL Cholesterol 44 mg/dL (>40); LDL Cholesterol Calculated 80 mg/dL (<100); Potassium 3.9 mmol/L (3.3-5.1); Sodium 140 mmol/L (135-145); Triglycerides 143 mg/dL (<150)
[2024-08-15 12:19] LABS: Free T4 (Free Thyroxine) 0.94 ng/dL (0.71-1.85); TSH reflex Free T4 0.64 uIU/mL (0.32-4.0); Thyroid Stimulating Hormone 0.64 uIU/mL (0.32-4.0); Vitamin D 25-OH Total 25.1 ng/mL (>30)
[2024-08-16 05:39] LABS: DHEA Sulfate 83 mcg/dL (19-237); Follicle Stimulating Hormone 7.3 mIU/mL; Lutenizing Hormone 11.5 mIU/mL; Prolactin 11.6 ng/mL
[2024-08-16 17:53] LABS: HCV RNA PCR Qn <1.18 NOT DETECTED Log IU/mL (NOT DETECTED); HCV RNA PCR Qn <15 NOT DETECTED IU/mL (NOT DETECTED)
[2024-08-20 19:09] LABS: Testosterone, Free 3.4 pg/mL (0.1-6.4); Testosterone, Total 30 ng/dL (2-45)
== END 2024-08-15 09:23 | disposition home or self-care (01) ==
LOC: HO.LAB 09:22
PROVIDERS: Internal Medicine; PCP Internal Medicine; Visit Provider Internal Medicine
DX: N87.0 Mild cervical dysplasia (principal); E66.3 Overweight; K59.04 Chronic idiopathic constipation; B19.20 Unspecified viral hepatitis C without hepatic coma; F43.10 Post-traumatic stress disorder, unspecified; R87.610 Atypical squamous cells of undetermined significance on cytologic smear of cervix (ASC-US); Z87.42 Personal history of other diseases of the female genital tract; F19.11 Other psychoactive substance abuse, in remission; E78.00 Pure hypercholesterolemia, unspecified; R30.0 Dysuria; D64.9 Anemia, unspecified; E55.9 Vitamin D deficiency, unspecified; R73.9 Hyperglycemia, unspecified; M54.9 Dorsalgia, unspecified; M54.2 Cervicalgia
CPT/HCPCS: 36415; 72040; 72072; 80053; 80061; 80076; 81003; 82248; 82306; 82627; 83001; 83002; 83036; 84146; 84402; 84403; 84439; 84443; 85025; 87522

== ENCOUNTER → 2024-08-15 09:47 | Outpatient (BNV) | payer OTHER, SELFPAY | PROVIDERS: PCP Internal Medicine; Visit Provider Radiology Diagnostic Radiology | DX: M54.9 Dorsalgia, unspecified (principal); M54.2 Cervicalgia | CPT/HCPCS: 72040; 72072 ==

== ENCOUNTER 2024-09-03 13:23 | Outpatient (AMB) | payer OTHER, SELFPAY ==
--- OUTSIDE RECORDS SUMMARY | 2024-09-03 13:26 | XMS_ITS | Data Portability ---
Author Organization [facility], [address] Address [address] [place] [address] Care Team Providers Care Shackler Name Role Phone FATIMAH PURCELL Primary Care Provider Assessment No assessment recorded. Plan of Treatment Reminders Order Date Submit Date Provider Last Modified By Organization Details Last Modified Time Details Appointments None recorded. Lab rapid flu (A+B) 2022 023 [facility], [address] [place] [address], [phone], 3 19:43:13 rapid SARS CoV 2 Ag, QL IA, respiratory specimen [address], [address] [place] [address], [phone], 3 19:43:13 Referral None recorded. Procedures None recorded. Surgeries None recorded. Imaging None recorded. Medication Orders prednisone 20 mg tablet 2022 023 [facility] #[id number], [address] [place], [address], 3 19:43:15 Allergy Relief (fluticason e) 50 mcg/actuati on nasal spray,suspe nsion 2022 023 [facility] #0488, [address] [place], [address], 3 19:43:15 amoxicillin 875 mg-sarah dia clavulanate 125 mg tablet 2022 023 [facility] #0488, [address] [place], [address], 19:11:14 loratadine 10 mg tablet 2022 023 [facility] #0488, [address] [facility] [place], [address], 13:42:52 ibuprofen 800 mg tablet 2022 023 [facility] #0488, [address] [place], [address], 13:42:51 Patient TargetsNo targets recorded. Patient Instructions Encounter Date Encounter Id Patient Instructions Last Modified By Organization Details Last Modified Time 06/20/2022 [id number] earache: care instructions [email or web address] Not available 06/20/2022 13:42:47 ear infection (otitis media): care instructions [email or web address] Not available 06/20/2022 13:42:47 You have been [...] in the Eustachian Tube. 4. Saline Nasal Welcome 5. Salt Water Gargle 6. Staying Hydrated [...] to antibiotic resistance. Thank you for using [facility] today - and don't hesitate to contact our office if you have any concerns or questions. [email or web address] Not available 06/20/2022 13:42:45 06/28/2022 [id number] Sinusitis is an infection of the lining [...] care for yourself at home? Take an oynl-pey-bnwgyzf pain medicine. Avoid Ibuprofen, Aleve and Aspirin if . If the doctor prescribed antibiotics, take them as directed. Do not stop taking them just because you feel better. You need to take the full course of antibiotics. Be careful when taking whua-sfs-jlqgmvu cold or influenza (flu) medicines and Tylenol [...] = Negati ve Not Available [address] [address], [place], [address], 06/28/2022 19:11:28 06/28/19 23 06/28/2022 rapid flu (A+B) Unknown Analyte Normal = Negati ve Not Available [address] [place], [address], 06/28/2022 19:11:28 06/28/19 23 06/28/2022 rapid flu (A+B) Unknown Analyte negati ve Not Available [address] [place] [address] [place], [address], 06/28/2022 19:11:28 06/28/19 23 06/28/2022 rapid flu (A+B) Unknown Analyte negati ve Not Available [address] [place] [address] [place], [address], 06/28/2022 19:11:28 06/28/19 23 06/28/2022 rapid SARS CoV 2 Ag, QL IA, respi rator y speci men Unknown Analyte Normal =Negat mando Not Available [address] [place] [address], [place], [address], 06/28/2022 19:11:24 06/28/19 23 06/28/2022 rapid SARS CoV 2 Ag, QL IA, respi rator y speci men Unknown Analyte negati ve Not Available [address] [place] [address] [place], [address], 06/28/2022 19:11:24 Result Notes None recorded. Problems Name Problem SNOMED Code Status Onset Date Resolution Date Notes Provider Name and Address Organization Details Recorded Time Panic disorder 142395120 Active 2022 Jesica kern [place] - [facility] 3 13:21:01 Posttraumatic stress disorder 48549212 Active 2022 Jesica kern PA - [facility] 3 13:21:07 Depressive disorder 96713755 Active 2022 Jesica Lopez null, PA - [facility] 3 13:21:16 Psoriasis 0515665 Active 2022 Jesica Lopez null, PA - [facility] 3 13:21:35 Migraine 52946957 Active 2022 Jesica Lopez null, PA - [...] Updated DateTime 3 160.02 cm 26.6 kg/m2 34201.8 6 g 9 95 % 95 % 97 /min 20 /min 97.7 [degF] 100 mm[Hg] 63 mm[Hg] Jesica Lopez [employer] 3 13:25:42 Date Recorded Body height Body mass index (BMI) Body weight Oxygen saturation Oxygen saturation in Arterial blood by Pulse oximetry Pain severity - 0-10 verbal numeric rating [Score] - Reported Heart rate Respiratory rate Body temperature Systolic blood pressure Diastolic blood pressure Provider Name and Address Organization Details Last Updated DateTime 3 160.02 cm 26.6 kg/m2 49071.8 6 g 98 % 98 % 0 95 /min 20 /min 97.8 [degF] 104 mm[Hg] 73 mm[Hg] Kiersten Khan [place] [facility] 3 19:13:33 Social History Question Answer Notes LastModified by Organizat ion Details LastModified Time Tobacco Smoking Status Former Smoker Jesica kern PA [facility] 06/20/2022 13:22:48 What Is Your Level Of [...] SNOMED-CT Code Diagnosis ICD10 Code Diagnosis Note [id number] [facility] [address] [place] [address] 06/20/2022 11:26:48 06/20/2022 13:46:10 Acute right otitis media 025832688 H66.91 [id number] U[place]ano [place] [address] [place] [address] 06/28/2022 16:47:12 06/28/2022 19:46:46 Exposure to SARS-CoV-2 529223049 Z20.822 Acute sinusitis 31725750 J01.90 Health Concerns Section Related Observation LastModified by Organization Detai ls LastModified Time None Recorded Concern Status LastModified by Organization Details LastModified Time None Recorded Advance Directives Directive None Recorded Payers Encounter Date Sequence Insurance Name Policy Number Policy Small Covered Member ID Small Member ID Guarantor Name 06/20/2022 1 [facility] (MEDICAID HMO) JOSÉ Trujillo [id number] Jazmin Trujillo 06/28/2022 1 [facility] [employer] (MEDICAID HMO) JOSÉ Trujillo [id number] Jazmin Trujillo Notes Date Note Type Note [...] CINDY SEBASTIAN [address] [place], [address], [place] - [facility] 06/20/2022 13:46:08 06/28/2022 text/html CongestionReport ed bypatient.Notes:nasal congestion with post nasal drip x 2 weeks. denies nay fever or fever with chills. no SOB or respiratory distress. Urbano Flores NP [address] [place], [address], [place] - [facility] 06/28/2022 19:44:26 OBGyn Episode No OBEpisode recorded.
--- OUTSIDE RECORDS SUMMARY | 2024-09-03 13:26 | XMS_ITS | Clinical Summary ---
[facility] Organization [facility] Address [address] [place] [address] Care Team Providers Care Manager Of Environmental Services Name Role Phone Quinton Lopez MD Primary Care Provider [phone] Social History Tobacco Use Types Packs/Day Years [...] Influencers of Health Screening 04/18/2022 COVID-19 Vaccine ( - 2023-2 5 season) 2024 Influenza Vaccine (Season Ended) 2025 HIB Vaccines Aged Out No longer eligi [...] age to complete this topic Meningococcal B Vaccine Aged Out No l onger eligible based on patient's age to complete [...] age to complete this topic Care Teams Manager Of Environmental Services Relationship Specialty Start Date End Date Quinton Lopez MD [address] [place] [address] Dr [address] [place] PCP - General Internal Medicine 04/09/13
--- NOTE | 2024-09-03 13:39 | A.OFFPC_ITS ---
Vital Signs 09/03/24 13:40 Height 5 ft 3 in Weight 152 lb 2 oz BMI 26.9 BP 110/80 Blood Pressure Location Lt brachial Position Sitting Pulse 103 H Pulse Source Pulse Oximeter Pulse Oximetry (%) 98 Oxygen Delivery Method Room Air Intake Visit Reasons: 3 Months f/u Physician Practice Manager Required: No Accompanied by: Self / Same As Patient Allergies No Known Allergies [No Known Allergies*] Allergy (Verified 09/03/24 14:11) Medication List - Last Reconciled 09/03/24 by Quinton Lopez MD bisacodyl 5 mg PO BID PRN 30 days bupropion HCl XL 150 mg PO QAM 90 days buspirone 10 mg (2 x 5 mg) PO TID 30 days clonazepam 1 mg PO TID gabapentin 800 mg PO TID 30 days ibuprofen 600 mg PO TID methadone (Methadose) 68 mg PO DAILY multivitamin (Multiple Vitamins tablet) 1 tab PO DAILY 90 days nicotine (polacrilex) 4 mg buccal Q2H PRN 30 days polyethylene glycol 3350 17 grams PO DAILY PRN 30 days prazosin 5 mg PO BEDTIME promethazine 25 mg PO DAILY PRN 30 days psyllium husk (Reguloid (psyllium husk)) 1 tbsp PO DAILY 30 days quetiapine 100 mg PO TID quetiapine 100 mg PO BEDTIME PRN sodium phosphates 19-7 gram/118 mL (Fleet Enema) 118 mL MS BEDTIME PRN tizanidine 2 mg PO BID PRN triamcinolone acetonide 0.1% 1 appl topical BID PRN 30 days trolamine salicylate 10% (Arthricream) 1 appl See Protocol topical QID PRN 30 days venlafaxine ER 150 mg PO DAILY venlafaxine ER 75 mg PO DAILY Ventolin HFA 90 mcg/actuation (albuterol sulfate) 2 puffs inhalation Q6H PRN 30 days NS Tobacco use date assessed: 09/03/24 Dental Screening Dental Screen Date: 09/03/24 Did you have a dental visit in the last 12 months?: Yes Did you have a dental problem in the last 6 months where you did not have access to dental care?: No Was dental information given to patient?: Patient has dentist HPI 3 Months f/u HPI Details Patient comes in today for her follow-up visit States that she continues to experience recurrent neck pain and back pain although her current medications are helping to keep her pain manageable at present She denies any headaches or dizziness Denies any chest pains but reports experiencing frequent chest tightness and shortness of breath for a few weeks now Notes that her chest symptoms feel worse with increased activity or exertion She denies any recent cough or cold symptoms and is not aware that she has any history of asthma while growing up No nausea/vomiting, no abdominal pain No change in bowel habits noted States that she continues to have problems reaching her psychiatrist, Dr. Vishal Stark, regarding her prescription refills and she is wondering if there is any other psychiatrist that she can see She had her follow-up labs done a few weeks ago - to discuss her results [facility] Medical History (Updated 09/04/24 @ 03:50 by Quinton Lopez MD) Vitamin D deficiency Mixed hyperlipidemia Dysplasia of cervix, low grade (SIVAKUMAR 1) Overweight (BMI 25.0-29.9) History of substance abuse Impaired fasting glucose Constipation Positive hepatitis C antibody test Hip pain, bilateral Smoker Bipolar depression Anxiety Type 2 diabetes mellitus Muscle twitching Vision impairment Hx of hepatitis C Surgical History No pertinent past surgical history Family History Father Diabetes Cancer HTN (hypertension) Other Mental health problem Substance abuse Social History Household Members: None Housing: Homeless Housing Other:: halfway house Do you presently have visiting nurse or other home services: No Alcohol intake: never Patient Tobacco Use Status: Former Tobacco user Tobacco use type: Cigarette Cigarette Packs Per Day: 0.25 Cigarettes Per Day: 2 Years Smoked: 15 e-Cigarette/Vaping Use: Never Used Second Hand Smoke Exposure: Yes Substance Use Type: Crack/Cocaine and Heroin service: No Current occupational status: unemployed Sexual orientation: Straight/Heterosexual Gender identity: Female Cognitive needs: No Hearing needs: No Vision needs: Yes Female Reproductive History Menstrual Age of Menarche: 15 Questionnaire PHQ-9 Over the last 2 weeks, how often have you been bothered by any of the following problems? 1. Little interest or pleasure in doing things: not at all 2. Feeling down, depressed, or hopeless: not at all 3. Trouble falling or staying asleep, or sleeping too much: not at all 4. Feeling tired or having little energy: not at all 5. Poor appetite or overeating: not at all 6. Feeling bad about yourself - or that you are a failure or have let yourself or your family down: not at all 7. Trouble concentrating on things, such as reading the newspaper or watching television: not at all 8. Moving or speaking so slowly that other people could have noticed. Or the opposite - being so fidgety or restless that you have been moving around a lot more than usual: not at all 9. Thoughts that you would be better off or of hurting yourself in some way: not at all Total score: 0 Depression Screening Interpretation: Negative (is on Rx) Depression Screening Done: Yes 09918 - PHQ-9 Billing: Yes Source: Developed by Drs. Laron Newton, Briseyda Fam, Casey Murcia and colleagues, with an educational opal from [employer]. Thrive Questionnaire Date Thrive assessed: 09/03/24 I am a: Patient What is your living situation today?: I have a steady place to live Within the past 12 months, did the food you bought not last and you didn't have the money to get more?: Never true Within the past 12 months, did you worry whether your food would run out before you got money to buy more?: Never true Do you have trouble paying for medicines?: No Do you have trouble getting transportation to medical appointments?: No Do you have trouble paying your heating and electricity bill?: No Do you have trouble taking care of your child, family member or friend?: No Do you have trouble with day-to-day activities such as bathing, preparing meals, shopping, managing finances, etc.?: No Are you currently unemployed and looking for a job?: No Are you interested in more education?: No Please select the resources that you would like help with: None Currently or been in a relationship where the following occur: No concerns reported THRIVE Score: 0 AUDIT C Alcohol Use Questionnaire (AUDIT-C) 1. How often do you have a drink containing alcohol?: Never 3. How often do you have six or more drinks on one occasion?: Never Total Score: 0 Score Reviewed/Action Taken: Yes JAY-7 AMB Questionnaire JAY-7 Date JAY - 7 assessed: 09/03/24 Feeling nervous, anxious, or on edge: 0 = Not at all Not being able to stop or control worryin = Not at all Worrying too much about different things: 0 = Not at all Trouble relaxin = Not at all Being so restless that it is hard to sit still: 0 = Not at all Becoming easily annoyed or irritable: 0 = Not at all Feeling afraid as if something awful might happen: 0 = Not at all Total JAY-7 score (0-4 normal; 5-9 mild; 10-14 moderate; 15-21 severe): 0 Source: Developed by Drs. Laron Newton, Briseyda Fam, Casey Murcia and colleagues, with an educational opal from [employer]. Review of Systems Const Denies chills, Reports fatigue, Denies fever(s) and Denies headache(s) ENT Denies dysphagia, Denies dizziness, Denies otalgia, Denies headache(s), Reports neck pain, Denies odynophagia and Denies sore throat Card Denies chest pain, Denies rapid heart rate, Denies irregular heart rhythm, Denies palpitations and Reports dyspnea (at times lately - feels like she has a hard time catching her breath) Resp Denies chest congestion, Denies cough and Reports dyspnea (at times lately - feels like she has a hard time catching her breath) GI Denies abdominal pain, Reports constipation (chronic), Denies dysphagia, Denies heartburn, Denies nausea, Denies odynophagia and Denies vomiting Reports amenorrhea (x 2 years), Denies hematuria, Denies dysuria, Denies urinary incontinence and Denies urinary urgency Musc Reports back pain (over the upper back - see HPI for details), Denies arthralgias and Reports neck pain Skin/Breast Denies rash Neuro Denies dizziness, Denies headache(s) and Denies paresthesias Psych Reports anxiety and Reports depression (better controlled lately) Endo Reports fatigue and Denies palpitations Physical exam (Primary Care) Vital Signs: Last Vital Signs Pulse 103 H 09/03/24 13:40 BP 110/80 09/03/24 13:40 Pulse Ox 98 09/03/24 13:40 Oxygen Delivery Method Room Air 09/03/24 13:40 BMI result Body Mass Index 26.9 Tobacco/Smoking Status: Tobacco use Status Tobacco use date assessed 09/03/24 09/03/24 13:55 Patient Tobacco Use Status Former Tobacco user 09/03/24 13:55 Tobacco use type Cigarette 09/03/24 13:55 e-Cigarette/Vaping Use Never Used 09/03/24 13:55 PHQ-9: PHQ-9 Score PHQ-9: Total score 0 09/03/24 14:14 Depression Screening Interpretation: Negative (is on Rx) Thrive Assessment: Date of Thrive Assessment Date Thrive assessed 09/03/24 09/03/24 13:55 Currently or been in a relationship where the following occur: No concerns reported Const General: no acute distress and alert HENMT Ears: TM's normal bilaterally and EAC's normal Throat: Yes posterior oropharynx normal and Yes tonsils normal (no TP congestion) Neck Neck: No lymphadenopathy and Yes tender Thyroid: Thyroid normal Resp Auscultation: no crackles, no rales, wheezes (faint, occasionally) expiratory wheezes and throughout and diminished lung sounds (slightly) bilateral Cardio Rate: regular rate Rhythm: regular rhythm Heart sounds: no murmurs GI Palpation (GI): Soft to palpation and nontender Auscultation: normal bowel sounds General: Yes no CVA tenderness Back/Spine/Pelvis Back: no CVA tenderness Cervical Spine: cervical muscular tenderness, pain with cervical ROM and Cervical spine tenderness Thoracic/Lumbar Spine: paraspinal muscle tenderness bilaterally in the upper thoracic and in the mid thoracic Skin Rashes: no rashes Extrem General: Yes no clubbing, cyanosis or edema Results Reviewed Results Reviewed: Laboratory Tests 08/15/24 08/15/24 09:38 09:40 WBC 3.1 L Hgb 10.9 L Hct 33.2 L Plt Count 171 Sodium 140 Potassium 3.9 Creatinine 0.84 Estimated GFR > 60 Fasting Glucose 94 Hemoglobin A1c % 6.6 H Calcium 9.6 AST 21 ALT 25 Triglycerides 143 Cholesterol 152 LDL Cholesterol, Calc 80 HDL Cholesterol 44 25-OH Vitamin D Total 25.1 L TSH 0.64 Free T4 0.94 Ur Specific [place] >= 1.030 H Urine Protein Trace Urine Glucose (UA) Negative Urine Blood Negative Urine Nitrite Negative Ur Leukocyte Esterase Negative HCV RNA (PCR) IUs/ml <15 NOT DETECTED HCV RNA PCR log IUs/ml <1.18 NOT DETECTED Coding Level of Care Code Est Pt Level 4 (32233) Complex EM visit Add On G2211 Diagnoses Shortness of breath R06.02 Dyspnea type: shortness of breath Neck pain M54.2 Dorsal back pain M54.9 Migraine without status migrainosus, not intractable, unspecified migraine type G43.909 Migraine type: unspecified Status migrainosus presence: without status migrainosus Intractability: not intractable Chronic constipation K59.09 Impaired fasting glucose R73.01 History of substance abuse F19.11 Mixed hyperlipidemia E78.2 Elevated LFTs R79.89 Vitamin D deficiency E55.9 Anxiety F41.9 Bipolar depression F31.9 Overweight (BMI 25.0-29.9) E66.3 Additional Codes PHQ-9 - 52961 - PHQ-9 Billing: Yes ([id number]) Assessment & Plan Assessment & Plan (1) Dyspnea: Code(s): R06.00 - Dyspnea, unspecified Category: Medical Qualifiers: Dyspnea type: shortness of breath Qualified Code(s): R06.02 - Shortness of breath Plan: Discussed with patient her current chest auscultation reveals the presence of tight breath sounds and some faint expiratory wheezing Patient again states that she is not aware that she has any history of asthma while growing up She does have a history of smoking for about 15 years but she quit smoking a few years ago Will send her for PFTs for further evaluation Will start her in the meantime on Albuterol HFA 1-2 inhalations every 6 hours as needed for symptomatic relief (2) Neck pain: Code(s): M54.2 - Cervicalgia Category: Medical Plan: X-rays of the cervical spine done a few weeks ago revealed only the presence of mild degenerative changes noted over the lower cervical spine Continue Tizanidine 2 mg BID PRN (3) Dorsal back pain: Code(s): M54.9 - Dorsalgia, unspecified Category: Medical Plan: Thoracic spine x-rays done a few weeks ago came out normal, with no significant degenerative changes noted She is advised that her recurrent back pain is likely due to a combination of factors, including poor posture and her weight Can refer her to physical therapy for further evaluation and management if her back pain persists or recurs Continue Tizanidine 2 mg BID PRN (4) Migraines: Code(s): G43.909 - Migraine, unspecified, not intractable, without status migrainosus Category: Medical Qualifiers: Migraine type: unspecified Status migrainosus presence: without status migrainosus Intractability: not intractable Qualified Code(s): G43.909 - Migraine, unspecified, not intractable, without status migrainosus Plan: Controlled Continue Fioricet 1 tablet 2 to 3 times a day as needed for symptomatic relief of her headaches (5) Chronic constipation: Code(s): K59.09 - Other constipation Category: Medical Plan: Patient has been advised that 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 opioid-induced and related to her Methadone She is again encouraged to increase her oral fluids and dietary fiber intake She was prescribed Movantik previously but her insurance would not cover the Rx She has taken Miralax 17 gm QD, Amitiza 24 mcg BID and Bisacodyl 10 mg suppository QD PRN in the past but states that they did not help much She has been advised to continue on Miralax 17 gm QD (reminded that this has to be taken daily for it to help) and Senna 8.6 mg 1 to 2 tablets QD; she also takes Psyllium husk powder 1 tablespoon daily She also has fleet enema that she takes as needed when her constipation gets severe Follow up with GI as scheduled (6) Impaired fasting glucose: Code(s): R73.01 - Impaired fasting glucose Category: Medical Plan: In-office HgbA1c was normal at 5.5% and 5.4% when previously checked Reinforced low calorie/low carb diet; exercise as tolerated (7) History of substance abuse: Code(s): F19.11 - Other psychoactive substance abuse, in remission Category: Medical Plan: (+) Hx of substance abuse (heroin and crack cocaine) She is currently on Methadone at 68 mg QD; states that she is again trying to come down by 1 mg every week on her dose if she can and wishes to come off Methadone soon Follow up with the Methadone clinic as scheduled (8) Mixed hyperlipidemia: Code(s): E78.2 - Mixed hyperlipidemia Category: Medical Plan: Results of her labs done a few weeks ago reviewed and discussed with patient - she is reassured that her cholesterol are now normal on her recent labs Reinforced low cholesterol diet (9) Elevated LFTs: Code(s): R79.89 - Other specified abnormal findings of blood chemistry Category: Medical Plan: Her serum AST was normal and ALT was slightly elevated when they were last checked at the ER a few months ago but her LFTs are now normal on her recent labs Patient is advised that 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 due to hepatosteatosis and should improve with weight loss Will continue to monitor her LFTs regularly (10) Vitamin D deficiency: Code(s): E55.9 - Vitamin D deficiency, unspecified Category: Medical Plan: She is advised that her vitamin-D level is low on her recent labs Will start her on vitamin D3 2000 units QD (11) Anxiety: Code(s): F41.9 - Anxiety disorder, unspecified Category: Medical Plan: Patient is now seeing Dr. Vishal Stark for her psychiatry follow up and management although she reports experiencing problems reaching her psychiatrist when needed lately Continue Clonazepam 1 mg TID, Buspirone 10 mg TID and Bupropion XL 150 mg Q AM (12) Bipolar depression: Code(s): F31.9 - Bipolar disorder, unspecified Category: Medical Plan: Continue Quetiapine 100 mg TID and 100 mg Q HS PRN, Venlafaxine ER 225 mg (150 mg + 75 mg) QD, Prazosin 5 mg Q HS and Gabapentin 800 mg TID Follow up with psychiatry as scheduled (13) Overweight (BMI 25.0-29.9): Code(s): E66.3 - Overweight Category: Medical Plan: Reinforced diet/exercise as tolerated/lose weight - patient has been able to lose a lot of weight over the past several months She has previously inquired about starting on a GLP-1 to help her lose weight Advised patient that her BMI is currently <27 so she would not really qualify for the medication - would not be covered by her insurance Have advised that if she can continue to work on her weight loss, then she does not really need to start taking any Rx for weight loss Plan Follow up in 4 months Orders: Orders IRON PROFILE 4 Months D50.9 - Iron deficiency anemia, unspecified Lipid Panel 4 Months E78.00 - Pure hypercholesterolemia, unspecified Hemoglobin A1c 4 Months E11.9 - Type 2 diabetes mellitus without complications PFT pulmonary function test 09/03/24 R06.00 - Dyspnea, unspecified Comprehensive [place]. Panel Fast 4 Months E78.00 - Pure hypercholesterolemia, unspecified Complete Blood Count Auto Diff 4 Months D64.9 - Anemia, unspecified Vitamin D 25-OH Total 4 Months E55.9 - Vitamin D deficiency, unspecified Medications: New cholecalciferol (vitamin D3) 50 mcg PO DAILY 90 days 90 caps 3RF E55.9 - Vitamin D deficiency, unspecified Ventolin HFA 90 mcg/actuation (albuterol sulfate) 2 puffs inhalation Q6H 30 days PRN 18 grams 5RF shortness of breath or wheezing NS Changed From prazosin 2 mg PO BEDTIME 30 days 30 caps 2RF To prazosin 5 mg PO BEDTIME
[2024-09-03 13:40] VITALS: BP 110/80; PULSE 103; O2SAT 98; BMI 26.9
== END 2024-09-03 14:29 | disposition home or self-care (01) ==
LOC: HO.HMCH 13:24
PROVIDERS: PCP Internal Medicine; Visit Provider Internal Medicine
DX: R06.02 Shortness of breath (principal); F19.11 Other psychoactive substance abuse, in remission; F31.9 Bipolar disorder, unspecified; M54.2 Cervicalgia; M54.9 Dorsalgia, unspecified; G43.909 Migraine, unspecified, not intractable, without status migrainosus; K59.09 Other constipation; R73.01 Impaired fasting glucose; E78.2 Mixed hyperlipidemia; R79.89 Other specified abnormal findings of blood chemistry; E55.9 Vitamin D deficiency, unspecified; F41.9 Anxiety disorder, unspecified

== ENCOUNTER → 2024-09-03 13:23 | Outpatient (BNVA) | payer OTHER, SELFPAY | PROVIDERS: PCP Internal Medicine; Visit Provider Internal Medicine | DX: R06.02 Shortness of breath (principal); M54.2 Cervicalgia; M54.9 Dorsalgia, unspecified; G43.909 Migraine, unspecified, not intractable, without status migrainosus; K59.09 Other constipation; R73.01 Impaired fasting glucose; F19.11 Other psychoactive substance abuse, in remission; E78.2 Mixed hyperlipidemia; R79.89 Other specified abnormal findings of blood chemistry; E55.9 Vitamin D deficiency, unspecified; F41.9 Anxiety disorder, unspecified; F31.9 Bipolar disorder, unspecified; E66.3 Overweight; Z68.26 Body mass index [BMI] 26.0-26.9, adult; Z79.899 Other long term (current) drug therapy | CPT/HCPCS: 96127; 99212 ==

== ENCOUNTER 2025-01-25 11:04 | Outpatient (REF) | payer OTHER, SELFPAY ==
[2025-01-25 12:10] LABS: Appearance Urine Cloudy; Glucose Urine UA Negative (Negative); PH 6.0 (5.0-9.0); Specific Gravity - Urine 1.010 (1.005-1.025); UMIC TRIGGER UACC YES
[2025-01-25 12:13] LABS: UACC Culture Trigger YES
--- OUTSIDE RECORDS SUMMARY | 2025-01-25 12:59 | XMS_ITS | Clinical Summary ---
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 Role Phone Quinton Lopez MD Primary Care Provider Allergies No known active allergies Medications No known medications Active Problems No known active problems Social History Tobacco Use Types Packs/Day Years Used Date Smoking Tobacco: Former Cigarettes Smokeless Tobacco: Never Tobacco Cessation:Counseling Given: Not Answered Alcohol Use Standard Drinks/Week Comments Never 0 (1 standard drink = 0.6 oz pur e alcohol) Comments Unknown Sex and Gender Information Value Date Recorded Sex Assigned at Not on file Legal Sex Female 1:05 AM EST Gender Identity Not on file Sexual Orientation Not on file Obstetrics History Last Filed Vital Signs Vital Sign Reading Time Taken Comments Blood Pressure 110/62 09/22/2024 7:24 PM EDT Pulse 85 09/22/2024 7:24 PM EDT Temperature 36.8 C (98.2 F) 09/22/2024 7:24 PM EDT Respiratory Rate 18 09/22/2024 7:24 PM EDT Oxygen Saturation 98% 09/22/2024 7:24 PM EDT Inhaled Oxygen Concentration - - Weight 70.8 kg (156 lb) 09/22/2024 4:53 PM EDT Height 160 cm (5' 3 ) 09/22/2024 4:53 PM EDT Body Mass Index 27.63 09/22/2024 4:53 PM EDT Plan of Treatment Health Maintenance Due Date Last Done Comments Hepatitis B Vaccines (1 of 3 - 19+ 3-dose series) 2006 Pneumococcal Vaccine: Pediatrics (0 to 5 Years) and At-Risk Patients (6 to 49 Years) (1 of 2 - PCV) 2006 Cervical Cancer Screening: P ap Smear 02/18/2008 HIV Screening 04/18/2022 Hepatitis C Screening 04/18/2022 Social Influencers of Health Screening 04/18/2022 Depression Screening 05/16/2024 COVID-19 Vaccine (3 - 2024-2 6 season) 2025 08/21/2020, 07/10/2020 Influenza Vaccine (#1) 2025 , 02/08/2023 DTaP,Tdap,and Td Vaccines (3 - Td or Tdap) 05/30/2031 05/30/2021, 09/25/2016 HIB Vaccines Aged Out No longer eligi [...] to complete this topic RSV Immunization Patients Under 20 months Aged Out No longer eligible b ased on patient's age to complete this topic Varicella Vaccines Aged Out No longer eligible based on patient's age to complete this topic Insurance MEDICA[place] - [place] [facility] Care Teams Auto Mechanic Apprentice Relationship Specialty Start Date End Date Quinton Lopez MD [address] [place] [address] [address] [place] PCP - General Internal Medicine 04/09/13
== END 2025-01-25 11:05 | disposition home or self-care (01) ==
LOC: HO.LAB 11:04
PROVIDERS: PCP Internal Medicine; Visit Provider Internal Medicine
DX: D64.9 Anemia, unspecified (principal); E78.00 Pure hypercholesterolemia, unspecified
CPT/HCPCS: 81001; 81003; 87086; 87088; 87186

== ENCOUNTER 2025-05-01 13:41 | Outpatient (AMB) | payer OTHER, SELFPAY ==
--- NOTE | 2025-05-01 13:51 | A.OFFVIS_ITS ---
Vital Signs 05/01/25 13:52 Height 5 ft 3 in Weight 125 lb BMI 22.1 BP 108/68 Blood Pressure Location Lt brachial Position Sitting Intake Visit Reasons: Amenorhea follow up Allergies No Known Allergies (No Known Allergies*) Allergy (Verified 09/03/24 14:11) Medication List - Last Reconciled 05/01/25 by Yvette Bain CNM buspirone 10 mg (2 x 5 mg) PO TID 30 days clonazepam 1 mg PO TID 28 days gabapentin 800 mg PO TID 30 days ibuprofen 600 mg PO TID methadone (Methadose) 68 mg PO DAILY multivitamin (Multiple Vitamins tablet) 1 tab PO DAILY 90 days polyethylene glycol 3350 17 grams PO DAILY PRN 30 days prazosin 5 mg PO BEDTIME promethazine 25 mg PO DAILY PRN 30 days psyllium husk (Reguloid (psyllium husk)) 1 tbsp PO DAILY 30 days quetiapine 100 mg PO BEDTIME PRN quetiapine 100 mg PO TID sulfamethoxazole-trimethoprim 800-160 mg (Bactrim DS) 1 tab PO BID 7 days triamcinolone acetonide 0.1% 1 appl topical BID PRN 30 days trolamine salicylate 10% (Arthricream) 1 appl See Protocol topical QID PRN 30 days venlafaxine ER 150 mg PO DAILY Ventolin HFA 90 mcg/actuation (albuterol sulfate) 2 puffs inhalation Q6H PRN 30 days NS Ventolin HFA 90 mcg/actuation (albuterol sulfate) 2 puffs inhalation Q6H PRN 30 days NS HPI HPI Amenorhea follow up: Details: Patient is actually here for her cotton factor annual she missed appointments for about a year and a half. She actually started getting her period back last September. She is been doing well and is reportedly clean and off substances for about 9 months or possibly more. She is on methadone she is hoping to get off of it she is going down about 1 mg a week. She is in a relationship and has a fiancee since last June and is starting to think about wanting to have a baby in the last couple of months and is really hoping to get off everything and move forward. She has a therapist she has a psychiatrist she has the counselor through the methadone program across the street where she goes and she has primary care and she is healthy and she eats well she gained a little bit await. Her periods have been coming very regular and she has been tracking them she just got an ofelia and has just started with that. Her last menstrual period was April 23 so today is day 8 of that is cycle. The ofelia tells her when she ovulates but she does not know the signs or symptoms yet. She is also down from half a pack a day to 2 cigarettes a day. [facility] Medical History (Updated 05/01/25 @ 14:48 by Yvette Bain CNM) Vitamin D deficiency Mixed hyperlipidemia Dysplasia of cervix, low grade (SIVAKUMAR 1) Overweight (BMI 25.0-29.9) History of substance abuse Impaired fasting glucose Constipation Positive hepatitis C antibody test Hip pain, bilateral Smoker Bipolar depression Anxiety Type 2 diabetes mellitus Muscle twitching Vision impairment Hx of hepatitis C Surgical History No pertinent past surgical history Family History Father Diabetes Cancer HTN (hypertension) Other Mental health problem Substance abuse Social History (Updated 05/01/25 @ 13:59 by Tonia Galicia) Household Members: None Housing: Apartment Housing Other:: longterm house Do you presently have visiting nurse or other home services: No Alcohol intake: never Patient Tobacco Use Status: Former Tobacco user Tobacco use type: Cigarette Cigarette Packs Per Day: 0.25 Cigarettes Per Day: 2 Years Smoked: 15 e-Cigarette/Vaping Use: Never Used Second Hand Smoke Exposure: Yes Substance Use Type: Crack/Cocaine and Heroin Substance Use Frequency Other:: none currently service: No Current occupational status: unemployed Sexual orientation: Straight/Heterosexual Gender identity: Female Cognitive needs: No Hearing needs: No Vision needs: Yes Female Reproductive History Menstrual Age of Menarche: 15 Duration of menses: 6-7 days Date of last menstrual period: 04/28/25 Total pregnancies: 2 Ab induced: 1 Ab spontaneous: 1 History of abnormal pap smear: Yes (every pap since age 18) History of STI: No Physical Exam Vital Signs: Last Vital Signs BP 108/68 05/01/25 13:52 BMI result Body Mass Index 22.1 Const General: healthy appearing, comfortable, no acute distress, well developed and alert Nutritional Appearance: average body habitus Orientation/consciousness: patient oriented x3 Limitations: no limitations HEENT Head: Yes normocephalic Neck Neck: Yes normal visual inspection Chest Chest palpation & inspection: normal inspection of the chest Breast/axilla inspection: normal inspection of the breasts and normal inspection of the axillae Breast/axilla palpation: normal palpation of the breasts and normal palpation of the axillae Resp Effort & Inspection: normal respiratory effort GI Inspection: Yes normal to inspection, No Abdominal wall edema and No distended Palpation (GI): Soft to palpation and nontender Other: Normal external exam vagina is pink and moist nulliparous cervix is pink and smooth and healthy appearing with no abnormal discharge uterus midposition to anteverted mobile nontender adnexa nontender good tone with Kegel. General: Yes bladder normal to palpation External Female Exam: normal external appearance and normal appearance of the urethra Speculum Exam - Vagina: normal appearance of the vagina, normal palpation and normal vaginal discharge Speculum Exam - Cervix: normal appearance of the cervix, normal palpation and nontender Bimanual exam- vagina & uterus: normal bimanual exam, normal palpation, uterine size normal, bladder normal to palpation, consistency normal, normal palpation, uterine mobility normal, uterine shape normal, No Cervical tenderness present, non-tender and no cervical motion tenderness Bimanual Exam- Adnexa, other: normal adnexae, no masses, normal and No adnexal tenderness Neuro General: patient oriented x3 Results Reviewed Results Reviewed: Name: Jazmin Trujillo Age/Sex: 36/F Attending: Yvette Bain CNM : 1985 Submitted by: Yvette Bain CNM Copies to: Quinton Lopez MD MR #: [id number] Status: DEP REF Collected: 01/20/22 Location: [facility] Received: 01/22/22 Interpretation General Category: Epithelial cell abnormality. Adequacy: Endocervical component present. Interpretation: Atypical squamous cells of undetermined significance. HPV mRNA E6/E7: Not Detected This assay detects E6/E7 viral messenger RNA (mRNA) from 14 high-risk HPV types (16, 18, 31, 33, 35, 39, 45, 51, 52, 56, 58, 59, 66, 68) HPV testing performed by [facility], [place], [place]. See reference laboratory portion of the EMR for entire report. Clinical Information LMP: 2020 Previous PAP test: 2019, WNL Other history: 2006 LGSIL Material Received ThinPrep Cervical Copies To Quinton Lopez MD [address] [facility] [address] [place] [address] Ochoa [address] [place] [id number] Electronically Signed By: Clifford Woodward MD 02/03/22 8424 The Pap Test is a screening procedure with the inherent possibility of both false negative and false positive results. Results should be interpreted in the context of historic and current clinical findings. Reliability of the Pap Test is enhanced by performing the test on a regular repetitive basis. Patient: Jazmin Trujillo Age/Sex: 36/F MR#: [id number] Page 1 of 1 Name: Jazmin Trujillo Age/Sex: 37/F Attending: Dixon Hawkins MD : 1985 Submitted by: Dixon Hawkins MD Copies to: Quinton Lopez MD MR #: [id number] Status: DEP REF Collected: 03/09/22 Location: [facility] Received: 03/09/22 Diagnosis A. Endocervix, curettage: Scant superficial squamous and rare endocervical epithelium within normal limits. B. Cervix, 5 o'clock, biopsy: Squamous mucosa and endocervical epithelium within normal limits. C. Cervix, 9 o'clock, biopsy: Scant squamous and endocervical epithelium within normal limits. D. Cervix, 11 o'clock, biopsy: Squamous mucosa within normal limits; no endocervical epithelium identified. COMMENT: The findings are concordant with the patient's recent Pap/cytology specimen ([id number]; ASCUS with negative HPV) - slide reviewed. Clinical History ASCUS of cervix, negative HPV Microscopic Description A-D. Microscopic sections reviewed. Material Received A: ECC B: Cx bx 5 C: Cx bx 9 D: cx bx 11 Gross Description Received in four parts. Part A: Received in formalin labeled ECC is a 0.2 x 0.2 x 0.05 cm. aggregate of predominantly clear mucus with minute shards of pink-red tissue. The specimen is submitted in toto in a single cassette labeled A. Part B: Received in formalin labeled Cx bx 5 o'clock are several minute to 0.3 cm. in greatest dimension, thin and delicate shards of semitranslucent, finney-white mucus versus mucosa. The specimen is submitted in toto in a single cassette labeled B. Part C: Received in formalin labeled Cx bx 9 o'clock is a 0.3 cm. in greatest dimension aggregate of Patient: Jazmin Trujillo Age/Sex: 37/F MR#: [id number] Page 1 of 2 Surgical Pathology [id number] clear tenacious mucus with a 0.1 cm. in greatest dimension shard of finney-white tissue. The specimen is submitted in toto in a single cassette labeled C. Part D: Received in formalin labeled Cx bx 11 o'clock are two glistening, semitranslucent, pale, carr- white, irregular fragments of mucosa, each measuring 0.3 cm. in greatest dimension, which are submitted in toto in a single cassette labeled D. CEDS Copies To Quinton Lopez MD [address] [place] [id number] Dixon Hawkins MD [address] [place] [address] Dr. Ochoa [address] [place] [address] NOTE: Some or all of the immunohistochemical tests reported herein may have been developed and their performance characteristics determined by [facility]. They have not been cleared or approved by the U.S. Food and Drug Administration (FDA). However, the FDA has determined that such clearance or approval is not necessary. This laboratory is certified under the Clinical Laboratory Improvement Amendments of 1988 (CLIA) as qualified to perform high complexity clinical laboratory testing. Electronically Signed By: Clifford Woodward MD 03/10/22 7009 Patient: Jazmin Trujillo Age/Sex: 37/F MR#: [id number]. Assessment & Plan Assessment & Plan (1) Amenorrhea, secondary: Comment: Periods have now resumed as of last September 2024... Code(s): N91.1 - Secondary amenorrhea Category: Medical (2) Hx of abnormal cervical Pap smear: Comment: hx of lsil, last pap normal 2019, pap 01/22/22= ascus, hpv neg. ASCCP gives no guidance for this scenario- will refer for colpo Code(s): Z87.42 - Personal history of other diseases of the female genital tract Category: Medical (3) ASCUS of cervix with negative high risk HPV: Comment: History of LGSIL/SIVAKUMAR 1 Negative colpo/biopsy/ECC Code(s): R87.610 - Atypical squamous cells of undetermined significance on cytologic smear of cervix (ASC-US) Category: Medical (4) Opiate dependence: Code(s): F11.20 - Opioid dependence, uncomplicated Category: Medical (5) History of substance abuse: Code(s): F19.11 - Other psychoactive substance abuse, in remission Category: Medical Plan -----Discussed in this visit the following: healthy balanced diet, regular and consistent exercise, getting recommended health screens, doing the best she can for her particular health concerns, kegel exercises, pap smear screening and followup recommendations, mammography screening and SBE, normal changes in cycles in her life stage--- .---I discussed with pt some of the optimal strategies for planning a , including achieving the best health she can before , including heathy balanced diet, exercise, wt loss to ideal BMI if appropriate, avoiding toxic substances and medications, not smoking, and taking a multivitamin w folic acid daily. Any specific health concerns should be managed before seeking/ putting oneself at risk of pregancy. In addition I reviewed normal cycles, fertility awareness and signs of ovulation, and timing to avoid, and achieve when she feel ready. I also discussed emotional and relationship and support readiness before embarking on . In particular discussed the if she is doing any weaning of her methadone that usually what ever she would be at when she conceives would be where they would keep her throughout the in terms of her dosage and she would need to be followed closely and she would be a high-risk which surprised her. I did discuss the rationale for this and that there would be lots of issues to be discussed from an early stage of the and also that the be plans made for pediatric care and follow-up and withdrawal issues and all of this would need to be planned with the team that she would be with. For her care she would need to seek care at [facility] probably at [facility] early in the as many tests are important to be done in the 1st trimester. I congratulated her on her recovery and her hard work and wished her luck she is on a multivitamin every day and I told her that that was sufficient for the folic acid needs. Until she did get and then she could start . She has her primary care provider and therapist and psychiatrist and co unselors. I also reviewed with her the signs and symptoms of ovulation and where in and how to look for them in her cycle and what to be alert for in terms of her symptoms.. Medications: Discontinued tizanidine Discontinued Reason: Patient no longer taking 2 mg PO BID PRN 30 tabs 0RF muscle spasms/back and neck pain cholecalciferol (vitamin D3) Discontinued Reason: Patient no longer taking 50 mcg PO DAILY 90 days 90 caps 3RF E55.9 - Vitamin D deficiency, unspecified venlafaxine ER 75 mg + 150 mg to equal total of 225 mg DAILY DOSE Discontinued Reason: Patient no longer taking 75 mg PO DAILY 30 caps 2RF bupropion HCl XL Discontinued Reason: Patient no longer taking 150 mg PO QAM 90 days 90 tabs 1RF nicotine (polacrilex) Discontinued Reason: Patient no longer taking 4 mg buccal Q2H 30 days PRN 220 ea 0RF nicotine cravings sodium phosphates 19-7 gram/118 mL (Fleet Enema) Discontinued Reason: Patient no longer taking 118 mL ID BEDTIME PRN 10 multiple units 0RF severe constipation Coding Level of Care Code Est Pt Prev Care 18-39y(45182) Diagnoses Amenorrhea, secondary N91.1 Hx of abnormal cervical Pap smear Z87.42 ASCUS of cervix with negative high risk HPV R87.610 Opiate dependence F11.20 History of substance abuse F19.11
[2025-05-01 13:52] VITALS: BP 108/68; BMI 22.1
--- OUTSIDE RECORDS SUMMARY | 2025-05-01 18:12 | XMS_ITS | Clinical Summary ---
Author Organization [facility] Address [address] [place] [address] Phone Care Team Providers Care Curator Of Education Name Role Phone Quinton Lopez MD Primary [...] on file Sexual Orientation Not on file Last Filed Vital Signs Vital Sign Reading [...] Date Last Done Comments Hepatitis B Vaccines (+ 3-dose series) 2006 Cervical Cancer Screening: P ap Smear 02/18/2008 HPV Vaccines (1 - 3-dose SCD M series) 2014 HIV Screening 04/18/2022 Hepatitis C Screening 04/18/2022 Social Influencers of Health Screening 04/18/2022 Depression Screening 05/16/2024 COVID-19 Vaccine (3 - 2024-2 6 season) 2025 08/21/2020, 07/10/2020 Influenza Vaccine (#1) 2025 , 02/08/2023 DTaP,Tdap,and Td Vaccines (3 - Td or Tdap) 05/30/2031 05/30/2021, 09/25/2016 RSV Immunization Adult Patients (1 - 1-dose 75+ series) 2062 HIB Vaccines Aged Out No longer eligi [...] age to complete this topic Pneumococcal Vaccine: Pediatrics (0 to 5 Years) and At-Risk Patients (6 to 49 Years) Aged Out No longer eligible b ased on patient's age to complete this topic RSV Immunization Patients Under 20 months Aged Out No longer eligible b ased on patient's age to complete this topic Varicella Vaccines Aged Out No longer eligible based on patient's age to complete this topic Insurance MEDICAID - [facility] Care Teams Curator Of Education Relationship Specialty Start Date End Date Quinton Lopez MD [address] [place] [address] [address] [place], [place] PCP - General Internal Medicine 04/09/13
== END 2025-05-01 16:19 | disposition home or self-care (01) ==
LOC: HO.HWSM 13:41
PROVIDERS: PCP Internal Medicine; Visit Provider Advanced Practice Midwife
DX: Z01.419 Encounter for gynecological examination (general) (routine) without abnormal findings (principal); N91.1 Secondary amenorrhea; Z87.42 Personal history of other diseases of the female genital tract; R87.610 Atypical squamous cells of undetermined significance on cytologic smear of cervix (ASC-US); F11.20 Opioid dependence, uncomplicated; F19.11 Other psychoactive substance abuse, in remission
CPT/HCPCS: 99395; 99459

== ENCOUNTER 2025-05-01 13:41 | Outpatient (REF) | payer OTHER, SELFPAY ==
--- OUTSIDE RECORDS SUMMARY | 2025-05-01 20:47 | XMS_ITS | Data Portability ---
Author Organization CINDY [facility], [address] Address [address] [place] [address] Care Team Providers Care Maintenance Planning Clerk Name Role Phone FATIMAH PURCELL Primary Care Provider [phone] Assessment No assessment recorded. Plan of Treatment Reminders Order Date Submit Date Provider Last Modified By Organization Details Last Modified Time Details Appointments None recorded. Lab rapid flu (A+B) 2022 023 [facility] _[facility], [address] [place] [address], [phone], 3 19:43:13 rapid SARS CoV 2 Ag, QL IA, respiratory specimen 2022 023 [facility] [address] [place] [address], [address] [place] [address], [phone], 3 19:43:13 Referral None recorded. Procedures None recorded. Surgeries None recorded. Imaging None recorded. Medication Orders prednisone 20 mg tablet 2022 023 [facility] #[id number], [address] [place], [address], 3 19:43:15 Allergy Relief (fluticason e) 50 mcg/actuati on nasal spray,suspe nsion 2022 023 [facility] #0488, [address] [place], [address], 3 19:43:15 amoxicillin 875 mg-sarah dia clavulanate 125 mg tablet 2022 023 [facility] #0488, [address] [place], [address], 3 19:11:14 loratadine 10 mg tablet 2022 023 [facility] #0488, [address] [place], [address], 3 13:42:52 ibuprofen 800 mg tablet 2022 023 [facility] #[id number], [address] [place], [address], 3 13:42:51 Patient TargetsNo targets recorded. Patient Instructions Encounter Date Encounter Id Patient Instructions Last Modified By Organization Details Last Modified Time 06/20/2022 [id number] earache: care instructions [email or web address] Not available 06/20/2022 13:42:47 ear infection (otitis media): care instructions [email or web address] Not available 06/20/2022 13:42:47 You have been [...] in the Eustachian Tube. 4. Saline Nasal [place] 5. Salt Water Gargle 6. Staying Hydrated [...] to antibiotic resistance. Thank you for using [facility] today - and don't hesitate to contact our office if you have any concerns or questions. [email or web address] Not available 06/20/2022 13:42:45 06/28/2022 [id number] Sinusitis is an infection of the lining [...] care for yourself at home? Take an pyrf-gcl-eyzmgvy pain medicine. Avoid Ibuprofen, Aleve and Aspirin if . If the doctor prescribed antibiotics, take them as directed. Do not stop taking them just because you feel better. You need to take the full course of antibiotics. Be careful when taking qjmj-kuu-nwrhgzd cold or influenza (flu) medicines and Tylenol [...] wear a mask. For travel guidance, see CDC s Travel webpage. Do not travel. Stay home and separate from others as much as possible. Use a separate bathroom, if possible. Take steps to improve ventilation at home, if possible. Don t share personal household items, like cups, [...] masking (see below). For travel guidance, see CDC s Travel webpage. Not available 06/28/2022 19:38:44 Reason for Referral None Reported. Results Created Date Observation Date Name Description Value Unit Range Abnormal Flag Note LastModifiedBy Organization Detail LastModifiedTime 06/28/19 23 06/28/2022 rapid flu (A+B) Unknown Analyte Normal = Negati ve Not Available [facility] [address] [place] [address], [place], [address], 06/28/2022 19:11:28 06/28/19 23 06/28/2022 rapid flu (A+B) Unknown Analyte Normal = Negati ve Not Available [facility] [place], [address], 06/28/2022 19:11:28 06/28/19 23 06/28/2022 rapid flu (A+B) Unknown Analyte negati ve Not Available [address] [place] [address] [place], [address], 06/28/2022 19:11:28 06/28/19 23 06/28/2022 rapid flu (A+B) Unknown Analyte negati ve Not Available [address] [place], [place] [address], [address], 06/28/2022 19:11:28 06/28/19 23 06/28/2022 rapid SARS CoV 2 Ag, QL IA, respi rator y speci men Unknown Analyte Normal =Negat mando Not Available [address] [place] [address], [address], 06/28/2022 19:11:24 06/28/19 23 06/28/2022 rapid SARS CoV 2 Ag, QL IA, respi rator y speci men Unknown Analyte negati ve Not Available [address] [place] [address], [phone], 06/28/2022 19:11:24 Result Notes None recorded. Problems Name Problem SNOMED Code Status Onset Date Resolution Date Notes Provider Name and Address Organization Details Recorded Time Panic disorder 415855267 Active 023 Jesica kern PA - [facility] 3 13:21:01 Post-traumat ic stress disorder 81981533 Active 023 Jesica kern PA - [facility] 3 13:21:07 Depressive disorder 71526953 Active 023 Jesica Lopez null, PA - [facility] 3 13:21:16 Psoriasis 6698885 Active 023 Jesica Lopez null, PA - [facility] 3 13:21:35 Migraine 27003344 Active 023 Jesica kern, PA - [facility] 3 13:21:45 Problem [...] Not Available Not Available No t Available amoxicillin 875 mg-potassiu m clavulanate 125 mg tablet Take 1 tablet twice a day by oral route. 06/28 completed Not Available Not Available Not Available nicotine 7 mg/24 hr daily transdermal [...] numeric rating [Score] - Reported Oxygen saturation Heart rate Respiratory rate Body temperature Systolic And Diastolic Provider Name and Address Organization Details Last Updated DateTime 3 160.02 cm 26.6 kg/m2 29068.8 6 g 9 95 % 97 /min 20 /min 97.7 [degF] 100/63 mm[Hg] Jesica WHITE - [facility] 3 13:25:42 Date Recorded Body height Body mass index (BMI) Body weight Oxygen saturation Pain severity - 0-10 verbal numeric rating [Score] - Reported Heart rate Respiratory rate Body temperature Systolic And Diastolic Provider Name and Address Organization Details Last Updated DateTime 3 160.02 cm 26.6 kg/m2 96163.8 6 g 98 % 0 95 /min 20 /min 97.8 [degF] 104/73 mm[Hg] Kiersten Khan PA - [facility] 3 19:13:33 Social History Question Answer Notes LastModified by Organizat ion Details LastModified Time Tobacco Smoking Status Former Smoker Jesica kern PA Anita [facility] 06/20/2022 13:22:48 When Did You Quit Smoking? 1-5yearssinc elastcigaret te Information not available 06/20/2022 Have You Recently Traveled Abroad? No Information not available 06/20/2022 Sex: Unknown Functional Status Question Answer Note LastModified by Organizat ion Details LastModified Time Do you use any illicit or recreational drugs? No Information not available 06/20/2022 Do you or have you ever used any other forms of tobacco or nicotine? No Information not available 06/20/2022 What is your level of alcohol consumption? None Information not available 06/20/2022 Mental Status None recorded. Family History Relationship Description Onset Age of this Age Resolved Age Notes LastModified by Organization Details LastModified Time Mother Malignant neoplasm of cervix uteri [email or web address] Not available 09/2022 13:22:14 Sister Malignant neoplasm of cervix uteri [email or web address] Not available 09/2022 13:22:14 Medical History No medical history recorded. Gynecological HistoryNo gynecological history recorded. Obstetrics History GPAL:G 0 P 0 0 0 0 Immunizations Vaccine Type Date Status Note Provider Nam e and Address Organization Details Recorded Time COVID-19, mRNA, LNP-S, PF, 100 mcg/0.5mL dose or 50 mcg/0.25mL dose 1 completed Jesica Monfette null, PA - [facility] 06/20/2022 13:13:34 COVID-19, mRNA, LNP-S, PF, 100 mcg/0.5mL dose or 50 mcg/0.25mL dose 1 completed Jesica Monfette null, PA - [facility] 06/20/2022 13:13:34 Tdap 2 completed Jesica Monfette null, PA - [facility] 06/20/2022 13:13:34 Td (adult), 5 Lf tetanus toxoid, preservative free, adsorbed 7 completed Jesica Monfette null, PA - [facility] 06/20/2022 13:13:34 Past Encounters Encounter ID Performer Location Encounter Start Date Encounter Closed Date Diagnosis/Indication Diagnosis SNOMED-CT Code Diagnosis ICD10 Code Diagnosis IMO Codes Diagnosis Note [id number] CINDY SEBASTIAN [address] [address] [address] 06/20/2022 11:26:48 06/20/2022 13:46:10 Acute right otitis media 253044337 H66.91 [id number] Urbano Flores, [employer] [facility]ins [address] [place] [phone] 06/28/2022 16:47:12 06/28/2022 19:46:46 Exposure to SARS-CoV-2 218968348 Z20.822 Acute sinusitis 20303775 J01.90 Health Concerns Section Related Observation LastModified by Organization Detai ls LastModified Time None Recorded Concern Status LastModified by Organization Details LastModified Time None Recorded Advance Directives Directive None Recorded Payers Insurance Date Sequence Insurance Name Policy Number Policy Small Covered Member ID Small Member ID Guarantor Name 06/28/2022 1 [facility] (MEDICAID HMO) JOSÉ Trujillo [id number] Jazmin Trujillo 06/21/2022 1 [facility] (HMO) JOSÉ Trujillo [id number] Jazmin Trujillo Notes Date Note Type Note Provider Name and Address Organization Details Recorded Time 3 text/html Ear Pain Brief HPIReported by PatientHPIFor location, patient reportspain radiates to jawbut reportsleft. For quality, patient reportssharp pain. For severity, patient reportsinterferes with daily activitiesandinterferes with ability to sleepbut reportsno fever,current pain __/10, andsevere pain. For associated symptoms, patient reportsnasal discharge,sense of fullness/pressure,jaw pain, andmuffled hearingbut reportsno coughandno jaw popping or clicking. For onset/timing, patient reportsnew onset,started 1days ago, andsudden onset. For context, patient reportsno recent uri,no recent trauma, andno recent ear infection. For aggravating factors, patient reportschewing. For alleviating factors, (no relief with eating pad or ibuprofen 800).Severe sudden onset ear pain last night. Right ear is worse than left. Has had congestion. No sore throat. Right radiates to the TMJ region. Tried Ibuprofenn 800, heating pad. Put peroxide in the ear. Denies trauma. No fever. CongestionReported by Patient CINDY SEBASTIAN [address] [place], [address], [place] - [facility] 06/20/2022 13:46:08 3 text/html CongestionReported by Patientnasal congestion with post nasal drip x 2 weeks. denies nay fever or fever with chills. no SOB or respiratory distress. Urbano Flores NP [address] [place], [address], [facility] 06/28/2022 19:44:26 OBGyn Episode No OBEpisode recorded.
[2025-05-02 16:13] LABS: Bacterial Vaginosis PCR NEGATIVE (Negative); Candida Group PCR DETECTED (Not Detect); Candida glab krusei PCR DETECTED (Not Detect); Trichomonas vaginalis PCR NOT DETECTED (Not Detect)
[2025-05-02 16:24] LABS: CT PCR NOT DETECTED (Not Detect.); NG PCR NOT DETECTED (Not Detect.)
== END 2025-05-01 13:42 | disposition home or self-care (01) ==
LOC: HO.LNP 13:41
PROVIDERS: PCP Internal Medicine; Visit Provider Advanced Practice Midwife
DX: N91.1 Secondary amenorrhea (principal); R87.610 Atypical squamous cells of undetermined significance on cytologic smear of cervix (ASC-US); F11.20 Opioid dependence, uncomplicated; F19.11 Other psychoactive substance abuse, in remission; Z20.2 Contact with and (suspected) exposure to infections with a predominantly sexual mode of transmission; Z87.42 Personal history of other diseases of the female genital tract
CPT/HCPCS: 81515; 87491; 87591; 87626; 88175